=== PATIENT | male | born 1965 | race Caucasian/White ===

== ENCOUNTER 2021-06-08 12:42 | Emergency (ER) | payer MEDICAID ==
--- NOTE | 2021-06-08 18:08 | ER ---
Nurse's Notes [facility] Name: Amador Cosme Age: 55 yrs Sex: Male : 1965 Arrival Date: 06/08/2021 Time: 12:44 Bed 12 Private MD: Diagnosis: Presentation: 06/08 12:48 Chief complaint: Patient states: Was exposed to someone with COVID. No symptoms. kg Coronavirus screen: Client denies travel out of the [place] in the last 14 days. At this time, unable to obtain information related to travel outside the [place] At this time, the client does not indicate any symptoms associated with coronavirus-19. 12:48 Method Of Arrival: Ambulatory kg 12:49 Ebola Screen: Patient negative for fever greater than or equal to 101.5 degrees kg Fahrenheit, and additional compatible Ebola Virus Disease symptoms Patient denies exposure to infectious person. Patient denies travel to an Ebola-affected area in the 21 days before illness onset. Initial Sepsis Screen: Does the patient meet any 2 criteria? No. Patient's initial sepsis screen is negative. Does the patient have a suspected source of infection? No. Patient's initial sepsis screen is negative. Risk Assessment: Do you want to hurt yourself or someone else? Patient reports no desire to harm self or others. 12:49 Acuity: DAO 5 kg Triage Assessment: 12:50 General: Appears in no apparent distress. Behavior is calm, cooperative, appropriate kg for age, quiet. Pain: Denies pain. Historical: - Allergies: 12:50 TETRACYCLINES; kg 12:50 Prednisone; kg - Home Meds: 12:50 lisinopril Oral [Active]; Humalog Sub-Q [Active]; long acting insulin- unsure of type kg [Active]; - PMHx: 12:50 NIDDM; Hypertensive disorder; Dementia; Pancreatitis; Cirrhosis of liver; kg - PSHx: 12:50 eye sx; kg - Immunization history:: Adult Immunizations up to date, Client reports having NOT received the Covid vaccine. - Social history:: Smoking status: Patient reports the use of cigarette tobacco products, smokes one-half pack cigarettes per day, Patient uses alcohol, on a daily basis. Screenin:53 Abuse screen: Denies threats or abuse. Denies injuries from another. Nutritional kg screening: No deficits noted. Tuberculosis screening: No symptoms or risk factors identified. Fall Risk None identified. Assessment: 14:12 Reassessment: Called to exam room. No answer. Unable to locate patient. Attempted to ss call number on file, but was not a working number. 14:12 Reassessment: Pt was seen by registration staff going outside to go smoke and never ss returned. Vital Signs: 12:49 BP 141 / 95; Pulse 114; Resp 20; Temp 98.1(TE); Pulse Ox 99% ; Weight 72.57 kg (R); kg Height 5 ft. 7 in. (170.18 cm); Pain 0/10; 12:49 Body Mass Index 25.06 (72.57 kg, 170.18 cm) kg ED Course: 12:44 Patient arrived in ED. mr 12:50 Triage completed. kg 12:50 Arm band placed on right wrist. kg 12:53 Patient has correct armband on for positive identification. kg 14:09 [facility] wilbert 14:09 Cristian Bateman MD is Attending Physician. wilbert Administered Medications: No medications were administered Outcome: 14:14 Eloped ss 14:14 Condition: unchanged 14:20 Patient left the ED. ss Signatures: Kg Kenney PA PA jmm Rivera, Mary mr Angela Brown, RN RN Marisela Colbert, CLARI RN kg
[2021-06-09 21:45] VITALS: BP 141/95; TEMP 98.1; O2SAT 99
== END 2021-06-08 14:20 | disposition left against medical advice (07) ==
LOC: ER 12:42
DX: Z20.822 Contact with and (suspected) exposure to COVID-19 (principal); E11.9 Type 2 diabetes mellitus without complications; I10 Essential (primary) hypertension; F03.90 Unspecified dementia, unspecified severity, without behavioral disturbance, psychotic disturbance, mood disturbance, and anxiety; K74.60 Unspecified cirrhosis of liver; Z79.4 Long term (current) use of insulin; F17.210 Nicotine dependence, cigarettes, uncomplicated; Z53.29 Procedure and treatment not carried out because of patient's decision for other reasons
CPT/HCPCS: U0003

== ENCOUNTER 2021-09-06 16:49 | Emergency (ER) | payer OTHER ==
--- NOTE | 2021-09-06 17:04 | EDPHYS ---
Physician Documentation [facility] Name: Amador Cosme Age: 55 yrs Sex: Male : 1965 Arrival Date: 09/06/2021 Time: 16:54 Bed 8 Private MD: ED Physician Dorota Juarez HPI: 09/06 16:58 This 55 yrs old Male presents to ER via EMS with complaints of Abscess. sp3 16:58 55-year-old male with a history of diabetes, chronic pancreatitis who presents with a sp3 left posterior forearm abscess that was found today. Patient initially thought that he had a snakebite but later states that he does not believe that was the case. Patient denies fever, headache, chest pain, shortness of breath, abdominal pain, nausea, vomiting, diarrhea, syncope, neuro symptoms, any other symptoms at this time. Remainder of ROS is negative. Patient states that he has mild swelling in his left axilla at his lymph nodes over the last 24 hours.. Historical: - Allergies: 16:56 Prednisone; jl7 16:56 TETRACYCLINES; jl7 - Home Meds: 16:56 Humalog Sub-Q [Active]; lisinopril Oral [Active]; long acting insulin- unsure of type jl7 [Active]; - PMHx: 16:56 cirrhosis of liver; Dementia; Hypertensive disorder; NIDDM; Pancreatitis; jl7 - PSHx: 16:56 eye sx; jl7 - Immunization history:: Adult Immunizations not up to date, Client reports having NOT received the Covid vaccine. Last tetanus immunization: < 5 years ago. - Social history:: Smoking status: Patient reports the use of cigarette tobacco products. ROS: 17:01 Constitutional: Negative for fever, chills, and weight loss, Eyes: Negative for injury, sp3 pain, redness, and discharge, ENT: Negative for injury, pain, and discharge, Neck: Negative for injury, pain, and swelling, Cardiovascular: Negative for chest pain, palpitations, and edema, Respiratory: Negative for shortness of breath, cough, wheezing, and pleuritic chest pain, Abdomen/GI: Negative for abdominal pain, nausea, vomiting, diarrhea, and constipation, Back: Negative for injury and pain, Neuro: Negative for headache, weakness, numbness, tingling, and seizure. 17:01 All other systems are negative. Exam: 17:01 Constitutional: This is a well developed, well nourished patient who is awake, alert, sp3 and in no acute distress. Head/Face: Normocephalic, atraumatic. Eyes: Pupils equal round and reactive to light, extra-ocular motions intact. Lids and lashes normal. Conjunctiva and sclera are non-icteric and not injected. Cornea within normal limits. Periorbital areas with no swelling, redness, or edema. ENT: Nares patent. No nasal discharge, no septal abnormalities noted. External auditory canals are clear. Oropharynx with no redness, swelling, or masses, exudates, or evidence of obstruction, uvula midline. Mucous membranes moist. Neck: Trachea midline, no thyromegaly or masses palpated, and no cervical lymphadenopathy. Supple, full range of motion without nuchal rigidity, or vertebral point tenderness. No Meningismus. Chest/axilla: Normal chest wall appearance and motion. Nontender with no deformity. No lesions are appreciated. Cardiovascular: Regular rate and rhythm with a normal S1 and S2. No gallops, murmurs, or rubs. Normal PMI, no JVD. No pulse deficits. Respiratory: Lungs have equal breath sounds bilaterally, clear to auscultation and percussion. No rales, rhonchi or wheezes noted. No increased work of breathing, no retractions or nasal flaring. Abdomen/GI: Soft, non-tender, with normal bowel sounds. No distension or tympany. No guarding or rebound. No evidence of tenderness throughout. Neuro: Awake and alert, GCS 15, oriented to person, place, time, and situation. Cranial nerves II-XII grossly intact. Motor strength 5/5 in all extremities. Sensory grossly intact. Cerebellar exam normal. Normal gait. Psych: Awake, alert, with orientation to person, place and time. Behavior, mood, and affect are within normal limits. 17:01 Skin: Patient has a 1 cm x 2 cm area of mild erythema and 1 cm x 1 cm area of early abscess without fluctuance. There is no streaking. Very mild lymphadenopathy in the left axilla is noted. No cervical lymphadenopathy. Patient is afebrile and has normal vital signs.. Vital Signs: 16:54 BP 142 / 87; Pulse 95; Resp 17; Temp 98.7; Pulse Ox 100% on R/A; Weight 70.31 kg; jl7 Height 5 ft. 7 in. (170.18 cm); 16:54 Body Mass Index 24.28 (70.31 kg, 170.18 cm) 7 MDM: 16:58 Patient medically screened. sp3 17:02 Data reviewed: vital signs, nurses notes, EMS record. ED course: Patient with likely sp3 cutaneous abscess and early cellulitis. Will discharge patient home on Bactrim DS for 10 days with PCP follow-up. Patient does not have subcutaneous air, necrosis, sepsis, shock, any other critical finding at this time. Given normal vital signs and mild cutaneous findings, p.o. antibiotics with agent of choice. No other work-up indicated at this time.. Administered Medications: No medications were administered Disposition Summary: 09/06/21 17:03 Discharge Ordered Location: Home sp3 Condition: Stable sp3 Diagnosis - Cutaneous abscess of left upper limb sp3 Followup: sp3 - With: Private Physician - When: 2 - 3 days - Reason: Recheck today's complaints Discharge Instructions: - Discharge Summary Sheet sp3 - Skin Abscess, [id number] sp3 Forms: - Medication Reconciliation Form sp3 - Thank You Letter sp3 - Antibiotic Education sp3 - Prescription Opioid Use sp3 Prescriptions: - Ointment Tube - Apply to affected area 1 application by TOPICAL route 2-3 times daily for 7 sp3 days; 1 Each; Refills: 0, Product Selection Permitted - Bactrim DS 800-160 mg Oral Tablet - take 1 tablet by ORAL route every 12 hours for 10 days; 20 tablet; Refills: 0, sp3 Product Selection Permitted Signatures: Stevo Borges RN RN jl7 Dorota Juarez MD MD sp3
--- NOTE | 2021-09-06 17:04 | ER ---
Nurse's Notes [facility] Name: Amador Cosme Age: 55 yrs Sex: Male : 1965 Arrival Date: 09/06/2021 Time: 16:54 Bed 8 Private MD: Diagnosis: Cutaneous abscess of left upper limb Presentation: 09/06 16:54 Chief complaint: EMS states: Toned out for possible snake bite. Abscess to left jl7 forearm, swelling since this morning. Coronavirus screen: At this time, the client does not indicate any symptoms associated with coronavirus-19. Ebola Screen: No symptoms or risks identified at this time. Initial Sepsis Screen: Does the patient meet any 2 criteria? No. Patient's initial sepsis screen is negative. Does the patient have a suspected source of infection? No. Patient's initial sepsis screen is negative. Risk Assessment: Do you want to hurt yourself or someone else? Patient reports no desire to harm self or others. Onset of symptoms was September 06, 2021. Care prior to arrival: None. 16:54 Method Of Arrival: EMS: [facility] 16:54 Acuity: DAO 4 jl7 Triage Assessment: 16:56 General: Appears in no apparent distress. uncomfortable, Behavior is calm, cooperative, jl7 appropriate for age. Pain: Complains of pain in palmar aspect of left forearm. Neuro: Level of Consciousness is awake, alert, obeys commands, Oriented to person, place, time, situation. Cardiovascular: Patient's skin is warm and dry. Respiratory: Airway is patent Respiratory effort is even, unlabored, Respiratory pattern is regular, symmetrical. Derm: Skin is pink, warm \T\ dry. Abscess located on palmar aspect of left forearm is quarter sized, is red, is raised, was lanced by patient prior to arrival. Historical: - Allergies: 16:56 Prednisone; jl7 16:56 TETRACYCLINES; jl7 - Home Meds: 16:56 Humalog Sub-Q [Active]; lisinopril Oral [Active]; long acting insulin- unsure of type jl7 [Active]; - PMHx: 16:56 cirrhosis of liver; Dementia; Hypertensive disorder; NIDDM; Pancreatitis; jl7 - PSHx: 16:56 eye sx; jl7 - Immunization history:: Adult Immunizations not up to date, Client reports having NOT received the Covid vaccine. Last tetanus immunization: < 5 years ago. - Social history:: Smoking status: Patient reports the use of cigarette tobacco products. Screenin:59 Abuse screen: Denies threats or abuse. Denies injuries from another. Nutritional jl7 screening: No deficits noted. Tuberculosis screening: No symptoms or risk factors identified. Fall Risk None identified. Assessment: 16:59 General: see triage. jl7 Vital Signs: 16:54 BP 142 / 87; Pulse 95; Resp 17; Temp 98.7; Pulse Ox 100% on R/A; Weight 70.31 kg; jl7 Height 5 ft. 7 in. (170.18 cm); 16:54 Body Mass Index 24.28 (70.31 kg, 170.18 cm) jl7 ED Course: 16:54 Patient arrived in ED. 7 16:54 Dorota Juarez MD is Attending Physician. sp3 16:56 Triage completed. jl7 16:56 Arm band placed on right wrist. jl7 16:59 Patient has correct armband on for positive identification. Bed in low position. Call jl7 light in reach. Side rails up X 1. Pulse ox on. NIBP on. 17:14 No provider procedures requiring assistance completed. Patient did not have IV access jl7 during this emergency room visit. 17:14 Wound care: to Abscess located on palmar aspect of left forearm was cleaned with 7 Hibiclens, dressed with Neosporin, 4X4s, Patient tolerated well. Administered Medications: No medications were administered Outcome: 17:03 Discharge ordered by . sp3 17:13 Discharged to home ambulatory. jl7 17:13 Condition: stable 17:13 Discharge instructions given to patient, Instructed on discharge instructions, follow up and referral plans. medication usage, Demonstrated understanding of instructions, follow-up care, medications, Prescriptions given X 1. 17:15 Patient left the ED. 7 Signatures: Stevo Borges RN RN jl7 Dorota Juarez MD MD sp3 Corrections: (The following items were deleted from the chart) 16:59 16:54 Chief complaint: EMS states: Abscess to left forearm, swelling since this morning 7 jl7
[2021-09-06 17:23] VITALS: BP 142/87; TEMP 98.7; O2SAT 100
== END 2021-09-06 17:15 | disposition home or self-care (01) ==
LOC: ER 16:49
DX: L02.414 Cutaneous abscess of left upper limb (principal); E11.9 Type 2 diabetes mellitus without complications; K85.90 Acute pancreatitis without necrosis or infection, unspecified; Z88.3 Allergy status to other anti-infective agents; F17.210 Nicotine dependence, cigarettes, uncomplicated
CPT/HCPCS: 99284

== ENCOUNTER 2021-09-06 19:04 | Emergency (ER) | payer OTHER ==
--- NOTE | 2021-09-06 20:11 | ER ---
Nurse's Notes [facility] Name: Amador Cosme Age: 55 yrs Sex: Male : 1965 Arrival Date: 09/06/2021 Time: 19:06 Bed External Waiting Private MD: Diagnosis: Assessment: 09/06 19:32 Reassessment: Called for triage - no answer. aa5 19:52 Reassessment: Called for triage x 2 - no answer. aa5 20:09 Reassessment: Called for triage x 3 - no answer. sj1 ED Course: 19:06 Patient arrived in ED. as 20:10 Patient's name was called from ER lobby. No response. Unable to locate patient. Will bb disposition as left without being seen by a provider. Administered Medications: No medications were administered Outcome: 20:10 Patient left the ED. bb Signatures: Ayde Bundy Brenda, RN RN bb Babs Escalera, RN RN aa5 Kellee Ness RN RN sj1
== END 2021-09-06 20:10 | disposition left against medical advice (07) ==
LOC: ER 19:04
DX: Z53.21 Procedure and treatment not carried out due to patient leaving prior to being seen by health care provider (principal)

== ENCOUNTER 2021-10-30 03:57 | Inpatient (IN) | payer OTHER ==
[2021-10-30] MEDS ORDERED: NA CHLORIDE 0.9% 1,000 ML ONE ×2 (04:18→06:24)
[2021-10-30 04:29] LABS: Urine Blood Trace-intact (Negative); Urine Glucose 3+ (Negative); Urine Protein Negative (Negative); Urine Specific Gravity <=1.005 (1.005-1.030); Urine pH 5.5 (5.0-7.0)
[2021-10-30 04:49] LABS: Barbiturates NEGATIVE (NEGATIVE); Benzodiazepines NEGATIVE (NEGATIVE); Cocaine NEGATIVE (NEGATIVE); METHAMPHETAM NEGATIVE (NEGATIVE); Methadone NEGATIVE (NEGATIVE); Opiates NEGATIVE (NEGATIVE); Phencyclidine NEGATIVE (NEGATIVE); THC Cannibis NEGATIVE (NEGATIVE)
[2021-10-30 05:25] LABS: Protime INR 1.02
[2021-10-30 05:37] LABS: ALT/SGPT 64 U/L (12-78); AST/SGOT 45 U/L (15-37); Albumin 2.4 g/dL (3.4-5.0); Alkaline Phosphatase 161 U/L (45-117); BUN Blood Urea Nitrogen 16 mg/dL (7-18); Bicarbonate 20 mmol/L (21-32); Bilirubin Direct 0.5 mg/dL (0-0.2); Bilirubin Total 1.1 mg/dL (0.2-1.0); Lipase 321 U/L (73-393); Potassium 4.3 mmol/L (3.5-5.1); Protein, Total 6.7 g/dL (6.4-8.2); Sodium Level 135 mmol/L (136-145)
[2021-10-30 05:40] LABS: Glucose Level 521 mg/dL (74-106)
[2021-10-30 05:49] LABS: Absolute Lymphocytes (CBC) 0.8 K/uL (0.7-4.9); Basophils % 0.6 % (0-1.3); Hematocrit 36.8 % (39.6-49.0); MPV 7.5 fL (7.6-11.3); RBC Red Blood Cell Count 3.64 M/uL (4.33-5.43)
[2021-10-30 06:10] LABS: Platelet Estimate DECR; White Blood Cell Scan OK (OK)
[2021-10-30 06:11] LABS: Anisocytosis 1+; Blood Morphology Comment NOTED (NOT SEEN); Hypochromasia 1+; Platelets, Giant OCC
[2021-10-30 06:22] LABS: Arterial Blood Carboxyhemoglob 3.2 % (0-1.5); Blood Gas Oxyhemoglobin 92.3 % (94-97); Blood O2 Saturation 96.6 % (92-98.5)
[2021-10-30] MEDS ORDERED: LACTULOSE 20 GM/30 ML UCUP ONE (06:24)
[2021-10-30] MEDS ORDERED: INSULIN -REGULAR HUMAN 50 UNIT/0.5 ML ML ONE ×2 (06:24→06:46)
--- NOTE | 2021-10-30 06:32 | ER ---
Nurse's Notes [facility] Name: Amador Cosme Age: 55 yrs Sex: Male : 1965 Arrival Date: 10/30/2021 Time: 04:04 Bed 3 Private MD: Diagnosis: Hepatic Encephalopathy;Diabetic Ketoacidosis Presentation: 10/30 04:05 Chief complaint: EMS states: Patient states that he started to " Feel like his ammonia tw5 level was rising." Patient had a couple of beers today when he started feeling weird. His blood sugar was high so we brought him in. He has a history of liver disease. Coronavirus screen: Vaccine status:. 04:05 Method Of Arrival: EMS: [facility] tw5 04:57 Ebola Screen: Patient negative for fever greater than or equal to 101.5 degrees tw5 Fahrenheit, and additional compatible Ebola Virus Disease symptoms Patient denies exposure to infectious person. Patient denies travel to an Ebola-affected area in the 21 days before illness onset. Initial Sepsis Screen: Does the patient meet any 2 criteria? No. Patient's initial sepsis screen is negative. Does the patient have a suspected source of infection? No. Patient's initial sepsis screen is negative. Risk Assessment: Do you want to hurt yourself or someone else? Patient reports no desire to harm self or others. Onset of symptoms is unknown. 04:57 Acuity: DAO 3 tw5 Triage Assessment: 04:50 General: Appears in no apparent distress. Behavior is calm, cooperative, drowsy. Pain: tw5 Complains of pain in back Pain currently is 9 out of 10 on a pain scale. Historical: - Allergies: 04:50 Prednisone; tw5 04:50 TETRACYCLINES; tw5 - Home Meds: 04:50 lisinopril 10 mg oral tab [Active]; Humalog 30 unit Sub-Q [Active]; Lantus U-100 tw5 Insulin 30 unit Sub-Q crtg [Active]; - PMHx: 04:50 cirrhosis of liver; Dementia; Hypertensive disorder; NIDDM; Pancreatitis; tw5 - PSHx: 04:50 eye sx; tw5 - Immunization history:: Client reports having NOT received the Covid vaccine. - Social history:: Smoking status: Patient reports the use of cigarette tobacco products, smokes one-half pack cigarettes per day, Patient uses alcohol, on a daily basis. admits to "couple of beers" a day. Screenin:53 Abuse screen: Denies threats or abuse. Denies injuries from another. Nutritional tw5 screening: No deficits noted. Tuberculosis screening: No symptoms or risk factors identified. Fall Risk Fall in past 12 months (25 points). Secondary diagnosis (15 points) Assessment: 04:53 General: Appears in no apparent distress. Behavior is cooperative, drowsy. General: tw5 Reports " I would really like something for pain medication. I fell down my stairs when the EMS was coming. My tailbone hit every step. Neuro: Level of Consciousness is awake, alert, obeys commands, Oriented to person, place, time, situation. Respiratory: Airway is patent Trachea midline Respiratory effort is even, unlabored. : Urine is clear. 04:53 Derm: Skin with poor turgor tough skin. tw5 06:32 Reassessment: Patient is requesting pain medication, food, and socks at this time. tw5 Nursing staff stated socks can be provided. They would ask about food and pain medication. Pain: Pain currently is 8 out of 10 on a pain scale. Cardiovascular: Heart tones S1 S2 present. GI: Abdomen is round noted to have ascites. 08:15 Reassessment: Dr. Shepherd at bedside. jl7 Psych: 04:56 [place] Suicide Severity Screening: In the past month, have you wished you were tw5 or wished you could go to sleep and not wake up? Patient responds "yes." "In the past month, have you actually had any thoughts of killing yourself?" Patient responds "yes." "In your lifetime, have you ever done anything, started to do anything, or prepared to do anything to end your life?" Patient responds "yes.". Subjective: Having thoughts of suicide. Denies suicidal plan. Objective: Patient is cooperative, restless, Speech is slurred. Interventions: Patient placed in hospital gown. Searched person for dangerous items. Urine collected and sent for urine drug test. Safety Checks: Personal items have been removed. Patient uses 1-5 cans. 09:51 Commitment: pt denies plan. jl7 Vital Signs: 04:04 BP 153 / 98; Pulse 94; Resp 18; Temp 97.7; Pulse Ox 100% on R/A; oe 04:50 BP 147 / 89; Pulse 91; Resp 18; Pulse Ox 99% on R/A; Weight 68.04 kg; Height 5 ft. 7 tw5 in. (170.18 cm); 06:32 BP 152 / 92; Pulse 98; Resp 16; Pulse Ox 99% on R/A; Pain 8/10; tw5 08:15 BP 133 / 80; Pulse 97; Resp 15; Pulse Ox 97% ; jl7 04:50 Body Mass Index 23.49 (68.04 kg, 170.18 cm) tw5 ED Course: 04:04 Patient arrived in ED. oe 04:05 Leticia Little is Primary Nurse. tw5 04:08 Zafar Miles MD is Attending Physician. mh7 04:50 Arm band placed on. EKG completed in triage. Results shown to MD. tw5 04:53 Patient has correct armband on for positive identification. Placed in gown. Bed in low tw5 position. Call light in reach. Side rails up X 1. tutoring manager on. Pulse ox on. NIBP on. Door closed. Noise minimized. Moved to private room. Warm blanket given. Verbal reassurance given. 04:53 Missed attempt(s): 20 gauge x 3. Bleeding controlled, band aid applied, catheter tip tw5 intact. 04:58 Triage completed. tw5 05:05 Inserted saline lock: 22 gauge in left hand, using aseptic technique. Blood collected. oe 05:06 Acetaminophen Sent. tw5 05:06 ETOH Level Sent. tw5 05:06 PT-INR Sent. tw5 05:06 Ptt, Activated Sent. tw5 05:06 Salicylate Sent. tw5 05:06 Lipase Sent. tw5 05:06 Liver (Hepatic) Function Sent. tw5 05:06 Basic Metabolic Panel Sent. tw5 05:06 AMMONIA Sent. tw5 05:06 Basic Metabolic Panel Sent. tw5 05:06 Hepatic Function Sent. tw5 05:06 Lipase Sent. tw5 05:06 CBC with Diff Sent. tw5 05:40 Notified ED physician of a critical lab result(s). Glucose 521. lp1 06:31 Yanna Shepherd MD is Hospitalizing Provider. mh7 06:55 Chest Single View XRAY In Process Unspecified. EDMS 08:00 Inserted saline lock: 22 gauge in right wrist, using aseptic technique. jl7 09:50 No provider procedures requiring assistance completed. Patient admitted, IV remains in jl7 place. intact, No redness/swelling at site. Administered Medications: 05:06 Drug: NS 0.9% 1000 ml Route: IV; Rate: 1000 ml; Site: left hand; tw 06:31 Follow up: Response: No adverse reaction; IV Status: Completed infusion tw5 08:14 Follow up: IV Intake: 1000ml jl7 06:30 Drug: Insulin Regular Human 10 units {Co-Signature: bb (Winifred Benson RN).} Route: tw5 IVP; Site: left hand; 07:45 Follow up: Response: No adverse reaction; Blood sugar is lowered jl7 06:30 Drug: Lactulose 20 grams Volume: 30 ml; Route: PO; tw 08:14 Follow up: Response: No adverse reaction 06:31 Drug: NS 0.9% 1000 ml Route: IV; Rate: 1000 ml; Site: left hand; 08:30 Follow up: IV Status: Completed infusion; Order to discontinue infusion; IV Intake: jl7 500ml 06:44 Drug: Insulin Drip - (Insulin Regular Human 100 units, NS 0.9% 100 ml) {Co-Signature: lp (Raven Orlando RN).} Route: IV; Rate: calculated rate; Site: left hand; 08:15 Follow up: IV Status: Infusion continued upon admission jl7 Intake: 08:14 IV: 1000ml; Total: 1000ml. jl7 08:30 IV: 500ml; Total: 1500ml. 7 Outcome: 06:32 Decision to Hospitalize by Provider. [facility] 09:51 Admitted to ER Hold. Please see [facility] for further documentation. 7 09:51 Condition: stable 09:51 Discharge instructions given to patient, Instructed on the need for admit, Demonstrated understanding of instructions. 10:27 Admitted to ICU accompanied by nurse, via stretcher, room 2, on monitor, with chart, jl Report called to CLARI Dexter 10:59 Patient left the ED. [facility] Signatures: Dispatcher [employer] Raven Sanchez RN RN lp1 Ariel Silverman Jahala, RN RN jl7 Zafar Miles MD MD 7 Leticia Little tw5 Winifred Benson RN bb Raven Orlando RN lp1 Corrections: (The following items were deleted from the chart) 09:53 08:00 Inserted saline lock: 20 gauge in right wrist, using aseptic technique. jl7 jl7
--- NOTE | 2021-10-30 06:32 | EDPHYS ---
Physician Documentation [facility] Name: Amador Cosme Age: 55 yrs Sex: Male : 1965 Arrival Date: 10/30/2021 Time: 04:04 Bed 3 Private MD: ED Physician Zafar Miles HPI: 10/30 04:30 This 55 yrs old Male presents to ER via EMS with complaints of Elevated blood sugar.. mh7 04:30 The patient or guardian reports hyperglycemia. Onset: The symptoms/episode mh7 began/occurred today. Associated signs and symptoms: Pertinent positives: anorexia, nausea, Pertinent negatives: constipation, decreased urine output, diaphoresis, diarrhea, dry skin, hair loss, polydipsia, polyphagia, polyuria, seizure activity, skin flushing, urinary incontinence, vomiting. Current symptoms: In the emergency department the patient's symptoms are unchanged from the initial presentation. 04:32 According to EMS patient called stating that he felt like his ammonia level was mh7 elevated. He admits to drinking alcohol last night. Denies any headache, chest pain, abdominal pain, shortness of breath, vomiting, diarrhea, dysuria, numbness/tingling, dizziness, or weakness. EMS noted that his blood glucose level had a reading of high on glucometer.. Historical: - Allergies: 04:50 Prednisone; tw5 04:50 TETRACYCLINES; tw5 - Home Meds: 04:50 lisinopril 10 mg oral tab [Active]; Humalog 30 unit Sub-Q [Active]; Lantus U-100 tw5 Insulin 30 unit Sub-Q crtg [Active]; - PMHx: 04:50 cirrhosis of liver; Dementia; Hypertensive disorder; NIDDM; Pancreatitis; tw5 - PSHx: 04:50 eye sx; tw5 - Immunization history:: Client reports having NOT received the Covid vaccine. - Social history:: Smoking status: Patient reports the use of cigarette tobacco products, smokes one-half pack cigarettes per day, Patient uses alcohol, on a daily basis. admits to "couple of beers" a day. ROS: 04:32 Constitutional: Negative for fever, chills, and weight loss, Eyes: Negative for injury, mh7 pain, redness, and discharge, ENT: Negative for injury, pain, and discharge, Neck: Negative for injury, pain, and swelling, Cardiovascular: Negative for chest pain, palpitations, and edema, Respiratory: Negative for shortness of breath, cough, wheezing, and pleuritic chest pain, Back: Negative for injury and pain, : Negative for injury, bleeding, discharge, and swelling, MS/Extremity: Negative for injury and deformity, Skin: Negative for injury, rash, and discoloration, Neuro: Negative for headache, weakness, numbness, tingling, and seizure, Psych: Negative for depression, anxiety, suicide ideation, homicidal ideation, and hallucinations, Allergy/Immunology: Negative for hives, rash, and allergies, Hematologic/Lymphatic: Negative for swollen nodes, abnormal bleeding, and unusual bruising. Exam: 04:32 Head/Face: Normocephalic, atraumatic. Neck: Trachea midline, no thyromegaly or masses mh7 palpated, and no cervical lymphadenopathy. Supple, full range of motion without nuchal rigidity, or vertebral point tenderness. No Meningismus. Chest/axilla: Normal chest wall appearance and motion. Nontender with no deformity. No lesions are appreciated. Cardiovascular: Regular rate and rhythm with a normal S1 and S2. No gallops, murmurs, or rubs. Normal PMI, no JVD. No pulse deficits. Respiratory: Lungs have equal breath sounds bilaterally, clear to auscultation and percussion. No rales, rhonchi or wheezes noted. No increased work of breathing, no retractions or nasal flaring. Back: No spinal tenderness. No costovertebral tenderness. Full range of motion. Skin: Warm, dry with normal turgor. Normal color with no rashes, no lesions, and no evidence of cellulitis. MS/ Extremity: Pulses equal, no cyanosis. Neurovascular intact. Full, normal range of motion. Neuro: Awake and alert, GCS 15, oriented to person, place, time, and situation. Cranial nerves II-XII grossly intact. Motor strength 5/5 in all extremities. Sensory grossly intact. Cerebellar exam normal. Normal gait. Psych: Awake, alert, with orientation to person, place and time. Behavior, mood, and affect are within normal limits. 04:32 Constitutional: The patient appears in no acute distress, alert, awake, Appears intoxicated 04:32 Abdomen/GI: Inspection: distension, that is mild, Bowel sounds: normal, in all 7 quadrants, Palpation: nontender, in all quadrants, Rectal exam: the exam is deferred, because of patient request, Indicators: McBurney's point is not tender, Gonzalez's sign is negative, Rovsing's sign is negative, Obturator sign is negative, Psoas sign is negative, Liver: is enlarged, Hernia: noted in the umbilical area, tenderness, is not appreciated. Vital Signs: 04:04 BP 153 / 98; Pulse 94; Resp 18; Temp 97.7; Pulse Ox 100% on R/A; oe 04:50 BP 147 / 89; Pulse 91; Resp 18; Pulse Ox 99% on R/A; Weight 68.04 kg; Height 5 ft. 7 tw5 in. (170.18 cm); 06:32 BP 152 / 92; Pulse 98; Resp 16; Pulse Ox 99% on R/A; Pain 8/10; tw5 08:15 BP 133 / 80; Pulse 97; Resp 15; Pulse Ox 97% ; jl7 04:50 Body Mass Index 23.49 (68.04 kg, 170.18 cm) tw5 MDM: 06:30 Differential diagnosis: DKA, hyperglycemia, Hepatic encephalopathy, alcohol mh7 intoxication, substance abuse. Data reviewed: vital signs, nurses notes, EMS record, old medical records, lab test result(s), CBC, drug level(s), acetaminophen, alcohol, salicylate, electrolytes, urinalysis, urine drug screen, EKG. Data interpreted: Pulse oximetry: on room air is 99 %. Interpretation: normal. Counseling: I had a detailed discussion with the patient and/or guardian regarding: the historical points, exam findings, and any diagnostic results supporting the discharge/admit diagnosis, the presence of at least one elevated blood pressure reading (>120/80) during this emergency department visit, lab results, the need for further work-up and treatment in the hospital. Response to treatment: the patient's symptoms have mildly improved after treatment. 06:32 Patient medically screened. [facility] 10/30 04:08 Order name: Basic Metabolic Panel [facility] 10/30 04:08 Order name: CBC with Diff; Complete Time: 06:28 [facility] 10/30 04:08 Order name: Hepatic Function tw 10/30 04:08 Order name: Lipase tw 10/30 04:08 Order name: AMMONIA; Complete Time: 06:04 [facility] 10/30 04:08 Order name: Basic Metabolic Panel; Complete Time: 06:04 [facility] 10/30 04:09 Order name: Liver (Hepatic) Function; Complete Time: 06:04 [facility] 10/30 04:09 Order name: Lipase; Complete Time: 06:04 [facility] 10/30 04:11 Order name: Acetaminophen; Complete Time: 06:04 [facility] 10/30 04:11 Order name: ETOH Level; Complete Time: 06:04 [facility] 10/30 04:11 Order name: PT-INR; Complete Time: 06:04 [facility] 10/30 04:11 Order name: Ptt, Activated; Complete Time: 06:04 [facility] 10/30 04:11 Order name: Salicylate; Complete Time: 06:04 [facility] 10/30 04:11 Order name: Urine Drug Screen; Complete Time: 05:22 [facility] 10/30 04:15 Order name: Glucose, Ancillary Testing; Complete Time: 05:22 [facility] 10/30 04:28 Order name: Urine Dipstick-Ancillary; Complete Time: 05:22 [facility] 10/30 05:23 Order name: Ketone, Serum; Complete Time: 06:04 [facility] 10/30 05:52 Order name: CBC Smear Scan; Complete Time: 06:28 [facility] 10/30 06:05 Order name: Arterial Blood Gas; Complete Time: 06:28 [facility] 10/30 06:33 Order name: Troponin (emerg Dept Use Only) [facility] 10/30 07:44 Order name: Glucose, Ancillary Testing [facility] 10/30 07:59 Order name: COVID-19 SARS RT PCR (Document "Date of Onset" if Symptomatic) [facility] 10/30 08:39 Order name: Ammonia EDMS 10/30 08:39 Order name: Ammonia EDMS 10/30 08:39 Order name: Ammonia EDMS 10/30 08:39 Order name: CBC with Automated Diff EDMS 10/30 08:39 Order name: CBC with Automated Diff EDMS 10/30 08:39 Order name: Comprehensive Metabolic Panel [facility] 10/30 08:39 Order name: Comprehensive Metabolic Panel [facility] 10/30 09:02 Order name: Glucose, Ancillary Testing [facility] 10/30 04:08 Order name: IV Saline Lock; Complete Time: 05:06 [facility] 10/30 04:08 Order name: Labs collected and sent; Complete Time: 05:06 [facility] 10/30 04:11 Order name: EKG; Complete Time: 04:12 [facility] 10/30 04:11 Order name: EKG - Nurse/Tech; Complete Time: 04:55 [facility] 10/30 04:11 Order name: Suicide Screening ([place]); Complete Time: 04:55 [facility] 10/30 04:11 Order name: Urine Dipstick-Ancillary (obtain specimen); Complete Time: 04:55 [facility] 10/30 06:33 Order name: Chest Single View XRAY [facility] 10/30 08:39 Order name: 60g Consistent Carbohydrate (ADA 1800/1999) EDMS 10/30 10:18 Order name: Glucose, Ancillary Testing EDMS Administered Medications: 05:06 Drug: NS 0.9% 1000 ml Route: IV; Rate: 1000 ml; Site: left hand; 06:31 Follow up: Response: No adverse reaction; IV Status: Completed infusion 08:14 Follow up: IV Intake: 1000ml 06:30 Drug: Insulin Regular Human 10 units {Co-Signature: bb (Winifred Benson RN).} Route: IVP; Site: left hand; 07:45 Follow up: Response: No adverse reaction; Blood sugar is lowered 06:30 Drug: Lactulose 20 grams Volume: 30 ml; Route: PO; 08:14 Follow up: Response: No adverse reaction 06:31 Drug: NS 0.9% 1000 ml Route: IV; Rate: 1000 ml; Site: left hand; 08:30 Follow up: IV Status: Completed infusion; Order to discontinue infusion; IV Intake: jl7 500ml 06:44 Drug: Insulin Drip - (Insulin Regular Human 100 units, NS 0.9% 100 ml) {Co-Signature: lp1 (Raven Orlando RN).} Route: IV; Rate: calculated rate; Site: left hand; 08:15 Follow up: IV Status: Infusion continued upon admission jl7 Disposition Summary: 10/30/21 06:32 Hospitalization Ordered Hospitalization Status: Inpatient Admission [facility] Provider: Yanna Shepherd Kalyan Condition: Stable [facility] Problem: an acute exacerbation [facility] Symptoms: have improved [facility] Bed/Room Type: Standard [facility] Location: Intensive Care Unit(10/30/21 10:31) eb Room Assignment: 2-(10/30/21 10:31) eb Diagnosis - Hepatic Encephalopathy mh7 - Diabetic Ketoacidosis [facility] Forms: - Medication Reconciliation Form 7 - SBAR form 7 Signatures: Dispatcher [employer] EDAngela Dee RN RN Lexis Byrne Maurice, MD MD [facility] Leticia Little [facility] Stevo Borges RN jl7 Winifred Benson RN bb Raven Orlando RN lp1 Corrections: (The following items were deleted from the chart) : 06:32 Telemetry/MedSurg (Inpatient) [facility] 09:43 06:32 [facility] : 09:43 [facility] ER HOLD ss eb : 09:43 ERHOLD- ss eb
[2021-10-30] MEDS ORDERED: NA CHLORIDE 0.9% 100 ML ONE (06:46)
[2021-10-30] MEDS ORDERED: ACETAMINOPHEN 500 MG TAB PO PRN (08:35)
[2021-10-30] MEDS ORDERED: ONDANSETRON 4 MG/2 ML VIAL IV PRN (08:35)
[2021-10-30] MEDS ORDERED: HYDRALAZINE HCL 20 MG/ML VIAL IV PRN (08:36)
[2021-10-30] MEDS ORDERED: LORAZEPAM 0.5 MG TABLET PO PRN (08:36)
[2021-10-30] MEDS: FAMOTIDINE 20 MG TAB PO SCH ×2 (09:00→21:31)
[2021-10-30] MEDS: NICOTINE 21 MG/PAT TD SCH (09:00)
[2021-10-30] MEDS ORDERED: HEPARIN 5000 UNIT/ML 1 ML VIAL SQ SCH (09:00)
[2021-10-30] MEDS ORDERED: Ringers Lactate 1,000 ML IV SCH ×2 (09:00→11:01)
--- NOTE | 2021-10-30 10:54 | RAD REPORT ---
EXAM DESCRIPTION: RAD - Chest Single View - 10/30/2021 6:55 am CLINICAL HISTORY: CONGESTION Chest pain. COMPARISON: No comparisons FINDINGS: Portable technique limits examination quality. The lungs are grossly clear. The heart is normal in size. No displaced fractures. IMPRESSION: No acute intrathoracic process suspected.
[2021-10-30] MEDS ORDERED: LORAZEPAM 1 MG TABLET PO PRN (10:59)
[2021-10-30] MEDS ORDERED: INSULIN GLARGINE 100 UNIT/ML SQ SCH ×3 (11:00→21:00)
--- NOTE | 2021-10-30 11:09 | P.HP ---
Certification for Inpatient Patient admitted to: Observation With expected LOS: >2 Midnights Patient will require the following post-hospital care: None Practitioner: I am a practitioner with admitting privileges, knowledge of patient current condition, hospital course, and medical plan of care. Services: Services provided to patient in accordance with Admission requirements found in Title 42 Section 412.3 of the Code of Federal Regulations Patient History Date of Service: 10/30/21 Reason for admission: Weakness, History of Present Illness: 55-year-old male with history of chronic alcohol abuse, alcoholic liver cirrhosis, insulin-dependent diabetes mellitus, reported dementia admitted after after feeling weak and states he feels his ammonia level is high. Patient admits to alcohol binge yesterday. He states he took a few beers. He states he is aware he has liver disease. He states he has a paracentesis in the past. He is unsure how much insulin he takes but states he take both NovoLog and Lantus. History he was admitted the 2 months ago by review of records show he was evaluated in the emergency room. On presentation today his glucose was noted elevated at 521, pH of 7.42, anion gap was minimal at 14, ammonia level of 88. Patient states he was previously taking lactulose but have stopped taking NSAIDs over the last 6 months as he was not told he needed to continue the medication. He is complaining of umbilical area hernia and would like some intervention done. He denies any alcohol related seizure history. He was started on a insulin drip as well as normal saline bolus in the emergency room. Repeat glucose now down to 306. Allergies prednisone Allergy (Verified 10/30/21 07:35) Rash Tetracyclines Allergy (Verified 10/30/21 07:35) Rash - Past Medical/Surgical History -: Alcoholic liver cirrhosis -: Hypertension -: Diabetes mellitusinsulin-dependent -: Chronic tobacco use history -: Dementia as per records -: Eye surgery -: Previous paracentesis - Social History Smoking Status: Current every day smoker Counseled patient to stop smoking for: more than 10 minutes Smoking therapy provided: Yes Patient receptive to therapy: Yes Alcohol use: Yes CD- Drugs: No Caffeine use: No Place of Residence: Home Review of Systems 10-point ROS is otherwise unremarkable Physical Examination - Physical Exam General: Alert, In no apparent distress, Oriented x3, Cachectic HEENT: Atraumatic, Normocephalic, PERRLA, Sclerae nonicteric Neck: Supple, 2+ carotid pulse no bruit, JVD not distended Respiratory: Clear to auscultation bilaterally, Normal air movement Cardiovascular: No edema, Normal pulses, Regular rate/rhythm, Normal S1 S2 Capillary refill: <2 Seconds Gastrointestinal: Normal bowel sounds, No tenderness, No masses, Other (Small umbilical hernia), Distended, Ascites Musculoskeletal: No clubbing, No swelling Integumentary: No rashes, No breakdown Neurological: Normal speech, Normal strength at 5/5 x4 extr, Normal tone, Sensation intact, Cranial nerves 3-12 intact - Studies Laboratory Data (last 24 hrs) 10/30/21 05:39: WBC 5.40, Hgb 12.3 L, Hct 36.8 L, Plt Count 89 L 10/30/21 05:00: PT 11.7, INR 1.02, APTT 27.2 10/30/21 05:00: Sodium 135 L, Potassium 4.3, BUN 16, Creatinine 0.83, Glucose 521 H*, Total Bilirubin 1.1 H, AST 45 H, ALT 64, Alkaline Phosphatase 161 H, Lipase 321 Assessment and Plan - Problems (Diagnosis) (1) Hyperglycemia due to type 1 diabetes mellitus Current Visit: Yes Status: Acute (2) Alcoholic cirrhosis of liver with ascites Current Visit: Yes Status: Acute (3) Hyperammonemia Current Visit: Yes Status: Acute - Plan Diabetes mellitus with hyperglycemiathe patient not in DKA as evident with pH of greater than 7. 4 and no anion gap We DC insulin drip Start Levemir 35 units twice daily with insulin sliding scale Accu-Cheks every 6 hours The need for medication adherence discussed with patient Given moderate ascites, will DC normal saline use Hypertensioncontrolled Alcoholic liver cirrhosiswith elevated ammonia level, start lactulose 30 g every 6 hours for now Follow repeat in a.m. Might need discharge with lactulose Need for alcohol cessation discussed We will do Ativan as needed Chronic tobacco use cessation advised, nicotine patch DVT prophylaxiswe will do SCDs, patient have low platelets Advanced directivefull code - Advance Directives Does patient have a Living Will: No Does patient have a Durable POA for Healthcare: No Physician Review: Patient Assessed, Agree with Above Assessment and Plan
[2021-10-30] MEDS: INSULIN -REGULAR HUMAN 50 UNIT/0.5 ML ML SQ SCH ×3 (11:30→21:30)
[2021-10-30] MEDS: LACTULOSE 20 GM/30 ML UCUP PO SCH ×3 (11:37→23:08)
[2021-10-30] MEDS: MORPHINE 2 MG/ML SYR IV PRN ×4 (11:38→23:08)
[2021-10-30 11:50] VITALS: BMI 23.5
[2021-10-30] MEDS ORDERED: INFLUENZA VACCINE (for 6+ mo) 0.5 ML DOSE IMVAC ONE (16:00)
[2021-10-30] MEDS ORDERED: PNEUMOCOCCAL VACCINE 0.5 ML IMVAC ONE (16:00)
[2021-10-30] MEDS: ALBUTEROL 2.5 MG/3 ML NEB SOL NEB PRN (19:50)
[2021-10-31] MEDS: ALBUTEROL 2.5 MG/3 ML NEB SOL NEB PRN ×2 (01:30→19:55)
[2021-10-31] MEDS: MORPHINE 2 MG/ML SYR IV PRN ×5 (04:40→21:58)
[2021-10-31] MEDS: LACTULOSE 20 GM/30 ML UCUP PO SCH ×3 (05:08→17:09)
[2021-10-31 05:19] LABS: Absolute Lymphocytes (CBC) 0.8 K/uL (0.7-4.9); Basophils % 0.9 % (0-1.3); Hematocrit 37.8 % (39.6-49.0); Lymphocytes % 19.3 % (15.3-44.8); MPV 7.3 fL (7.6-11.3); RBC Red Blood Cell Count 3.82 M/uL (4.33-5.43)
[2021-10-31 05:48] LABS: ALT/SGPT 62 U/L (12-78); AST/SGOT 55 U/L (15-37); Albumin 2.2 g/dL (3.4-5.0); Alkaline Phosphatase 138 U/L (45-117); BUN Blood Urea Nitrogen 11 mg/dL (7-18); Bicarbonate 24 mmol/L (21-32); Bilirubin Total 1.3 mg/dL (0.2-1.0); Glucose Level 332 mg/dL (74-106); Potassium 3.4 mmol/L (3.5-5.1); Sodium Level 136 mmol/L (136-145)
[2021-10-31] MEDS ORDERED: POTASSIUM 25 MEQ EFFERV TAB PO ONE (06:34)
[2021-10-31] MEDS ORDERED: D50W 25 GM/50 ML SYRINGE IV PRN (07:02)
[2021-10-31] MEDS ORDERED: GLUCAGON 1 MG/VIAL IM PRN (07:02)
[2021-10-31] MEDS ORDERED: INSULIN LISPRO 100 UNIT/1 ML SQ ONE (07:30)
[2021-10-31] MEDS: INSULIN -REGULAR HUMAN 50 UNIT/0.5 ML ML SQ SCH ×4 (07:33→20:33)
[2021-10-31] MEDS: INSULIN GLARGINE 100 UNIT/ML SQ SCH ×2 (07:33→18:00)
[2021-10-31] MEDS: lisinopriL 10 MG TAB PO SCH (07:34)
[2021-10-31] MEDS: NICOTINE 21 MG/PAT TD SCH (07:35)
[2021-10-31] MEDS: FAMOTIDINE 20 MG TAB PO SCH ×2 (07:35→20:32)
--- NOTE | 2021-10-31 08:42 | P.PN ---
Subjective Date of Service: 10/31/21 Chief Complaint: Weakness, Subjective: No new changes Physical Examination - Vital Signs Temperature: 98.5 F Blood Pressure: 135/77 Pulse: 103 Respirations: 18 Pulse Ox (%): 97 Assessment And Plan - Current Problems (Diagnosis) (1) Hyperglycemia due to type 1 diabetes mellitus Current Visit: Yes Status: Acute (2) Alcoholic cirrhosis of liver with ascites Current Visit: Yes Status: Acute (3) Hyperammonemia Current Visit: Yes Status: Acute - Plan - Physical Exam General: Alert, In no apparent distress, Oriented x3, Cachectic HEENT: Atraumatic, Normocephalic, PERRLA, Sclerae nonicteric Neck: Supple, 2+ carotid pulse no bruit, JVD not distended Respiratory: Clear to auscultation bilaterally, Normal air movement Cardiovascular: No edema, Normal pulses, Regular rate/rhythm, Normal S1 S2 Capillary refill: <2 Seconds Gastrointestinal: Normal bowel sounds, No tenderness, No masses, Other (Small umbilical hernia), Distended, Ascites Musculoskeletal: No clubbing, No swelling Integumentary: No rashes, No breakdown Neurological: Normal speech, Normal strength at 5/5 x4 extr, Normal tone, Sensation intact, Cranial nerves 3-12 intact - Plan Diabetes mellitus with hyperglycemiastill elevated glucose level, increase Levemir to 60 units twice daily Continue Accu-Cheks with insulin sliding scale Patient states he does not have a glucometer at home and he does not have home health Will consult case management Hypertensioncontrolled Alcoholic liver cirrhosiswith elevated ammonia level, improving level -asymptomatic clinically -c/w lactulose 30 g every 6 hours for now -Need for alcohol cessation discussed c/w Ativan as needed Chronic tobacco use cessation advised, nicotine patch DVT prophylaxiswe will do SCDs, patient have low platelets Advanced directivefull code Physician Review: Patient Assessed, Agree with Above Assessment and Plan
[2021-10-31] MEDS ORDERED: GLIMEPIRIDE 2 MG TABLET PO SCH (09:00)
[2021-10-31] MEDS: carvediloL 3.125 MG TAB PO SCH ×2 (09:44→20:32)
[2021-10-31] MEDS ORDERED: PNEUMOCOCCAL VACCINE 0.5 ML IMVAC ONE (11:44)
[2021-10-31] MEDS ORDERED: INFLUENZA VACCINE (for 6+ mo) 0.5 ML DOSE IMVAC ONE (11:44)
[2021-10-31] MEDS ORDERED: TETRAHYDROZOLINE HCL 150 DROPS/15 ML BTL OPTH PRN (18:17)
[2021-10-31] MEDS: AMITRIPTYLINE 50 MG TAB PO SCH ×2 (20:32→21:00)
[2021-10-31] MEDS ORDERED: MELATONIN 5 MG TABLET PO PRN (20:46)
[2021-10-31] MEDS: GABAPENTIN 400 MG CAP PO SCH (21:26)
[2021-11-01] MEDS: LACTULOSE 20 GM/30 ML UCUP PO SCH ×2 (00:56→05:16)
[2021-11-01] MEDS: MORPHINE 2 MG/ML SYR IV PRN ×2 (01:35→05:16)
[2021-11-01] MEDS: ALBUTEROL 2.5 MG/3 ML NEB SOL NEB PRN (02:30)
[2021-11-01] MEDS ORDERED: INSULIN GLARGINE 100 UNIT/ML SQ SCH (07:00)
[2021-11-01] MEDS: INSULIN -REGULAR HUMAN 50 UNIT/0.5 ML ML SQ SCH (07:30)
[2021-11-01] MEDS: NICOTINE 21 MG/PAT TD SCH (07:57)
[2021-11-01] MEDS: FAMOTIDINE 20 MG TAB PO SCH (07:57)
[2021-11-01] MEDS: GABAPENTIN 400 MG CAP PO SCH (07:57)
[2021-11-01] MEDS: lisinopriL 10 MG TAB PO SCH (07:58)
[2021-11-01] MEDS: carvediloL 3.125 MG TAB PO SCH (07:58)
--- NOTE | 2021-11-01 08:13 | EKG ---
Test Date: 2021-10-30 Test Time: 04:32:18 Lactation Coordinator: ALOK MEASUREMENT RESULTS: Intervals: Rate: 89 SD: 158 QRSD: 72 QT: 402 QTc: 489 [place]: P: 49 SD: 158 QRS: 38 T: 45 INTERPRETIVE STATEMENTS: Normal sinus rhythm Septal infarct, age undetermined Abnormal ECG No previous ECG available for comparison Electronically Signed On 11-01-21 08:11:32 [employer] by Dixon Guy
[2021-11-01 08:50] VITALS: BP 115/73; TEMP 97.7
--- NOTE | 2021-11-01 09:10 | P.DS ---
Admission Date: 10/30/21 Discharge Date: 11/01/21 Primary Care Provider: [facility]-Dr. Humphries Disposition: ROUTINE DISCHARGE Discharge Condition: GOOD Reason for Admission: Weakness, Consultations: none Procedures: COVID: Negative Medical Problem List: Hyperglycemia with diabetes mellitus type 2 insulin-dependent Alcohol intoxication alcohol intoxication with alcohol abuse Chronic alcoholic liver cirrhosis Elevated ammonia level without hepatic encephalopathy Hypertension Tobacco abuse Chronic thrombocytopenia secondary to liver disease GERD Diabetic neuropathy Brief History of Present Illness: 55-year-old with dementia. Patient was admitted for weakness and elevated ammonia level. Patient admitted to alcohol binges drinking. Blood sugars were elevated. Patient was started on medication for diabetes. Alcohol level was also elevated. Patient was admitted for treatment. Hospital Course: Patient presented with hyperglycemia secondary to diabetes mellitus type 2. Patient with insulin-dependent diabetes and not well controlled. Patient reports taking Lantus at home. Blood sugars were elevated. Patient also found to be intoxicated with alcohol. Elevated ammonia level was noted but no hepatic encephalopathy was identified. Patient with also underlying chronic alcoholic liver cirrhosis. Patient was admitted for treatment. Patient received insulin with improvement. Blood sugars now well improved. At discharge hemoglobin A1c obtained. This is likely elevated. Medications reviewed in detail. Will discontinue glimepiride. At discharge patient will continue with Lantus 30 units subcu twice daily. Recommend to monitor blood sugars at least twice daily. Recommend to maintain blood sugar less than 140 fasting and less than 200 after meals. If blood sugars remain above 200 he may need to increase Lantus by 1 to 2 units for better control. Recommend follow-up with PCP within 1 week. Further adjustment in medication can be done by his PCP. Recommend to recheck hemoglobin A1c in 3 months to monitor his progress. Education on diabetes and hyperglycemia provided. Patient found to have elevated alcohol level. Patient admits to alcohol use. Alcohol cessation was addressed in detail especially in light of his chronic alcoholic liver cirrhosis and chronic thrombocytopenia likely related to his liver disease. Ammonia level was elevated but patient did not show any signs of hepatic encephalopathy. Patient reports taking lactulose but is noncompliant. Lactulose was restarted. At discharge the patient will continue with lactulose 3 times a day to maintain 2-3 bowel movements per day. The importance of taking lactulose was addressed in detail with the patient. The patient understands. Education on cessation of alcohol also addressed in detail. Hopefully patient will quit. At discharge patient will continue with thiamine 100 mg daily and folic acid 1 mg daily. As mentioned above at discharge patient will continue with lactulose as directed. Recommend follow-up with GI as an outpatient to further address and monitor. Recommend no further use of nonsteroidal anti- inflammatories. Patient with hypertension. Blood pressure stable. At discharge patient will continue with carvedilol 3.125 mg 1 pill twice daily and lisinopril 10 mg daily. Recommend to maintain blood pressure less than 130/80. Further adjustment can be done by his PCP. Patient with underlying GERD. At discharge patient will continue with Protonix 40 mg daily. Recommend no further use of nonsteroidal anti-inflammatories. Recommend follow-up with GI as an outpatient to further address. Patient with diabetic neuropathy. At discharge patient will continue with Neurontin 800 mg 1 pill 3 times a day and Elavil 50 mg at bedtime. Patient with tobacco abuse. Tobacco cessation addressed in detail. Patient will be provided nicotine patch to help with cessation. Vital Signs/Physical Exam: Temp Pulse Resp BP Pulse Ox 97.7 F 81 18 115/73 98 11/01/21 08:00 11/01/21 08:00 11/01/21 08:00 11/01/21 08:00 11/01/21 08:00 General: Alert, In no apparent distress, Oriented x3, Cooperative HEENT: Atraumatic Neck: Supple Respiratory: Clear to auscultation bilaterally, Normal air movement Cardiovascular: Normal pulses, Regular rate/rhythm Gastrointestinal: Normal bowel sounds, No ascites, No tenderness, No masses, No rebound, No guarding Musculoskeletal: No erythema, No tenderness, No warmth Integumentary: No tenderness/swelling Neurological: Normal speech, Normal strength at 5/5 x4 extr, Normal tone Laboratory Data at Discharge: WBC 4.40 K/uL (4.3-10.9) D 10/31/21 04:46 Hgb 12.9 g/dL (13.6-17.9) L 10/31/21 04:46 Hct 37.8 % (39.6-49.0) L 10/31/21 04:46 Plt Count 81 K/uL (152-406) L 10/31/21 04:46 PT 11.7 SECONDS (9.5-12.5) 10/30/21 05:00 INR 1.02 10/30/21 05:00 APTT 27.2 SECONDS (24.3-36.9) 10/30/21 05:00 Sodium 136 mmol/L (136-145) 10/31/21 04:46 Potassium 3.4 mmol/L (3.5-5.1) L 10/31/21 04:46 BUN 11 mg/dL (7-18) 10/31/21 04:46 Creatinine 0.77 mg/dL (0.55-1.3) 10/31/21 04:46 Glucose 332 mg/dL (74-106) H 10/31/21 04:46 Total Bilirubin 1.3 mg/dL (0.2-1.0) H 10/31/21 04:46 AST 55 U/L (15-37) H 10/31/21 04:46 ALT 62 U/L (12-78) 10/31/21 04:46 Alkaline Phosphatase 138 U/L (45-117) H 10/31/21 04:46 Lipase 321 U/L (73-393) 10/30/21 05:00 Home Medications: Amitriptyline HCl 50 mg PO BEDTIME 10/30/21 Gabapentin [Neurontin] 800 mg PO TID 10/30/21 Lisinopril [Zestril] 1 tab PO DAILY 10/30/21 carvediloL [Carvedilol] 3.125 mg PO BID 10/30/21 Folic Acid 1 mg PO DAILY #90 tablet 11/01/21 Insulin Glargine,Hum.rec.anlog [Lantus] 30 unit SQ BID #1 vial 11/01/21 Lactulose [Cephulac*] 30 ml PO TID #1 bottle 11/01/21 Nicotine [Nicoderm*] 21 mg TD DAILY #30 patch.td24 11/01/21 Pantoprazole [Protonix Tab] 40 mg PO DAILY #30 tab 11/01/21 Thiamine HCl 100 mg PO DAILY #90 tablet 11/01/21 New Medications: Lactulose [Cephulac*] 30 ml PO TID #1 bottle Folic Acid 1 mg PO DAILY #90 tablet Insulin Glargine,Hum.rec.anlog [Lantus] 30 unit SQ BID #1 vial Nicotine [Nicoderm*] 21 mg TD DAILY #30 patch.td24 Pantoprazole [Protonix Tab] 40 mg PO DAILY #30 tab Thiamine HCl 100 mg PO DAILY #90 tablet Physician Discharge Instructions: Patient presented with hyperglycemia secondary to diabetes mellitus type 2. Patient with insulin-dependent diabetes and not well controlled. Patient reports taking Lantus at home. Blood sugars were elevated. Patient also found to be intoxicated with alcohol. Elevated ammonia level was noted but no hepatic encephalopathy was identified. Patient with also underlying chronic alcoholic liver cirrhosis. Patient was admitted for treatment. Patient received insulin with improvement. Blood sugars now well improved. At discharge hemoglobin A1c obtained. This is likely elevated. Medications reviewed in detail. Will discontinue glimepiride. At discharge patient will continue with Lantus 30 units subcu twice daily. Recommend to monitor blood sugars at least twice daily. Recommend to maintain blood sugar less than 140 fasting and less than 200 after meals. If blood sugars remain above 200 he may need to increase Lantus by 1 to 2 units for better control. Recommend follow-up with PCP within 1 week. Further adjustment in medication can be done by his PCP. Recommend to recheck hemoglobin A1c in 3 months to monitor his progress. Education on diabetes and hyperglycemia provided. Patient found to have elevated alcohol level. Patient admits to alcohol use. Alcohol cessation was addressed in detail especially in light of his chronic alcoholic liver cirrhosis and chronic thrombocytopenia likely related to his liver disease. Ammonia level was elevated but patient did not show any signs of hepatic encephalopathy. Patient reports taking lactulose but is noncompliant. Lactulose was restarted. At discharge the patient will continue with lactulose 3 times a day to maintain 2-3 bowel movements per day. The importance of taking lactulose was addressed in detail with the patient. The patient understands. Education on cessation of alcohol also addressed in detail. Hopefully patient will quit. At discharge patient will continue with thiamine 100 mg daily and folic acid 1 mg daily. As mentioned above at discharge patient will continue with lactulose as directed. Recommend follow-up with GI as an outpatient to further address and monitor. Recommend no further use of nonsteroidal anti- inflammatories. Patient with hypertension. Blood pressure stable. At discharge patient will continue with carvedilol 3.125 mg 1 pill twice daily and lisinopril 10 mg daily. Recommend to maintain blood pressure less than 130/80. Further adjustment can be done by his PCP. Patient with underlying GERD. At discharge patient will continue with Protonix 40 mg daily. Recommend no further use of nonsteroidal anti-inflammatories. Recommend follow-up with GI as an outpatient to further address. Patient with diabetic neuropathy. At discharge patient will continue with Neurontin 800 mg 1 pill 3 times a day and Elavil 50 mg at bedtime. Patient with tobacco abuse. Tobacco cessation addressed in detail. Patient will be provided nicotine patch to help with cessation. Diet: ADA Activity: Fall precautions Followup: NONE,NONE [Primary Care Provider] - Time spent managing pt's care (in minutes): 55
[2021-11-01 09:23] VITALS: O2SAT 98
== END 2021-11-01 10:59 | disposition home or self-care (01) | DRG 638 ==
LOC: ER 03:57 → ERHOLD 10:28 → 3RD-ICU 10:32 → 2ND 10-31 15:00
PROVIDERS: ADMIT Internal Medicine; ATTEND Family Medicine
DX: E11.65 Type 2 diabetes mellitus with hyperglycemia (principal); R64 Cachexia; E72.20 Disorder of urea cycle metabolism, unspecified; K70.31 Alcoholic cirrhosis of liver with ascites; I10 Essential (primary) hypertension; E11.40 Type 2 diabetes mellitus with diabetic neuropathy, unspecified; F03.90 Unspecified dementia, unspecified severity, without behavioral disturbance, psychotic disturbance, mood disturbance, and anxiety; F10.129 Alcohol abuse with intoxication, unspecified; D69.6 Thrombocytopenia, unspecified; K21.9 Gastro-esophageal reflux disease without esophagitis; F17.210 Nicotine dependence, cigarettes, uncomplicated; Z23 Encounter for immunization; Z79.52 Long term (current) use of systemic steroids; Z88.1 Allergy status to other antibiotic agents; Z79.4 Long term (current) use of insulin; Z79.899 Other long term (current) drug therapy; Z88.8 Allergy status to other drugs, medicaments and biological substances; Z68.23 Body mass index [BMI] 23.0-23.9, adult; Z20.822 Contact with and (suspected) exposure to COVID-19
CPT/HCPCS: 36415; 71045; 80048; 80053; 80076; 80307; 80320; 80329; 81003; 82010; 82140; 82805; 82947; 83690; 84484; 85025; 85610; 85730; 90471; 90732; 93005; 94640; 96361; 96365; 96366; 99285; J0360; J1815; J2270; J7030; J7120; Q2035; U0003

== ENCOUNTER 2021-11-23 23:16 | Inpatient (IN) | payer OTHER ==
[2021-11-24] MEDS ORDERED: ONDANSETRON 4 MG/2 ML VIAL ONE (00:56)
[2021-11-24] MEDS ORDERED: MORPHINE 4 MG/ML SYR ONE ×2 (00:56→03:14)
[2021-11-24 01:16] LABS: Protime INR 1.2
[2021-11-24 01:17] LABS: MPV 7.5 fL (7.6-11.3)
[2021-11-24 01:26] LABS: Absolute Lymphocytes (CBC) 0.7 K/uL (0.7-4.9); Hematocrit 35.4 % (39.6-49.0); Lymphocytes % 16.7 % (15.3-44.8); RBC Red Blood Cell Count 3.48 M/uL (4.33-5.43)
[2021-11-24 01:32] LABS: Albumin 2.1 g/dL (3.4-5.0); Bilirubin Direct 0.6 mg/dL (0-0.2); Bilirubin Total 1.4 mg/dL (0.2-1.0); Protein, Total 6.5 g/dL (6.4-8.2)
[2021-11-24 01:33] LABS: Potassium 4.3 mmol/L (3.5-5.1)
[2021-11-24] MEDS ORDERED: FUROSEMIDE 40 MG/4 ML VIAL ONE (03:14)
[2021-11-24] MEDS ORDERED: INSULIN -REGULAR HUMAN 50 UNIT/0.5 ML ML ONE ×2 (03:16→12:31)
--- NOTE | 2021-11-24 03:21 | EDPHYS ---
Physician Documentation [facility] Name: Amador Cosme Age: 56 yrs Sex: Male : 1965 Arrival Date: 11/23/2021 Time: 23:17 Bed 26 Private MD: ED Physician Dorota Juarez HPI: 11/23 23:40 This 56 yrs old Male presents to ER via EMS with complaints of Abdominal Pain. cp 23:40 The patient presents with abdominal pain that is diffuse, abdominal distention that is cp diffuse. Historical: - Allergies: 23:22 Prednisone; bb 23:22 TETRACYCLINES; bb - PMHx: 23:22 cirrhosis of liver; Dementia; Hypertensive disorder; NIDDM; Pancreatitis; bb - PSHx: 23:22 eye sx; bb - Immunization history:: Client reports having NOT received the Covid vaccine. - Social history:: Smoking status: Patient reports the use of cigarette tobacco products, denies chronic smoking, but will smoke occasionally, Patient uses alcohol, occasionally. Patient/guardian denies using street drugs. ROS: 23:45 Constitutional: Negative for body aches, chills, fever, poor PO intake. cp 23:45 Eyes: Negative for injury, pain, redness, and discharge. cp 23:45 ENT: Negative for ear pain, sore throat, difficulty swallowing, difficulty handling secretions. 23:45 Cardiovascular: Positive for edema, Negative for chest pain, palpitations. 23:45 Respiratory: Positive for cough, with no reported sputum, shortness of breath, at rest. Negative for wheezing. 23:45 Abdomen/GI: Positive for abdominal pain, abdominal distension, Negative for vomiting, diarrhea, constipation. 23:45 : Negative for urinary symptoms, difficulty urinating. 23:45 Neuro: Negative for altered mental status, dizziness, headache, syncope, weakness. 23:45 All other systems are negative. Exam: 23:50 Constitutional: The patient appears in no acute distress, alert, awake, cp non-diaphoretic, non-toxic, well developed, well nourished, uncomfortable. 23:50 Head/Face: Normocephalic, atraumatic. cp 23:50 Eyes: Periorbital structures: appear normal, Conjunctiva: normal, no exudate, no injection, Sclera: no appreciated abnormality, Lids and lashes: appear normal, bilaterally. 23:50 ENT: External ear(s): are unremarkable, Nose: is normal, Mouth: Lips: dry, Oral mucosa: dry, Posterior pharynx: Airway: no evidence of obstruction, patent. 23:50 Neck: ROM/movement: is normal, is supple, without pain, no range of motions limitations. 23:50 Chest/axilla: Inspection: normal, Palpation: is normal, no crepitus, no tenderness. 23:50 Cardiovascular: Rate: tachycardic, Rhythm: regular, Edema: ankle edema, that is cp moderate, JVD: is not appreciated. 23:50 Respiratory: the patient does not display signs of respiratory distress, Respirations: labored breathing, is not present, intercostal retractions, are absent, shallow respirations, that is mild, Breath sounds: are clear throughout, no decreased breath sounds, no stridor, no wheezing. 23:50 Abdomen/GI: Inspection: distension, that is severe, in the abdomen diffusely, Bowel sounds: active, all quadrants, Palpation: soft, in all quadrants, moderate abdominal tenderness, in all quadrants, rebound tenderness, is not appreciated, voluntary guarding, is elicited in all quadrants, Hernia: noted in the umbilical area. 23:50 Back: pain, that is moderate, ROM is painful, with all movement, CVA tenderness, is cp absent. 23:50 Skin: cellulitis, is not appreciated, no rash present. 23:50 Neuro: Orientation: to person, place \\T\\ time. Mentation: is normal, Motor: moves all fours, strength is normal, Sensation: is normal. 11/24 00:17 ECG was reviewed by the Attending Physician. cp Vital Signs: 11/23 23:20 BP 183 / 116; Pulse 101; Resp 22 S; Temp 98.5(O); Pulse Ox 98% on R/A; Weight 68.04 kg bb (R); Height 5 ft. 7 in. (170.18 cm) (R); Pain 1010; 11/24 00:54 BP 158 / 99; Pulse 95; Resp 21 S; Pulse Ox 98% on R/A; al4 01:30 BP 133 / 82; Pulse 93; Resp 20 S; Pulse Ox 96% on R/A; al4 02:00 BP 144 / 84; Pulse 98; Resp 23; Pulse Ox 96% ; al4 02:45 BP 139 / 89; Pulse 99; Resp 20; Pulse Ox 96% ; al4 03:26 BP 154 / 97; Pulse 96; Resp 20 S; Pulse Ox 96% on R/A; al4 04:30 BP 124 / 80; Pulse 95; Resp 14 S; Pulse Ox 100% on R/A; al4 06:30 BP 121 / 80; Pulse 90; Resp 22; Pulse Ox 97% on R/A; vc1 11/23 23:20 Body Mass Index 23.49 (68.04 kg, 170.18 cm) bb MDM: 11/23 23:30 Patient medically screened. 11/24 00:00 Differential diagnosis: bowel obstruction, GI Bleed, pancreatitis, Peptic Ulcer cp Disease, Perf. Duodenal Ulcer, Perf. Gastric Ulcer, incarcerated hernia, hepatic failure, ascites. 03:00 Data reviewed: vital signs, nurses notes, lab test result(s), EKG, radiologic studies, cp plain films. 03:00 Response to treatment: the patient's symptoms have mildly improved after treatment. 03:10 Physician consultation: Stanford MAHONEY was contacted at 03:10, regarding admission, to the medical/surgical unit. patient's condition. 11/23 23:50 Order name: Basic Metabolic Panel 11/23 23:50 Order name: CBC with Diff 11/23 23:50 Order name: LFT's 11/23 23:50 Order name: Magnesium; Complete Time: 01:36 11/23 23:50 Order name: NT PRO-BNP; Complete Time: 01:36 11/24 01:36 Interpretation: Abnormal: NT PRO-BNP 159. 11/23 23:50 Order name: PT-INR; Complete Time: 01:36 cp 11/24 01:38 Interpretation: Abnormal: PT 13.8; INR <p>1.20</p>. 11/23 23:50 Order name: Troponin HS; Complete Time: 01:36 11/23 23:51 Order name: Basic Metabolic Panel; Complete Time: 01:36 EDMS 11/24 01:36 Interpretation: Normal except: NA 132; GLUC 488; GFR 71. cp 11/23 23:51 Order name: CBC with Automated Diff; Complete Time: 01:36 EDMS 11/24 01:36 Interpretation: Normal except: RBC 3.48; HGB 11.8; HCT 35.4; MCV 101.6; PLT 111; RDW cp 15.8; MPV 7.5; MN% 16.0. 11/23 23:51 Order name: Liver (Hepatic) Function; Complete Time: 01:36 EDMN 11/24 01:37 Interpretation: Normal except: ALK 173; BILIT 1.4; BILID 0.6; ALB 2.1; GLOB 4.4; A/G cp 0.5. 11/24 01:42 Order name: COVID-19 SARS RT PCR (Document "Date of Onset" if Symptomatic) 11/24 01:43 Order name: SARS-COV-2 RT PCR EDMN 11/24 03:31 Order name: Glucose, Ancillary Testing [facility] 11/24 06:18 Order name: Ammonia [facility] 11/23 23:50 Order name: XRAY Chest (1 view) 11/23 23:50 Order name: EKG; Complete Time: 23:51 11/24 01:37 Order name: CT Abd/Pelvis - IV Contrast Only 11/24 06:22 Order name: Hemoglobin A1c EDMN 11/24 06:27 Order name: Comprehensive Metabolic Panel EDMN 11/24 06:38 Order name: Alcohol Serum/Plasma EDMN 11/24 07:22 Order name: Vitamin B12 Level EDMN 11/24 07:41 Order name: Glucose, Ancillary Testing EDMN 11/24 09:27 Order name: [facility] 11/24 11:05 Order name: Body Fluid Cell Count EDMN 11/24 12:31 Order name: Glucose, Ancillary Testing EDMN 11/23 23:50 Order name: Cardiac monitoring; Complete Time: 00:22 11/23 23:50 Order name: EKG - Nurse/Tech; Complete Time: 00:22 11/23 23:50 Order name: IV Saline Lock; Complete Time: 00:52 11/23 23:50 Order name: Labs collected and sent; Complete Time: 00:52 11/23 23:50 Order name: O2 Per Protocol; Complete Time: 00:22 11/23 23:50 Order name: O2 Sat Monitoring; Complete Time: 00:23 cp EC:17 Rate is 92 beats/min. Rhythm is regular. FL interval is normal. QRS interval is normal. cp QT interval is normal. T waves are Inverted in leads III, aVR. Interpreted by me. Reviewed by me. Administered Medications: 01:01 Drug: morphine 4 mg Route: IVP; Site: right antecubital; al4 01:44 Follow up: Response: No adverse reaction; RASS: Alert and Calm (0) al4 01:01 Drug: Zofran (Ondansetron) 4 mg Route: IVP; Site: right antecubital; al4 01:44 Follow up: Response: No adverse reaction al4 03:30 Drug: Lasix (furosemide) 40 mg Route: IVP; Site: right forearm; al4 06:39 Follow up: Urine output 1700 ml vc1 03:30 Drug: Insulin Regular Human 10 units {Co-Signature: kd3 (Brittany Mckay RN).} Route: al4 IVP; Site: right forearm; 06:39 Follow up: Response: No adverse reaction vc1 03:30 Drug: morphine 4 mg Route: IVP; Site: right forearm; al4 04:15 Follow up: Response: No adverse reaction; RASS: Alert and Calm (0) al4 Disposition: 11/25 08:00 Co-signature as Attending Physician, Dorota Juarez MD I agree with the assessment and sp3 plan of care. Disposition Summary: 11/24/21 03:20 Hospitalization Ordered Hospitalization Status: Observation cp Provider: Jamshid Wagner cp Location: Telemetry/MedSurg (observation) cp Condition: Stable cp Problem: an ongoing problem cp Symptoms: have improved cp Bed/Room Type: Standard Room Assignment: 216(11/24/21 10:37) dw Diagnosis - Alcoholic cirrhosis of liver with ascites cp - Diabetes mellitus due to underlying condition with hyperglycemia cp Forms: - Medication Reconciliation Form cp - SBAR form cp Signatures: Dispatcher [employer] Lorena Menendez RN RN dw Ballard, Brenda, RN RN bb Page, Corey, PA PA cp Patel, Setul, MD MD sp3 Ryan Nelson al4 Felicita Henriquez RN vc1 Brittany Mckay RN kd3 Corrections: (The following items were deleted from the chart) 11/24 10:37 03:20 cp dw
--- NOTE | 2021-11-24 03:21 | ER ---
Nurse's Notes [facility] Name: Amador Cosme Age: 56 yrs Sex: Male : 1965 Arrival Date: 11/23/2021 Time: 23:17 Bed 26 Private MD: Diagnosis: Alcoholic cirrhosis of liver with ascites;Diabetes mellitus due to underlying condition with hyperglycemia Presentation: 11/23 23:20 Chief complaint: EMS states: they were toned out for report of pt with abdominal pain bb and swelling. Coronavirus screen: At this time, the client does not indicate any symptoms associated with coronavirus-19. Ebola Screen: No symptoms or risks identified at this time. Initial Sepsis Screen: Does the patient meet any 2 criteria? No. Patient's initial sepsis screen is negative. Does the patient have a suspected source of infection? No. Patient's initial sepsis screen is negative. Risk Assessment: Do you want to hurt yourself or someone else? Patient reports no desire to harm self or others. Onset of symptoms was November 2020. 23:20 Method Of Arrival: EMS: [facility] bb 23:20 Acuity: DAO 3 bb Triage Assessment: 23:22 General: Appears in no apparent distress. uncomfortable, Behavior is calm, cooperative. bb Pain: Complains of pain in abdomen Pain currently is 10 out of 10 on a pain scale. Neuro: Level of Consciousness is awake, alert, obeys commands, Oriented to person, place, time, situation. Cardiovascular: Capillary refill < 3 seconds Patient's skin is warm and dry. Respiratory: Respiratory effort is unlabored, Respiratory pattern is regular. GI: Abdomen is distended, Reports lower abdominal pain, upper abdominal pain. Musculoskeletal: Circulation, motion, and sensation intact. Historical: - Allergies: 23:22 Prednisone; bb 23:22 TETRACYCLINES; bb - PMHx: 23:22 cirrhosis of liver; Dementia; Hypertensive disorder; NIDDM; Pancreatitis; bb - PSHx: 23:22 eye sx; bb - Immunization history:: Client reports having NOT received the Covid vaccine. - Social history:: Smoking status: Patient reports the use of cigarette tobacco products, denies chronic smoking, but will smoke occasionally, Patient uses alcohol, occasionally. Patient/guardian denies using street drugs. Screenin/12 01:32 Abuse screen: Denies threats or abuse. Nutritional screening: No deficits noted. al4 Tuberculosis screening: No symptoms or risk factors identified. Fall Risk No fall in past 12 months (0 pts). IV access (20 points). Ambulatory Aid- None/Bed Rest/Nurse Assist (0 pts). Gait- Normal/Bed Rest/Wheelchair (0 pts) Mental Status- Oriented to own ability (0 pts). Total Segura Fall Scale indicates No Risk (0-24 pts). Assessment: 11/23 23:50 General: Appears in no apparent distress. uncomfortable, Behavior is calm, cooperative. al4 Pain: Complains of pain in abdomen Pain currently is 10 out of 10 on a pain scale. Neuro: Level of Consciousness is awake, alert, obeys commands, Oriented to person, place, time, situation. Cardiovascular: Capillary refill < 3 seconds Patient's skin is warm and dry. Respiratory: Airway is patent Respiratory effort is even, unlabored, Respiratory pattern is regular, symmetrical. GI: Abdomen is distended, Bowel sounds present X 4 quads. Abd is soft Abdomen is tender to palpation. : No signs and/or symptoms were reported regarding the genitourinary system. EENT: No signs and/or symptoms were reported regarding the EENT system. Derm: No signs and/or symptoms reported regarding the dermatologic system. Musculoskeletal: No signs and/or symptoms reported regarding the musculoskeletal system. 11/24 01:00 Reassessment: Patient is alert, oriented x 3, equal unlabored respirations, skin al4 warm/dry/pink. 02:30 Reassessment: No changes from previously documented assessment. Patient is alert, al4 oriented x 3, equal unlabored respirations, skin warm/dry/pink. 03:30 Reassessment: Patient and/or family updated on plan of care and expected duration. Pain al4 level reassessed. 04:30 Reassessment: Patient and/or family updated on plan of care and expected duration. Pain al4 level reassessed. Patient states feeling better. 06:40 Reassessment: Patient and/or family updated on plan of care and expected duration. Pain vc1 level reassessed. Patient is alert, oriented x 3, equal unlabored respirations, skin warm/dry/pink. emptied 1700 mls out of urinal. 07:00 Reassessment: Pt charting will take place in [facility] as admission. See [facility] for ic1 notes. 07:22 Reassessment: Patient is alert and oriented. Call light and urinal at bedside. Patient al4 is not in distress. Report given to day shift RN. Vital Signs: 11/23 23:20 BP 183 / 116; Pulse 101; Resp 22 S; Temp 98.5(O); Pulse Ox 98% on R/A; Weight 68.04 kg bb (R); Height 5 ft. 7 in. (170.18 cm) (R); Pain 10/10; 11/24 00:54 BP 158 / 99; Pulse 95; Resp 21 S; Pulse Ox 98% on R/A; al4 01:30 BP 133 / 82; Pulse 93; Resp 20 S; Pulse Ox 96% on R/A; al4 02:00 BP 144 / 84; Pulse 98; Resp 23; Pulse Ox 96% ; al4 02:45 BP 139 / 89; Pulse 99; Resp 20; Pulse Ox 96% ; al4 03:26 BP 154 / 97; Pulse 96; Resp 20 S; Pulse Ox 96% on R/A; al4 04:30 BP 124 / 80; Pulse 95; Resp 14 S; Pulse Ox 100% on R/A; al4 06:30 BP 121 / 80; Pulse 90; Resp 22; Pulse Ox 97% on R/A; vc1 11/23 23:20 Body Mass Index 23.49 (68.04 kg, 170.18 cm) bb ED Course: 11/23 23:17 Patient arrived in ED. mw2 23:22 Triage completed. bb 23:22 Arm band placed on Patient placed in an exam room, on a stretcher, on monitoring coordinator, bb on pulse oximetry. 23:29 James Roach PA is PHCP. cp 23:30 Dorota Juarez MD is Attending Physician. cp 11/24 00:14 XRAY Chest (1 view) In Process Unspecified. EDMS 00:22 Ryan Nelson is Primary Nurse. al4 00:49 Inserted saline lock: 20 gauge in right antecubital area, using aseptic technique. al4 ,using aseptic technique. Started by CLARI Galeas Blood collected. 01:32 Patient has correct armband on for positive identification. Bed in low position. Call al4 light in reach. Side rails up X2. patient monitor on. Pulse ox on. NIBP on. 03:00 Inserted saline lock: 22 gauge in right forearm, using aseptic technique. ,using al4 aseptic technique. started by CT staff. 03:05 CT Abd/Pelvis - IV Contrast Only In Process Unspecified. EDMS 03:19 Jamshid Wagner is Hospitalizing Provider. cp Administered Medications: 01:01 Drug: morphine 4 mg Route: IVP; Site: right antecubital; al4 01:44 Follow up: Response: No adverse reaction; RASS: Alert and Calm (0) al4 01:01 Drug: Zofran (Ondansetron) 4 mg Route: IVP; Site: right antecubital; al4 01:44 Follow up: Response: No adverse reaction al4 03:30 Drug: Lasix (furosemide) 40 mg Route: IVP; Site: right forearm; al4 06:39 Follow up: Urine output 1700 ml vc1 03:30 Drug: Insulin Regular Human 10 units {Co-Signature: kd3 (Brittany Mckay RN).} Route: al4 IVP; Site: right forearm; 06:39 Follow up: Response: No adverse reaction vc1 03:30 Drug: morphine 4 mg Route: IVP; Site: right forearm; al4 04:15 Follow up: Response: No adverse reaction; RASS: Alert and Calm (0) al4 Intake: 03:00 IV: 100ml; Total: 100ml. al4 Output: 03:00 Urine: 1000ml (Voided); Total: 1000ml. al4 06:39 Urine: 1700ml; Total: 2700ml. vc1 Outcome: 03:20 Decision to Hospitalize by Provider. cp 13:15 Patient left the ED. ss Signatures: Dispatcher [employer] EDMD Winifred Benson RN Angela Plaza RN RN ss James Roach PA PA cp Urmila Stafford Alexis al4 Creggett, Iesha RN RN ic1 Felicita Henriquez RN RN vc1 Brittany Mckay RN kd3 Corrections: (The following items were deleted from the chart) 04:53 11/23 23:50 GI: Abdomen is distended, al4 al4 11/24 04:53 11/23 23:50 GI: Abdomen is distended, Bowel sounds present X 4 quads. Abd is soft al4 Abdomen is tender to palpation al4
[2021-11-24] MEDS ORDERED: ONDANSETRON 4 MG/2 ML VIAL IV PRN (05:06)
[2021-11-24] MEDS ORDERED: ACETAMINOPHEN 500 MG TAB PO PRN (05:06)
[2021-11-24] MEDS ORDERED: MORPHINE 2 MG/ML SYR IV PRN (05:06)
[2021-11-24 06:27] LABS: Albumin 2.2 g/dL (3.4-5.0); Bilirubin Total 1.3 mg/dL (0.2-1.0); Potassium 3.7 mmol/L (3.5-5.1); Protein, Total 6.5 g/dL (6.4-8.2)
--- NOTE | 2021-11-24 06:59 | P.HP ---
Certification for Inpatient Patient admitted to: Inpatient With expected LOS: <2 Midnights Patient will require the following post-hospital care: None Practitioner: I am a practitioner with admitting privileges, knowledge of patient current condition, hospital course, and medical plan of care. Services: Services provided to patient in accordance with Admission requirements found in Title 42 Section 412.3 of the Code of Federal Regulations Patient History Date of Service: 11/24/21 Reason for admission: ascites History of Present Illness: Mr. Cosme is a 56 yo M with alcoholic livver cirrhosis, HTN, DM who presents with diffuse abdominal pain and swelling. He says he feels like he is going to 'pop'. He also reports edema, neuropathy, and headache.. He had a paracentesis in the past that drained 2.5L. He has not been taking his medications recently, lactulose or xifaxin. H/H 11.8 Plt 111 Glu 488 Tbili 1.4 Dbili 0.6 alk phios 173 Allergies prednisone Allergy (Verified 10/30/21 07:35) Rash Tetracyclines Allergy (Verified 10/30/21 07:35) Rash Home Medications: Amitriptyline HCl 50 mg PO BEDTIME 10/30/21 Gabapentin [Neurontin] 800 mg PO TID 10/30/21 Lisinopril [Zestril] 1 tab PO DAILY 10/30/21 carvediloL [Carvedilol] 3.125 mg PO BID 10/30/21 Folic Acid 1 mg PO DAILY #90 tablet 11/01/21 Insulin Glargine,Hum.rec.anlog [Lantus] 30 unit SQ BID #1 vial 11/01/21 Lactulose [Cephulac*] 30 ml PO TID #1 bottle 11/01/21 Nicotine [Nicoderm*] 21 mg TD DAILY #30 patch.td24 11/01/21 Pantoprazole [Protonix Tab] 40 mg PO DAILY #30 tab 11/01/21 Thiamine HCl 100 mg PO DAILY #90 tablet 11/01/21 - Past Medical/Surgical History Diabetic: Yes -: Alcoholic liver cirrhosis -: Hypertension -: Diabetes mellitusinsulin-dependent -: Chronic tobacco use history -: Dementia as per records -: Eye surgery -: Previous paracentesis - Social History Smoking Status: Current every day smoker Alcohol use: Yes CD- Drugs: No Caffeine use: No Place of Residence: Home Review of Systems 10-point ROS is otherwise unremarkable General: Unremarkable Eyes: Unremarkable ENT: Unremarkable Respiratory: Unremarkable Cardiovascular: Edema Gastrointestinal: Abdominal Pain, Distention Genitourinary: Unremarkable Musculoskeletal: Back Pain Integumentary: Unremarkable Neurological: Unremarkable Lymphatics: Unremarkable Physical Examination - Physical Exam General: Alert, In no apparent distress HEENT: Atraumatic, PERRLA, Mucous membr. moist/pink, EOMI, Sclerae nonicteric Neck: Supple, 2+ carotid pulse no bruit, No LAD, Without JVD or thyroid abnormality Respiratory: Normal air movement Cardiovascular: Regular rate/rhythm, Normal S1 S2, Edema Gastrointestinal: Normal bowel sounds, Ascites Musculoskeletal: No tenderness Integumentary: No rashes Neurological: Normal speech, Normal strength at 5/5 x4 extr, Normal tone, Normal affect Lymphatics: No axilla or inguinal lymphadenopathy - Studies Laboratory Data (last 24 hrs) 11/24/21 00:45: PT 13.8 H, INR 1.20 11/24/21 00:45: WBC 4.40, Hgb 11.8 L, Hct 35.4 L, Plt Count 111 L 11/24/21 00:45: Sodium 132 L, Potassium 4.3, BUN 17, Creatinine 1.07, Glucose 488 H*, Magnesium 2.0, Total Bilirubin 1.4 H, AST 32, ALT 33, Alkaline Phosphatase 173 H Assessment and Plan - Problems (Diagnosis) (1) Hyperglycemia Current Visit: Yes Status: Acute (2) T2DM (type 2 diabetes mellitus) Current Visit: Yes Status: Chronic Qualifiers: Diabetes mellitus terminal make up operator insulin use: unspecified longterm insulin use status Diabetes mellitus complication status: with hyperglycemia Qualified Code(s): E11.65 - Type 2 diabetes mellitus with hyperglycemia (3) Thrombocytopenia Current Visit: Yes Status: Chronic (4) Anemia Current Visit: Yes Status: Chronic Qualifiers: Anemia type: unspecified type Qualified Code(s): D64.9 - Anemia, unspecified (5) Alcoholic cirrhosis of liver with ascites Current Visit: No Status: Acute (6) Hyperammonemia Current Visit: No Status: Acute - Plan IR consulted for paracentesis continue spironolactone, consider lasix, restart xifaxin continue lactulose, trend ammonia levels alcohol withdrawal protocol, alcohol levels pending anemia workup pending pain management as needed aggressive sliding scale insulin, A1c pending DVT ppx social work consulted Discharge Plan: Home Plan to discharge in: 72 Hours - Advance Directives Does patient have a Living Will: No Does patient have a Durable POA for Healthcare: No - Code Status/Comfort Care Code Status Assessed: Yes (full code ) Critical Care: No Time Spent Managing Pts Care (In Minutes): 70
[2021-11-24] MEDS: LACTULOSE 20 GM/30 ML UCUP PO SCH ×4 (07:00→20:18)
[2021-11-24] MEDS: INSULIN -REGULAR HUMAN 50 UNIT/0.5 ML ML SQ SCH ×4 (07:30→20:28)
[2021-11-24] MEDS ORDERED: LACTULOSE 20 GM/30 ML UCUP ONE (07:40)
--- NOTE | 2021-11-24 07:46 | EKG ---
Test Date: 2021-11-24 Test Time: 00:11:07 Pitch Flaker: NAVIN MEASUREMENT RESULTS: Intervals: Rate: 92 WV: 162 QRSD: 70 QT: 380 QTc: 469 [place]: P: 56 WV: 162 QRS: 36 T: 26 INTERPRETIVE STATEMENTS: Normal sinus rhythm Low voltage QRS Cannot rule out Anteroseptal infarct, age undetermined Abnormal ECG Compared to ECG 10/30/2021 04:32:18 Low QRS voltage now present Myocardial infarct finding still present Electronically Signed On 11-24-21 07:45:32 MEASUREMENT SUPERVISOR by Dixon Guy
--- NOTE | 2021-11-24 08:42 | RAD REPORT ---
EXAM DESCRIPTION: RAD - Chest Single View - 11/24/2021 12:06 am CLINICAL HISTORY: SOB COMPARISON: Portable 10/30/2021 TECHNIQUE: AP portable chest image was obtained 11/24/2021 12:06 am . FINDINGS: Lungs are clear. Heart and vasculature are normal. No measurable pleural effusion and no p neumothorax. No acute bony abnormality seen. No acute aortic findings suspected. IMPRESSION: No acute cardiopulmonary process. No significant change from comparison study.
[2021-11-24] MEDS: SPIRONOLACTONE 100 MG TAB PO SCH (09:00)
[2021-11-24] MEDS: Rifaximin 550 MG Tab PO SCH ×2 (09:00→20:17)
--- NOTE | 2021-11-24 09:27 | RAD REPORT ---
EXAM DESCRIPTION: US - Paracentesis Proc Guidance - 11/24/2021 8:06 am CLINICAL HISTORY: Ascites COMPARISON: CT abdomen and pelvis November 24 TECHNIQUE: The patient presents for ultrasound-guided paracentesis. The procedure, risks and altern atives were discussed with the patient in detail. Oral and written consent were obtained. Time out p rocedure was performed. The patient had no contraindicated allergy or medication history. PT, INR va lues within acceptable limits. Preliminary sonographic evaluation identified right lower quadrant access site. The skin and deeper tissues were anesthetized with 1 percent lidocaine. Under direct sonographic visualization, a parace ntesis catheter was advanced into the peritoneal cavity. Approximately 15 mL of ascites removed for p ending laboratory studies. Large volume drainage was initiated. Approximately 8 liters of ascites rem zachary. At the conclusion of the procedure, catheter was withdrawn and a bandage placed at the puncture site. Patient was transferred back to the emergency department for continued care and albumin infusion if warranted by ED personnel. IMPRESSION: Ultrasound-guided paracentesis as detailed.
[2021-11-24] MEDS ORDERED: MORPHINE 2 MG/ML SYR ONE (09:55)
[2021-11-24] MEDS: MORPHINE 2 MG/ML SYR IV PRN ×4 (09:59→21:47)
[2021-11-24 11:04] LABS: Appearance CLEAR (CLEAR); Body Fluid Source PERITONEAL; Body Fluid WBC 215 /mm^3; Color of fluid Yellow (COLORLESS)
--- NOTE | 2021-11-24 12:00 | RAD REPORT ---
EXAM DESCRIPTION: CT - Abdomen Pelvis W Contrast - 11/24/2021 6:04 am CLINICAL HISTORY: The patient is 56 years old and is Male; Abdominal distention;Abd pain TECHNIQUE: Axial computed tomography images of the abdomen and pelvis with intravenous contrast. S agittal and coronal reformatted images were created and reviewed. This CT exam was performed using one or more of the following dose reduction techniques: automated exposure control, adjustment of t he mA and/or kV according to patient size, and/or use of iterative reconstruction technique. COMPARISON: No relevant prior studies available. FINDINGS: LUNG BASES: Unremarkable. No mass. No consolidation. ABDOMEN: LIVER: The liver has a nodular contour and is diffusely heterogeneous. GALLBLADDER AND BILE DUCTS: The gallbladder is contracted. PANCREAS: No ductal dilation. No mass. SPLEEN: The spleen is enlarged. ADRENALS: Unremarkable. No mass. KIDNEYS AND URETERS: Unremarkable. The kidneys enhance symmetrically. No obstructing renal or ur eteral calculus is seen. No hydronephrosis or hydroureter. No perinephric fluid or stranding. STOMACH AND BOWEL: Stomach is distended with food contents. Diffuse mucosal thickening involving several small bowel loops in the left upper quadrant is noted. The remainder the small bowel is deco mpressed. A moderate amount stool is present throughout colon. There is no bowel obstruction. PELVIS: APPENDIX: No findings to suggest acute appendicitis. BLADDER: Unremarkable. No mass. REPRODUCTIVE: Unremarkable as visualized. ABDOMEN and PELVIS: INTRAPERITONEAL SPACE: Extensive ascites is present throughout the abdomen and pelvis. No free air. BONES/JOINTS: No acute fracture. SOFT TISSUES: Mild diffuse body wall edema is noted. A fat-containing umbilical hernia is pres ent. VASCULATURE: Extensive collateral vessels throughout the abdomen and pelvis are noted. Several e sophageal varices are present. No abdominal aortic aneurysm. LYMPH NODES: Unremarkable. No enlarged lymph nodes. IMPRESSION: 1. Cirrhotic liver with splenomegaly and large volume ascites. 2. Fluid-filled prominent small bowel loops with mild mucosal thickening in the upper abdomen sugge sting a mild enteritis. No bowel obstruction. Electronically signed by: Tessy Sousa MD 11/24/2021 3:27 AM COUNTY ATTORNEY Due to temporary technical issues with the PACS/Fluency reporting system, reports are being signed by the in house radiologist without review as a courtesy to ensure prompt reporting. The interpreting r adiologist is fully responsible for the content of the report.
[2021-11-24 14:46] VITALS: BMI 25.0
[2021-11-24] MEDS ORDERED: POTASSIUM 25 MEQ EFFERV TAB PO ONE (15:00)
[2021-11-24] MEDS ORDERED: INFLUENZA VACCINE (for 6+ mo) 0.5 ML DOSE IMVAC ONE (15:00)
--- NOTE | 2021-11-24 15:16 | P.PN ---
Date of Service: 11/24/21 Patient seen and examined. Status post paracentesis today. About 8 L of fluid drained. He states he feels better. Blood pressure stable Blood sugars significantly elevated. Diagnosis Liver cirrhosis Ascites DM type II with hyperglycemia. Thrombocytopenia Hyperammonemia: Plan: Continue Aldactone 100 mg daily Started IV Lasix. Will transition to oral Lasix on discharge. Patient is abdomen still significantly distended. May probably need another paracentesis. Ascitic fluid does not meet criteria for SBP. Continue lactulose for hyperammonemia. Aggressive insulin sliding scale. Lactulose 3 times daily.
[2021-11-24] MEDS: FUROSEMIDE 40 MG/4 ML VIAL IV SCH (16:29)
[2021-11-24] MEDS: INSULIN GLARGINE 100 UNIT/ML SQ SCH (16:30)
[2021-11-24] MEDS: GABAPENTIN 400 MG CAP PO SCH (20:16)
[2021-11-24] MEDS: carvediloL 3.125 MG TAB PO SCH (20:16)
[2021-11-24] MEDS ORDERED: INSULIN GLARGINE 100 UNIT/ML SQ SCH (21:00)
[2021-11-24] MEDS ORDERED: HOME MED 1 EA UNK (Gabapentin [Neurontin] 800 MG Tablet) PO SCH (21:00)
[2021-11-25] MEDS: MORPHINE 2 MG/ML SYR IV PRN ×5 (02:40→22:08)
[2021-11-25 06:41] LABS: Absolute Lymphocytes (CBC) 0.8 K/uL (0.7-4.9); Hematocrit 34.5 % (39.6-49.0); MPV 7.2 fL (7.6-11.3); RBC Red Blood Cell Count 3.41 M/uL (4.33-5.43)
[2021-11-25 06:54] LABS: Protime INR 1.25
[2021-11-25 07:19] LABS: ALT/SGPT 27 U/L (12-78); AST/SGOT 27 U/L (15-37); Albumin 1.6 g/dL (3.4-5.0); Alkaline Phosphatase 128 U/L (45-117); BUN Blood Urea Nitrogen 14 mg/dL (7-18); Bicarbonate 30 mmol/L (21-32); Glucose Level 241 mg/dL (74-106); HDL Cholesterol 25 mg/dL (40-60); LDL Cholesterol, Calculated 80 (<130); Magnesium 1.8 mg/dL (1.8-2.4); Phosphorus 2.6 mg/dL (2.5-4.9); Potassium 3.3 mmol/L (3.5-5.1); Protein, Total 5.2 g/dL (6.4-8.2); Sodium Level 134 mmol/L (136-145)
[2021-11-25] MEDS: TRIAMCINOLONE 0.1% CREAM 15GM TOP SCH (08:07)
[2021-11-25] MEDS: LACTULOSE 20 GM/30 ML UCUP PO SCH ×3 (08:08→20:44)
[2021-11-25] MEDS: GABAPENTIN 400 MG CAP PO SCH ×3 (08:08→20:45)
[2021-11-25] MEDS: FOLIC ACID 1 MG TABLET PO SCH (08:09)
[2021-11-25] MEDS: FUROSEMIDE 40 MG/4 ML VIAL IV SCH ×2 (08:09→17:41)
[2021-11-25] MEDS: SPIRONOLACTONE 100 MG TAB PO SCH (08:09)
[2021-11-25] MEDS: carvediloL 3.125 MG TAB PO SCH ×2 (08:10→20:45)
[2021-11-25] MEDS: Rifaximin 550 MG Tab PO SCH ×2 (08:10→20:44)
[2021-11-25] MEDS: lisinopriL 10 MG TAB PO SCH (08:10)
[2021-11-25] MEDS: INSULIN GLARGINE 100 UNIT/ML SQ SCH ×2 (08:11→20:44)
[2021-11-25] MEDS: INSULIN -REGULAR HUMAN 50 UNIT/0.5 ML ML SQ SCH ×4 (08:11→20:43)
[2021-11-25] MEDS: ZINC SULF OPTH SCH (08:41)
[2021-11-25] MEDS: [UNRECOGNIZED DRUG - OTHER] OPTH SCH (08:41)
[2021-11-25] MEDS: TETRAHYDROZOLINE HCL OPTH SCH (08:41)
[2021-11-25] MEDS ORDERED: MAGNESIUM SULFATE 1 gm IVPB 1 GM/100 ML BAG IV ONE (09:00)
[2021-11-25] MEDS ORDERED: POTASSIUM CL SA 10 MEQ TAB PO ONE (09:00)
--- NOTE | 2021-11-25 13:34 | P.PN ---
Subjective Date of Service: 11/25/21 Chief Complaint: ascites Patient stated his abdomen is distended again and complaining of abdominal pain. Physical Examination - Vital Signs Temperature: 97.2 F Blood Pressure: 99/66 Pulse: 89 Respirations: 18 Pulse Ox (%): 100 - Physical Exam General: Alert, In no apparent distress, Oriented x3 HEENT: Mucous membr. moist/pink Neck: Supple, JVD not distended Respiratory: Clear to auscultation bilaterally, Normal air movement Cardiovascular: Regular rate/rhythm, Normal S1 S2, Edema (Bilateral legs) Gastrointestinal: Normal bowel sounds, Soft and benign, Distended, Ascites Musculoskeletal: No erythema, Swelling (Bilateral legs) Integumentary: No rashes, No erythema, No cyanosis Neurological: Normal speech, Normal strength at 5/5 x4 extr Assessment And Plan - Current Problems (Diagnosis) (1) Ascites Current Visit: Yes Status: Acute (2) T2DM (type 2 diabetes mellitus) Current Visit: Yes Status: Chronic Qualifiers: Diabetes mellitus longterm insulin use: unspecified longterm insulin use status Diabetes mellitus complication status: with hyperglycemia Qualified Code(s): E11.65 - Type 2 diabetes mellitus with hyperglycemia (3) Thrombocytopenia Current Visit: Yes Status: Chronic (4) Alcoholic cirrhosis of liver with ascites Current Visit: No Status: Acute (5) Hyperammonemia Current Visit: No Status: Acute - Plan Ordered another paracentesis today. Patient may need albumin infusion post paracentesis. No SBP by cell count criteria. Continue Aldactone 100 mg daily. Lactulose and rifaximin for hyperammonemia. Patient remain alert and oriented. Continue insulin sliding scale and Lantus insulin for glucose management. SCD for DVT prophylaxis.
[2021-11-26 05:37] LABS: Absolute Lymphocytes (CBC) 0.9 K/uL (0.7-4.9); Hematocrit 32.4 % (39.6-49.0); Lymphocytes % 22.9 % (15.3-44.8); MPV 7.8 fL (7.6-11.3); RBC Red Blood Cell Count 3.21 M/uL (4.33-5.43)
[2021-11-26] MEDS: MORPHINE 2 MG/ML SYR IV PRN (05:48)
[2021-11-26 06:53] LABS: Albumin 1.5 g/dL (3.4-5.0); Bilirubin Total 0.8 mg/dL (0.2-1.0); Potassium 3.4 mmol/L (3.5-5.1); Protein, Total 4.9 g/dL (6.4-8.2)
[2021-11-26] MEDS: INSULIN -REGULAR HUMAN 50 UNIT/0.5 ML ML SQ SCH ×4 (08:35→22:04)
[2021-11-26] MEDS: INSULIN GLARGINE 100 UNIT/ML SQ SCH ×2 (08:36→22:05)
[2021-11-26] MEDS: GABAPENTIN 400 MG CAP PO SCH ×3 (08:37→21:40)
[2021-11-26] MEDS: FUROSEMIDE 40 MG/4 ML VIAL IV SCH ×2 (08:37→16:56)
[2021-11-26] MEDS: SPIRONOLACTONE 100 MG TAB PO SCH (08:37)
[2021-11-26] MEDS: carvediloL 3.125 MG TAB PO SCH ×2 (08:38→21:40)
[2021-11-26] MEDS: FOLIC ACID 1 MG TABLET PO SCH (08:38)
[2021-11-26] MEDS: lisinopriL 10 MG TAB PO SCH (08:39)
[2021-11-26] MEDS: LACTULOSE 20 GM/30 ML UCUP PO SCH ×3 (08:40→21:48)
[2021-11-26] MEDS: Rifaximin 550 MG Tab PO SCH ×2 (08:40→21:40)
[2021-11-26] MEDS: TETRAHYDROZOLINE HCL OPTH SCH (08:51)
[2021-11-26] MEDS: ZINC SULF OPTH SCH (08:51)
[2021-11-26] MEDS: [UNRECOGNIZED DRUG - OTHER] OPTH SCH (08:51)
[2021-11-26] MEDS: TRIAMCINOLONE 0.1% CREAM 15GM TOP SCH (08:52)
[2021-11-26] MEDS ORDERED: POTASSIUM CL SA 10 MEQ TAB PO ONE (09:00)
--- NOTE | 2021-11-26 11:10 | RAD REPORT ---
EXAM DESCRIPTION: US - Abdomen Exam Limited - 11/26/2021 10:54 am CLINICAL HISTORY: Ascites COMPARISON: Abdomen Pelvis W Contrast dated 11/24/2021; Paracentesis Proc Guidance dated 11/24/2021 FINDINGS: Mild to moderate ascites noted. This has decreased since 11/24/2021. IMPRESSION: Mild to moderate ascites noted. The volume of ascites is unlikely to be symptomatic. The rapeutic paracentesis therefore not performed.
--- NOTE | 2021-11-26 14:41 | P.PN ---
Subjective Date of Service: 11/26/21 Chief Complaint: ascites Patient appeared confused and drowsy today. Abdomen is more distended. Physical Examination - Vital Signs Temperature: 97 F Blood Pressure: 100/67 Pulse: 90 Respirations: 17 Pulse Ox (%): 100 - Physical Exam General: In no apparent distress, Confused HEENT: Mucous membr. moist/pink Neck: JVD not distended Respiratory: Clear to auscultation bilaterally, Normal air movement Cardiovascular: Regular rate/rhythm, Normal S1 S2, Edema (Bilateral lower extremities) Gastrointestinal: Soft and benign, No tenderness, Distended Musculoskeletal: No swelling Integumentary: No rashes Neurological: Other (Confused. 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 Repeat US guided paracentesis Patient may need albumin infusion post paracentesis. No SBP by cell count criteria. Continue Aldactone 100 mg daily. Blood sugar readings are better today. Continue insulin sliding scale and Lantus insulin for glucose management. SCD for DVT prophylaxis.
[2021-11-27 07:29] LABS: Absolute Lymphocytes (CBC) 0.9 K/uL (0.7-4.9); Hematocrit 34.9 % (39.6-49.0); Lymphocytes % 18.9 % (15.3-44.8); MPV 7.3 fL (7.6-11.3); RBC Red Blood Cell Count 3.44 M/uL (4.33-5.43)
[2021-11-27 07:39] LABS: BUN Blood Urea Nitrogen 13 mg/dL (7-18); Bicarbonate 29 mmol/L (21-32); Glucose Level 199 mg/dL (74-106); Potassium 3.4 mmol/L (3.5-5.1); Sodium Level 140 mmol/L (136-145)
[2021-11-27] MEDS: [UNRECOGNIZED DRUG - OTHER] OPTH SCH (09:00)
[2021-11-27] MEDS: ZINC SULF OPTH SCH (09:00)
[2021-11-27] MEDS: TETRAHYDROZOLINE HCL OPTH SCH (09:00)
[2021-11-27] MEDS: TRIAMCINOLONE 0.1% CREAM 15GM TOP SCH (09:00)
[2021-11-27] MEDS: LACTULOSE 20 GM/30 ML UCUP PO SCH ×3 (09:01→21:00)
[2021-11-27] MEDS: Rifaximin 550 MG Tab PO SCH ×2 (09:01→22:08)
[2021-11-27] MEDS: carvediloL 3.125 MG TAB PO SCH ×2 (09:02→22:07)
[2021-11-27] MEDS: lisinopriL 10 MG TAB PO SCH (09:02)
[2021-11-27] MEDS: SPIRONOLACTONE 100 MG TAB PO SCH (09:03)
[2021-11-27] MEDS: GABAPENTIN 400 MG CAP PO SCH ×3 (09:03→22:07)
[2021-11-27] MEDS: FOLIC ACID 1 MG TABLET PO SCH (09:04)
[2021-11-27] MEDS: INSULIN -REGULAR HUMAN 50 UNIT/0.5 ML ML SQ SCH ×4 (09:04→22:05)
[2021-11-27] MEDS: INSULIN GLARGINE 100 UNIT/ML SQ SCH ×2 (09:05→22:06)
[2021-11-27] MEDS: FUROSEMIDE 40 MG/4 ML VIAL IV SCH ×2 (09:05→17:28)
[2021-11-27] MEDS: TRAMADOL HCL 50 MG TAB PO PRN (09:28)
[2021-11-27] MEDS: MORPHINE 2 MG/ML SYR IV PRN ×2 (13:19→23:49)
--- NOTE | 2021-11-27 13:54 | P.PN ---
Subjective Date of Service: 11/27/21 Chief Complaint: ascites Patient is more awake today and interacting meaningfully Abdomen looks distended. Nursing staff report patient had a large bowel movement last night. Physical Examination - Vital Signs Temperature: 98.6 F Blood Pressure: 129/85 Pulse: 109 Respirations: 18 Pulse Ox (%): 99 - Physical Exam General: Alert, In no apparent distress, Oriented x3 HEENT: Mucous membr. 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 Abdominal ultrasound suggest mild to moderate ascites. Patient may not benefit from a second paracentesis per radiology. No SBP by cell count criteria. Continue Aldactone 100 mg daily. Continue Lasix. Blood sugar readings are better today. Continue insulin sliding scale and titra te Lantus insulin for glucose management. SCD for DVT prophylaxis. Possible discharge in a.m. if his mental status continues to improve.
[2021-11-28] MEDS: INSULIN -REGULAR HUMAN 50 UNIT/0.5 ML ML SQ SCH ×4 (07:30→21:29)
[2021-11-28] MEDS: TETRAHYDROZOLINE HCL OPTH SCH (09:00)
[2021-11-28] MEDS: ZINC SULF OPTH SCH (09:00)
[2021-11-28] MEDS: [UNRECOGNIZED DRUG - OTHER] OPTH SCH (09:00)
[2021-11-28] MEDS: GABAPENTIN 400 MG CAP PO SCH ×3 (09:39→21:28)
[2021-11-28] MEDS: SPIRONOLACTONE 100 MG TAB PO SCH (09:39)
[2021-11-28] MEDS: FUROSEMIDE 40 MG/4 ML VIAL IV SCH ×2 (09:39→17:00)
[2021-11-28] MEDS: carvediloL 3.125 MG TAB PO SCH ×2 (09:40→21:28)
[2021-11-28] MEDS: MORPHINE 2 MG/ML SYR IV PRN (09:40)
[2021-11-28] MEDS: lisinopriL 10 MG TAB PO SCH (09:40)
[2021-11-28] MEDS: Rifaximin 550 MG Tab PO SCH ×2 (09:40→21:34)
[2021-11-28] MEDS: FOLIC ACID 1 MG TABLET PO SCH (09:40)
[2021-11-28] MEDS: LACTULOSE 20 GM/30 ML UCUP PO SCH ×4 (09:40→21:27)
[2021-11-28] MEDS: INSULIN GLARGINE 100 UNIT/ML SQ SCH (09:43)
[2021-11-28] MEDS: TRIAMCINOLONE 0.1% CREAM 15GM TOP SCH (09:43)
--- NOTE | 2021-11-28 15:18 | P.PN ---
Subjective Date of Service: 11/28/21 Chief Complaint: ascites Patient is more awake tolerating his diet and asking for double portions of meals. Abdomen looks distended. He appears weak and barely able to transfer without assistance. Physical Examination - Vital Signs Temperature: 97.1 F Blood Pressure: 126/80 Pulse: 84 Respirations: 18 Pulse Ox (%): 100 - Physical Exam General: In no apparent distress, Oriented x3, Confused (Mild confusion) HEENT: Mucous membr. moist/pink Neck: JVD not distended Respiratory: Clear to auscultation bilaterally, Normal air movement Cardiovascular: Regular rate/rhythm, Normal S1 S2, Edema (Bilateral legs) Gastrointestinal: Soft and benign, Non-distended Musculoskeletal: No tenderness Integumentary: No erythema, No cyanosis Neurological: Normal strength at 5/5 x4 extr Assessment And Plan - Current Problems (Diagnosis) (1) Ascites Current Visit: Yes Status: Acute (2) T2DM (type 2 diabetes mellitus) Current Visit: Yes Status: Chronic Qualifiers: Diabetes mellitus senior living insulin use: unspecified senior living insulin use status Diabetes mellitus complication status: with hyperglycemia Qualified Code(s): E11.65 - Type 2 diabetes mellitus with hyperglycemia (3) Thrombocytopenia Current Visit: Yes Status: Chronic (4) Alcoholic cirrhosis of liver with ascites Current Visit: No Status: Acute (5) Hyperammonemia Current Visit: No Status: Acute (6) Hepatic encephalopathy Current Visit: Yes Status: Acute - Plan Patient still mildly confused and generally weak. Continue rifaximin. Titrate lactulose dose to length 2-3 loose bowel movements per day Abdominal ultrasound suggest mild to moderate ascites. Patient may not benefit from a second paracentesis per radiology. No SBP by cell count criteria. Continue Aldactone 100 mg daily. Continue Lasix. Continue insulin sliding scale. Reduce Lantus dose to 35 units daily due to episode of hypoglycemia today. SCD for DVT prophylaxis.
[2021-11-29] MEDS: TRAMADOL HCL 50 MG TAB PO PRN (04:11)
[2021-11-29 04:31] LABS: Hematocrit 36.9 % (39.6-49.0); Lymphocytes % 22.9 % (15.3-44.8); MPV 7.9 fL (7.6-11.3); RBC Red Blood Cell Count 3.59 M/uL (4.33-5.43)
[2021-11-29 04:50] LABS: Potassium 4.5 mmol/L (3.5-5.1)
[2021-11-29 04:56] LABS: Blood Morphology Comment NOT SEEN (NOT SEEN); Platelet Estimate ADEQ
[2021-11-29] MEDS: ZINC SULF OPTH SCH (08:00)
[2021-11-29] MEDS: TETRAHYDROZOLINE HCL OPTH SCH (08:00)
[2021-11-29] MEDS: [UNRECOGNIZED DRUG - OTHER] OPTH SCH (08:00)
[2021-11-29] MEDS: INSULIN -REGULAR HUMAN 50 UNIT/0.5 ML ML SQ SCH ×2 (08:47→12:06)
[2021-11-29] MEDS: SPIRONOLACTONE 100 MG TAB PO SCH (08:48)
[2021-11-29] MEDS: LACTULOSE 20 GM/30 ML UCUP PO SCH (08:48)
[2021-11-29] MEDS: GABAPENTIN 400 MG CAP PO SCH (08:49)
[2021-11-29] MEDS: FOLIC ACID 1 MG TABLET PO SCH (08:49)
[2021-11-29] MEDS: carvediloL 3.125 MG TAB PO SCH (08:49)
[2021-11-29] MEDS: lisinopriL 10 MG TAB PO SCH (08:50)
[2021-11-29] MEDS: TRIAMCINOLONE 0.1% CREAM 15GM TOP SCH (09:00)
[2021-11-29] MEDS ORDERED: INSULIN GLARGINE 100 UNIT/ML SQ SCH (09:00)
[2021-11-29] MEDS: Rifaximin 550 MG Tab PO SCH (09:00)
[2021-11-29] MEDS ORDERED: FUROSEMIDE 40 MG TABLET PO SCH (09:00)
--- NOTE | 2021-11-29 09:05 | P.DS ---
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 Cosme is a 56 yo M with alcoholic liver cirrhosis, HTN, DM who presents with diffuse abdominal pain and swelling. He says he feels like he is going to 'pop'. He also reported edema, neuropathy, and headache.. He had a paracentesis in the past that drained 2.5L. He has not been taking his medications recently, lactulose or xifaxin. H/H 11.8 Plt 111 Glu 488 Tbili 1.4 Dbili 0.6 alk phios 173. Patient with distended abdomen. Ammonia level elevated. He was hospitalized for further management. Hospital Course: Patient admitted to the medical floor. He underwent paracentesis and about 8 L of fluid drained. Ascitic fluid was transudate, no SBP. Continued his medications for hepatic encephalopathy but he developed confusion and weakness. Hepatic encephalopathy was treated by increasing his lactulose dose. Patient had multiple bowel movement, acute encephalopathy resolved. An attempt was made to drain his ascites again but ultrasound reported mild to moderate ascitic fluid for which patient would not benefit from paracentesis at this time. He is currently alert and oriented, and ambulatory. Patient is discharged with refill for his medications. Vital Signs/Physical Exam: Temp Pulse Resp BP Pulse Ox 97.0 F 96 H 19 114/80 7 L 11/29/21 04:00 11/29/21 04:00 11/29/21 05:11 11/29/21 04:00 11/29/21 05:11 General: Alert, In no apparent distress, Oriented x3 HEENT: Mucous membr. moist/pink Neck: JVD not distended Respiratory: Clear to auscultation bilaterally, Normal air movement Cardiovascular: No edema, Regular rate/rhythm, Normal S1 S2 Gastrointestinal: Soft and benign, Distended, Ascites Musculoskeletal: No swelling Integumentary: No rashes Neurological: Normal speech, Normal strength at 5/5 x4 extr Laboratory Data at Discharge: WBC 4.50 K/uL (4.3-10.9) 11/29/21 04:19 Hgb 12.0 g/dL (13.6-17.9) L 11/29/21 04:19 Hct 36.9 % (39.6-49.0) L 11/29/21 04:19 Plt Count 118 K/uL (152-406) L 11/29/21 04:19 PT 14.4 SECONDS (9.5-12.5) H 11/25/21 06:03 INR 1.25 11/25/21 06:03 APTT 24.6 SECONDS (24.3-36.9) 11/25/21 06:03 Sodium 135 mmol/L (136-145) L 11/29/21 04:19 Potassium 4.5 mmol/L (3.5-5.1) 11/29/21 04:19 BUN 10 mg/dL (7-18) 11/29/21 04:19 Creatinine 1.02 mg/dL (0.55-1.3) 11/29/21 04:19 Glucose 374 mg/dL (74-106) H 11/29/21 04:19 Phosphorus 2.6 mg/dL (2.5-4.9) 11/25/21 06:03 Magnesium 1.8 mg/dL (1.8-2.4) 11/25/21 06:03 Total Bilirubin 0.8 mg/dL (0.2-1.0) 11/26/21 05:00 AST 38 U/L (15-37) H 11/26/21 05:00 ALT 28 U/L (12-78) 11/26/21 05:00 Alkaline Phosphatase 128 U/L (45-117) H 11/26/21 05:00 Triglycerides 80 mg/dL (<150) 11/25/21 06:03 Cholesterol 121 mg/dL (<200) 11/25/21 06:03 HDL Cholesterol 25 mg/dL (40-60) L 11/25/21 06:03 Cholesterol/HDL Ratio 4.84 11/25/21 06:03 Home Medications: Folic Acid 1 mg PO DAILY #90 tablet 11/01/21 Furosemide [Lasix*] 40 mg PO BIDL #60 tab 11/29/21 Gabapentin [Neurontin] 800 mg PO TID #90 11/29/21 Insulin Glargine,Hum.rec.anlog [Lantus] 30 unit SQ BEDTIME #15 ml 11/29/21 Lactulose [Cephulac*] 30 ml PO TID 90 Days #1 bottle 11/29/21 Lisinopril [Zestril] 1 tab PO DAILY #30 11/29/21 Nicotine [Nicoderm*] 21 mg TD DAILY #30 patch.td24 11/29/21 Rifaximin [Xifaxan] 550 mg PO BID #60 tablet 11/29/21 Spironolactone [Aldactone*] 100 mg PO DAILY #30 tab 11/29/21 Tetrahydrozoline HCl/Zinc Sulf [Eye Drops Irritation Relief] 2 drops EACH EYE DAILY #1 bottle 11/29/21 Trazodone [Desyrel*] 50 mg PO BEDTIME #30 11/29/21 Triamcinolone 0.1% Crm [Kenalog 0.1% Cream*] 1 kinsey TOP DAILY #1 tube 11/29/21 carvediloL [Carvedilol] 3.125 mg PO BID #60 11/29/21 New Medications: Spironolactone [Aldactone*] 100 mg PO DAILY #30 tab carvediloL [Carvedilol] 3.125 mg PO BID #60 Lactulose [Cephulac*] 30 ml PO TID 90 Days #1 bottle Trazodone [Desyrel*] 50 mg PO BEDTIME #30 Tetrahydrozoline HCl/Zinc Sulf [Eye Drops Irritation Relief] 2 drops EACH EYE DAILY #1 bottle Triamcinolone 0.1% Crm [Kenalog 0.1% Cream*] 1 kinsey TOP DAILY #1 tube Insulin Glargine,Hum.rec.anlog [Lantus] 30 unit SQ BEDTIME #15 ml Furosemide [Lasix*] 40 mg PO BIDL #60 tab Gabapentin [Neurontin] 800 mg PO TID #90 Nicotine [Nicoderm*] 21 mg TD DAILY #30 patch.td24 Rifaximin [Xifaxan] 550 mg PO BID #60 tablet Lisinopril [Zestril] 1 tab PO DAILY #30 Diet: ADA Activity: Ad ty Followup: NONE,NONE [Primary Care Provider] - Serge Bruner MD [ACTIVE - CAN ADMIT] - 1-2 Weeks (Liver cirrhosis needing intermittent paracentesis.) Time spent managing pt's care (in minutes): 40
[2021-11-29 09:47] VITALS: O2SAT 99
[2021-11-29 10:38] VITALS: BP 134/73; TEMP 97.4
[2021-11-29 13:10] LABS: GLUCOSE, PERITONEAL FLUID 430 mg/dL; LD, PERITONEAL FLUID 40 U/L (<63); TOTAL PROTEIN,PERITONEAL FLUID <3.0 g/dL
== END 2021-11-29 13:36 | disposition home or self-care (01) | DRG 432 ==
LOC: ER 23:16 → ERHOLD 11-24 04:15 → 2ND 11-24 13:13
PROVIDERS: ADMIT Internal Medicine; ATTEND Internal Medicine
PROC: 0W9G3ZX Drainage of Peritoneal Cavity, Percutaneous Approach, Diagnostic (ICD-10-PCS; principal; 2021-11-24)
DX: K70.31 Alcoholic cirrhosis of liver with ascites (principal); K72.00 Acute and subacute hepatic failure without coma; E72.20 Disorder of urea cycle metabolism, unspecified; I10 Essential (primary) hypertension; E11.65 Type 2 diabetes mellitus with hyperglycemia; Z79.4 Long term (current) use of insulin; D69.6 Thrombocytopenia, unspecified; D64.9 Anemia, unspecified; G62.9 Polyneuropathy, unspecified; F17.210 Nicotine dependence, cigarettes, uncomplicated; Z20.822 Contact with and (suspected) exposure to COVID-19
CPT/HCPCS: 36415; 49083; 71045; 74177; 76705; 80048; 80053; 80061; 80076; 80320; 82042; 82140; 82607; 82747; 82945; 82947; 83036; 83615; 83735; 83880; 84100; 84132; 84157; 84439; 84443; 84484; 85025; 85610; 85730; 87070; 89050; 93005; 94760; 99284; J1940; J2270; J2405; J3475; Q9967; U0003

== ENCOUNTER 2021-12-03 12:30 | Inpatient (IN) | payer OTHER ==
[2021-12-03] MEDS ORDERED: FAMOTIDINE 20 MG/2 ML VIAL IV ONE (13:06)
[2021-12-03] MEDS ORDERED: NA CHLORIDE 0.9% 1,000 ML ONE (13:06)
[2021-12-03 13:34] LABS: Absolute Lymphocytes (CBC) 0.6 K/uL (0.7-4.9); Hematocrit 32.6 % (39.6-49.0); Lymphocytes % 22.6 % (15.3-44.8); MPV 7.2 fL (7.6-11.3); Protime INR 1.3; RBC Red Blood Cell Count 3.31 M/uL (4.33-5.43)
[2021-12-03 13:55] LABS: ALT/SGPT 48 U/L (12-78); AST/SGOT 76 U/L (15-37); Albumin 1.9 g/dL (3.4-5.0); Alkaline Phosphatase 144 U/L (45-117); BUN Blood Urea Nitrogen 17 mg/dL (7-18); Bicarbonate 20 mmol/L (21-32); Bilirubin Direct 0.4 mg/dL (0-0.2); Glucose Level 212 mg/dL (74-106); Lipase 166 U/L (73-393); Magnesium 2.2 mg/dL (1.8-2.4); NT PRO-BNP 270 pg/mL (<125); Potassium 3.9 mmol/L (3.5-5.1); Sodium Level 140 mmol/L (136-145)
--- NOTE | 2021-12-03 14:18 | RAD REPORT ---
EXAM DESCRIPTION: RAD - Chest Single View - 12/03/2021 1:44 pm CLINICAL HISTORY: ABDOMINAL DISTENTION COMPARISON: Chest Single View dated 11/23/2021; Chest Single View dated 10/30/2021 FINDINGS: Lines: None. Lungs: No evidence of edema or pneumonia. Pleural: No significant pleural effusions or pneumothorax. Cardiac: The heart size is within normal limits. Bones: No acute fractures. Other: IMPRESSION: No acute cardiopulmonary disease.
--- NOTE | 2021-12-03 14:18 | ER ---
Nurse's Notes [facility] Name: Amador Cosme Age: 56 yrs Sex: Male : 1965 Arrival Date: 12/03/2021 Time: 12:35 Bed 4 Private MD: Diagnosis: Encephalopathy, unspecified;Unspecified cirrhosis of liver;Type 2 diabetes mellitus with hyperglycemia;Altered mental status, unspecified Presentation: 12/03 12:36 Chief complaint: EMS states: "Neighbor called saying that the patient was walking to his trailer and collapsed. HX of elevated ammonia.". Coronavirus screen: Client denies travel out of the [place] in the last 14 days. Ebola Screen: Patient denies exposure to infectious person. Patient denies travel to an Ebola-affected area in the 21 days before illness onset. Initial Sepsis Screen: Does the patient meet any 2 criteria? No. Patient's initial sepsis screen is negative. Does the patient have a suspected source of infection? No. Patient's initial sepsis screen is negative. Risk Assessment: Do you want to hurt yourself or someone else? Patient reports no desire to harm self or others. Onset of symptoms is unknown. Care prior to arrival: Glucose check: 158. 12:36 Method Of Arrival: EMS: [facility] 12:36 Acuity: DAO 2 ss Historical: - Allergies: 12:39 Prednisone; ss 12:39 TETRACYCLINES; ss - Home Meds: 12/04 02:49 Humalog 30 unit Sub-Q [Active]; Lantus U-100 Insulin 30 unit Sub-Q crtg [Active]; st1 lisinopril 10 mg Oral tab [Active]; - PMHx: 12/03 12:39 cirrhosis of liver; Dementia; Hypertensive disorder; NIDDM; Pancreatitis; ss - PSHx: 12:39 eye sx; ss - Immunization history:: Adult Immunizations unknown. - Social history:: Smoking status: unknown. Screenin:01 Abuse screen: Denies threats or abuse. Tuberculosis screening: No symptoms or risk ap3 factors identified. Fall Risk Fall in past 12 months (25 points). Secondary diagnosis (15 points) impaired mobility, IV access (20 points). Ambulatory Aid- None/Bed Rest/Nurse Assist (0 pts). Gait- Normal/Bed Rest/Wheelchair (0 pts) Total Segura Fall Scale indicates High Risk Score (45 or more points). Fall prevention measures have been instituted. Side Rails Up X 2 Placed Close to Nursing Station Frequent Obs/Assessments Occuring. 12/04 02:48 Nutritional screening: No deficits noted. st1 Assessment: 12/03 12:58 General: Appears slender, unkempt, Behavior is listless. Pain: Unable to use pain ap3 scale. Patient is unresponsive. Neuro: Level of Consciousness is lethargic. Cardiovascular: Capillary refill < 3 seconds Patient's skin is warm and dry. Respiratory: Airway is patent Respiratory effort is even, Respiratory pattern is regular, symmetrical. Derm: black, dry substance on left arm. 16:32 Reassessment: Patient and/or family updated on plan of care and expected duration. Pain ap3 level reassessed. patient resting, respirations even and unlabored. Patient is aroused to verbal stimuli. 20:00 General: Patient awake. Patient has been cleaned up and linens changed. Patient is not al4 in distress, awake, and alert. . 12/04 00:00 General: patient is sleeping. VS are stable. . al4 02:00 General: patient is sleeping. VS are stable. . al4 05:19 Reassessment: No changes from previously documented assessment. al4 06:12 Reassessment: bed bath given, linens changed, patient is resting. al4 Vital Signs: 12/03 12:36 BP 140 / 88; Pulse 88; Resp 12; Temp 98.2; Pulse Ox 98% ; ss 14:02 BP 132 / 86; Pulse 81; Pulse Ox 100% on R/A; ap3 15:30 BP 140 / 98; Pulse 78; Pulse Ox 100% on R/A; ap3 16:34 BP 111 / 79; Pulse 79; Pulse Ox 100% on R/A; ap3 12/04 00:30 BP 115 / 74; Pulse 97; Resp 18 S; Pulse Ox 100% on R/A; al4 01:30 BP 113 / 77; Pulse 90; Resp 18 S; Pulse Ox 100% on R/A; al4 02:00 BP 86 / 54; Pulse 89; Resp 12; Pulse Ox 100% ; al4 03:00 BP 110 / 62; Pulse 85; Resp 12 S; Pulse Ox 100% on R/A; al4 04:00 BP 98 / 70; Pulse 89; Resp 12 S; Pulse Ox 100% on R/A; al4 05:00 BP 109 / 69; Pulse 88; Resp 13 S; Pulse Ox 100% on R/A; al4 ED Course: 12/03 12:35 Patient arrived in ED. ss 12:39 Triage completed. ss 12:39 Arm band placed on left wrist. ss 12:42 James Uriarte MD is Attending Physician. gail 13:02 Patient has correct armband on for positive identification. Bed in low position. Call ap3 light in reach. Side rails up X2. compliance monitor on. Pulse ox on. NIBP on. Warm blanket given. 13:23 Inserted saline lock: 20 gauge in left forearm, using aseptic technique. tp1 13:23 Initial lab(s) drawn, by ut, sent to lab. tp1 13:23 EKG done, by ED staff. tp1 13:44 XRAY Chest (1 view) In Process Unspecified. EDMS 14:17 Skylar Farias, CLARI is Primary Nurse. 6 14:17 Jesus Bateman MD is Hospitalizing Provider. gail 14:32 COVID swab sent to lab. ap3 14:42 CT Head Brain wo Cont In Process Unspecified. EDMS 15:17 Abdomen In Process Unspecified. EDMS 12/04 02:48 No provider procedures requiring assistance completed. st1 07:00 Patient admitted, IV remains in place. intact, No redness/swelling at site. jl7 Administered Medications: 12/03 13:12 Drug: NS 0.9% 1000 ml Route: IV; Rate: 75 ml/hr; Site: right forearm; ap3 13:12 Drug: Pepcid (famotidine) 20 mg Route: IVP; Site: right forearm; ap3 14:24 Follow up: Response: No adverse reaction ap3 14:50 Drug: Lactulose 45 grams Volume: 45 ml; Route: PO; jh6 Outcome: 14:18 Decision to Hospitalize by Provider. [facility] 12/04 07:00 Admitted to ER Hold. Please see [facility] for further documentation. jl7 Condition: stable Discharge instructions given to patient, Instructed on the need for admit, Demonstrated understanding of instructions. 10:02 Patient left the ED. jl7 Signatures: Dispatcher [employer] EDMS James Uriarte, MD MD gail Smirch, Angela, RN RN ss Stevo Borges RN RN jl7 Giuliana Calle RN RN ap3 Skylar Farias RN RN jh6 Leticia Pearce tp1 Ryan Nelson al4 Gudelia Rosa, RN RN st1 Corrections: (The following items were deleted from the chart) 05:20 05:19 Reassessment: No changes from previously documented assessment. Patient is alert, al4 oriented x 3, equal unlabored respirations, skin warm/dry/pink. al4
--- NOTE | 2021-12-03 14:19 | EDPHYS ---
Physician Documentation [facility] Name: Amador Cosme Age: 56 yrs Sex: Male : 1965 Arrival Date: 12/03/2021 Time: 12:35 Bed 4 Private MD: ED Physician James Uriarte HPI: 12/03 14:10 This 56 yrs old Male presents to ER via EMS with complaints of Altered Mental gail Status, Drowsy. 14:10 The patient presents with confusion, decreased mental status. Onset: The gail symptoms/episode began/occurred 2 day(s) ago. Possible causes: CVA or TIA. Associated signs and symptoms: Pertinent positives: confusion. Current symptoms: In the emergency department the patient's symptoms are unchanged from the initial presentation. Patient's baseline: Neuro: alert and fully oriented. The patient has experienced similar episodes in the past, multiple times. Historical: - Allergies: 12:39 Prednisone; ss 12:39 TETRACYCLINES; ss - Home Meds: 12/04 02:49 Humalog 30 unit Sub-Q [Active]; Lantus U-100 Insulin 30 unit Sub-Q crtg [Active]; st1 lisinopril 10 mg Oral tab [Active]; - PMHx: 12/03 12:39 cirrhosis of liver; Dementia; Hypertensive disorder; NIDDM; Pancreatitis; ss - PSHx: 12:39 eye sx; ss - Immunization history:: Adult Immunizations unknown. - Social history:: Smoking status: unknown. ROS: 14:11 Constitutional: Negative for fever, chills, and weight loss, Eyes: Negative for injury, gail pain, redness, and discharge, ENT: Negative for injury, pain, and discharge, Neck: Negative for injury, pain, and swelling, Cardiovascular: Negative for chest pain, palpitations, and edema, Respiratory: Negative for shortness of breath, cough, wheezing, and pleuritic chest pain, Abdomen/GI: Negative for abdominal pain, nausea, vomiting, diarrhea, and constipation, Back: Negative for injury and pain, : Negative for injury, bleeding, discharge, and swelling, MS/Extremity: Negative for injury and deformity, Skin: Negative for injury, rash, and discoloration, Psych: Negative for depression, anxiety, suicide ideation, homicidal ideation, and hallucinations, Allergy/Immunology: Negative for hives, rash, and allergies, Endocrine: Negative for neck swelling, polydipsia, polyuria, polyphagia, and marked weight changes, Hematologic/Lymphatic: Negative for swollen nodes, abnormal bleeding, and unusual bruising. 14:11 Neuro: Positive for altered mental status, weakness. Exam: 14:11 Constitutional: This is a well developed, well nourished patient who is awake, alert, gail and in no acute distress. Head/Face: Normocephalic, atraumatic. Eyes: Pupils equal round and reactive to light, extra-ocular motions intact. Lids and lashes normal. Conjunctiva and sclera are non-icteric and not injected. Cornea within normal limits. Periorbital areas with no swelling, redness, or edema. ENT: Nares patent. No nasal discharge, no septal abnormalities noted. Tympanic membranes are normal and external auditory canals are clear. Oropharynx with no redness, swelling, or masses, exudates, or evidence of obstruction, uvula midline. Mucous membranes moist. Neck: Trachea midline, no thyromegaly or masses palpated, and no cervical lymphadenopathy. Supple, full range of motion without nuchal rigidity, or vertebral point tenderness. No Meningismus. Chest/axilla: Normal chest wall appearance and motion. Nontender with no deformity. No lesions are appreciated. Cardiovascular: Regular rate and rhythm with a normal S1 and S2. No gallops, murmurs, or rubs. Normal PMI, no JVD. No pulse deficits. Respiratory: Lungs have equal breath sounds bilaterally, clear to auscultation and percussion. No rales, rhonchi or wheezes noted. No increased work of breathing, no retractions or nasal flaring. Abdomen/GI: Soft, non-tender, with normal bowel sounds. No distension or tympany. No guarding or rebound. No evidence of tenderness throughout. Back: No spinal tenderness. No costovertebral tenderness. Full range of motion. Male : Normal genitalia with no discharge or lesions. Skin: Warm, dry with normal turgor. Normal color with no rashes, no lesions, and no evidence of cellulitis. MS/ Extremity: Pulses equal, no cyanosis. Neurovascular intact. Full, normal range of motion. Psych: Awake, alert, with orientation to person, place and time. Behavior, mood, and affect are within normal limits. 14:11 Neuro: Orientation: unable to test, Mentation: slow to respond, confused, Memory: unable to test, Cranial nerves: grossly normal, is grossly normal based on the patient's age, no acute changes, Cerebellar function: unable to test, Motor: moves all fours, Sensation: unable to test, Gait: not tested. Deep tendon reflexes are 1 (trace) + in the bilateral brachioradialis, bicep, tricep and patellar and Achilles tendons, Babinski testing is normal, seizure activity, is not displayed by the patient. 14:20 ECG was reviewed by the Attending Physician. gail Vital Signs: 12:36 BP 140 / 88; Pulse 88; Resp 12; Temp 98.2; Pulse Ox 98% ; ss 14:02 BP 132 / 86; Pulse 81; Pulse Ox 100% on R/A; ap3 15:30 BP 140 / 98; Pulse 78; Pulse Ox 100% on R/A; ap3 16:34 BP 111 / 79; Pulse 79; Pulse Ox 100% on R/A; ap3 12/04 00:30 BP 115 / 74; Pulse 97; Resp 18 S; Pulse Ox 100% on R/A; al4 01:30 BP 113 / 77; Pulse 90; Resp 18 S; Pulse Ox 100% on R/A; al4 02:00 BP 86 / 54; Pulse 89; Resp 12; Pulse Ox 100% ; al4 03:00 BP 110 / 62; Pulse 85; Resp 12 S; Pulse Ox 100% on R/A; al4 04:00 BP 98 / 70; Pulse 89; Resp 12 S; Pulse Ox 100% on R/A; al4 05:00 BP 109 / 69; Pulse 88; Resp 13 S; Pulse Ox 100% on R/A; al4 MDM: 12/03 12:44 Patient medically screened. gail 14:13 Differential Diagnosis: CVA, electrolyte abnormality, alcohol intoxication, gail hypoglycemia, intracranial bleed, pneumonia, TIA, UTI, volume depletion. Data reviewed: vital signs, nurses notes, lab test result(s), EKG, radiologic studies, CT scan, plain films. Data interpreted: classroom monitor: rate is 81 beats/min, rhythm is regular, Pulse oximetry: on room air is 10. %. Test interpretation: by ED physician or midlevel provider: ECG, plain radiologic studies. Counseling: I had a detailed discussion with the patient and/or guardian regarding: the historical points, exam findings, and any diagnostic results supporting the discharge/admit diagnosis, lab results, radiology results, the need for further work-up and treatment in the hospital. 12/03 12:41 Order name: Basic Metabolic Panel; Complete Time: 14:07 12/03 12:41 Order name: CBC with Diff 12/03 12:41 Order name: LFT's; Complete Time: 14: 12/03 12:41 Order name: Magnesium; Complete Time: 14: 12/03 12:41 Order name: NT PRO-BNP; Complete Time: 14: 12/03 12:41 Order name: PT-INR; Complete Time: 14: 12/03 12:41 Order name: Troponin HS; Complete Time: 14: 12/03 12:41 Order name: AMMONIA; Complete Time: 14: 12/03 12:43 Order name: Lipase; Complete Time: 14: [facility] 12/03 12:43 Order name: Ptt, Activated; Complete Time: 14: [facility] 12/03 14:03 Order name: Glucose, Ancillary Testing; Complete Time: 14:07 [facility] 12/03 14:14 Order name: SARS-COV-2 RT PCR (Document "Date of Onset" if Symptomatic); Complete Time: eb 17:55 12/03 18:58 Order name: Manual Differential EDN[facility] 12/03 19:10 Order name: Glucose, Ancillary Testing [facility] 12/03 12:41 Order name: XRAY Chest (1 view); Complete Time: 15:23 12/03 12:41 Order name: EKG; Complete Time: 12:43 12/03 12:41 Order name: Cardiac monitoring; Complete Time: 12:41 12/03 12:41 Order name: EKG - Nurse/Tech; Complete Time: 13:05 12/03 14:27 Order name: CT Head Brain wo Cont; Complete Time: 15:23 [facility] 12/03 15:04 Order name: Abdomen ; Complete Time: 17:55 [facility] 12/03 20:37 Order name: Urine Dipstick-Ancillary EDNJ 12/03 21:19 Order name: Magnesium [facility] 12/04 03:26 Order name: Glucose, Ancillary Testing [facility] 12/04 06:07 Order name: Glucose, Ancillary Testing [facility] 12/04 08:12 Order name: CBC with Automated Diff [facility] 12/04 08:26 Order name: Ammonia EDN[facility] 12/04 08:30 Order name: Comprehensive Metabolic Panel [facility] 12/03 12:41 Order name: IV Saline Lock; Complete Time: 13:05 ss 12/03 12:41 Order name: Labs collected and sent; Complete Time: 13:23 ss 12/03 12:41 Order name: O2 Per Protocol; Complete Time: 12:41 12/03 12:41 Order name: O2 Sat Monitoring; Complete Time: 12:41 ss 12/03 12:43 Order name: Urine Dipstick-Ancillary (obtain specimen); Complete Time: 20:37 gail 12/03 12:43 Order name: Blood Glucose Level; Complete Time: 13:53 gail EC:20 Rate is 86 beats/min. Rhythm is regular. QRS Cameron is Normal. OH interval is normal. QRS gail interval is normal. QT interval is prolonged at 528 msec. No Q waves. T waves are Normal. No ST changes noted. Clinical impression: NSR w/ Non-specific ST/T Changes and No evidence of ischemia. Interpreted by me. Reviewed by me. Administered Medications: 13:12 Drug: NS 0.9% 1000 ml Route: IV; Rate: 75 ml/hr; Site: right forearm; ap3 13:12 Drug: Pepcid (famotidine) 20 mg Route: IVP; Site: right forearm; ap3 14:24 Follow up: Response: No adverse reaction ap3 14:50 Drug: Lactulose 45 grams Volume: 45 ml; Route: PO; jh6 Disposition Summary: 12/03/21 14:18 Hospitalization Ordered Hospitalization Status: Inpatient Admission gail Provider: Jesus Bateman cha Condition: Fair gail Problem: new gail Symptoms: have improved gail Bed/Room Type: Standard gail Location: Telemetry/MedSurg (Inpatient)(12/04/21 08:47) eb Room Assignment: 228(12/04/21 09:20) ja1 Diagnosis - Encephalopathy, unspecified gail - Unspecified cirrhosis of liver gail - Type 2 diabetes mellitus with hyperglycemia gail - Altered mental status, unspecified gail Forms: - Medication Reconciliation Form gail - SBAR form gail Signatures: Dispatcher [employer] EDMS James Uriarte MD MD cha Smirch, Shelby, RN RN Amee Welch, RN RN cg Chip Barrera, RN RN ja1 Giuliana Calle RN RN [email or web address] Lexis Byrne Jennifer, RN RN [email or web address] Gudelia Rosa, RN RN st1 Corrections: (The following items were deleted from the chart) 15:35 14:18 Telemetry/MedSurg (Inpatient) gail eb 15:35 14:18 gail eb 15:35 15:35 eb eb 22:59 15:35 [facility] ER HOLD eb cg 22:59 15:35 ERHOLD- eb cg 23:13 22:59 Intensive Care Unit cg cg 23:13 22:59 1- cg cg 23:14 23:13 cg cg 12/04 08:47 12/03 23:13 [facility] ER HOLD cg eb 12/04 08:47 12/03 23:14 ERHOLD- cg eb 12/04 09:20 08:[address] [place], [place] [id number]
[2021-12-03] MEDS ORDERED: LACTULOSE 20 GM/30 ML UCUP ONE ×2 (14:31→19:45)
--- NOTE | 2021-12-03 14:54 | RAD REPORT ---
EXAM DESCRIPTION: CT - Head Brain Wo Cont - 12/03/2021 2:42 pm CLINICAL HISTORY: DIZZINESS COMPARISON: No comparisonsNo comparisons TECHNIQUE: All CT scans are performed using dose optimization technique as appropriate and may inclu de automated exposure control or mA/KV adjustment according to patient size. FINDINGS: No intracranial hemorrhage, hydrocephalus or extra-axial fluid collection.No areas of brai n edema or evidence of midline shift. The paranasal sinuses and mastoids are clear. The calvarium is intact. IMPRESSION: No acute intracranial abnormality.
--- NOTE | 2021-12-03 15:09 | P.HP ---
Certification for Inpatient Patient admitted to: Inpatient With expected LOS: >2 Midnights Practitioner: I am a practitioner with admitting privileges, knowledge of patient current condition, hospital course, and medical plan of care. Services: Services provided to patient in accordance with Admission requirements found in Title 42 Section 412.3 of the Code of Federal Regulations Patient History Date of Service: 12/03/21 Reason for admission: Hepatic encephalopathy History of Present Illness: 56 yo M, PMH: alcoholic cirrhosis, HTN, DM2 presents to ED due to altered mental status. Patient with waxing/waning consciousness. When awake, states he ran out of meds 1-2 days ago. Denies pain, fever, n/v/d. Workup in ED notable for ammonia > 200. Patient unable to provide any further information. ED physician requests admission for further eval/management. Allergies prednisone Allergy (Verified 10/30/21 07:35) Rash Tetracyclines Allergy (Verified 10/30/21 07:35) Rash Home Medications: Folic Acid 1 mg PO DAILY #90 tablet 11/01/21 Furosemide [Lasix*] 40 mg PO BIDL #60 tab 11/29/21 Gabapentin [Neurontin] 800 mg PO TID #90 11/29/21 Insulin Glargine,Hum.rec.anlog [Lantus] 30 unit SQ BEDTIME #15 ml 11/29/21 Lactulose [Cephulac*] 30 ml PO TID 90 Days #1 bottle 11/29/21 Lisinopril [Zestril] 1 tab PO DAILY #30 11/29/21 Nicotine [Nicoderm*] 21 mg TD DAILY #30 patch.td24 11/29/21 Rifaximin [Xifaxan] 550 mg PO BID #60 tablet 11/29/21 Spironolactone [Aldactone*] 100 mg PO DAILY #30 tab 11/29/21 Tetrahydrozoline HCl/Zinc Sulf [Eye Drops Irritation Relief] 2 drops EACH EYE DAILY #1 bottle 11/29/21 Trazodone [Desyrel*] 50 mg PO BEDTIME #30 11/29/21 Triamcinolone 0.1% Crm [Kenalog 0.1% Cream*] 1 kinsey TOP DAILY #1 tube 11/29/21 carvediloL [Carvedilol] 3.125 mg PO BID #60 11/29/21 - Past Medical/Surgical History Diabetic: Yes -: Alcoholic liver cirrhosis -: Hypertension -: Diabetes mellitusinsulin-dependent -: Chronic tobacco use history -: Dementia as per records -: Eye surgery -: Previous paracentesis - Family History Family History: Reviewed- Non-Contributory (unable to be obtained) - Social History Smoking Status: Unknown if ever smoked Alcohol use: Yes CD- Drugs: No Caffeine use: No Review of Systems 10-point ROS is otherwise unremarkable Physical Examination - Physical Exam General: Other (wakes to verbal stimuli. disheveled) HEENT: Sclerae nonicteric Respiratory: Clear to auscultation bilaterally, Normal air movement Cardiovascular: No edema, Regular rate/rhythm Gastrointestinal: Soft and benign, Non-distended, No tenderness Musculoskeletal: No erythema, No tenderness Integumentary: No rashes, No significant lesion Neurological: Other (encephalopathic, moves extremities) - Studies Laboratory Data (last 24 hrs) 12/03/21 13:51: POC Glucose 199 H 12/03/21 13:19: APTT 31.0 12/03/21 13:19: PT 15.0 H, INR 1.30 12/03/21 13:19: WBC 2.50 L D, RBC 3.31 L, Hgb 11.0 L, Hct 32.6 L, MCV 98.4 D, MCH 33.3, MCHC 33.8, RDW 15.4 H, Plt Count 101 L, MPV 7.2 L, Neutrophils % 53.6, Lymphocytes % 22.6, Monocytes % 21.0 H, Eosinophils % 1.5, Basophils % 1.3, Absolute Neutrophils 1.4 L, Absolute Lymphocytes 0.6 L, Absolute Monocytes 0.5, Absolute Eosinophils 0.0, Absolute Basophils 0.0 12/03/21 13:19: Sodium 140, Potassium 3.9, Chloride 113 H, Carbon Dioxide 20 L, BUN 17, Creatinine 0.79, Estimated GFR > 90, Glucose 212 H, Calcium 8.2 L, Magnesium 2.2, Total Bilirubin 1.0, Direct Bilirubin 0.4 H, AST 76 H, ALT 48, Alkaline Phosphatase 144 H, Troponin I High Sens 8.80, NT-Pro-B Natriuret Pep 270 H, Serum Total Protein 6.0 L, Albumin 1.9 L, Globulin 4.1 H, Albumin/Globulin Ratio 0.5 L, Lipase 166 12/03/21 13:19: Ammonia 207 H D Assessment and Plan - Advance Directives Does patient have a Living Will: No Does patient have a Durable POA for Healthcare: No Physician Review Additional Text: Problem List Acute hepatic encephalopathy Hyperammonemia h/o alcoholic cirrhosis of liver with ascites DM2, insulin dependent Anemia of chronic disease lactulose enema monitor in ICU today check CT abd/pelvis, unreliable history/exam recently hospitalized ~1 week ago for similar, s/p paracentesis at that time sliding scale insulin bedside swallow screen, NPO until passes restart lasix/spironolactone once takign PO - likely tomorrow thiamine lovenox Code: full Dispo: anticipate hospitalization >2 days Time Spent Managing Pts Care (In Minutes): 60
--- NOTE | 2021-12-03 15:44 | RAD REPORT ---
EXAM DESCRIPTION: CTAbdomen Pelvis W Contrast - 12/03/2021 3:17 pm CLINICAL HISTORY: cirrhosis, ascites COMPARISON: Abdomen Pelvis W Contrast dated 11/24/2021 TECHNIQUE: CT of the abdomen and pelvis was performed. All CT scans are performed using dose optimization technique as appropriate and may include automated exposure control or mA/KV adjustment according to patient size. FINDINGS: Lower chest: Circumferential thickened distal esophagus. Lower paraesophageal varices Liver: Cirrhotic liver morphology. Biliary: No biliary ductal dilatation. Stomach: No significant focal abnormality. Duodenum: No significant focal abnormality. Pancreas: No significant abnormality. Spleen: Splenomegaly. Adrenal: No suspicious lesions. Kidney/ureter: No hydronephrosis. No renal calculi. Too small to characterize and/or benign appearing renal lesions are noted. Retroperitoneum: No retroperitoneal adenopathy. Vascular: No aneurysm. Large venous collaterals. Bowel: Colonic wall thickening likely related to portal hypertension. Peritoneum: Fluid in the right inguinal canal.Small volume of ascites. Fat containing umbilical herni a. Bladder: Grossly unremarkable. Reproductive: No adnexal masses. Bones: No acute fracture. Other: n/a IMPRESSION: Cirrhosis with evidence of portal hypertension. Small volume of ascites.
[2021-12-03] MEDS ORDERED: INSULIN -REGULAR HUMAN 50 UNIT/0.5 ML ML SQ SCH (16:43)
[2021-12-03] MEDS ORDERED: ONDANSETRON 4 MG/2 ML VIAL IV PRN (16:43)
[2021-12-03 16:57] VITALS: O2SAT 100; BMI 23.6
[2021-12-03] MEDS ORDERED: LACTULOSE 20 GM/30 ML UCUP PR SCH (18:00)
[2021-12-03] MEDS ORDERED: INFLUENZA VACCINE (for 6+ mo) 0.5 ML DOSE IMVAC ONE (18:00)
[2021-12-03] MEDS ORDERED: LORazepam 2 MG/ML VIAL IV PRN (18:13)
[2021-12-03] MEDS: INSULIN -REGULAR HUMAN 50 UNIT/0.5 ML ML SQ SCH (18:15)
[2021-12-03 18:58] LABS: Blood Morphology Comment NOT SEEN (NOT SEEN); Platelet Estimate DECR
[2021-12-03] MEDS: ENOXAPARIN 40 MG/0.4 ML SQ SCH (19:00)
[2021-12-03] MEDS ORDERED: ENOXAPARIN 40 MG/0.4 ML SQ ONE (19:45)
[2021-12-03] MEDS: LACTULOSE 20 GM/30 ML UCUP PO SCH (20:00)
[2021-12-03 20:37] LABS: Urine Blood Negative (Negative); Urine Glucose Trace (Negative); Urine Protein Negative (Negative)
[2021-12-03] MEDS ORDERED: Rifaximin 550 MG Tab PO SCH (21:00)
[2021-12-03] MEDS ORDERED: HOME MED (Rifaximin 550 MG Tab) PO SCH (21:00)
[2021-12-03] MEDS: THIAMINE 200 MG/2 ML INJ IVP SCH (21:00)
[2021-12-04] MEDS: INSULIN -REGULAR HUMAN 50 UNIT/0.5 ML ML SQ SCH ×3 (00:15→12:44)
[2021-12-04] MEDS ORDERED: THIAMINE 200 MG/2 ML INJ ONE ×2 (03:17→09:28)
[2021-12-04] MEDS ORDERED: NA CHLORIDE 0.9% 1,000 ML ONE (03:38)
[2021-12-04] MEDS: LACTULOSE 20 GM/30 ML UCUP PO SCH ×3 (05:57→13:04)
--- NOTE | 2021-12-04 06:33 | P.PN ---
Date of Service: 12/04/21
[2021-12-04] MEDS ORDERED: ACETAMINOPHEN 500 MG TAB PO PRN (07:25)
[2021-12-04 08:11] LABS: Absolute Lymphocytes (CBC) 0.5 K/uL (0.7-4.9); Hematocrit 33.2 % (39.6-49.0); Lymphocytes % 21.9 % (15.3-44.8); MPV 7.2 fL (7.6-11.3); RBC Red Blood Cell Count 3.36 M/uL (4.33-5.43)
[2021-12-04 08:24] LABS: ALT/SGPT 44 U/L (12-78); AST/SGOT 59 U/L (15-37); Albumin 1.8 g/dL (3.4-5.0); Alkaline Phosphatase 126 U/L (45-117); BUN Blood Urea Nitrogen 12 mg/dL (7-18); Bicarbonate 20 mmol/L (21-32); Bilirubin Total 1.2 mg/dL (0.2-1.0); Glucose Level 172 mg/dL (74-106); Potassium 3.5 mmol/L (3.5-5.1); Protein, Total 5.4 g/dL (6.4-8.2); Sodium Level 141 mmol/L (136-145)
[2021-12-04] MEDS ORDERED: SPIRONOLACTONE 100 MG TAB PO SCH (09:00)
[2021-12-04] MEDS: ENOXAPARIN 40 MG/0.4 ML SQ SCH (09:00)
[2021-12-04] MEDS: THIAMINE 200 MG/2 ML INJ IVP SCH (09:00)
[2021-12-04] MEDS ORDERED: ENOXAPARIN 40 MG/0.4 ML SQ ONE (09:28)
[2021-12-04] MEDS ORDERED: INSULIN GLARGINE 100 UNIT/ML SQ ONE (12:54)
[2021-12-04 14:49] VITALS: BP 153/86; TEMP 97.8
--- NOTE | 2021-12-04 15:14 | EKG ---
Test Date: 2021-12-03 Test Time: 12:58:28 Ground Layer: SHAYNA MEASUREMENT RESULTS: Intervals: Rate: 86 IN: 172 QRSD: 66 QT: 442 QTc: 528 Mercer: P: 73 IN: 172 QRS: 73 T: 60 INTERPRETIVE STATEMENTS: Sinus rhythm with occasional premature ventricular complexes Septal infarct, age undetermined Prolonged QT Abnormal ECG Compared to ECG 11/24/2021 00:11:07 Ventricular premature complex(es) now present Prolonged QT interval now present Myocardial infarct finding still present Electronically Signed On 12-04-21 15:13:56 [employer] by Dixon Guy
--- NOTE | 2021-12-04 20:52 | P.DS ---
Admission Date: 12/03/21 Discharge Date: 12/04/21 Disposition: ROUTINE DISCHARGE Discharge Condition: GOOD Reason for Admission: Hepatic encephalopathy Procedures: CT Abd/Pelvis (12/03): IMPRESSION: Cirrhosis with evidence of portal hypertension. Small volume of ascites. Problem List Acute hepatic encephalopathy Hyperammonemia h/o alcoholic cirrhosis of liver with ascites DM2, insulin dependent Anemia of chronic disease Brief History of Present Illness: 56 yo M, PMH: alcoholic cirrhosis, HTN, DM2 presents to ED due to altered mental status. Patient with waxing/waning consciousness. When awake, states he ran out of meds 1-2 days ago. Denies pain, fever, n/v/d. Workup in ED notable for ammonia > 200. Patient unable to provide any further information. ED physician requests admission for further eval/management. Hospital Course: Patient had rapid improvement/resolution of his hepatic encephalopathy with re- initiation of his home regimen. Once more awake/alert, patient stated he missed some doses of his medications. The following day, he was ambulating well, tolerating diet, denied abdominal pain, and was having multiple bowel movements. Patient requested to be discharged so that he wouldn't lose his spot at where he is staying, otherwise he would be homeless. Patient expressed understanding of importance of taking his medications / not missing doses, and ensuring he his having bowel movements. His ammonia level significantly decreased but was still elevated. Patient discharged home per his request. Vital Signs/Physical Exam: Physical Exam General: AAOx3, NAD HEENT: Sclerae nonicteric Respiratory: Clear to auscultation bilaterally, Normal air movement Cardiovascular: No edema, Regular rate/rhythm Gastrointestinal: Soft and benign, Non-distended, No tenderness Musculoskeletal: No erythema, No tenderness Integumentary: No rashes, No significant lesion Neurological: moves all extremities, ambulating well with normal gait, normal speech Temp Pulse Resp BP Pulse Ox 97.8 F 105 H 18 153/86 H 100 12/04/21 12:00 12/04/21 12:00 12/04/21 12:00 12/04/21 12:00 12/04/21 12:00 Laboratory Data at Discharge: WBC 2.40 K/uL (4.3-10.9) L 12/04/21 07:58 Hgb 11.0 g/dL (13.6-17.9) L 12/04/21 07:58 Hct 33.2 % (39.6-49.0) L 12/04/21 07:58 Plt Count 103 K/uL (152-406) L 12/04/21 07:58 PT 15.0 SECONDS (9.5-12.5) H 12/03/21 13:19 INR 1.30 12/03/21 13:19 APTT 31.0 SECONDS (24.3-36.9) 12/03/21 13:19 Sodium 141 mmol/L (136-145) 12/04/21 07:58 Potassium 3.5 mmol/L (3.5-5.1) 12/04/21 07:58 BUN 12 mg/dL (7-18) 12/04/21 07:58 Creatinine 0.78 mg/dL (0.55-1.3) 12/04/21 07:58 Glucose 172 mg/dL (74-106) H 12/04/21 07:58 Magnesium 2.1 mg/dL (1.8-2.4) 12/03/21 20:54 Total Bilirubin 1.2 mg/dL (0.2-1.0) H 12/04/21 07:58 AST 59 U/L (15-37) H 12/04/21 07:58 ALT 44 U/L (12-78) 12/04/21 07:58 Alkaline Phosphatase 126 U/L (45-117) H 12/04/21 07:58 Lipase 166 U/L (73-393) 12/03/21 13:19 Home Medications: Folic Acid 1 mg PO DAILY #90 tablet 11/01/21 Furosemide [Lasix*] 40 mg PO BIDL #60 tab 11/29/21 Gabapentin [Neurontin] 800 mg PO TID #90 11/29/21 Insulin Glargine,Hum.rec.anlog [Lantus] 30 unit SQ BEDTIME #15 ml 11/29/21 Lactulose [Cephulac*] 30 ml PO TID 90 Days #1 bottle 11/29/21 Lisinopril [Zestril] 1 tab PO DAILY #30 11/29/21 Nicotine [Nicoderm*] 21 mg TD DAILY #30 patch.td24 11/29/21 Rifaximin [Xifaxan] 550 mg PO BID #60 tablet 11/29/21 Spironolactone [Aldactone*] 100 mg PO DAILY #30 tab 11/29/21 Tetrahydrozoline HCl/Zinc Sulf [Eye Drops Irritation Relief] 2 drops EACH EYE DAILY #1 bottle 11/29/21 Trazodone [Desyrel*] 50 mg PO BEDTIME #30 11/29/21 Triamcinolone 0.1% Crm [Kenalog 0.1% Cream*] 1 kinsey TOP DAILY #1 tube 11/29/21 carvediloL [Carvedilol] 3.125 mg PO BID #60 11/29/21 Physician Discharge Instructions: no change in medications. Please don't miss any medications, especially your lactulose. Take an extra dose of lactulose if you have not had a bowel movement by the time you are due for your 2nd dose. Diet: ADA Activity: Ad ty Followup: NONE,NONE [Primary Care Provider] - Time spent managing pt's care (in minutes): 45
== END 2021-12-04 13:33 | disposition home or self-care (01) | DRG 442 ==
LOC: ER 12:30 → ERHOLD 14:59 → 2ND 12-04 09:36
PROVIDERS: ADMIT Hospitalist; ATTEND Hospitalist
DX: K72.00 Acute and subacute hepatic failure without coma (principal); E72.20 Disorder of urea cycle metabolism, unspecified; E11.65 Type 2 diabetes mellitus with hyperglycemia; I10 Essential (primary) hypertension; D63.8 Anemia in other chronic diseases classified elsewhere; K74.60 Unspecified cirrhosis of liver; Z88.8 Allergy status to other drugs, medicaments and biological substances; Z79.4 Long term (current) use of insulin; Z91.14 Patient's other noncompliance with medication regimen; Z79.899 Other long term (current) drug therapy; Z88.1 Allergy status to other antibiotic agents; Z20.822 Contact with and (suspected) exposure to COVID-19
CPT/HCPCS: 36415; 70450; 71045; 74177; 80048; 80053; 80076; 81003; 82140; 82947; 83690; 83735; 83880; 84484; 85025; 85610; 85730; 93005; 96374; 99285; J1650; J3411; J7030; Q9967; U0003

== ENCOUNTER 2021-12-22 13:49 | Inpatient (IN) | payer OTHER ==
[2021-12-22] MEDS ORDERED: NA CHLORIDE 0.9% 1,000 ML ONE ×3 (14:44→18:14)
[2021-12-22 15:17] LABS: MPV 7.5 fL (7.6-11.3); RBC Red Blood Cell Count 3.86 M/uL (4.33-5.43)
[2021-12-22 15:30] LABS: Urine Blood Negative (Negative); Urine Glucose 2+ (Negative); Urine Protein Negative (Negative); Urine Specific Gravity <=1.005 (1.005-1.030); Urine pH 5.5 (5.0-7.0)
[2021-12-22] MEDS ORDERED: INSULIN -REGULAR HUMAN 50 UNIT/0.5 ML ML ONE ×2 (15:40→16:31)
[2021-12-22 15:50] LABS: Absolute Lymphocytes (CBC) 0.9 K/uL (0.7-4.9); Lymphocytes % 22.3 % (15.3-44.8)
[2021-12-22 15:52] LABS: Protime INR 1.06
[2021-12-22 15:59] LABS: Albumin 2.4 g/dL (3.4-5.0); Bilirubin Total 1.3 mg/dL (0.2-1.0); Protein, Total 6.8 g/dL (6.4-8.2)
[2021-12-22 16:03] LABS: Potassium 3.9 mmol/L (3.5-5.1)
--- NOTE | 2021-12-22 16:10 | EDPHYS ---
Physician Documentation [facility] Name: Amador Cosme Age: 56 yrs Sex: Male : 1965 Arrival Date: 12/22/2021 Time: 13:55 Bed 7 Private MD: ED Physician James Uriarte HPI: 12/22 16:00 This 56 yrs old Male presents to ER via EMS with complaints of High Blood gail Sugar. 16:00 The patient or guardian reports hyperglycemia, that was potentially precipitated by gail adjusting medication dose. Onset: The symptoms/episode began/occurred 3 day(s) ago. Associated signs and symptoms: Pertinent positives: None. Pertinent negatives: None. Current symptoms: In the emergency department the patient's symptoms are unchanged from the initial presentation. The patient has experienced similar episodes in the past, multiple times. Historical: - Allergies: 14:10 Prednisone; ic1 14:10 TETRACYCLINES; ic1 - Home Meds: 14:10 lisinopril 10 mg Oral tab [Active]; Lantus U-100 Insulin 30 unit Sub-Q crtg [Active]; ic1 Humalog 30 unit Sub-Q [Active]; - PMHx: 14:10 cirrhosis of liver; Dementia; Hypertensive disorder; NIDDM; Pancreatitis; ic1 - PSHx: 14:10 eye sx; ic1 - Immunization history:: Adult Immunizations up to date. - Social history:: Smoking status: Patient reports the use of cigarette tobacco products, smokes one-half pack cigarettes per day. - Family history:: not pertinent. ROS: 16:00 Constitutional: Negative for fever, chills, and weight loss, Eyes: Negative for injury, gail pain, redness, and discharge, ENT: Negative for injury, pain, and discharge, Neck: Negative for injury, pain, and swelling, Cardiovascular: Negative for chest pain, palpitations, and edema, Respiratory: Negative for shortness of breath, cough, wheezing, and pleuritic chest pain, Back: Negative for injury and pain, : Negative for injury, bleeding, discharge, and swelling, MS/Extremity: Negative for injury and deformity, Skin: Negative for injury, rash, and discoloration, Neuro: Negative for headache, weakness, numbness, tingling, and seizure, Psych: Negative for depression, anxiety, suicide ideation, homicidal ideation, and hallucinations, Allergy/Immunology: Negative for hives, rash, and allergies, Endocrine: Negative for neck swelling, polydipsia, polyuria, polyphagia, and marked weight changes, Hematologic/Lymphatic: Negative for swollen nodes, abnormal bleeding, and unusual bruising. 16:00 Abdomen/GI: Positive for abdominal pain, abdominal cramps, of the epigastric area, right upper quadrant and left upper quadrant. Exam: 16:00 Constitutional: This is a well developed, well nourished patient who is awake, alert, gail and in no acute distress. Head/Face: Normocephalic, atraumatic. Eyes: Pupils equal round and reactive to light, extra-ocular motions intact. Lids and lashes normal. Conjunctiva and sclera are non-icteric and not injected. Cornea within normal limits. Periorbital areas with no swelling, redness, or edema. ENT: Nares patent. No nasal discharge, no septal abnormalities noted. Tympanic membranes are normal and external auditory canals are clear. Oropharynx with no redness, swelling, or masses, exudates, or evidence of obstruction, uvula midline. Mucous membranes moist. Neck: Trachea midline, no thyromegaly or masses palpated, and no cervical lymphadenopathy. Supple, full range of motion without nuchal rigidity, or vertebral point tenderness. No Meningismus. Chest/axilla: Normal chest wall appearance and motion. Nontender with no deformity. No lesions are appreciated. Cardiovascular: Regular rate and rhythm with a normal S1 and S2. No gallops, murmurs, or rubs. Normal PMI, no JVD. No pulse deficits. Respiratory: Lungs have equal breath sounds bilaterally, clear to auscultation and percussion. No rales, rhonchi or wheezes noted. No increased work of breathing, no retractions or nasal flaring. Back: No spinal tenderness. No costovertebral tenderness. Full range of motion. Male : Normal genitalia with no discharge or lesions. Skin: Warm, dry with normal turgor. Normal color with no rashes, no lesions, and no evidence of cellulitis. MS/ Extremity: Pulses equal, no cyanosis. Neurovascular intact. Full, normal range of motion. Neuro: Awake and alert, GCS 15, oriented to person, place, time, and situation. Cranial nerves II-XII grossly intact. Motor strength 5/5 in all extremities. Sensory grossly intact. Cerebellar exam normal. Normal gait. Psych: Awake, alert, with orientation to person, place and time. Behavior, mood, and affect are within normal limits. 16:00 ECG was reviewed by the Attending Physician. 16:00 Abdomen/GI: Inspection: abdomen appears normal, Bowel sounds: normal, Palpation: mild abdominal tenderness, in the epigastric area, right upper quadrant and left upper quadrant, Liver: no appreciated palpable abnormalities, Hernia: noted in the umbilical area, incarceration, is not appreciated, tenderness, is not appreciated. Vital Signs: 14:09 BP 146 / 92; Pulse 87; Resp 16; Temp 97.5; Pulse Ox 100% on R/A; ic1 17:05 BP 137 / 98; Pulse 110; Resp 18; Pulse Ox 98% on R/A; ic1 18:06 BP 136 / 92; Pulse 96; Resp 18; Pulse Ox 99% ; ic1 MDM: 14:09 Patient medically screened. gail 16:44 Differential diagnosis: DKA. Data reviewed: vital signs, nurses notes, lab test [facility] result(s), EKG, radiologic studies, plain films. Data interpreted: monitor tech: rate is 87 beats/min, rhythm is normal sinus rhythm, regular, Pulse oximetry: on room air is 87 %. Test interpretation: by ED physician or midlevel provider: ECG, plain radiologic studies. Counseling: I had a detailed discussion with the patient and/or guardian regarding: the historical points, exam findings, and any diagnostic results supporting the discharge/admit diagnosis, lab results, radiology results, the need for further work-up and treatment in the hospital. 12/22 14:19 Order name: Glucose, Ancillary Testing; Complete Time: 15:07 EDNY 12/22 15:02 Order name: CMP; Complete Time: 16:43 ic1 12/22 15:08 Order name: Basic Metabolic Panel [facility] 12/22 15:08 Order name: LFT's [facility] 12/22 15:08 Order name: Magnesium [facility] 12/22 15:08 Order name: NT PRO-BNP [facility] 12/22 15:08 Order name: PT-INR; Complete Time: 15:59 [facility] 12/22 15:08 Order name: Troponin HS [facility] 12/22 15:08 Order name: SARS-COV-2 RT PCR (Document "Date of Onset" if Symptomatic); Complete Time: gail 19:01 12/22 15:09 Order name: AMMONIA; Complete Time: 16:43 gail 12/22 15:29 Order name: Urine Dipstick-Ancillary; Complete Time: 15:32 EDMS 12/22 15:42 Order name: Lipase; Complete Time: 19:01 bd 12/22 15:45 Order name: CBC with Automated Diff; Complete Time: 16:12 EDMS 12/22 15:53 Order name: Glucose, Ancillary Testing; Complete Time: 15:59 EDMS 12/22 16:40 Order name: ABG gail 12/22 16:42 Order name: ABG Arterial Blood Gas; Complete Time: 19:01 EDMS 12/22 16:48 Order name: Ammonia EDMS 12/22 16:48 Order name: Ammonia EDMS 12/22 16:48 Order name: Ammonia EDMS 12/22 16:48 Order name: Ammonia EDMS 12/22 16:48 Order name: Comprehensive Metabolic Panel EDMS 12/22 16:48 Order name: Comprehensive Metabolic Panel EDMS 12/22 16:48 Order name: Comprehensive Metabolic Panel EDMS 12/22 16:48 Order name: Comprehensive Metabolic Panel EDMS 12/22 16:49 Order name: Comprehensive Metabolic Panel EDMS 12/22 16:49 Order name: Magnesium EDMS 12/22 16:49 Order name: Magnesium EDMS 12/22 16:49 Order name: Magnesium EDMS 12/22 15:08 Order name: XRAY Chest (1 view); Complete Time: 16:43 gail 12/22 15:08 Order name: EKG; Complete Time: 15:09 gail 12/22 16:49 Order name: Magnesium EDMS 12/22 16:49 Order name: Magnesium EDMS 12/22 16:49 Order name: Magnesium EDMS 12/22 16:49 Order name: Magnesium EDMS 12/22 16:49 Order name: Osmolality, Serum EDMS 12/22 16:49 Order name: CBC with Automated Diff EDMS 12/22 16:49 Order name: CBC with Automated Diff EDMS 12/22 16:49 Order name: CBC with Automated Diff EDMS 12/22 16:49 Order name: CBC with Automated Diff EDMS 12/22 16:49 Order name: Magnesium EDMS 12/22 17:47 Order name: Glucose, Ancillary Testing; Complete Time: 19:01 [facility] 12/22 20:18 Order name: Glucose, Ancillary Testing EDNY 12/22 22:14 Order name: Glucose, Ancillary Testing EDNY 12/22 23:00 Order name: Glucose, Ancillary Testing EDNY 12/23 00:32 Order name: Glucose, Ancillary Testing EDNY 12/23 00:40 Order name: Glucose, Ancillary Testing EDNY 12/23 01:49 Order name: Glucose, Ancillary Testing [facility] 12/22 15:08 Order name: Cardiac monitoring; Complete Time: 21:10 [facility] 12/22 15:08 Order name: EKG - Nurse/Tech; Complete Time: 15:43 [facility] 12/22 15:08 Order name: IV Saline Lock; Complete Time: 15:43 [facility] 12/22 15:08 Order name: Labs collected and sent; Complete Time: 21:10 [facility] 12/22 15:08 Order name: O2 Per Protocol; Complete Time: 15:43 [facility] 12/22 15:08 Order name: O2 Sat Monitoring; Complete Time: 15:43 [facility] 12/22 15:08 Order name: Urine Dipstick-Ancillary (obtain specimen); Complete Time: 15:27 [facility] 12/22 15:42 Order name: Labs - recollect needed: recollect lavender top and collect green top for bd lipase.; Complete Time: 21:11 12/22 16:49 Order name: Case Management Consult [facility] 12/22 16:49 Order name: CONS Diabetic Education Consul [facility] 12/22 16:49 Order name: Dietitian Consult [facility] 12/22 16:49 Order name: Clear Liquid [facility] EC:00 Rate is 91 beats/min. Rhythm is regular. QRS [place] is Normal. LA interval is normal. QRS gail interval is normal. QT interval is prolonged at 426 msec. No Q waves. T waves are Normal. No ST changes noted. Clinical impression: Normal ECG and No evidence of ischemia. Interpreted by me. Reviewed by me. Administered Medications: 15:02 Drug: NS 0.9% 1000 ml Route: IV; Rate: 1 bolus; Site: right forearm; ic1 15:15 Drug: NS 0.9% 1000 ml {Note: Per the day shift RN this was administered by her. The ll3 charge nurse and I checked in the pyxis to verify it was pulled. .} Route: IV; Rate: 1 bolus; Site: right antecubital; 16:33 Drug: morphine 4 mg Route: IVP; Site: right forearm; ic1 16:33 Drug: Zofran (Ondansetron) 4 mg Route: IVP; Site: right forearm; ic1 16:33 Drug: NS 0.9% 1000 ml Route: IV; Rate: 1 bolus; Site: right forearm; ic1 16:37 Drug: Insulin Regular Human 10 units {Co-Signature: jh5 (Bhavana Nguyen RN).} Route: IVP; ic1 Site: right forearm; 16:40 Not Given (Duplicate Order): LanTUS (insulin glargine) 30 units Sub-Q once gail 16:40 Drug: NS 0.9% 1000 ml {Note: Administer by day shift nurse at 1645 per the day shift ll3 RN. This infusion was already being given to the pt. when I arrived on shift at 1900. It was infusing at 75ml/hr. please see [employer] Order .} Route: IV; Rate: 125 ml/hr; Site: right antecubital; 17:02 Drug: Potassium Effervescent Tablet 50 mEq Route: PO; ic1 17:03 Drug: Pepcid (famotidine) 20 mg Route: IVP; Site: right forearm; ic1 17:03 Drug: Lactulose 30 grams Volume: 45 ml; Route: PO; ic1 17:36 Drug: Insulin Regular Human 10 units {Co-Signature: jg9 (Skylar Bond RN).} Route: ic1 IVP; Site: right forearm; 18:00 Drug: Insulin Drip - (Insulin Regular Human 100 units, NS 0.9% 100 ml) {Co-Signature: st1 ll3 (Trevon Easley RN).} {Note: The insulin drip was infusing upon the change of shift. Administered by day shift RN..} Route: IV; Rate: 4 units/hr; Site: right antecubital; Point of Care Testing: Blood Glucose: 14:10 Blood Glucose: High (>450 mg/dL); ic1 Ranges: Critical Glucose Levels:Adult <50 mg/dl or >400 mg/dl <40 mg/dl or >180 mg/dl Disposition Summary: 12/22/21 16:09 Hospitalization Ordered Provider: [place]day[place], Ebima gail Condition: Stable gail Problem: new gail Symptoms: have improved gail Bed/Room Type: Standard gail Hospitalization Status: Inpatient Admission(12/22/21 16:45) gail Location: Intensive Care Unit(12/22/21 16:45) gail Room Assignment: 7-(12/22/21 23:56) cg Diagnosis - Type 1 diabetes mellitus with hyperglycemia gail - Hyperglycemia, unspecified - poorly compliant gail - Weakness gail - Type 1 diabetes mellitus with ketoacidosis without coma gail - Unspecified cirrhosis of liver gail Forms: - Medication Reconciliation Form gail - SBAR form gail Signatures: Dispatcher [employer] EDMS Senia Helm Corey, MD MD cha Garcia, Cindy, RN RN cg Trevon Easley RN RN ll3 Birgit Roe RN RN ic1 Gudelia Rosa RN RN st1 Bhavana Nguyen RN jh5 Skylar Bond RN jg9 Trevon Easley RN ll3 Corrections: (The following items were deleted from the chart) 15:45 15:02 CBC without Diff+H.LAB.BRZ ordered. EDMS EDMS 15:45 15:08 CBC+H.LAB.BRZ ordered. EDMS EDMS 16:45 16:09 Observation gail gail 16:45 16:09 Telemetry/MedSurg (observation) gail gail 16:45 16:09 gail gail 23:56 16:45 gail cg
--- NOTE | 2021-12-22 16:10 | ER ---
Nurse's Notes [facility] Name: Amador Cosme Age: 56 yrs Sex: Male : 1965 Arrival Date: 12/22/2021 Time: 13:55 Bed 7 Private MD: Diagnosis: Type 1 diabetes mellitus with hyperglycemia;Hyperglycemia, unspecified-poorly compliant;Weakness;Type 1 diabetes mellitus with ketoacidosis without coma;Unspecified cirrhosis of liver Presentation: 12/22 14:09 Chief complaint: EMS states: Pt brought in for high blood sugar. Coronavirus screen: ic1 Vaccine status: Patient reports receiving the 2nd dose of the covid vaccine. Ebola Screen: No symptoms or risks identified at this time. Initial Sepsis Screen: Does the patient meet any 2 criteria? No. Patient's initial sepsis screen is negative. Does the patient have a suspected source of infection? No. Patient's initial sepsis screen is negative. Risk Assessment: Do you want to hurt yourself or someone else? Patient reports no desire to harm self or others. Onset of symptoms is unknown. 14:09 Method Of Arrival: EMS ic1 14:09 Acuity: DAO 3 ic1 Triage Assessment: 14:10 General: Appears in no apparent distress. uncomfortable, Behavior is calm, cooperative. ic1 Pain: Denies pain. 14:10 EENT: No deficits noted. Neuro: No deficits noted. Cardiovascular: No deficits noted. ic1 Respiratory: No deficits noted. GI: No deficits noted. : No deficits noted. Derm: No deficits noted. Musculoskeletal: No deficits noted. Historical: - Allergies: 14:10 Prednisone; ic1 14:10 TETRACYCLINES; ic1 - Home Meds: 14:10 lisinopril 10 mg Oral tab [Active]; Lantus U-100 Insulin 30 unit Sub-Q crtg [Active]; ic1 Humalog 30 unit Sub-Q [Active]; - PMHx: 14:10 cirrhosis of liver; Dementia; Hypertensive disorder; NIDDM; Pancreatitis; ic1 - PSHx: 14:10 eye sx; ic1 - Immunization history:: Adult Immunizations up to date. - Social history:: Smoking status: Patient reports the use of cigarette tobacco products, smokes one-half pack cigarettes per day. - Family history:: not pertinent. Screenin:12 Abuse screen: Denies threats or abuse. Denies injuries from another. Nutritional ic1 screening: No deficits noted. Tuberculosis screening: No symptoms or risk factors identified. Fall Risk None identified. Assessment: 14:38 General: Appears in no apparent distress. comfortable, Behavior is calm, cooperative. ic1 Pain: Denies pain. Neuro: No deficits noted. Cardiovascular: No deficits noted. Respiratory: No deficits noted. GI: No deficits noted. : No deficits noted. EENT: No deficits noted. Derm: No deficits noted. Musculoskeletal: No deficits noted. 18:02 Reassessment: No changes from previously documented assessment. Patient is alert, ic1 oriented x 3, equal unlabored respirations, skin warm/dry/pink. Pharmacy paged and notified to bring pt's insulin drip. Acknowledged understanding. 12/23 02:26 Reassessment: Upon the change of shift, it was discovered the patients MAR in [employer] st1 and [employer] were not complete. The charge nurse was notified and a reconciliation of the medications given on the day shift was conducted using the [employer]. The patient was given food despite being on a insulin drip causing his blood glucose to decrease slowly over the time from 1900 until he was transferred to ICU. The secondary witness to the above occurrence is CLARI Lester ED. . Vital Signs: 02 14:09 BP 146 / 92; Pulse 87; Resp 16; Temp 97.5; Pulse Ox 100% on R/A; ic1 17:05 BP 137 / 98; Pulse 110; Resp 18; Pulse Ox 98% on R/A; ic1 18:06 BP 136 / 92; Pulse 96; Resp 18; Pulse Ox 99% ; ic1 ED Course: 13:55 Patient arrived in ED. em1 14:09 James Uriarte MD is Attending Physician. gail 14:10 Triage completed. ic1 14:10 Arm band placed on left wrist. ic1 14:12 Patient has correct armband on for positive identification. Placed in gown. Bed in low ic1 position. Call light in reach. Side rails up X2. 14:12 No provider procedures requiring assistance completed. Inserted saline lock: 20 gauge ic1 in right forearm, using aseptic technique. Blood collected. 14:36 Birgit Roe RN is Primary Nurse. ic1 15:27 AMMONIA Sent. ic1 15:58 XRAY Chest (1 view) In Process Unspecified. EDMS 16:07 Notified ED physician of a critical lab result(s). Glucose 952. jl7 16:08 Yanna Shepherd MD is Hospitalizing Provider. gail 19:03 Primary Nurse role handed off by Birgit Roe, CLARI mw2 12/23 00:02 Gudelia Rosa, RN is Primary Nurse. st1 02:31 Patient admitted, IV remains in place. st1 Administered Medications: 12/22 15:02 Drug: NS 0.9% 1000 ml Route: IV; Rate: 1 bolus; Site: right forearm; ic1 15:15 Drug: NS 0.9% 1000 ml {Note: Per the day shift RN this was administered by her. The ll3 charge nurse and I checked in the pyxis to verify it was pulled. .} Route: IV; Rate: 1 bolus; Site: right antecubital; 16:33 Drug: morphine 4 mg Route: IVP; Site: right forearm; ic1 16:33 Drug: Zofran (Ondansetron) 4 mg Route: IVP; Site: right forearm; ic1 16:33 Drug: NS 0.9% 1000 ml Route: IV; Rate: 1 bolus; Site: right forearm; ic1 16:37 Drug: Insulin Regular Human 10 units {Co-Signature: jh5 (Bhavana Nguyen RN).} Route: IVP; ic1 Site: right forearm; 16:40 Not Given (Duplicate Order): LanTUS (insulin glargine) 30 units Sub-Q once gail 16:40 Drug: NS 0.9% 1000 ml {Note: Administer by day shift nurse at 1645 per the day shift ll3 RN. This infusion was already being given to the pt. when I arrived on shift at 1900. It was infusing at 75ml/hr. please see [employer] Order .} Route: IV; Rate: 125 ml/hr; Site: right antecubital; 17:02 Drug: Potassium Effervescent Tablet 50 mEq Route: PO; ic1 17:03 Drug: Pepcid (famotidine) 20 mg Route: IVP; Site: right forearm; ic1 17:03 Drug: Lactulose 30 grams Volume: 45 ml; Route: PO; ic1 17:36 Drug: Insulin Regular Human 10 units {Co-Signature: jg9 (Skylar Bond RN).} Route: ic1 IVP; Site: right forearm; 18:00 Drug: Insulin Drip - (Insulin Regular Human 100 units, NS 0.9% 100 ml) {Co-Signature: st1 ll3 (Trevon Easley RN).} {Note: The insulin drip was infusing upon the change of shift. Administered by day shift RN..} Route: IV; Rate: 4 units/hr; Site: right antecubital; Point of Care Testing: Blood Glucose: 14:10 Blood Glucose: High (>450 mg/dL); ic1 Ranges: Outcome: 16:09 Decision to Hospitalize by Provider. gail 12/23 02:31 Admitted to ICU accompanied by nurse, accompanied by tech, via stretcher, room 7, on st1 monitor, with chart. Condition: stable Instructed on the need for admit. 02:32 Patient left the ED. st1 Signatures: Dispatcher [employer] EDJames Bates MD MD cha Martinez, Eric em1 Stevo Borges RN RN jl7 Urmila Stafford 2 Trevon Easley RN RN ll3 Birgit Roe RN RN ic1 Gudelia Rosa RN RN st1 Bhavana Nguyen RN jh5 Skylar Bond RN jg9 Trevon Easley RN ll3
--- NOTE | 2021-12-22 16:29 | RAD REPORT ---
EXAM DESCRIPTION: RAD - Chest Single View - 12/22/2021 3:58 pm CLINICAL HISTORY: COUGH COMPARISON: Chest Single View dated 12/03/2021; Chest Single View dated 11/23/2021; Chest Single View dated 10/30/2021 FINDINGS: Lines: None. Lungs: No evidence of edema or pneumonia. Pleural: No significant pleural effusions or pneumothorax. Cardiac: The heart size is within normal limits. Bones: No acute fractures. Other: IMPRESSION: No acute cardiopulmonary disease.
[2021-12-22] MEDS ORDERED: INSULIN GLARGINE 100 UNIT/ML SQ ONE ×2 (16:30→17:37)
[2021-12-22] MEDS ORDERED: ONDANSETRON 4 MG/2 ML VIAL ONE (16:30)
[2021-12-22] MEDS ORDERED: MORPHINE 4 MG/ML SYR ONE (16:30)
--- NOTE | 2021-12-22 16:42 | P.HP ---
Certification for Inpatient With expected LOS: >2 Midnights Practitioner: I am a practitioner with admitting privileges, knowledge of patient current condition, hospital course, and medical plan of care. Services: Services provided to patient in accordance with Admission requirements found in Title 42 Section 412.3 of the Code of Federal Regulations Patient History Date of Service: 12/22/21 Reason for admission: Weakness History of Present Illness: 56-year-old male with past medical history of alcoholic liver cirrhosis, recurrent hospitalization for hepatic encephalopathy, diabetes mellitus, hypert ension presented now because of complaint of weakness. Patient states he is unable to afford a glucometer has not been checking his glucose at home. He states he is still been getting his insulinboth NovoLog and Lantus although not sure how much dose he is taking. On presentation he was noted with marked elevated glucose of greater than 500. Serum glucose of 952. He also did have associated low sodium as well as low serum bicarb at 15. A serum ammonia was noted elevated at 150. Patient is unable to tell if he is taking his lactulose regularly. Allergies prednisone Allergy (Verified 10/30/21 07:35) Rash Tetracyclines Allergy (Verified 10/30/21 07:35) Rash Home Medications: Folic Acid 1 mg PO DAILY #90 tablet 11/01/21 Furosemide [Lasix*] 40 mg PO BIDL #60 tab 11/29/21 Gabapentin [Neurontin] 800 mg PO TID #90 11/29/21 Insulin Glargine,Hum.rec.anlog [Lantus] 30 unit SQ BEDTIME #15 ml 11/29/21 Lactulose [Cephulac*] 30 ml PO TID 90 Days #1 bottle 11/29/21 Lisinopril [Zestril] 1 tab PO DAILY #30 11/29/21 Nicotine [Nicoderm*] 21 mg TD DAILY #30 patch.td24 11/29/21 Rifaximin [Xifaxan] 550 mg PO BID #60 tablet 11/29/21 Spironolactone [Aldactone*] 100 mg PO DAILY #30 tab 11/29/21 Tetrahydrozoline HCl/Zinc Sulf [Eye Drops Irritation Relief] 2 drops EACH EYE DAILY #1 bottle 11/29/21 Trazodone [Desyrel*] 50 mg PO BEDTIME #30 11/29/21 Triamcinolone 0.1% Crm [Kenalog 0.1% Cream*] 1 kinsey TOP DAILY #1 tube 11/29/21 carvediloL [Carvedilol] 3.125 mg PO BID #60 11/29/21 - Past Medical/Surgical History Diabetic: Yes -: Alcoholic liver cirrhosis -: Hypertension -: Diabetes mellitusinsulin-dependent -: Chronic tobacco use history -: Dementia as per records -: Eye surgery -: Previous paracentesis - Social History Smoking Status: Current every day smoker Counseled patient to stop smoking for: less than 10 minutes Smoking therapy provided: No Patient receptive to therapy: No Alcohol use: Yes CD- Drugs: No Caffeine use: No Place of Residence: Home Review of Systems is unable to be obtained (Drowsy and confused) Physical Examination - Physical Exam General: Oriented x1, Demented, Confused HEENT: Atraumatic, Normocephalic, PERRLA Neck: Supple, 2+ carotid pulse no bruit Respiratory: Clear to auscultation bilaterally, Diminished Capillary refill: <2 Seconds Gastrointestinal: Normal bowel sounds, Soft and benign, Distended, Ascites Musculoskeletal: No clubbing, No swelling Integumentary: No rashes, No breakdown Neurological: Normal speech, Cranial nerves 3-12 intact - Studies Laboratory Data (last 24 hrs) 12/22/21 15:19: PT 12.2, INR 1.06 12/22/21 15:08: WBC Cancelled, Hgb Cancelled, Hct Cancelled, Plt Count Cancelled 12/22/21 15:04: Sodium 126 L, Potassium 3.9, BUN 11, Creatinine 1.10, Glucose 952 H*, Total Bilirubin 1.3 H, AST 68 H, ALT 107 H, Alkaline Phosphatase 241 H 12/22/21 15:04: WBC 3.90 L, Hgb 13.5 L, Hct 39.0 L, Plt Count 92 L Assessment and Plan Discharge Plan: Home - Advance Directives Does patient have a Living Will: No Does patient have a Durable POA for Healthcare: No - Code Status/Comfort Care Code Status: Full Code Physician Review: Patient Assessed, Agree with Above Assessment and Plan Physician Review Additional Text: Hyperglycemia with possible HONKcalculated anion gap of 17 Hepatic encephalopathy Liver cirrhosis History of dementia Hypertension Chronic tobacco use Plan We will admit to the ICU overnight We will start insulin drip since Jareth elevated glucose of 952 Aggressive hydration with normal saline We will start patient on lactulose 30 g every 4 since able to tolerate p.o. now Monitor daily ammonia level Monitor BMP every 4 Accu-Cheks with every hour for now until glucose less than 500 Monitor serum bicarb Subcutaneous heparin for DVT prophylaxis Nicotine patch daily Disposition possible hospital stay for 24 to 48 hours Advance directivefull code Since marked hyperglycemia, suspect medication noncompliance, we discussed with case management to see if they can arrange for home health to help with medication intake Time Spent Managing Pts Care (In Minutes): 70
[2021-12-22] MEDS ORDERED: ONDANSETRON 4 MG/2 ML VIAL IV PRN (16:46)
[2021-12-22] MEDS ORDERED: NA CHLORIDE 0.9% 1,000 ML IV SCH (17:00)
[2021-12-22] MEDS ORDERED: INSULIN -REGULAR HUMAN 100 UNIT in NA CHLORIDE 0.9% 100 ML IV SCH (17:00)
[2021-12-22] MEDS ORDERED: POTASSIUM 25 MEQ EFFERV TAB ONE (17:01)
[2021-12-22] MEDS ORDERED: FAMOTIDINE 20 MG/2 ML VIAL IV ONE (17:01)
[2021-12-22 17:02] LABS: Albumin 2.6 g/dL (3.4-5.0); Bilirubin Direct 0.3 mg/dL (0-0.2); Protein, Total 7.1 g/dL (6.4-8.2); Troponin High Sensitivity 7.9 pg/mL (<58.9)
[2021-12-22 17:03] LABS: Arterial Blood Carboxyhemoglob 3.8 % (0-1.5); Blood Gas Oxyhemoglobin 92.1 % (94-97); Blood O2 Saturation 98.1 % (92-98.5)
[2021-12-22] MEDS: LACTULOSE 20 GM/30 ML UCUP PO SCH (18:00)
[2021-12-22] MEDS ORDERED: NICOTINE 21 MG/PAT TD SCH (18:00)
[2021-12-22] MEDS ORDERED: NICOTINE 21 MG/PAT TD ONE (18:14)
[2021-12-22] MEDS ORDERED: MORPHINE 2 MG/ML SYR IV PRN (20:30)
[2021-12-22] MEDS ORDERED: MORPHINE 2 MG/ML SYR ONE (20:48)
[2021-12-22] MEDS ORDERED: HOME MED 1 EA UNK (Gabapentin [Neurontin] 800 MG Tablet) PO SCH (21:00)
[2021-12-22] MEDS ORDERED: GABAPENTIN 400 MG CAP PO SCH (21:00)
[2021-12-22] MEDS ORDERED: HEPARIN 5000 UNIT/ML 1 ML VIAL SQ SCH (21:00)
[2021-12-22] MEDS ORDERED: HOME MED (Rifaximin 550 MG Tab) PO SCH (21:00)
[2021-12-22] MEDS ORDERED: Rifaximin 550 MG Tab PO SCH (21:00)
[2021-12-22] MEDS ORDERED: HEPARIN 5000 UNIT/ML 1 ML VIAL ONE (23:51)
[2021-12-23] MEDS ORDERED: MORPHINE 2 MG/ML SYR IV PRN (00:09)
[2021-12-23 02:44] VITALS: O2SAT 99
[2021-12-23 03:41] LABS: ALT/SGPT 82 U/L (12-78); Albumin 2.1 g/dL (3.4-5.0); Alkaline Phosphatase 175 U/L (45-117); BUN Blood Urea Nitrogen 8 mg/dL (7-18); Bicarbonate 23 mmol/L (21-32); Bilirubin Total 0.7 mg/dL (0.2-1.0); Glucose Level 256 mg/dL (74-106); Protein, Total 5.8 g/dL (6.4-8.2); Sodium Level 135 mmol/L (136-145)
[2021-12-23 03:53] LABS: AST/SGOT 80 U/L (15-37); Potassium 3.3 mmol/L (3.5-5.1)
[2021-12-23] MEDS: LACTULOSE 20 GM/30 ML UCUP PO SCH (05:31)
[2021-12-23 07:55] LABS: Absolute Lymphocytes (CBC) 0.9 K/uL (0.7-4.9); Hematocrit 34.3 % (39.6-49.0); Lymphocytes % 24.1 % (15.3-44.8); MPV 7.7 fL (7.6-11.3); RBC Red Blood Cell Count 3.63 M/uL (4.33-5.43)
--- NOTE | 2021-12-23 08:54 | P.DS ---
Discharge Date: 12/23/21 Disposition: AMA-LEFT AGAINST MEDICAL ADVIC Discharge Condition: GOOD Reason for Admission: Weakness Brief History of Present Illness: Patient was admitted for diabetic ketoacidosis. Patient was started on insulin drip admitted to the ICU along with aggressive IV hydration. Patient blood sugars and high anion gap corrected quickly. Patient has not had his insulin. He has not been compliant with taking his home medications. Hospital Course: Patient decided to leave AGAINST MEDICAL ADVICE even though we advised him to stay to get his prescriptions. Patient was awake and alert and oriented to person place and time Vital Signs/Physical Exam: Temp Pulse Resp BP Pulse Ox 98.0 F 89 12 116/76 99 12/23/21 00:00 12/23/21 05:00 12/23/21 05:00 12/23/21 05:00 12/23/21 05:00 General: Alert, In no apparent distress, Oriented x3 Laboratory Data at Discharge: WBC 3.80 K/uL (4.3-10.9) L 12/23/21 07:25 Hgb 11.6 g/dL (13.6-17.9) L 12/23/21 07:25 Hct 34.3 % (39.6-49.0) L 12/23/21 07:25 Plt Count 80 K/uL (152-406) L 12/23/21 07:25 PT 12.2 SECONDS (9.5-12.5) 12/22/21 15:19 INR 1.06 12/22/21 15:19 Sodium 135 mmol/L (136-145) L 12/23/21 00:27 Potassium 3.3 mmol/L (3.5-5.1) L 12/23/21 00:27 BUN 8 mg/dL (7-18) 12/23/21 00:27 Creatinine 0.76 mg/dL (0.55-1.3) 12/23/21 00:27 Glucose 256 mg/dL (74-106) H 12/23/21 00:27 Magnesium 2.0 12/22/21 15:19 Total Bilirubin 0.7 mg/dL (0.2-1.0) 12/23/21 00:27 AST 80 U/L (15-37) H 12/23/21 00:27 ALT 82 U/L (12-78) H 12/23/21 00:27 Alkaline Phosphatase 175 U/L (45-117) H 12/23/21 00:27 Lipase 373 U/L (73-393) 12/22/21 16:14 Home Medications: Folic Acid 1 mg PO DAILY #90 tablet 11/01/21 Furosemide [Lasix*] 40 mg PO BIDL #60 tab 11/29/21 Gabapentin [Neurontin] 800 mg PO TID #90 11/29/21 Insulin Glargine,Hum.rec.anlog [Lantus] 30 unit SQ BEDTIME #15 ml 11/29/21 Lactulose [Cephulac*] 30 ml PO TID 90 Days #1 bottle 11/29/21 Lisinopril [Zestril] 1 tab PO DAILY #30 11/29/21 Nicotine [Nicoderm*] 21 mg TD DAILY #30 patch.td24 11/29/21 Rifaximin [Xifaxan] 550 mg PO BID #60 tablet 11/29/21 Spironolactone [Aldactone*] 100 mg PO DAILY #30 tab 11/29/21 Tetrahydrozoline HCl/Zinc Sulf [Eye Drops Irritation Relief] 2 drops EACH EYE DAILY #1 bottle 11/29/21 Trazodone [Desyrel*] 50 mg PO BEDTIME #30 11/29/21 Triamcinolone 0.1% Crm [Kenalog 0.1% Cream*] 1 kinsey TOP DAILY #1 tube 11/29/21 carvediloL [Carvedilol] 3.125 mg PO BID #60 11/29/21 Physician Discharge Instructions: Patient left AGAINST MEDICAL ADVICE even though we advised him to wait to get his insulin prescriptions. Diet: ADA Activity: Fall precautions Followup: NONE,NONE [Primary Care Provider] - Time spent managing pt's care (in minutes): 20
[2021-12-23] MEDS ORDERED: TRIAMCINOLONE 0.1% CREAM 15GM TOP SCH (09:00)
[2021-12-23] MEDS ORDERED: SPIRONOLACTONE 100 MG TAB PO SCH (09:00)
[2021-12-23] MEDS ORDERED: FOLIC ACID 1 MG TABLET PO SCH (09:00)
[2021-12-23 09:01] VITALS: BP 120/82; TEMP 97.7
[2021-12-23 10:40] LABS: Blood Morphology Comment NOT SEEN (NOT SEEN); Platelet Estimate ADEQ; Platelets, Giant FEW
== END 2021-12-23 08:30 | disposition left against medical advice (07) | DRG 639 ==
LOC: ER 13:49 → ERHOLD 16:48 → 3RD-ICU 12-23 04:21
PROVIDERS: ADMIT Internal Medicine; ATTEND Hospitalist
DX: E10.10 Type 1 diabetes mellitus with ketoacidosis without coma (principal); K74.60 Unspecified cirrhosis of liver; F03.90 Unspecified dementia, unspecified severity, without behavioral disturbance, psychotic disturbance, mood disturbance, and anxiety; I10 Essential (primary) hypertension; K72.90 Hepatic failure, unspecified without coma; F17.210 Nicotine dependence, cigarettes, uncomplicated; Z88.1 Allergy status to other antibiotic agents; Z88.8 Allergy status to other drugs, medicaments and biological substances; Z79.4 Long term (current) use of insulin; Z79.899 Other long term (current) drug therapy; Z91.14 Patient's other noncompliance with medication regimen; Z53.29 Procedure and treatment not carried out because of patient's decision for other reasons; Z20.822 Contact with and (suspected) exposure to COVID-19
CPT/HCPCS: 36415; 71045; 80048; 80053; 80076; 81003; 82140; 82805; 82947; 83690; 83735; 83880; 83930; 84484; 85025; 85610; 99285; J1644; J2270; J2405; J7030; U0003

== ENCOUNTER 2021-12-27 13:31 | Inpatient (IN) | payer OTHER ==
[2021-12-27 14:15] LABS: Protime INR 1.08
[2021-12-27 14:17] LABS: Absolute Lymphocytes (CBC) 1.2 K/uL (0.7-4.9); Hematocrit 36.7 % (39.6-49.0); Lymphocytes % 22.4 % (15.3-44.8); MPV 7.9 fL (7.6-11.3); RBC Red Blood Cell Count 3.66 M/uL (4.33-5.43)
--- NOTE | 2021-12-27 14:26 | RAD REPORT ---
EXAM DESCRIPTION: RAD - Chest Single View - 12/27/2021 2:20 pm CLINICAL HISTORY: weakness Chest pain. COMPARISON: Chest Single View dated 12/22/2021; Chest Single View dated 12/03/2021; Chest Single View d ated 11/23/2021; Chest Single View dated 10/30/2021 FINDINGS: Portable technique limits examination quality. The lungs are grossly clear. The heart is normal in size. No displaced fractures. IMPRESSION: No acute intrathoracic process suspected.
[2021-12-27 14:35] LABS: Albumin 2.3 g/dL (3.4-5.0); Bilirubin Direct 0.5 mg/dL (0-0.2); Bilirubin Total 1.3 mg/dL (0.2-1.0); Magnesium 2.4 mg/dL (1.8-2.4); Potassium 5.1 mmol/L (3.5-5.1); Protein, Total 6.2 g/dL (6.4-8.2)
[2021-12-27 14:36] LABS: Troponin High Sensitivity 7.2 pg/mL (<58.9)
--- NOTE | 2021-12-27 15:19 | RAD REPORT ---
EXAM DESCRIPTION: CT - Head Brain Wo Cont - 12/27/2021 2:31 pm CLINICAL HISTORY: ams Headache, drowsiness COMPARISON: Head Brain Wo Cont dated 12/03/2021 TECHNIQUE: All CT scans are performed using dose optimization technique as appropriate and may inclu de automated exposure control or mA/KV adjustment according to patient size. FINDINGS: No intracranial hemorrhage, hydrocephalus or extra-axial fluid collection.There is a moder ate sized area of diminished density seen in the right temporoparietal region. The paranasal sinuses and mastoids are clear. The calvarium is intact. IMPRESSION: Moderate sized area of diminished density seen the right temporoparietal region is suspi cious for right MCA territory CVA. Recommend MRI brain followup for further evaluation.
--- NOTE | 2021-12-27 16:10 | ER ---
Nurse's Notes [facility] Name: Amador Cosme Age: 56 yrs Sex: Male : 1965 Arrival Date: 12/27/2021 Time: 13:36 Bed 5 Private MD: Diagnosis: Altered mental status, unspecified;Unspecified cirrhosis of liver;Hepatic Encephalopathy;Hyperglycemia, unspecified Presentation: 12/27 13:38 Chief complaint: Patient states: pt c/o loss of vision and "can't walk" , pt was able iw to walk to the stretcher, pt c/o generalized weakness , feels like he's sick and dying, VSS, BS high at 471. Coronavirus screen: At this time, the client does not indicate any symptoms associated with coronavirus-19. Ebola Screen: Patient negative for fever greater than or equal to 101.5 degrees Fahrenheit, and additional compatible Ebola Virus Disease symptoms Patient denies exposure to infectious person. Patient denies travel to an Ebola-affected area in the 21 days before illness onset. No symptoms or risks identified at this time. Initial Sepsis Screen: Does the patient meet any 2 criteria? No. Patient's initial sepsis screen is negative. Does the patient have a suspected source of infection? No. Patient's initial sepsis screen is negative. Risk Assessment: Do you want to hurt yourself or someone else? Patient reports no desire to harm self or others. Onset of symptoms was December 27, 2021. 13:38 Method Of Arrival: EMS: [facility] iw 13:38 Acuity: DAO 3 iw Triage Assessment: 13:45 General: Appears in no apparent distress. unkempt, Behavior is anxious, drowsy. Pain: bp Denies pain. EENT: No deficits noted. Neuro: Level of Consciousness is awake, alert, obeys commands, Oriented to Appropriate for age Gait is steady, Reports weakness. Cardiovascular: No deficits noted. Respiratory: No deficits noted. GI: No signs and/or symptoms were reported involving the gastrointestinal system. : No signs and/or symptoms were reported regarding the genitourinary system. Derm: No deficits noted. Musculoskeletal: No deficits noted. Historical: - Allergies: 13:44 Prednisone; iw 13:44 TETRACYCLINES; iw - Home Meds: 13:44 Humalog 30 unit Sub-Q [Active]; Lantus U-100 Insulin 30 unit Sub-Q crtg [Active]; iw lisinopril 10 mg Oral tab [Active]; - PMHx: 13:44 cirrhosis of liver; Dementia; Hypertensive disorder; NIDDM; Pancreatitis; iw - PSHx: 13:44 eye sx; iw - Immunization history:: Adult Immunizations unknown. - Social history:: Smoking status: Patient reports the use of cigarette tobacco products, unknown amount. Screenin:59 Abuse screen: Denies threats or abuse. Denies injuries from another. Nutritional iw screening: No deficits noted. Tuberculosis screening: No symptoms or risk factors identified. Fall Risk IV access (20 points). Assessment: 13:45 General: SEE TRIAGE NOTE. bp 15:00 Reassessment: No changes from previously documented assessment. Patient and/or family bp updated on plan of care and expected duration. Pain level reassessed. 16:11 Reassessment: PT CONSENTED FOR MRI. bp 19:57 Reassessment: Patient appears in no apparent distress at this time. No changes from cb5 previously documented assessment. Patient and/or family updated on plan of care and expected duration. Pain level reassessed. Patient is alert, oriented x 3, equal unlabored respirations, skin warm/dry/pink. Vital Signs: 13:44 BP 125 / 71; Resp 16; Temp 98.0; Pulse Ox 96% on R/A; iw 15:00 BP 158 / 97; Pulse 96; Resp 16; Pulse Ox 98% ; bp 16:00 BP 137 / 78; Pulse 98; Resp 15; Pulse Ox 96% ; bp 19:45 BP 147 / 79; Pulse 100; Pulse Ox 95% on R/A; cb5 20:45 BP 146 / 78; Pulse 101; Pulse Ox 96% on R/A; lg3 ED Course: 13:36 Patient arrived in ED. iw 13:43 Triage completed. iw 13:43 Kg Kenney PA is PHCP. [facility] 13:43 Cristian Bateman MD is Attending Physician. jmm 13:44 Arm band placed on. iw 13:45 Patient has correct armband on for positive identification. Bed in low position. Call bp light in reach. Side rails up X2. 13:59 Initial lab(s) drawn, by me, sent to lab. Inserted saline lock: 20 gauge in right iw forearm, using aseptic technique. Blood collected. 14:20 XRAY Chest (1 view) In Process Unspecified. EDMS 14:30 CT Head Brain wo Cont In Process Unspecified. EDMS 14:30 Cole Esparza, RN is Primary Nurse. bp 14:37 EKG done, by ED staff, reviewed by Kg MAHONEY. em1 16:08 Jesus Bateman MD is Hospitalizing Provider. m 16:51 MRI - Brain Wo Cont In Process Unspecified. EDMS 20:07 PHCP role handed off by Kg Kenney PA bb 20:07 Attending Physician role handed off by Cristian Bateman MD bb 20:07 Primary Nurse role handed off by Cole Esparza RN bb 20:07 James Uriarte MD is Attending Physician. gail 20:10 No provider procedures requiring assistance completed. Patient admitted, IV remains in lg3 place. intact, No redness/swelling at site. 20:11 BMP Sent. lg3 20:21 Anil Teran, CLARI is Primary Nurse. as6 Administered Medications: 17:30 Drug: Aspirin Chewable Tablet 324 mg Route: PO; bp 18:22 Follow up: Response: No adverse reaction bp 17:30 Drug: NS 0.9% 1000 ml Route: IV; Rate: 1 bolus; Site: right forearm; bp 18:22 Follow up: IV Status: Completed infusion; IV Intake: 1000ml bp 17:30 Drug: Insulin Regular Human 10 units {Co-Signature: iw (Rin Christopher RN).} Route: bp IVP; Site: right forearm; 18:22 Follow up: Response: No adverse reaction bp 17:30 Drug: morphine 2 mg Route: IVP; Site: right forearm; bp 19:55 Follow up: Response: No adverse reaction; RASS: Alert and Calm (0) cb5 18:30 Drug: NS 0.9% 1000 ml Route: IV; Rate: 1000 ml; Site: right forearm; bp 19:53 Follow up: IV Status: Completed infusion; IV Intake: 1000ml cb5 18:30 Drug: NS 0.9% 1000 ml Route: IV; Rate: 125 ml/hr; Site: right forearm; bp 21:15 Follow up: Response: No adverse reaction; IV Status: Infusion continued upon admission lg3 18:30 Drug: Lactulose 20 grams Volume: 30 ml; Route: PO; bp 19:58 Follow up: Response: No adverse reaction cb5 21:06 Drug: Insulin Regular Human 10 units {Co-Signature: vc1 (Felicita Henriquez RN).} Route: as6 Sub-Q; Site: left upper arm; 21:15 Follow up: Response: No adverse reaction lg3 21:08 Not Given (Patient Refused): HYDROcodone-acetaminophen 5 mg-325 mg 1 tabs PO once; RASS as6 on ADMIN: Combtv4, Very Agttd3, Agttd2, Rstlss1, AlertClm0, Drwsy-1, Lt Sdtn-2, Mod Sdtn-3, Dp Sdtn-4, UnArsble-5 Intake: 18:22 IV: 1000ml; Total: 1000ml. bp 19:53 IV: 1000ml; Total: 2000ml. cb5 Outcome: 16:09 Decision to Hospitalize by Provider. [facility] 20:06 Patient left the ED. bb 20:10 Admitted to Med/surg accompanied by tech, via stretcher, room 203, Report called to [facility] Tiffany 20:10 Condition: good 20:10 Instructed on the need for admit. 21:16 Patient left the ED. 3 Signatures: Dispatcher [employer] EDMS James Uriarte MD MD cha Mickail, Joel, PA PA Winifred Jessica, RN RN bb Rin Christopher, RN Eren Saba em1 Cole Esparza RN RN Britany Kwon RN RN 3 Anil Teran, CLARI [place] as6 Kalina Yang RN RN cb5 Rin Henriquez RN vc1 Corrections: (The following items were deleted from the chart) 16:11 13:37 General: Appears iw bp 16:21 16:14 General: Appears in no apparent distress. unkempt, Behavior is anxious, drowsy, bpbp 16:21 16:14 Pain: Denies pain. bp bp 16:21 16:14 EENT: No deficits noted. bp bp 16:21 16:14 Neuro: Level of Consciousness is awake, alert, obeys commands, Oriented to bp Appropriate for age Gait is steady, Reports weakness bp 16:21 16:14 Cardiovascular: No deficits noted. bp bp 16:21 16:14 Respiratory: No deficits noted. bp bp 16:21 16:14 GI: No signs and/or symptoms were reported involving the gastrointestinal system. bp bp 16:21 16:14 : No signs and/or symptoms were reported regarding the genitourinary system. bp bp 16:21 16:14 Derm: No deficits noted. bp bp 16:21 16:14 Musculoskeletal: No deficits noted. bp bp
--- NOTE | 2021-12-27 16:11 | EDPHYS ---
Physician Documentation [facility] Name: Amador Cosme Age: 56 yrs Sex: Male : 1965 Arrival Date: 12/27/2021 Time: 13:36 Bed 5 Private MD: ED Physician James Uriarte HPI: 12/27 13:45 This 56 yrs old Male presents to ER via EMS with complaints of General Weakness. jmm 13:45 The patient presents with decreased mental status, trouble concentrating. Onset: The jmm symptoms/episode began/occurred yesterday. Associated signs and symptoms: Pertinent positives: ataxia, blurred vision. Current symptoms: In the emergency department the patient's symptoms are unchanged from the initial presentation. Patient's baseline: Neuro: alert and fully oriented, Motor: no deficits, Speech: normal. The patient has experienced similar episodes in the past, Due to hepatic encephalopathy. Historical: - Allergies: 13:44 Prednisone; iw 13:44 TETRACYCLINES; iw - Home Meds: 13:44 Humalog 30 unit Sub-Q [Active]; Lantus U-100 Insulin 30 unit Sub-Q crtg [Active]; iw lisinopril 10 mg Oral tab [Active]; - PMHx: 13:44 cirrhosis of liver; Dementia; Hypertensive disorder; NIDDM; Pancreatitis; iw - PSHx: 13:44 eye sx; iw - Immunization history:: Adult Immunizations unknown. - Social history:: Smoking status: Patient reports the use of cigarette tobacco products, unknown amount. ROS: 13:45 Constitutional: Negative for fever, chills, and weight loss. jmm 13:45 Eyes: Positive for blurry vision. 13:45 Neuro: Positive for altered mental status, weakness. 13:45 All other systems are negative. Exam: 13:45 Head/Face: atraumatic. Eyes: EOMI, no conjunctival erythema appreciated ENT: Moist jmm Mucus Membranes Neck: Trachea midline, Supple Chest/axilla: Normal chest wall appearance and motion. Cardiovascular: Regular rate and rhythm. No edema appreciated Respiratory: Normal respirations, no respiratory distress appreciated Abdomen/GI: Non distended, soft Back: Normal ROM 13:45 Constitutional: The patient appears alert, awake, anxious, uncomfortable. 13:45 Skin: Appearance: Color: normal in color. 13:45 Neuro: Mentation: able to follow commands, Motor: is normal. 13:45 Psych: Behavior/mood is cooperative, anxious, aggressive. Vital Signs: 13:44 BP 125 / 71; Resp 16; Temp 98.0; Pulse Ox 96% on R/A; iw 15:00 BP 158 / 97; Pulse 96; Resp 16; Pulse Ox 98% ; bp 16:00 BP 137 / 78; Pulse 98; Resp 15; Pulse Ox 96% ; bp 19:45 BP 147 / 79; Pulse 100; Pulse Ox 95% on R/A; cb5 20:45 BP 146 / 78; Pulse 101; Pulse Ox 96% on R/A; lg3 MDM: 13:45 Patient medically screened. [facility] 16:07 Data reviewed: vital signs, nurses notes. Counseling: I had a detailed discussion with wilbert the patient and/or guardian regarding: the historical points, exam findings, and any diagnostic results supporting the discharge/admit diagnosis, lab results, the need for further work-up and treatment in the hospital. 12/27 13:46 Order name: Basic Metabolic Panel; Complete Time: 14:42 [facility] 12/27 13:46 Order name: CBC with Diff; Complete Time: 14:42 [facility] 12/27 13:46 Order name: LFT's; Complete Time: 14:42 [facility] 12/27 13:46 Order name: Magnesium; Complete Time: 14:42 [facility] 12/27 13:46 Order name: NT PRO-BNP; Complete Time: 14:42 [facility] 12/27 13:46 Order name: PT-INR; Complete Time: 14:42 [facility] 12/27 13:46 Order name: Troponin HS; Complete Time: 14:42 [facility] 12/27 13:46 Order name: XRAY Chest (1 view); Complete Time: 14:42 [facility] 12/27 14:19 Order name: AMMONIA; Complete Time: 15:19 [facility] 12/27 14:20 Order name: CT Head Brain wo Cont; Complete Time: 15:22 [facility] 12/27 16:52 Order name: SARS-COV-2 RT PCR (Document "Date of Onset" if Symptomatic); Complete Time: iw 18:40 12/27 19:57 Order name: BMP gail 12/27 20:28 Order name: Basic Metabolic Panel [facility] 12/27 13:46 Order name: EKG; Complete Time: 13:47 12/27 13:46 Order name: Cardiac monitoring; Complete Time: 17:17 12/27 13:46 Order name: EKG - Nurse/Tech; Complete Time: 14:37 12/27 13:46 Order name: IV Saline Lock; Complete Time: 13:59 12/27 13:46 Order name: Labs collected and sent; Complete Time: 13:59 12/27 13:46 Order name: O2 Per Protocol; Complete Time: 13:59 12/27 15:23 Order name: MRI - Brain Wo Cont; Complete Time: 17:07 12/27 13:46 Order name: O2 Sat Monitoring; Complete Time: 13:59 12/27 18:21 Order name: Misc. Order: Repeat BMP after second liter fluids complete; Complete Time: la1 20:13 Administered Medications: 17:30 Drug: Aspirin Chewable Tablet 324 mg Route: PO; bp 18:22 Follow up: Response: No adverse reaction bp 17:30 Drug: NS 0.9% 1000 ml Route: IV; Rate: 1 bolus; Site: right forearm; bp 18:22 Follow up: IV Status: Completed infusion; IV Intake: 1000ml bp 17:30 Drug: Insulin Regular Human 10 units {Co-Signature: iw (Rin Christopher RN).} Route: bp IVP; Site: right forearm; 18:22 Follow up: Response: No adverse reaction bp 17:30 Drug: morphine 2 mg Route: IVP; Site: right forearm; bp 19:55 Follow up: Response: No adverse reaction; RASS: Alert and Calm (0) cb5 18:30 Drug: NS 0.9% 1000 ml Route: IV; Rate: 1000 ml; Site: right forearm; bp 19:53 Follow up: IV Status: Completed infusion; IV Intake: 1000ml cb5 18:30 Drug: NS 0.9% 1000 ml Route: IV; Rate: 125 ml/hr; Site: right forearm; bp 21:15 Follow up: Response: No adverse reaction; IV Status: Infusion continued upon admission lg3 18:30 Drug: Lactulose 20 grams Volume: 30 ml; Route: PO; bp 19:58 Follow up: Response: No adverse reaction cb5 21:06 Drug: Insulin Regular Human 10 units {Co-Signature: vc1 (Felicita Henriquez RN).} Route: as6 Sub-Q; Site: left upper arm; 21:15 Follow up: Response: No adverse reaction lg3 21:08 Not Given (Patient Refused): HYDROcodone-acetaminophen 5 mg-325 mg 1 tabs PO once; RASS as6 on ADMIN: Combtv4, Very Agttd3, Agttd2, Rstlss1, AlertClm0, Drwsy-1, Lt Sdtn-2, Mod Sdtn-3, Dp Sdtn-4, UnArsble-5 Disposition: 12/28 07:29 Co-signature as Attending Physician, Cristian Bateman MD I agree with the assessment and rn plan of care. Attestation: The patient's history, exam findings, diagnostics, and a summary of any interventions or procedures was reviewed in detail with Kg MAHONEY. Disposition Summary: 12/27/21 16:09 Hospitalization Ordered Hospitalization Status: Inpatient Admission jmm Provider: Jesus Bateman Location: Telemetry/MedSurg (Inpatient) jmm Condition: Stable jmm Problem: an acute exacerbation jmm Symptoms: have improved jmm Bed/Room Type: Standard [facility] Room Assignment: 203(12/27/21 20:06) bb Diagnosis - Altered mental status, unspecified jmm - Unspecified cirrhosis of liver jmm - Hepatic Encephalopathy jmm - Hyperglycemia, unspecified jmm Forms: - Medication Reconciliation Form jmm - SBAR form jmm Signatures: Dispatcher [employer] EDKg Archer PA PA jmm Winifred Benson RN RN bb Williams, Irene, RN RN iw Nieto, Roman, MD MD rn Attema, Lee, GRAINER MACHINE-C GRAINER MACHINE-Cla1 Cole Esparza RN RN bp Anil Teran RN RN as6 Britany Marc RN lg3 Kalina Yang RN cb5 Rin Christopher RN iw Felicita Henriquez RN vc1 Corrections: (The following items were deleted from the chart) 12/27 20:06 16:09 jmm bb
--- NOTE | 2021-12-27 17:03 | RAD REPORT ---
EXAM DESCRIPTION: MRI - Brain Wo Cont - 12/27/2021 4:51 pm CLINICAL HISTORY: ams Headache, drowsiness, CVA symptomology COMPARISON: Head Brain Wo Cont dated 12/27/2021 TECHNIQUE: Multi-sequence, multiplanar MR imaging of the brain was performed without contrast. FINDINGS: No intracranial hemorrhage, hydrocephalus or extra-axial fluid collections.Mild generalize d brain atrophy is seen. No edema or shift of midline structures. No findings to suspect brain mass. DWI is negative for acute CVA. Midline structures are normally formed. Partial opacification in both mastoid air cells seen. The paranasal sinuses are clear. IMPRESSION: No acute CVA is evident. Recent CT head findings may be related to old/ remote ischemia. No acute intracranial finding is seen.
[2021-12-27] MEDS ORDERED: ASPIRIN 81 MG CHEWABLE TABLET ONE (17:23)
[2021-12-27] MEDS ORDERED: NA CHLORIDE 0.9% 1,000 ML ONE (17:24)
[2021-12-27] MEDS ORDERED: INSULIN -REGULAR HUMAN 50 UNIT/0.5 ML ML ONE ×2 (17:24→20:54)
[2021-12-27] MEDS ORDERED: MORPHINE 2 MG/ML SYR ONE (17:57)
[2021-12-27] MEDS ORDERED: NA CHLORIDE 0.9% 2,000 ML ONE (18:28)
[2021-12-27] MEDS ORDERED: LACTULOSE 20 GM/30 ML UCUP ONE (18:29)
--- NOTE | 2021-12-27 20:00 | P.HP ---
Certification for Inpatient Patient admitted to: Observation With expected LOS: <2 Midnights Patient will require the following post-hospital care: None Practitioner: I am a practitioner with admitting privileges, knowledge of patient current condition, hospital course, and medical plan of care. Services: Services provided to patient in accordance with Admission requirements found in Title 42 Section 412.3 of the Code of Federal Regulations Patient History Date of Service: 12/27/21 Reason for admission: Hepatic encephalopathy History of Present Illness: 56-year-old male with history of cirrhosis of the liver secondary to alcohol, hypertension, diabetes mellitus type 2insulin-dependent presents the emergency department for weakness, decreased vision, hyperglycemia, confusion. Patient reports that he currently is living in a trailer alone that does not belong to him without running water or electricity, does not have glucometer and has not been able to check his blood sugars at home therefore has not been taking his insulin as prescribed. Patient also reports decrease in vision over time possibly worse in the last day or 2. Patient was evaluated in the emergency department his labs were significant for hemoglobin 12 hematocrit 36.7 MCV 100.3 platelet count 121 sodium 133 carbon oxide 18 GFR 76 glucose 610 T bili 1.3D bili 0.5 alk phos 194 ammonia [address] head brain without contrast showed moderate sized area of diminished density seen within the right temporoparietal region suspicious for right MCA territory CVA recommend MRI. MRI of the brain no acute CVA evident radiology suspects area on CT is from previous CVA. Patient was recently admitted for similar and left AGAINST MEDICAL ADVICE. Patient given 2 L IV fluids as well as IV insulin in the emergency department and lactulose ED provider wishes to admit for further evaluation and management of hepatic encephalopathy, hyperglycemia. Allergies prednisone Allergy (Verified 10/30/21 07:35) Rash Tetracyclines Allergy (Verified 10/30/21 07:35) Rash Home Medications: Folic Acid 1 mg PO DAILY #90 tablet 11/01/21 Furosemide [Lasix*] 40 mg PO BIDL #60 tab 11/29/21 Gabapentin [Neurontin] 800 mg PO TID #90 11/29/21 Insulin Glargine,Hum.rec.anlog [Lantus] 30 unit SQ BEDTIME #15 ml 11/29/21 Lactulose [Cephulac*] 30 ml PO TID 90 Days #1 bottle 11/29/21 Lisinopril [Zestril] 1 tab PO DAILY #30 11/29/21 Nicotine [Nicoderm*] 21 mg TD DAILY #30 patch.td24 11/29/21 Rifaximin [Xifaxan] 550 mg PO BID #60 tablet 11/29/21 Spironolactone [Aldactone*] 100 mg PO DAILY #30 tab 11/29/21 Tetrahydrozoline HCl/Zinc Sulf [Eye Drops Irritation Relief] 2 drops EACH EYE DAILY #1 bottle 11/29/21 Trazodone [Desyrel*] 50 mg PO BEDTIME #30 11/29/21 Triamcinolone 0.1% Crm [Kenalog 0.1% Cream*] 1 kinsey TOP DAILY #1 tube 11/29/21 carvediloL [Carvedilol] 3.125 mg PO BID #60 11/29/21 - Past Medical/Surgical History Diabetic: Yes -: Alcoholic liver cirrhosis/hepatitis C? -: Hypertension -: Diabetes mellitusinsulin-dependent -: Chronic tobacco use history -: Dementia as per records -: Eye surgery -: Previous paracentesis - Family History Family History: Reviewed- Non-Contributory - Social History Smoking Status: Current some day smoker Alcohol use: Yes CD- Drugs: No Caffeine use: No Place of Residence: Home Review of Systems 10-point ROS is otherwise unremarkable General: Weakness Neurological: Confusion, Other (Decreased visual acuity) Physical Examination - Physical Exam General: Alert, In no apparent distress, Oriented x3 HEENT: Atraumatic, PERRLA, Mucous membr. moist/pink, EOMI, Sclerae nonicteric Neck: Supple, 2+ carotid pulse no bruit, No LAD, Without JVD or thyroid abnormality Respiratory: Clear to auscultation bilaterally, Normal air movement Cardiovascular: Regular rate/rhythm, Normal S1 S2 Gastrointestinal: Normal bowel sounds, No tenderness Musculoskeletal: No tenderness Integumentary: No rashes Neurological: Normal speech, Normal strength at 5/5 x4 extr, Normal tone, Normal affect - Studies Laboratory Data (last 24 hrs) 12/27/21 13:57: PT 12.4, INR 1.08 12/27/21 13:57: WBC 5.60 D, Hgb 12.0 L, Hct 36.7 L, Plt Count 121 L D 12/27/21 13:57: Sodium 133 L, Potassium 5.1, BUN 15, Creatinine 1.02, Glucose 610 H*, Magnesium 2.4, Total Bilirubin 1.3 H, AST 34, ALT 60, Alkaline Phosphatase 194 H Assessment and Plan - Plan Assessment: Diabetes mellitus type 2insulin-dependent with hyperglycemia Hepatic encephalopathy with underlying cirrhosis of liver secondary to alcohol abuse Hypertension Plan: Diabetes mellitus type 2insulin-dependent with hyperglycemia: Blood sugar initially 600, anion gap was 13. Patient given 2 L NS bolus as well as IV insulin currently pending repeat BMP. If sugar and anion gap have improved will admit to floor on aggressive sliding scale insulin and IV fluids. Patient reports that he is not compliant with his insulin as he does not have a glucometer at home and cannot check his sugars so he does not feel comfortable giving himself his normal 30 units of Lantus nightly and 30 units of Humalog 3 times daily. Patient also reports that he is living in a trailer but does not belong to him without any power or running water, is requesting possible assistance with discharge planning with child protective services social worker who have been consulted. Also reports difficulty walking, PT consulted. Hepatic encephalopathy with underlying cirrhosis of liver secondary to alcohol abuse: Daily ammonia level, scheduled lactulose. Patient reports he is no longer drinking. Will also continue patient's home medication Xifaxan and spironolactone, not sure if he has been compliant with this at home. Hypertension: Obtain and continue medication. DVT PPX: Lovenox Code status: Full Discharge Plan: Home Plan to discharge in: 24 Hours - Advance Directives Does patient have a Living Will: No Does patient have a Durable POA for Healthcare: No - Code Status/Comfort Care Code Status Assessed: Yes (Full code) Critical Care: No Time Spent Managing Pts Care (In Minutes): 55
[2021-12-27 20:27] LABS: BUN Blood Urea Nitrogen 15 mg/dL (7-18); Bicarbonate 19 mmol/L (21-32); Glucose Level 339 mg/dL (74-106); Sodium Level 137 mmol/L (136-145)
[2021-12-27] MEDS ORDERED: HYDROCODONE/APAP 5/325 MG TAB ONE (20:53)
[2021-12-27] MEDS ORDERED: Rifaximin 550 MG Tab PO SCH (21:00)
[2021-12-27] MEDS ORDERED: ONDANSETRON 4 MG/2 ML VIAL IV PRN (21:45)
[2021-12-27] MEDS: NA CHLORIDE 0.9% 1,000 ML IV SCH (21:45)
[2021-12-27] MEDS: LACTULOSE 20 GM/30 ML UCUP PO SCH (21:52)
[2021-12-27] MEDS: INSULIN -REGULAR HUMAN 50 UNIT/0.5 ML ML SQ SCH (21:52)
[2021-12-28] MEDS: MORPHINE 2 MG/ML SYR IV PRN ×4 (00:15→18:30)
[2021-12-28] MEDS ORDERED: INSULIN -REGULAR HUMAN 50 UNIT/0.5 ML ML IV ONE ×2 (00:41→23:20)
[2021-12-28] MEDS ORDERED: D50W 25 GM/50 ML SYRINGE IV PRN (00:41)
[2021-12-28] MEDS ORDERED: GLUCAGON 1 MG/VIAL IM PRN (00:41)
[2021-12-28 00:51] LABS: Urine Appearance CLEAR (Clear); Urine Bilirubin NEGATIVE (Negative); Urine Blood NEGATIVE (Negative); Urine Color YELLOW (Yellow); Urine Glucose 3+ (Negative); Urine Protein NEGATIVE (Negative); Urine Specific Gravity >=1.030 (1.005-1.030)
[2021-12-28 00:52] LABS: Urine Microscopic Reflex NO UMIC
[2021-12-28] MEDS: INSULIN -REGULAR HUMAN 50 UNIT/0.5 ML ML SQ SCH ×5 (00:54→21:15)
[2021-12-28 02:55] VITALS: BMI 24.0
[2021-12-28] MEDS: NA CHLORIDE 0.9% 1,000 ML IV SCH ×2 (05:43→13:53)
--- NOTE | 2021-12-28 06:08 | P.PN ---
Date of Service: 12/28/21 Subjective: Feeling better, continues with discomfort all over, reports some chronic pain Feels that abdomen is swelling, but little bit more Denies shortness of breath, vision improved ROS: 10 point ROS as noted above, otherwise negative Physical exam GEN: Alert, oriented, NAD HEENT: Normal conjunctiva, sclera anicteric CV: Regular rate and rhythm, no edema Pulm: Nonlabored respirations on room air ABD: Soft, +ascites Integumentary: No rashes Neuro: Normal speech, normal affect Problem List Diabetes mellitus type 2insulin-dependent with hyperglycemia Hepatic encephalopathy with underlying cirrhosis of liver secondary to alcohol abuse Hypertension titrate insulin patient improving ammonia higher, titrate lactulose mentation improving, still with some encephalopathy Restart spironolactone, Lasix. DC IV fluids Patient states he feels like he is dying at home, without electricity, no running water Open to the idea of [facility] morphine for pain, wean Code: Full Dispo: Possible placement Time Spent Managing Pts Care (In Minutes): 35
[2021-12-28 06:30] LABS: Absolute Lymphocytes (CBC) 0.9 K/uL (0.7-4.9); Hematocrit 33.3 % (39.6-49.0); Lymphocytes % 21.1 % (15.3-44.8); MPV 7.2 fL (7.6-11.3); RBC Red Blood Cell Count 3.46 M/uL (4.33-5.43)
[2021-12-28 06:48] LABS: ALT/SGPT 54 U/L (12-78); AST/SGOT 38 U/L (15-37); Alkaline Phosphatase 157 U/L (45-117); BUN Blood Urea Nitrogen 15 mg/dL (7-18); Bicarbonate 24 mmol/L (21-32); Bilirubin Total 1.5 mg/dL (0.2-1.0); Glucose Level 225 mg/dL (74-106); HDL Cholesterol 20 mg/dL (40-60); LDL Cholesterol, Calculated 94 (<130); Potassium 3.6 mmol/L (3.5-5.1); Protein, Total 5.7 g/dL (6.4-8.2); Sodium Level 138 mmol/L (136-145)
[2021-12-28] MEDS ORDERED: POTASSIUM CL SA 10 MEQ TAB PO ONE (09:00)
[2021-12-28] MEDS ORDERED: SPIRONOLACTONE 100 MG TAB PO SCH (09:00)
[2021-12-28] MEDS ORDERED: INSULIN GLARGINE 100 UNIT/ML SQ SCH ×2 (09:00→21:00)
[2021-12-28] MEDS: LACTULOSE 20 GM/30 ML UCUP PO SCH ×3 (09:20→20:39)
[2021-12-28] MEDS: ENOXAPARIN 40 MG/0.4 ML SQ SCH (09:20)
--- NOTE | 2021-12-28 10:17 | EKG ---
Test Date: 2021-12-27 Test Time: 14:15:17 Contractor Buyer: LV MEASUREMENT RESULTS: Intervals: Rate: 99 SD: 160 QRSD: 74 QT: 374 QTc: 479 [place]: P: 65 SD: 160 QRS: 70 T: 47 INTERPRETIVE STATEMENTS: Normal sinus rhythm Septal infarct, age undetermined Abnormal ECG Compared to ECG 12/22/2021 15:36:15 Myocardial infarct finding now present Prolonged QT interval no longer present Electronically Signed On 12-28-21 10:14:40 STORE RECEIVING CLERK by Dixon Guy
[2021-12-28] MEDS: NICOTINE 21 MG/PAT TD SCH (15:51)
[2021-12-28] MEDS: FUROSEMIDE 40 MG TABLET PO SCH (17:05)
[2021-12-28] MEDS: GABAPENTIN 300 MG CAP PO SCH (20:39)
[2021-12-28] MEDS: MELATONIN 5 MG TABLET PO PRN (22:14)
[2021-12-28] MEDS ORDERED: DIPHENHYDRAMINE 25 MG TAB/CAP PO PRN (22:20)
[2021-12-29] MEDS: MORPHINE 2 MG/ML SYR IV PRN ×2 (00:33→06:35)
[2021-12-29] MEDS: INSULIN -REGULAR HUMAN 50 UNIT/0.5 ML ML SQ SCH ×5 (01:57→20:23)
--- NOTE | 2021-12-29 06:13 | P.PN ---
Date of Service: 12/29/21 Subjective: Improved Continues with some pain/aches throughout the body, sciatica pain, neuropathy Remains afebrile, ambulating around nursing station Remains hyperglycemic Reports feeling depressed ROS: 10 point ROS as noted above, otherwise negative Physical exam GEN: Alert, oriented, NAD HEENT: Normal conjunctiva, sclera anicteric CV: Regular rate and rhythm, trace BLE edema Pulm: Nonlabored respirations on room air ABD: Soft, +ascites, nontender Integumentary: No rashes Neuro: Normal speech, depressed Problem List Diabetes mellitus type 2insulin-dependent with hyperglycemia Hepatic encephalopathy with underlying cirrhosis of liver secondary to alcohol abuse Hypertension Depression Mentation improved Continue lactulose Continues with hyperglycemia, on diabetic diet, continue to titrate Lantus. Added mealtime insulin, continue sliding scale Continue spironolactone, Lasix agreeable to placement wean morphine, continue tramadol Code: Full Dispo: Possible placement, director social welfare consult Time Spent Managing Pts Care (In Minutes): 35
[2021-12-29 06:25] LABS: Absolute Lymphocytes (CBC) 0.8 K/uL (0.7-4.9); Hematocrit 32.7 % (39.6-49.0); Lymphocytes % 19.5 % (15.3-44.8); MPV 7.5 fL (7.6-11.3); RBC Red Blood Cell Count 3.36 M/uL (4.33-5.43)
[2021-12-29 06:43] LABS: ALT/SGPT 60 U/L (12-78); AST/SGOT 66 U/L (15-37); Albumin 2.1 g/dL (3.4-5.0); Alkaline Phosphatase 163 U/L (45-117); BUN Blood Urea Nitrogen 10 mg/dL (7-18); Bicarbonate 25 mmol/L (21-32); Bilirubin Total 1.2 mg/dL (0.2-1.0); Glucose Level 316 mg/dL (74-106); Magnesium 1.9 mg/dL (1.8-2.4); Potassium 3.2 mmol/L (3.5-5.1); Protein, Total 5.6 g/dL (6.4-8.2); Sodium Level 134 mmol/L (136-145)
[2021-12-29] MEDS: LACTULOSE 20 GM/30 ML UCUP PO SCH ×3 (08:49→21:45)
[2021-12-29] MEDS: GABAPENTIN 300 MG CAP PO SCH ×3 (08:49→21:48)
[2021-12-29] MEDS: TRAMADOL HCL 50 MG TAB PO PRN ×2 (08:49→17:01)
[2021-12-29] MEDS: FOLIC ACID 1 MG TABLET PO SCH (08:49)
[2021-12-29] MEDS: SPIRONOLACTONE 100 MG TAB PO SCH (08:49)
[2021-12-29] MEDS: INSULIN GLARGINE 100 UNIT/ML SQ SCH ×2 (08:50→20:24)
[2021-12-29] MEDS: FUROSEMIDE 40 MG TABLET PO SCH ×2 (08:50→17:01)
[2021-12-29] MEDS: NICOTINE 21 MG/PAT TD SCH (08:50)
[2021-12-29] MEDS: INSULIN LISPRO 100 UNIT/1 ML SQ SCH ×3 (08:52→17:02)
[2021-12-29] MEDS: ENOXAPARIN 40 MG/0.4 ML SQ SCH (09:01)
[2021-12-29] MEDS ORDERED: MORPHINE 2 MG/ML SYR IV ONE (10:40)
[2021-12-29] MEDS ORDERED: INSULIN -REGULAR HUMAN 50 UNIT/0.5 ML ML IV ONE (12:07)
[2021-12-30] MEDS: TRAMADOL HCL 50 MG TAB PO PRN ×3 (02:05→20:23)
[2021-12-30 05:49] LABS: Absolute Lymphocytes (CBC) 0.8 K/uL (0.7-4.9); Hematocrit 31.4 % (39.6-49.0); Lymphocytes % 21.1 % (15.3-44.8); MPV 7.6 fL (7.6-11.3); RBC Red Blood Cell Count 3.22 M/uL (4.33-5.43)
[2021-12-30 06:00] LABS: Albumin 2.2 g/dL (3.4-5.0); Bilirubin Total 1.2 mg/dL (0.2-1.0); Magnesium 1.9 mg/dL (1.8-2.4); Potassium 3.2 mmol/L (3.5-5.1); Protein, Total 5.7 g/dL (6.4-8.2)
--- NOTE | 2021-12-30 06:13 | P.PN ---
Date of Service: 12/30/21 Subjective: no acute events patient upset, states he is being starved, the portions are not enough for him asking for more pain medication for - "pain all over" gabapentin helping with neuropathy refuses lactulose, blames it for high glucose ROS: 10 point ROS as noted above, otherwise negative Physical exam GEN: Alert, oriented, NAD HEENT: Normal conjunctiva, sclera anicteric CV: Regular rate and rhythm, trace BLE edema Pulm: Nonlabored respirations on room air ABD: Soft, ascites, nontender Integumentary: No rashes Neuro: Normal speech, depressed Problem List Diabetes mellitus type 2insulin-dependent with hyperglycemia Hepatic encephalopathy with underlying cirrhosis of liver secondary to alcohol abuse Hypertension Depression Mentation improved discussed lactulose is minimally absorbed and should raise glucose / impact as much as he believes will add miralax and stool softener Continues with hyperglycemia, on diabetic diet, continue to titrate Lantus. mealtime insulin, continue sliding scale Continue spironolactone, Lasix agreeable to placement off morphine, continue tramadol Code: Full Dispo: Possible placement, social work manager consult Time Spent Managing Pts Care (In Minutes): 35
[2021-12-30 08:20] LABS: Blood Morphology Comment NOT SEEN (NOT SEEN); Platelet Estimate DECR
[2021-12-30] MEDS: LACTULOSE 20 GM/30 ML UCUP PO SCH ×4 (09:00→21:32)
[2021-12-30] MEDS: FOLIC ACID 1 MG TABLET PO SCH (09:24)
[2021-12-30] MEDS: SPIRONOLACTONE 100 MG TAB PO SCH (09:24)
[2021-12-30] MEDS: FUROSEMIDE 40 MG TABLET PO SCH ×2 (09:24→17:01)
[2021-12-30] MEDS: GABAPENTIN 300 MG CAP PO SCH ×3 (09:25→20:22)
[2021-12-30] MEDS: ENOXAPARIN 40 MG/0.4 ML SQ SCH (09:25)
[2021-12-30] MEDS: NICOTINE 21 MG/PAT TD SCH (09:25)
[2021-12-30] MEDS: INSULIN -REGULAR HUMAN 50 UNIT/0.5 ML ML SQ SCH ×4 (09:26→20:20)
[2021-12-30] MEDS: INSULIN LISPRO 100 UNIT/1 ML SQ SCH ×3 (09:27→17:01)
[2021-12-30] MEDS: INSULIN GLARGINE 100 UNIT/ML SQ SCH ×2 (09:28→20:21)
[2021-12-30] MEDS: POLYETHYL GLY 3350 17 GM/DOSE PO SCH (12:25)
[2021-12-30] MEDS: MELATONIN 5 MG TABLET PO PRN (20:22)
[2021-12-31 02:37] VITALS: O2SAT 98
[2021-12-31 06:06] LABS: MPV 7.6 fL (7.6-11.3); RBC Red Blood Cell Count 3.39 M/uL (4.33-5.43)
--- NOTE | 2021-12-31 06:07 | P.PN ---
Date of Service: 12/31/21 Subjective: ROS: 10 point ROS as noted above, otherwise negative Physical exam GEN: Alert, oriented, NAD HEENT: Normal conjunctiva, sclera anicteric CV: Regular rate and rhythm, trace BLE edema Pulm: Nonlabored respirations on room air ABD: Soft, ascites, nontender Integumentary: No rashes Neuro: Normal speech, depressed Problem List Diabetes mellitus type 2insulin-dependent with hyperglycemia Hepatic encephalopathy with underlying cirrhosis of liver secondary to alcohol abuse Hypertension Depression Mentation improved discussed lactulose is minimally absorbed and should raise glucose / impact as much as he believes will add miralax and stool softener Continues with hyperglycemia, on diabetic diet, continue to titrate Lantus. mealtime insulin, continue sliding scale Continue spironolactone, Lasix agreeable to placement off morphine, continue tramadol Code: Full Dispo: Possible placement, medical social worker consult Time Spent Managing Pts Care (In Minutes): 35
[2021-12-31 06:21] LABS: Potassium 3.5 mmol/L (3.5-5.1)
[2021-12-31] MEDS: INSULIN -REGULAR HUMAN 50 UNIT/0.5 ML ML SQ SCH ×2 (08:20→12:14)
[2021-12-31] MEDS: INSULIN LISPRO 100 UNIT/1 ML SQ SCH ×2 (08:21→12:13)
[2021-12-31] MEDS: FOLIC ACID 1 MG TABLET PO SCH (08:22)
[2021-12-31] MEDS: GABAPENTIN 300 MG CAP PO SCH ×2 (08:22→14:05)
[2021-12-31] MEDS: FUROSEMIDE 40 MG TABLET PO SCH (08:23)
[2021-12-31] MEDS: NICOTINE 21 MG/PAT TD SCH (08:23)
[2021-12-31] MEDS: POLYETHYL GLY 3350 17 GM/DOSE PO SCH (08:23)
[2021-12-31] MEDS: SPIRONOLACTONE 100 MG TAB PO SCH (08:23)
[2021-12-31] MEDS: LACTULOSE 20 GM/30 ML UCUP PO SCH ×2 (08:24→14:05)
[2021-12-31] MEDS: ENOXAPARIN 40 MG/0.4 ML SQ SCH (08:24)
[2021-12-31] MEDS: INSULIN GLARGINE 100 UNIT/ML SQ SCH (08:24)
[2021-12-31] MEDS ORDERED: POTASSIUM CL SA 10 MEQ TAB PO ONE (09:00)
[2021-12-31] MEDS ORDERED: FLEET ENEMA ADULT PR ONE (09:00)
[2021-12-31] MEDS: TRAMADOL HCL 50 MG TAB PO PRN (12:25)
[2021-12-31] MEDS ORDERED: INSULIN -REGULAR HUMAN 50 UNIT/0.5 ML ML IV ONE (16:00)
--- NOTE | 2021-12-31 17:29 | P.DS ---
Admission Date: 12/28/21 Discharge Date: 12/31/21 Disposition: TRANSFER TO [facility] Discharge Condition: GOOD Reason for Admission: Hepatic encephalopathy Procedures: Problem List Diabetes mellitus type 2insulin-dependent with hyperglycemia Hepatic encephalopathy with underlying cirrhosis of liver secondary to alcohol abuse Hypertension Depression Brief History of Present Illness: 56-year-old male with history of cirrhosis of the liver secondary to alcohol, hypertension, diabetes mellitus type 2insulin-dependent presents the emergency department for weakness, decreased vision, hyperglycemia, confusion. Patient reports that he currently is living in a trailer alone that does not belong to him without running water or electricity, does not have glucometer and has not been able to check his blood sugars at home therefore has not been taking his insulin as prescribed. Patient also reports decrease in vision over time possibly worse in the last day or 2. Patient was evaluated in the emergency department his labs were significant for hemoglobin 12 hematocrit 36.7 MCV 100.3 platelet count 121 sodium 133 carbon oxide 18 GFR 76 glucose 610 T bili 1.3D bili 0.5 alk phos 194 [address] head brain without contrast showed moderate sized area of diminished density seen within the right temporoparietal region suspicious for right MCA territory CVA recommend MRI. MRI of the brain no acute CVA evident radiology suspects area on CT is from previous CVA. Patient was recently admitted for similar and left AGAINST MEDICAL ADVICE. Patient given 2 L IV fluids as well as IV insulin in the emergency department and lactulose ED provider wishes to admit for further evaluation and management of hepatic encephalopathy, hyperglycemia. Hospital Course: Patient had rather quick improvement of his symptoms and hyperglycemia with reinitiation of lactulose and insulin. Patient continued with hyperglycemia, and insulin was continued to be titrated for better control. Patient initially refused lactulose thinking that this was contributing to his hyperglycemia. Discussed that this is low risk. MiraLAX was added Patient remained afebrile, without leukocytosis, without significant pain of his abdomen. He did not receive empiric antibiotics, there is no concern for SBP. Patient did well, was ambulating around the nursing station, tolerating diet. Patient has been off his medications for quite some time, did not recall what all medications he was supposed to be taking. litigation services manager consulted, patient was discharged to a [facility] Below was prior list of home medications, unclear when patient last took them. Can likely work towards restarting what is appropriate. Folic Acid 1 mg PO DAILY #90 tablet 11/01/21 Furosemide [Lasix*] 40 mg PO BIDL #60 tab 11/29/21 Gabapentin [Neurontin] 800 mg PO TID #90 11/29/21 Insulin Glargine,Hum.rec.anlog [Lantus] 30 unit SQ BEDTIME #15 ml 11/29/21 Lactulose [Cephulac*] 30 ml PO TID 90 Days #1 bottle 11/29/21 Lisinopril [Zestril] 1 tab PO DAILY #30 11/29/21 Nicotine [Nicoderm*] 21 mg TD DAILY #30 patch.td24 11/29/21 Rifaximin [Xifaxan] 550 mg PO BID #60 tablet 11/29/21 Spironolactone [Aldactone*] 100 mg PO DAILY #30 tab 11/29/21 Tetrahydrozoline HCl/Zinc Sulf [Eye Drops Irritation Relief] 2 drops EACH EYE DAILY #1 bottle 11/29/21 Trazodone [Desyrel*] 50 mg PO BEDTIME #30 11/29/21 Triamcinolone 0.1% Crm [Kenalog 0.1% Cream*] 1 kinsey TOP DAILY #1 tube 11/29/21 carvediloL [Carvedilol] 3.125 mg PO BID #60 11/29/21 Vital Signs/Physical Exam: Temp Pulse Resp BP Pulse Ox 97.5 F 99 H 18 130/86 100 12/31/21 12:00 12/31/21 12:00 12/31/21 12:00 12/31/21 12:00 12/31/21 12:00 Physical exam GEN: Alert, oriented, NAD HEENT: Normal conjunctiva, sclera anicteric CV: Regular rate and rhythm, trace BLE edema Pulm: Nonlabored respirations on room air ABD: Soft, +ascites, nontender Integumentary: No rashes, multiple tattoos Neuro: Normal speech, depressed Laboratory Data at Discharge: WBC 3.60 K/uL (4.3-10.9) L 12/31/21 05:58 Hgb 11.0 g/dL (13.6-17.9) L 12/31/21 05:58 Hct 33.0 % (39.6-49.0) L 12/31/21 05:58 Plt Count 105 K/uL (152-406) L 12/31/21 05:58 PT 12.4 SECONDS (9.5-12.5) 12/27/21 13:57 INR 1.08 12/27/21 13:57 Sodium 133 mmol/L (136-145) L 12/31/21 05:58 Potassium 3.5 mmol/L (3.5-5.1) 12/31/21 05:58 BUN 10 mg/dL (7-18) 12/31/21 05:58 Creatinine 1.12 mg/dL (0.55-1.3) 12/31/21 05:58 Glucose 300 mg/dL (74-106) H 12/31/21 05:58 Magnesium 1.9 mg/dL (1.8-2.4) 12/30/21 05:30 Total Bilirubin 1.2 mg/dL (0.2-1.0) H 12/30/21 05:30 AST 113 U/L (15-37) H 12/30/21 05:30 ALT 77 U/L (12-78) 12/30/21 05:30 Alkaline Phosphatase 159 U/L (45-117) H 12/30/21 05:30 Triglycerides 254 mg/dL (<150) H 12/28/21 06:11 Cholesterol 165 mg/dL (<200) 12/28/21 06:11 HDL Cholesterol 20 mg/dL (40-60) L 12/28/21 06:11 Cholesterol/HDL Ratio 8.25 12/28/21 06:11 Home Medications: Furosemide [Lasix*] 40 mg PO BIDL tab 12/31/21 Insulin Glargine,Hum.rec.anlog [Semglee] 30 unit SQ BID ml 12/31/21 Insulin Lispro [Humalog*] 20 unit SQ TIDWM ml 12/31/21 Lactulose [Cephulac*] 30 ml PO TID ucup 12/31/21 Polyethyl Gly 3350 [Glycolax*] 17 gm PO DAILY udbot 12/31/21 Spironolactone [Aldactone*] 100 mg PO DAILY tab 12/31/21 traMADol HCL [Ultram*] 50 mg PO TID PRN #0 tab 12/31/21 Followup: NONE,NONE [Primary Care Provider] - Time spent managing pt's care (in minutes): 45
[2021-12-31 18:06] VITALS: BP 143/78; TEMP 97
== END 2021-12-31 16:16 | DRG 639 ==
LOC: ER 13:31 → ERHOLD 19:16 → 2ND 20:07 → OBSVTOIN 12-28 14:22
PROVIDERS: ADMIT Hospitalist; ATTEND Hospitalist
DX: E11.65 Type 2 diabetes mellitus with hyperglycemia (principal); K74.60 Unspecified cirrhosis of liver; K72.90 Hepatic failure, unspecified without coma; F10.10 Alcohol abuse, uncomplicated; E11.40 Type 2 diabetes mellitus with diabetic neuropathy, unspecified; F32.A Depression, unspecified; I10 Essential (primary) hypertension; M54.30 Sciatica, unspecified side; F17.200 Nicotine dependence, unspecified, uncomplicated; Z88.1 Allergy status to other antibiotic agents; Z79.4 Long term (current) use of insulin; Z88.8 Allergy status to other drugs, medicaments and biological substances; Z59.00 Homelessness unspecified; Z79.899 Other long term (current) drug therapy; Z20.822 Contact with and (suspected) exposure to COVID-19
CPT/HCPCS: 36415; 70450; 70551; 71045; 80048; 80053; 80061; 80076; 81003; 82140; 82947; 83036; 83735; 83880; 84439; 84443; 84484; 85025; 85027; 85610; 93005; 96361; 96372; 96374; 96375; 97116; 97161; 99285; G0378; J1650; J1815; J2270; J7030; U0003

== ENCOUNTER 2022-01-06 10:58 | Emergency (ER) | payer OTHER ==
--- NOTE | 2022-01-06 12:03 | RAD REPORT ---
EXAM DESCRIPTION: CT - Head Brain Wo Cont - 01/06/2022 11:46 am CLINICAL HISTORY: HEADACHE COMPARISON: Head Brain Wo Cont dated 12/27/2021; Brain Wo Cont dated 12/27/2021 TECHNIQUE: Axial 5 mm thick images of the head were obtained without IV contrast. All CT scans are performed using dose optimization technique as appropriate and may include automated exposure control or mA/KV adjustment according to patient size. FINDINGS: No intracranial hemorrhage, mass, edema or shift of mid-line structures. No acute infarcti on changes seen. Minimal volume loss is evident. No extra-axial fluid collections. Ventricles are nor mal. No significant change from December 27 imaging. Mastoid air cells and visualized portions of the paranasal sinuses are clear. No acute bony findings. IMPRESSION: Negative non-contrast CT head examination for acute finding or significant change from .
--- NOTE | 2022-01-06 14:57 | ER ---
Nurse's Notes [facility] Name: Amador Cosme Age: 56 yrs Sex: Male : 1965 Arrival Date: 01/06/2022 Time: 11:00 Bed 17 Private MD: Diagnosis: Unspecified injury of head, initial encounter Presentation: 01/06 11:08 Chief complaint: Patient states: fell while walking to get ice. States that he didn't [facility] have non skid socks on and slipped, -loc, c/o pain to rt temporal head. small minimal swelling. 11:10 Coronavirus screen: Vaccine status: Patient reports receiving the 2nd dose of the covid [facility] vaccine. Ebola Screen: Patient denies exposure to infectious person. Patient denies travel to an Ebola-affected area in the 21 days before illness onset. 11:10 Method Of Arrival: EMS: [facility] 11:14 Initial Sepsis Screen: Does the patient meet any 2 criteria? No. Patient's initial [facility] sepsis screen is negative. Does the patient have a suspected source of infection? No. Patient's initial sepsis screen is negative. Risk Assessment: Do you want to hurt yourself or someone else? Patient reports no desire to harm self or others. Onset of symptoms was January 06, 2022. 11:14 Acuity: DAO 3 [facility] Triage Assessment: 11:15 General: Appears in no apparent distress. Pain: Complains of pain in right side of [facility] forehead Pain currently is 2 out of 10 on a pain scale. 11:15 General: Behavior is calm, cooperative, appropriate for age. [facility] Historical: - Allergies: 11:11 Prednisone; [facility] 11:11 TETRACYCLINES; [facility] - Home Meds: 11:11 Humalog 30 unit Sub-Q [Active]; Lantus U-100 Insulin 30 unit Sub-Q crtg [Active]; [facility] lisinopril 10 mg Oral tab [Active]; - PMHx: 11:11 cirrhosis of liver; Dementia; Hypertensive disorder; NIDDM; Pancreatitis; [facility] - PSHx: 11:11 eye sx; [facility] - Immunization history:: Adult Immunizations up to date, Client reports receiving the 2nd dose of the Covid vaccine, Last tetanus immunization: up to date. - Social history:: Smoking status: Patient/guardian denies using tobacco, but has a distant history of tobacco abuse. Screenin:13 Abuse screen: Denies threats or abuse. Nutritional screening: No deficits noted. [facility] Tuberculosis screening: No symptoms or risk factors identified. Fall Risk Fall in past 12 months (25 points). Secondary diagnosis (15 points) dementia, impaired mobility, Gait- Weak (10 pts.). Assessment: 11:10 General: Appears in no apparent distress. uncomfortable, obese, well groomed, Behavior [facility] is calm, cooperative. 12:00 Reassessment: Patient and/or family updated on plan of care and expected duration. Pain 6 level reassessed. 13:45 Reassessment: Patient and/or family updated on plan of care and expected duration. Pain 6 level reassessed. pt requesting multiple sandwiches and states that he is feeling ok, Patient denies pain at this time. 15:11 Reassessment: No changes from previously documented assessment. pt sleeping, nad. spoke [facility] with cuco at [facility] and advised she is going to contact transportation. Patient states feeling better. 16:00 Reassessment: No changes from previously documented assessment. waiting for [place] to send [facility] van for transportation. 17:20 Reassessment: No changes from previously documented assessment. called [place] again after [facility] faxed CT results. [place] wanting Drs noted and orders to be faxed as well. informed staff that pt has been D/C'd an that he was seen by . 17:56 Reassessment: pt given multiple sugar free jello and diet [place]. waiting for [facility] transportation to or. 20:11 Reassessment: Patient appears in no apparent distress at this time. Pt given sandwiches ab2 and drink. I called and spoke with the Nurse at [facility] and she states [facility] when they get time. I told her patient is requesting to go back by a taxi service, as he has been discharged for over 5 hours. Taxi was called and will be here in 30-40 minutes to transport patient back to [facility]. 21:00 Reassessment: Patient is alert, oriented x 3, equal unlabored respirations, skin bb warm/dry/pink. pt assisted to taxi by this RN via wheelchair. Vital Signs: 11:10 BP 136 / 82; Pulse 79; Resp 20; Temp 97.5; Pulse Ox 100% on R/A; Weight 92.99 kg; [facility] Height 6 ft. 0 in. (182.88 cm); Pain 2/10; 11:53 BP 160 / 74; Pulse 76; Resp 18; Pulse Ox 98% ; Pain 3/10; 6 15:17 BP 153 / 86; Pulse 74; Resp 18; Temp 97.8; Pulse Ox 100% ; 6 17:46 BP 135 / 82; Pulse 72; Resp 18; Temp 97.6; Pulse Ox 99% ; jh6 11:10 Body Mass Index 27.80 (92.99 kg, 182.88 cm) [facility] [place] Coma Score: 18:53 Eye Response: spontaneous(4). Verbal Response: oriented(5). Motor Response: obeys kdr commands(6). Total: 15. ED Course: 11:00 Patient arrived in ED. em1 11:07 Skylar Farias, RN is Primary Nurse. [facility] 11:09 Esteban Arauz MD is Attending Physician. kdr 11:12 Arm band placed on right wrist. [facility] 11:14 Triage completed. [facility] 11:14 Bed in low position. Call light in reach. Side rails up X2. [facility] 11:44 CT Head Brain wo Cont In Process Unspecified. EDMS 11:49 Patient moved back from CT. [facility] Administered Medications: No medications were administered Outcome: 14:56 Discharge ordered by . kdr 21:26 Patient left the ED. bb Signatures: Dispatcher [employer] EDHI Esteban Arauz MD MD kdr Ballard, Brenda RN Eren Cole em1 Skylar Farias, CLARI RN [facility] Ryan Donovan Corrections: (The following items were deleted from the chart) 11:54 11:54 Inserted saline lock: [place] [id number]
--- NOTE | 2022-01-06 14:57 | EDPHYS ---
Physician Documentation [facility] Name: Amador Cosme Age: 56 yrs Sex: Male : 1965 Arrival Date: 01/06/2022 Time: 11:00 Bed 17 Private MD: ED Physician Esteban Arauz HPI: 01/06 18:53 This 56 yrs old Male presents to ER via EMS with complaints of head injury. kdr 18:53 The patient or guardian reports injury, pain, swelling, tenderness. The complaints kdr affect the right amish, right frontal area and right side of forehead. Context of injury: The problem was sustained at a jail or assisted living facility, resulted from standing up. Onset: The symptoms/episode began/occurred suddenly, just prior to arrival. Associated signs and symptoms: The patient has no apparent associated signs or symptoms, Loss of consciousness: This patient did not experience any loss of consciousness. Severity of symptoms: At their worst the symptoms were mild, in the emergency department the symptoms are unchanged. The patient has not experienced similar symptoms in the past. The patient has not recently seen a physician. Patient fell at the jail when he was walking to get ice. He states he did not have socks over [place] on at the time. He complains of pain to the right temporal aspect of his head with very minimal contusions and swelling. Historical: - Allergies: 11:11 Prednisone; [facility] 11:11 TETRACYCLINES; [facility] - Home Meds: 11:11 Humalog 30 unit Sub-Q [Active]; Lantus U-100 Insulin 30 unit Sub-Q crtg [Active]; 6 lisinopril 10 mg Oral tab [Active]; - PMHx: 11:11 cirrhosis of liver; Dementia; Hypertensive disorder; NIDDM; Pancreatitis; [facility] - PSHx: 11:11 eye sx; [facility] - Immunization history:: Adult Immunizations up to date, Client reports receiving the 2nd dose of the Covid vaccine, Last tetanus immunization: up to date. - Social history:: Smoking status: Patient/guardian denies using tobacco, but has a distant history of tobacco abuse. ROS: 18:53 Constitutional: Negative for fever, chills, and weight loss, Eyes: Negative for injury, kdr pain, redness, and discharge, Neck: Negative for injury, pain, and swelling, Cardiovascular: Negative for chest pain, palpitations, and edema, Respiratory: Negative for shortness of breath, cough, wheezing, and pleuritic chest pain, Abdomen/GI: Negative for abdominal pain, nausea, vomiting, diarrhea, and constipation, Back: Negative for injury and pain, : Negative for injury, bleeding, discharge, and swelling, MS/Extremity: Negative for injury and deformity, Skin: Negative for injury, rash, and discoloration, Neuro: Negative for headache, weakness, numbness, tingling, and seizure activity. Psych: Negative for depression, anxiety, suicide ideation, homicidal ideation, and hallucinations, Allergy/Immunology: Negative for hives, rash, and allergies, Endocrine: Negative for neck swelling, polydipsia, polyuria, polyphagia, and marked weight changes, Hematologic/Lymphatic: Negative for swollen nodes, abnormal bleeding, and unusual bruising. 18:53 Skin: Positive for hematoma, Minor contusion to right forehead, Negative for pallor, puncture. Exam: 18:53 Constitutional: This is a well developed, well nourished patient who is awake, alert, kdr and in no acute distress. Eyes: Pupils equal round and reactive to light, extra-ocular motions intact. Lids and lashes normal. Conjunctiva and sclera are non-icteric and not injected. Cornea within normal limits. Periorbital areas with no swelling, redness, or edema. 18:53 Chest/axilla: Normal chest wall appearance and motion. Nontender with no deformity. No lesions are appreciated. Cardiovascular: Regular rate and rhythm with a normal S1 and S2. No gallops, murmurs, or rubs. Normal PMI, no JVD. No pulse deficits. Respiratory: Lungs have equal breath sounds bilaterally, clear to auscultation and percussion. No rales, rhonchi or wheezes noted. No increased work of breathing, no retractions or nasal flaring. Abdomen/GI: Soft, non-tender, with normal bowel sounds. No distension or tympany. No guarding or rebound. No evidence of tenderness throughout. Back: No spinal tenderness. No costovertebral tenderness. Full range of motion. Skin: Warm, dry with normal turgor. Normal color with no rashes, no lesions, and no evidence of cellulitis. MS/ Extremity: Pulses equal, no cyanosis. Neurovascular intact. Full, normal range of motion. Neuro: Awake and alert, GCS 15, oriented to person, place, time, and situation. Cranial nerves II-XII grossly intact. Motor strength 5/5 in all extremities. Sensory grossly intact. Cerebellar exam normal. Normal gait. Psych: Awake, alert, with orientation to person, place and time. Behavior, mood, and affect are within normal limits. 18:53 Head/face: Noted is contusion, that is superficial, of the right amish, right frontal area and right side of forehead. Vital Signs: 11:10 BP 136 / 82; Pulse 79; Resp 20; Temp 97.5; Pulse Ox 100% on R/A; Weight 92.99 kg; jh6 Height 6 ft. 0 in. (182.88 cm); Pain 2/10; 11:53 BP 160 / 74; Pulse 76; Resp 18; Pulse Ox 98% ; Pain 3/10; jh6 15:17 BP 153 / 86; Pulse 74; Resp 18; Temp 97.8; Pulse Ox 100% ; jh6 17:46 BP 135 / 82; Pulse 72; Resp 18; Temp 97.6; Pulse Ox 99% ; jh6 11:10 Body Mass Index 27.80 (92.99 kg, 182.88 cm) jh6 [place] Coma Score: 18:53 Eye Response: spontaneous(4). Verbal Response: oriented(5). Motor Response: obeys kdr commands(6). Total: 15. MDM: 14:56 Patient medically screened. kdr 18:55 Data reviewed: vital signs, nurses notes, lab test result(s), radiologic studies. kdr Counseling: I had a detailed discussion with the patient and/or guardian regarding: the historical points, exam findings, and any diagnostic results supporting the discharge/admit diagnosis, lab results, radiology results, the need for outpatient follow up. 01/06 11:32 Order name: CT Head Brain wo Cont; Complete Time: 14:55 kdr Administered Medications: No medications were administered Disposition Summary: 01/06/22 14:56 Discharge Ordered Location: Home kdr Problem: new kdr Symptoms: have improved kdr Condition: Stable kdr Diagnosis - Unspecified injury of head, initial encounter kdr Followup: kdr - With: Private Physician - When: 2 - 3 days - Reason: If symptoms return, Further diagnostic work-up, Recheck today's complaints, Continuance of care, Re-evaluation by your physician Discharge Instructions: - Discharge Summary Sheet kdr - Head Injury, Adult, [id number] kdr Forms: - Medication Reconciliation Form kdr - Thank You Letter kdr Signatures: Dispatcher [employer] Esteban Spencer MD MD kdr Skylar Farias RN RN jh6
[2022-01-06 21:46] VITALS: BP 135/82; TEMP 97.6; O2SAT 99
== END 2022-01-06 21:26 | disposition home or self-care (01) ==
LOC: ER 10:58
DX: S00.83XA Contusion of other part of head, initial encounter (principal); W18.30XA Fall on same level, unspecified, initial encounter; I10 Essential (primary) hypertension; E11.9 Type 2 diabetes mellitus without complications; F03.90 Unspecified dementia, unspecified severity, without behavioral disturbance, psychotic disturbance, mood disturbance, and anxiety; Z79.4 Long term (current) use of insulin; Z88.1 Allergy status to other antibiotic agents; Z88.8 Allergy status to other drugs, medicaments and biological substances
CPT/HCPCS: 70450; 99284

== ENCOUNTER 2022-03-12 21:08 | Inpatient (IN) | payer OTHER ==
[2022-03-12] MEDS ORDERED: NA CHLORIDE 0.9% 1,000 ML ONE (22:01)
[2022-03-12 22:04] LABS: Absolute Lymphocytes (CBC) 1.3 K/uL (0.7-4.9); Hematocrit 43.1 % (39.6-49.0); Lymphocytes % 27.9 % (15.3-44.8); MPV 7.8 fL (7.6-11.3); RBC Red Blood Cell Count 4.62 M/uL (4.33-5.43)
--- NOTE | 2022-03-12 22:04 | RAD REPORT ---
EXAM DESCRIPTION: CT - Head Brain Wo Cont - 03/12/2022 9:54 pm CLINICAL HISTORY: Altered mental status, nontraumatic COMPARISON: CT 01/06/2022 TECHNIQUE: Axial 5 mm thick images of the head were obtained without IV contrast. All CT scans are performed using dose optimization technique as appropriate and may include automated exposure control or mA/KV adjustment according to patient size. FINDINGS: No intracranial hemorrhage, mass, edema or shift of mid-line structures. No acute infarcti on changes seen. No abnormal extra-axial fluid collections. Ventricles are normal. No significant atr ophy or chronic ischemic change. Mastoid air cells and visualized portions of the paranasal sinuses are clear. No acute bony findings. No significant changes from the prior study. IMPRESSION: Negative non-contrast CT head examination for acute or significant finding.
[2022-03-12 22:06] LABS: Protime INR 1.39
[2022-03-12 22:29] LABS: ALT/SGPT 122 U/L (12-78); AST/SGOT 128 U/L (15-37); Albumin 2.9 g/dL (3.4-5.0); Alkaline Phosphatase 138 U/L (45-117); BUN Blood Urea Nitrogen 20 mg/dL (7-18); Bicarbonate 20 mmol/L (21-32); Bilirubin Direct 0.8 mg/dL (0-0.2); Glucose Level 211 mg/dL (74-106); Magnesium 1.9 mg/dL (1.8-2.4); NT PRO-BNP 1190 pg/mL (<125); Potassium 3.7 mmol/L (3.5-5.1); Protein, Total 6.4 g/dL (6.4-8.2); Sodium Level 141 mmol/L (136-145); Troponin High Sensitivity 19.3 pg/mL (<58.9)
--- NOTE | 2022-03-12 22:38 | ER ---
Nurse's Notes [facility] Name: Amador Cosme Age: 56 yrs Sex: Male : 1965 Arrival Date: 03/12/2022 Time: 21:18 Bed 7 Private MD: Diagnosis: Hepatic Encephalopathy Presentation: 03/12 21:00 Chief complaint: EMS states: Called for patient by landlord, patient had not been seen lp1 for a few days, Per EMS, patient was lying on couch in feces, feces noted around in rooms in trailer, appeared altered, A/O x2; reported hx of cirrhosis; Patient reports he has not eaten in days. 21:49 Coronavirus screen: At this time, the client does not indicate any symptoms associated lp1 with coronavirus-19. Ebola Screen: No symptoms or risks identified at this time. Initial Sepsis Screen: Does the patient meet any 2 criteria? No. Patient's initial sepsis screen is negative. Does the patient have a suspected source of infection? No. Patient's initial sepsis screen is negative. Risk Assessment: Do you want to hurt yourself or someone else? Patient reports no desire to harm self or others. Onset of symptoms was March 12, 2022. 21:49 Method Of Arrival: EMS: [facility] lp1 21:49 Acuity: DAO 2 lp1 Historical: - Allergies: 21:51 Prednisone; lp1 21:51 TETRACYCLINES; lp1 - Home Meds: 21:51 Humalog 30 unit Sub-Q [Active]; Lantus U-100 Insulin 30 unit Sub-Q crtg [Active]; lp1 lisinopril 10 mg Oral tab [Active]; - PMHx: 21:51 cirrhosis of liver; Dementia; Hypertensive disorder; NIDDM; Pancreatitis; lp1 - PSHx: 21:51 eye sx; lp1 - Immunization history:: Adult Immunizations unknown. - Social history:: Smoking status: Patient reports the use of cigarette tobacco products, Patient uses alcohol, on a daily basis. Screenin:52 Abuse screen: Denies threats or abuse. Denies injuries from another. Nutritional lp1 screening: No deficits noted. Tuberculosis screening: No symptoms or risk factors identified. Fall Risk Total [place] Fall Scale indicates High Risk Score (45 or more points). Fall prevention measures have been instituted. Side Rails Up X 2 Placed Close to Nursing Station Frequent Obs/Assessments Occuring As available patient and family educated on Fall Prevention Program and Strategies. Assessment: 21:30 General: Appears in no apparent distress. unkempt, Behavior is cooperative, Patient lp1 covered in dry stool. Pain: Denies pain. Neuro: Level of Consciousness is awake, obeys commands, Oriented to person, place. Cardiovascular: Patient's skin is warm and dry. Rhythm is regular. Respiratory: Airway is patent Respiratory effort is even, Respiratory pattern is regular, symmetrical. GI: Abdomen is non-distended. : No signs and/or symptoms were reported regarding the genitourinary system. EENT: No signs and/or symptoms were reported regarding the EENT system. Derm: Skin is intact, Skin is dry, Skin is normal, dried stool noted to bilateral lower legs, buttocks. Musculoskeletal: Range of motion: intact in all extremities. 22:45 Reassessment: Hospitalist at bedside to discuss plan of care with patient. lp1 23:15 Reassessment: Patient tolerating drinking water and eating sandwich at this time. lp1 Vital Signs: 21:49 BP 153 / 93; Pulse 77; Resp 15; Temp 97.8(O); Pulse Ox 100% on R/A; Weight 61.23 kg; lp1 Height 5 ft. 7 in. (170.18 cm); Pain 0/10; 22:00 BP 165 / 84; Pulse 78; Resp 15; Pulse Ox 100% on R/A; lp1 22:30 BP 164 / 83; Pulse 84; Resp 20; Pulse Ox 100% on R/A; Pain 0/10; lp1 0501 00:30 BP 114 / 72; Pulse 73; Resp 14; Pulse Ox 100% on R/A; lp1 00:50 BP 148 / 86; Pulse 76; Resp 14; Pulse Ox 100% on R/A; lp1 03/12 21:49 Body Mass Index 21.14 (61.23 kg, 170.18 cm) lp1 ED Course: 03/12 21:18 Patient arrived in ED. cs9 21:18 Zafar Miles MD is Attending Physician. mh7 21:20 Patient has correct armband on for positive identification. Placed in gown. Bed in low lp1 position. Call light in reach. Side rails up X2. cardiac monitor on. Pulse ox on. NIBP on. 21:30 Missed attempt(s): 20 gauge in right forearm. Missed attempt(s): 22 gauge in right lp1 forearm. Missed attempt(s): 22 gauge in left forearm. 21:35 Inserted saline lock: 22 gauge in left antecubital area, using aseptic technique. Blood lp1 collected. 21:47 Raven Orlando RN is Primary Nurse. lp1 21:47 Arm band placed on right wrist. lp1 21:51 Triage completed. lp1 21:54 Skylar Best FNP [facility]. jh7 21:55 CT Head Brain wo Cont In Process Unspecified. EDMS 22:29 XRAY Chest (1 view) In Process Unspecified. EDMS 22:37 Yanna Shepherd MD is Hospitalizing Provider. [facility] 22:49 22g to L AC DC'd due to infiltration. lp1 22:49 Inserted saline lock: 20 gauge in right wrist, using aseptic technique. jb4 22:57 COVID swab sent to lab. 1 03/13 00:42 No provider procedures requiring assistance completed. Patient admitted, IV remains in lp1 place. Administered Medications: 03/12 22:03 Drug: NS 0.9% 1000 ml Route: IV; Rate: 1000 ml; Site: left antecubital; lp1 23:30 Follow up: IV Status: Completed infusion; IV Intake: 1000ml 1 03/13 00:28 Drug: Lactulose 20 grams Volume: 30 ml; Route: PO; lp1 01:00 Follow up: Response: No adverse reaction lp1 Intake: 03/12 23:30 IV: 1000ml; Total: 1000ml. 1 Outcome: 22:38 Decision to Hospitalize by Provider. [facility] 03/13 00:42 Condition: stable lp1 Instructed on the need for admit. 00:52 Admitted to Med/surg via stretcher, room 229, with chart, Report called to CLARI Garcia lp1 01:00 [facility] Signatures: Dispatcher [employer] EDMS Raven Orlando RN RN 1 Juliocesar Earl RN RN jb4 Zafar Miles MD MD [facility] Alana Krishnan [facility] Skylar Best FNP [facility] Corrections: (The following items were deleted from the chart) 03/12 21:51 21:00 Chief complaint: EMS states: Called for patient by landlord, patient had not been lp1 seen for a few days, Per EMS, patient was lying on cough in feces, feces noted around in rooms in trailer, appeared altered lp1 23:24 21:00 Chief complaint: EMS states: Called for patient by landlord, patient had not been lp1 seen for a few days, Per EMS, patient was lying on couch in feces, feces noted around in rooms in trailer, appeared altered, A/O x2; reported hx of cirrhosis lp1
--- NOTE | 2022-03-12 22:38 | EDPHYS ---
Physician Documentation [facility] Name: Amador Cosme Age: 56 yrs Sex: Male : 1965 Arrival Date: 03/12/2022 Time: 21:18 Bed 7 Private MD: ED Physician Zafar Miles HPI: 03/12 21:35 This 56 yrs old Male presents to ER via EMS with complaints of Altered Mental Status. mh7 21:35 The patient presents with confusion. Onset: The symptoms/episode began/occurred at an [facility] unknown time. Possible causes: unknown. Associated signs and symptoms: Pertinent positives: confusion. Current symptoms: In the emergency department the patient's symptoms are unchanged from the initial presentation. Unable to obtain HPI due to altered mental status. Patient found on his sofa by landlord covered in feces and confused according to EMS.. Historical: - Allergies: 21:51 Prednisone; lp1 21:51 TETRACYCLINES; lp1 - Home Meds: 21:51 Humalog 30 unit Sub-Q [Active]; Lantus U-100 Insulin 30 unit Sub-Q crtg [Active]; lp1 lisinopril 10 mg Oral tab [Active]; - PMHx: 21:51 cirrhosis of liver; Dementia; Hypertensive disorder; NIDDM; Pancreatitis; lp1 - PSHx: 21:51 eye sx; lp1 - Immunization history:: Adult Immunizations unknown. - Social history:: Smoking status: Patient reports the use of cigarette tobacco products, Patient uses alcohol, on a daily basis. ROS: 21:35 Unable to obtain ROS due to altered mental status. 7 Exam: 21:35 Head/Face: Normocephalic, atraumatic. Eyes: Pupils equal round and reactive to light, mh7 extra-ocular motions intact. Lids and lashes normal. Conjunctiva and sclera are non-icteric and not injected. Cornea within normal limits. Periorbital areas with no swelling, redness, or edema. Neck: Trachea midline, no thyromegaly or masses palpated, and no cervical lymphadenopathy. Supple, full range of motion without nuchal rigidity, or vertebral point tenderness. No Meningismus. Chest/axilla: Normal chest wall appearance and motion. Nontender with no deformity. No lesions are appreciated. Cardiovascular: Regular rate and rhythm with a normal S1 and S2. No gallops, murmurs, or rubs. Normal PMI, no JVD. No pulse deficits. Respiratory: Lungs have equal breath sounds bilaterally, clear to auscultation and percussion. No rales, rhonchi or wheezes noted. No increased work of breathing, no retractions or nasal flaring. Abdomen/GI: Soft, non-tender, with normal bowel sounds. No distension or tympany. No guarding or rebound. No evidence of tenderness throughout. Back: No spinal tenderness. No costovertebral tenderness. Full range of motion. Skin: Warm, dry with normal turgor. Normal color with no rashes, no lesions, and no evidence of cellulitis. MS/ Extremity: Pulses equal, no cyanosis. Neurovascular intact. Full, normal range of motion. 21:35 Constitutional: The patient appears in no acute distress, alert, awake, unkempt, confused 21:35 Neuro: Orientation: to person, place, Mentation: confused, Memory: unable to test, AMS, Cranial nerves: is grossly normal based on the patient's age, Cerebellar function: is grossly normal based on the patient's age, Motor: is normal, Sensation: no obvious gross deficits, Gait: not tested. seizure activity, is not displayed by the patient, Abnormal movements: there are no abnormal movements. Vital Signs: 21:49 BP 153 / 93; Pulse 77; Resp 15; Temp 97.8(O); Pulse Ox 100% on R/A; Weight 61.23 kg; lp1 Height 5 ft. 7 in. (170.18 cm); Pain 0/10; 22:00 BP 165 / 84; Pulse 78; Resp 15; Pulse Ox 100% on R/A; lp1 22:30 BP 164 / 83; Pulse 84; Resp 20; Pulse Ox 100% on R/A; Pain 0/10; lp1 05/01 00:30 BP 114 / 72; Pulse 73; Resp 14; Pulse Ox 100% on R/A; lp1 00:50 BP 148 / 86; Pulse 76; Resp 14; Pulse Ox 100% on R/A; lp1 03/12 21:49 Body Mass Index 21.14 (61.23 kg, 170.18 cm) lp1 MDM: 03/12 22:35 Differential Diagnosis: CVA, electrolyte abnormality, alcohol intoxication, mh7 hypoglycemia, intracranial bleed, overdose, pneumonia, seizure, sepsis, UTI, volume depletion, encephalopathy. Data reviewed: vital signs, nurses notes, old medical records, lab test result(s), cardiac enzymes, CBC, drug level(s), acetaminophen, alcohol, salicylate, EKG, radiologic studies, CT scan, plain films. Data interpreted: Pulse oximetry: on room air is 100 %. Interpretation: normal. Counseling: I had a detailed discussion with the patient and/or guardian regarding: the historical points, exam findings, and any diagnostic results supporting the discharge/admit diagnosis, the presence of at least one elevated blood pressure reading (>120/80) during this emergency department visit, lab results, radiology results, the need for further work-up and treatment in the hospital. Response to treatment: the patient's symptoms have mildly improved after treatment. 22:38 Patient medically screened. 03/12 21:31 Order name: Basic Metabolic Panel; Complete Time: 22:31 03/12 21:31 Order name: CBC with Diff; Complete Time: 22:06 03/12 21:31 Order name: LFT's; Complete Time: 22:31 03/12 21:31 Order name: Magnesium; Complete Time: 22:31 03/12 21:31 Order name: NT PRO-BNP; Complete Time: 22:31 03/12 21:31 Order name: PT-INR; Complete Time: 22:14 03/12 21:31 Order name: Troponin HS; Complete Time: 22:31 03/12 21:31 Order name: ETOH Level; Complete Time: 22:31 03/12 21:31 Order name: Acetaminophen; Complete Time: 22:31 03/12 21:31 Order name: Salicylate; Complete Time: 22:31 03/12 21:31 Order name: UDS; Complete Time: 23:37 03/12 21:32 Order name: TSH; Complete Time: 22:31 03/12 21:34 Order name: AMMONIA; Complete Time: 22:27 la1 03/12 21:31 Order name: XRAY Chest (1 view) [facility] 03/12 21:31 Order name: EKG; Complete Time: 21:32 03/12 21:31 Order name: Cardiac monitoring; Complete Time: 21:55 [facility] 03/12 21:31 Order name: EKG - Nurse/Tech; Complete Time: 21:55 [facility] 03/12 21:31 Order name: IV Saline Lock; Complete Time: 21:55 [facility] 03/12 21:31 Order name: Labs collected and sent; Complete Time: 21:55 [facility] 03/12 21:31 Order name: O2 Per Protocol; Complete Time: 21:55 [facility] 03/12 21:31 Order name: O2 Sat Monitoring; Complete Time: 21:55 [facility] 03/12 21:31 Order name: Urine Dipstick-Ancillary (obtain specimen); Complete Time: 22:52 [facility] 03/12 21:31 Order name: CT Head Brain wo Cont; Complete Time: 22:06 [facility] 03/12 22:32 Order name: COVID-19/FLU A+B (Document "Date of Onset" if Symptomatic) [facility] 03/12 22:49 Order name: Urine Dipstick-Ancillary; Complete Time: 23:37 EDMS Administered Medications: 22:03 Drug: NS 0.9% 1000 ml Route: IV; Rate: 1000 ml; Site: left antecubital; lp1 23:30 Follow up: IV Status: Completed infusion; IV Intake: 1000ml 1 03/13 00:28 Drug: Lactulose 20 grams Volume: 30 ml; Route: PO; lp1 01:00 Follow up: Response: No adverse reaction lp1 Disposition Summary: 03/12/22 22:38 Hospitalization Ordered Hospitalization Status: Inpatient Admission [facility] Provider: Yanna Shepherd Kalyan Location: Telemetry/MedSurg (Inpatient) [facility] Condition: Stable [facility] Problem: an acute exacerbation [facility] Symptoms: have improved [facility] Bed/Room Type: Standard [facility] Room Assignment: 229(03/13/22 00:14) Diagnosis - Hepatic Encephalopathy [facility] Forms: - Medication Reconciliation Form [facility] - SBAR form [facility] Signatures: Dispatcher [employer] EDMS Raven Orlando RN RN lp1 Héctor uDong FNP-C CLIN TECH-Cla1 Amee Alamo RN RN cg Zafar Miles MD MD [facility] Corrections: (The following items were deleted from the chart) 03/12 22:19 21:35 AMMONIA+C.LAB.BRZ ordered. EDMS EDMS 03/13 00:14 03/12 22:38 mh7
[2022-03-12 22:49] LABS: Urine Blood Negative (Negative); Urine Glucose 3+ (Negative); Urine Protein Negative (Negative)
[2022-03-12 23:06] LABS: Barbiturates NEGATIVE (NEGATIVE); Benzodiazepines NEGATIVE (NEGATIVE); Cocaine NEGATIVE (NEGATIVE); METHAMPHETAM POSITIVE (NEGATIVE); Methadone NEGATIVE (NEGATIVE); Opiates NEGATIVE (NEGATIVE); Phencyclidine NEGATIVE (NEGATIVE); THC Cannibis NEGATIVE (NEGATIVE)
--- NOTE | 2022-03-12 23:18 | P.HP ---
Certification for Inpatient Patient admitted to: Inpatient With expected LOS: >2 Midnights Patient will require the following post-hospital care: None Practitioner: I am a practitioner with admitting privileges, knowledge of patient current condition, hospital course, and medical plan of care. Services: Services provided to patient in accordance with Admission requirements found in Title 42 Section 412.3 of the Code of Federal Regulations Patient History Date of Service: 03/12/22 Reason for admission: Hepatic encephalopathy History of Present Illness: 56-year-old male with history of alcoholic cirrhosis of the liver, diabetes type 2insulin-dependent, hypertension and depression presents emergency department for altered mental status, it was reported that his landlord went to check on him as he had not seen him in a while found him on the couch altered covered in dried stool. Patient was brought to the emergency department for evaluation he is noted to be oriented x2 at this time found to have elevated ammonia [address] head/chest x-ray unremarkable ED prior wishes to admit for hepatic encephalopathy at this time. Patient does admit to drinking alcohol recently states he is trying to quit, he reports he has been taking his medications but this is doubtful. Will admit for further evaluation and management Allergies prednisone Allergy (Verified 10/30/21 07:35) Rash Tetracyclines Allergy (Verified 10/30/21 07:35) Rash Home Medications: Furosemide [Lasix*] 40 mg PO BIDL tab 12/31/21 Insulin Glargine,Hum.rec.anlog [Semglee] 30 unit SQ BID ml 12/31/21 Insulin Lispro [Humalog*] 20 unit SQ TIDWM ml 12/31/21 Lactulose [Cephulac*] 30 ml PO TID ucup 12/31/21 Polyethyl Gly 3350 [Glycolax*] 17 gm PO DAILY udbot 12/31/21 Spironolactone [Aldactone*] 100 mg PO DAILY tab 12/31/21 traMADol HCL [Ultram*] 50 mg PO TID PRN #0 tab 12/31/21 - Past Medical/Surgical History Diabetic: Yes -: Alcoholic liver cirrhosis/hepatitis C? -: Hypertension -: Diabetes mellitusinsulin-dependent -: Chronic tobacco use history -: Dementia as per records -: chronic pancreatitis -: sciatica -: bilateral rotator cuff tear (untreated) -: Eye surgery (lasix right eye) -: Previous paracentesis Psychosocial/ Personal History: Patient currently lives at home alone in a trailer, was previously discharged to residential facility but left - Family History Father History Unknown: Yes - Social History Smoking Status: Never smoker Alcohol use: Yes CD- Drugs: No Caffeine use: No Place of Residence: Home Review of Systems is unable to be obtained Physical Examination - Physical Exam General: Alert, In no apparent distress, Oriented x2 HEENT: Atraumatic, PERRLA, Mucous membr. moist/pink, EOMI, Sclerae nonicteric Neck: Supple, 2+ carotid pulse no bruit, No LAD, Without JVD or thyroid abnormality Respiratory: Clear to auscultation bilaterally, Normal air movement Cardiovascular: Regular rate/rhythm, Normal S1 S2 Capillary refill: <2 Seconds Gastrointestinal: Normal bowel sounds, No tenderness Musculoskeletal: No tenderness Integumentary: No rashes Neurological: Normal speech, Normal strength at 5/5 x4 extr, Normal tone, Normal affect, Other (Confused, encephalopathic) Lymphatics: No axilla or inguinal lymphadenopathy - Studies Laboratory Data (last 24 hrs) 03/12/22 21:35: PT 15.4 H, INR 1.39 03/12/22 21:35: WBC 4.6, Hgb 14.8, Hct 43.1, Plt Count 102 L 03/12/22 21:35: Sodium 141, Potassium 3.7, BUN 20 H, Creatinine 0.89, Glucose 211 H, Magnesium 1.9, Total Bilirubin 3.0 H, AST 128 H, ALT 122 H, Alkaline Elena sphatase 138 H Assessment and Plan - Plan Assessment: Hepatic encephalopathyalcoholic cirrhosis of liver with thrombocytopenia Diabetes mellitus type 2insulin-dependent Hypertension Depression Plan: Hepatic encephalopathyalcoholic cirrhosis of liver with thrombocytopenia: Patient awake, oriented x2 but confused. Continue with scheduled lactulose, Xifaxan, spironolactone. Continue other home medications. Daily ammonia level. Patient reports he has been drinking counseled on need for cessation. At discharge patient plans to return back to his trailer likely in the next day or 2. Diabetes mellitus type 2insulin-dependent: ACH S Accu-Chek, sliding scale insulin, record review shows patient was previously on 30 units of long-acting insulin twice daily will reduce to 15 for the time being adjust as necessary. Hypertension: Obtain and continue home medication Depression: Obtain and continue home medication DVT PPX: Lovenox Code status: Full Discharge Plan: Home Plan to discharge in: 48 Hours - Advance Directives Does patient have a Living Will: No Does patient have a Durable POA for Healthcare: No - Code Status/Comfort Care Code Status Assessed: Yes (Full code) Critical Care: No Time Spent Managing Pts Care (In Minutes): 55
[2022-03-12 23:38] LABS: SARS-COV-2 RT PCR NEGATIVE (NEGATIVE)
[2022-03-13] MEDS ORDERED: LACTULOSE 20 GM/30 ML UCUP ONE (00:27)
[2022-03-13 01:13] VITALS: O2SAT 100
[2022-03-13] MEDS ORDERED: ONDANSETRON 4 MG/2 ML VIAL IV PRN (01:16)
[2022-03-13 01:25] VITALS: BMI 22.3
[2022-03-13 02:13] LABS: Urine Appearance Clear (Clear); Urine Bilirubin Negative (Negative); Urine Blood Negative (Negative); Urine Color Yellow (Yellow); Urine Glucose 2+ (Negative); Urine Protein Negative (Negative)
[2022-03-13 02:20] LABS: Urine Microscopic Reflex NO UMIC
[2022-03-13 05:49] LABS: Albumin 2.5 g/dL (3.4-5.0); Bilirubin Total 2.5 mg/dL (0.2-1.0); Potassium 4.1 mmol/L (3.5-5.1); Protein, Total 5.6 g/dL (6.4-8.2)
--- NOTE | 2022-03-13 06:34 | P.PN ---
Date of Service: 03/13/22 Subjective: alert/oriented, feels better, hungry; slight confusion states may have missed some medication at home ROS: 10 point ROS as noted above, otherwise negative Physical exam GEN: Alert, orientedx3, NAD, slight confusion HEENT: Normal conjunctiva, sclera anicteric CV: Regular rate and rhythm, no edema Pulm: Non-labored respirations on room air ABD: Soft, nontender, nondistended Neuro: Normal speech, normal affect Problem List Hepatic encephalopathyalcoholic cirrhosis of liver with thrombocytopenia Diabetes mellitus type 2insulin-dependent Hypertension Depression continue lactulose, xifaxan, spironolactone mentation seems improved, but still with slighth confusion / impaired judgement ammonia elevated this morning, but patient's mentation improved states he wants to go back to his trailer on discharge unclear what lead to this, but seems he is inconsistent with his medication, not having regular BMs asking for double portions increase lantus, continue insulin sliding scale Code: full Dispo: home, ~24hrs Time Spent Managing Pts Care (In Minutes): 35
[2022-03-13 07:07] LABS: Absolute Lymphocytes (CBC) 1.3 K/uL (0.7-4.9); Hematocrit 41.7 % (39.6-49.0); Lymphocytes % 27.6 % (15.3-44.8); MPV 7.9 fL (7.6-11.3); RBC Red Blood Cell Count 4.41 M/uL (4.33-5.43)
[2022-03-13] MEDS: LACTULOSE 20 GM/30 ML UCUP PO SCH ×2 (08:45→14:06)
[2022-03-13] MEDS: INSULIN -REGULAR HUMAN 50 UNIT/0.5 ML ML SQ SCH ×3 (08:45→16:36)
[2022-03-13] MEDS ORDERED: Rifaximin 550 MG Tab PO SCH (09:00)
[2022-03-13] MEDS ORDERED: INSULIN GLARGINE 100 UNIT/ML SQ SCH ×2 (09:00→17:00)
[2022-03-13] MEDS ORDERED: ENOXAPARIN 40 MG/0.4 ML SQ SCH (09:00)
[2022-03-13] MEDS ORDERED: SPIRONOLACTONE 25 MG TABLET PO SCH (09:00)
[2022-03-13 09:33] LABS: Blood Morphology Comment NOT SEEN (NOT SEEN); Platelet Estimate DECR
[2022-03-13 17:42] VITALS: BP 145/89; TEMP 97
--- NOTE | 2022-03-14 13:39 | RAD REPORT ---
EXAM DESCRIPTION: Chest Single View CLINICAL HISTORY: 6 years Male, AMS COMPARISON: Chest radiograph dated 12/27/2021 FINDINGS: No focal lung consolidation. No pleural effusion. No pneumothorax. Cardiomediastinal silhouette is within normal limits. No acute osseous abnormality. IMPRESSION: No acute cardiopulmonary disease. Electronically signed by: Michele Portillo DO 03/12/2022 11:27 PM CDT Due to temporary technical issues with the PACS/Fluency reporting system, reports are being signed by the in house radiologist without review as a courtesy to ensure prompt reporting. The interpreting r adiologist is fully responsible for the content of the report.
== END 2022-03-13 17:48 | disposition left against medical advice (07) | DRG 434 ==
LOC: ER 21:08 → ERHOLD 23:07 → 2ND 03-13 00:53
PROVIDERS: ADMIT Hospitalist; ATTEND Internal Medicine
DX: K70.40 Alcoholic hepatic failure without coma (principal); E11.9 Type 2 diabetes mellitus without complications; I10 Essential (primary) hypertension; F32.A Depression, unspecified; D69.6 Thrombocytopenia, unspecified; K70.30 Alcoholic cirrhosis of liver without ascites; Z79.4 Long term (current) use of insulin; Z53.29 Procedure and treatment not carried out because of patient's decision for other reasons; Z20.822 Contact with and (suspected) exposure to COVID-19
CPT/HCPCS: 0240U; 36415; 70450; 71045; 80048; 80053; 80076; 80307; 80320; 80329; 81003; 82140; 82947; 83735; 83880; 84443; 84484; 85025; 85610; 93005; 96360; 99285; J1650; J1815; J7030

== ENCOUNTER 2022-03-23 13:56 | Observation (INO) | payer OTHER ==
[2022-03-23] MEDS ORDERED: NA CHLORIDE 0.9% 1,000 ML ONE (14:28)
[2022-03-23] MEDS ORDERED: ONDANSETRON 4 MG/2 ML VIAL ONE (14:28)
[2022-03-23 14:33] LABS: Urine Blood Negative (Negative); Urine Glucose 2+ (Negative); Urine Protein Negative (Negative); Urine Specific Gravity <=1.005 (1.005-1.030); Urine pH 5.5 (5.0-7.0)
[2022-03-23 14:50] LABS: Absolute Lymphocytes (CBC) 0.9 K/uL (0.7-4.9); Hematocrit 35.7 % (39.6-49.0); Lymphocytes % 17.3 % (15.3-44.8); MPV 8.9 fL (7.6-11.3); RBC Red Blood Cell Count 3.82 M/uL (4.33-5.43)
[2022-03-23 14:58] LABS: ALT/SGPT 71 U/L (12-78); Albumin 2.5 g/dL (3.4-5.0); Alkaline Phosphatase 161 U/L (45-117); BUN Blood Urea Nitrogen 18 mg/dL (7-18); Bicarbonate 18 mmol/L (21-32); Glomerular Filtration Rate 70 ml/min (=/>90); Lipase 360 U/L (73-393); Potassium 4.9 mmol/L (3.5-5.1); Sodium Level 128 mmol/L (136-145)
[2022-03-23 14:59] LABS: AST/SGOT 82 U/L (15-37); Glucose Level 637 mg/dL (74-106)
--- NOTE | 2022-03-23 15:27 | ER ---
Nurse's Notes [facility] Name: Amador Cosme Age: 56 yrs Sex: Male : 1965 Arrival Date: 03/23/2022 Time: 14:03 Bed 15 Private MD: Diagnosis: Hyperglycemia, unspecified;Dehydration;Hepatic Encephalopathy Presentation: 03/23 14:03 Chief complaint: Patient states: Increase thrist, weakness, nausea, feels like ammonia ww levels are elevated and some confusion. EMS states that he was at a gas station and called. Blood sugar 534. Coronavirus screen: Client denies travel out of the [place] in the last 14 days. Ebola Screen: Patient denies travel to an Ebola-affected area in the 21 days before illness onset. Initial Sepsis Screen: Does the patient meet any 2 criteria? No. Patient's initial sepsis screen is negative. Does the patient have a suspected source of infection? No. Patient's initial sepsis screen is negative. Risk Assessment: Do you want to hurt yourself or someone else? Patient reports no desire to harm self or others. Onset of symptoms is unknown. 14:03 Method Of Arrival: EMS: [facility] 14:03 Acuity: DAO 3 ww Triage Assessment: 14:07 General: Appears in no apparent distress. Behavior is cooperative. Pain: Complains of ww pain in generalized. Neuro: Level of Consciousness is awake, alert, obeys commands, confused, Oriented to person, place, situation. Cardiovascular: Capillary refill < 3 seconds Patient's skin is warm and dry. Rhythm is regular. Respiratory: Airway is patent Respiratory effort is even, unlabored, Respiratory pattern is regular, symmetrical. GI: Abdomen is non-distended, Patient currently denies nausea. Derm: Skin is healthy with good turgor, Skin is pink, warm \T\ dry. Historical: - Allergies: 14:06 Prednisone; ww 14:06 TETRACYCLINES; ww - Home Meds: 14:06 Humalog 30 unit Sub-Q [Active]; Lantus U-100 Insulin 30 unit Sub-Q crtg [Active]; ww lisinopril 10 mg Oral tab [Active]; - PMHx: 14:06 cirrhosis of liver; Dementia; Hypertensive disorder; NIDDM; Pancreatitis; HepB; ww - PSHx: 14:06 eye sx; ww - Immunization history:: Adult Immunizations unknown. - Social history:: Smoking status: Patient reports the use of cigarette tobacco products. Screenin:09 Abuse screen: Denies threats or abuse. Denies injuries from another. Nutritional ww screening: Has had N/V for 3 or more days. Tuberculosis screening: No symptoms or risk factors identified. Fall Risk None identified. Assessment: 14:09 Reassessment: Patient appears in no apparent distress at this time. No changes from ww previously documented assessment. Patient and/or family updated on plan of care and expected duration. Pain level reassessed. Patient is alert, oriented x 3, equal unlabored respirations, skin warm/dry/pink. see triage assessment. 15:27 Reassessment: Patient appears in no apparent distress at this time. No changes from ww previously documented assessment. Patient and/or family updated on plan of care and expected duration. Pain level reassessed. 16:39 Reassessment: Patient appears in no apparent distress at this time. No changes from ww previously documented assessment. Patient and/or family updated on plan of care and expected duration. Pain level reassessed. blood glucose 461. 17:39 Reassessment: Patient appears in no apparent distress at this time. No changes from ww previously documented assessment. Patient and/or family updated on plan of care and expected duration. Pain level reassessed. Patient is alert, oriented x 3, equal unlabored respirations, skin warm/dry/pink. requesting food and ice chips, informed patient of time food is usually develiverd and awaiting on the nurse upstairs to call for reports. Attempted report at 1650, 1706, 1723. Charge nurse notified. Vital Signs: 14:03 BP 125 / 76; Pulse 88; Resp 12; Temp 98.8; Pulse Ox 99% on R/A; Weight 79.38 kg; Height ww 5 ft. 7 in. (170.18 cm); Pain 0/10; 14:15 BP 123 / 78; Pulse 87; Resp 21; Pulse Ox 98% ; ww 16:40 BP 143 / 82; Pulse 89; Resp 22; Pulse Ox 97% ; ww 17:40 BP 133 / 79; Pulse 84; Resp 20; Pulse Ox 98% ; ww 14:03 Body Mass Index 27.41 (79.38 kg, 170.18 cm) ww ED Course: 14:03 Patient arrived in ED. ww 14:03 Tien Day PA is PHCP. jr8 14:03 Jovanny Prather DO is Attending Physician. jr8 14:06 Triage completed. ww 14:07 Arm band placed on. ww 14:09 Patient has correct armband on for positive identification. Bed in low position. Call ww light in reach. Side rails up X2. Client placed on continuous cardiac and pulse oximetry monitoring. NIBP monitoring applied. Warm blanket given. 14:10 Flavia Little, CLARI is Primary Nurse. ww 14:25 Inserted saline lock: 20 gauge in right forearm, using aseptic technique. Blood ww collected. 15:23 Luis E Bingham MD is Hospitalizing Provider. jr8 17:53 No provider procedures requiring assistance completed. Patient admitted, IV remains in ww place. Administered Medications: 14:30 Drug: NS 0.9% 1000 ml Route: IV; Rate: 1 bolus; Site: right forearm; ww 14:34 Drug: Zofran (Ondansetron) 4 mg Route: IVP; Site: right forearm; ww 16:00 Drug: Insulin Regular Human 10 units {Co-Signature: ss (Angela Brown RN).} Route: ld1 Sub-Q; Site: abdomen; 16:00 Drug: Lactulose 30 grams Volume: 45 ml; Route: PO; ld1 16:00 Drug: morphine 4 mg Route: IVP; Site: right forearm; ld1 16:01 Drug: Ringers - Lactated Ringers Solution 1000 ml Route: IV; Rate: bolus; Site: right ld1 forearm; 16:01 Drug: Insulin Regular Human 10 units {Co-Signature: ss (Angela Brown RN).} Route: IVP; ld1 Site: right forearm; Output: 17:58 Urine: 1800ml (Voided); Total: 1800ml. ww Outcome: 15:27 Decision to Hospitalize by Provider. jr8 17:53 Admitted to Med/surg room 214, Report called to Vianey cheatham 17:53 Condition: stable 17:53 Instructed on the need for admit. 18:28 Patient left the ED. ww Signatures: Tien Day PA PA jr8 Allyn Hazel RN RN ld1 Flavia Little RN RN Angela Smirch RN ss
--- NOTE | 2022-03-23 15:28 | EDPHYS ---
Physician Documentation [facility] Name: Amador Cosme Age: 56 yrs Sex: Male : 1965 Arrival Date: 03/23/2022 Time: 14:03 Bed 15 Private MD: ED Physician Jovanny Prather HPI: 03/23 14:21 This 56 yrs old Male presents to ER via EMS with complaints of Weakness. jr8 14:21 Patient stated that he has had increased weakness, fatigue, and thirst. History of jr8 diabetes. EMS called out today and found to be hyperglycemic in the 500s. Has not been taking his meds as diligently as prescribed . Severity of symptoms: At their worst the symptoms were moderate in the emergency department the symptoms are unchanged. The patient has not experienced similar symptoms in the past. The patient has not recently seen a physician. Historical: - Allergies: 14:06 Prednisone; ww 14:06 TETRACYCLINES; ww - Home Meds: 14:06 Humalog 30 unit Sub-Q [Active]; Lantus U-100 Insulin 30 unit Sub-Q crtg [Active]; ww lisinopril 10 mg Oral tab [Active]; - PMHx: 14:06 cirrhosis of liver; Dementia; Hypertensive disorder; NIDDM; Pancreatitis; HepB; ww - PSHx: 14:06 eye sx; ww - Immunization history:: Adult Immunizations unknown. - Social history:: Smoking status: Patient reports the use of cigarette tobacco products. ROS: 14:21 Eyes: Negative for injury, pain, redness, and discharge, ENT: Negative for injury, jr8 pain, and discharge, Neck: Negative for injury, pain, and swelling, Cardiovascular: Negative for chest pain, palpitations, and edema, Respiratory: Negative for shortness of breath, cough, wheezing, and pleuritic chest pain, Abdomen/GI: Negative for abdominal pain, nausea, vomiting, diarrhea, and constipation, Back: Negative for injury and pain, MS/Extremity: Negative for injury and deformity, Skin: Negative for injury, rash, and discoloration, Neuro: Negative for headache, weakness, numbness, tingling, and seizure. 14:21 Constitutional: Positive for fatigue, malaise. 14:21 Endocrine: Positive for polydipsia. Exam: 14:21 Constitutional: This is a well developed, well nourished patient who is awake, alert, jr8 and in no acute distress. Cardiovascular: Regular rate and rhythm with a normal S1 and S2. No gallops, murmurs, or rubs. Normal PMI, no JVD. No pulse deficits. Respiratory: Lungs have equal breath sounds bilaterally, clear to auscultation and percussion. No rales, rhonchi or wheezes noted. No increased work of breathing, no retractions or nasal flaring. Abdomen/GI: Soft, non-tender, with normal bowel sounds. No distension or tympany. No guarding or rebound. No evidence of tenderness throughout. Skin: Warm, dry with normal turgor. Normal color with no rashes, no lesions, and no evidence of cellulitis. MS/ Extremity: Pulses equal, no cyanosis. Neurovascular intact. Full, normal range of motion. Neuro: Awake and alert, GCS 15, oriented to person, place, time, and situation. Cranial nerves II-XII grossly intact. Motor strength 5/5 in all extremities. Sensory grossly intact. 14:21 ENT: Exam is negative for earache, ear discharge, nasal discharge, pharyngitis, exudate, mucous membranes dry. Vital Signs: 14:03 BP 125 / 76; Pulse 88; Resp 12; Temp 98.8; Pulse Ox 99% on R/A; Weight 79.38 kg; Height ww 5 ft. 7 in. (170.18 cm); Pain 0/10; 14:15 BP 123 / 78; Pulse 87; Resp 21; Pulse Ox 98% ; ww 16:40 BP 143 / 82; Pulse 89; Resp 22; Pulse Ox 97% ; ww 17:40 BP 133 / 79; Pulse 84; Resp 20; Pulse Ox 98% ; ww 14:03 Body Mass Index 27.41 (79.38 kg, 170.18 cm) MDM: 14:03 Patient medically screened. [facility] 15:22 Data reviewed: vital signs, nurses notes, lab test result(s). Data interpreted: Pulse jr8 oximetry: on room air is 99 %. Interpretation: normal. Counseling: I had a detailed discussion with the patient and/or guardian regarding: the historical points, exam findings, and any diagnostic results supporting the discharge/admit diagnosis, lab results, the need for further work-up and treatment in the hospital. Physician consultation: Luis E Bingham MD was called at 15:10, was contacted at 15:10, regarding admission, to the telemetry unit. and will see patient. 03/23 14:03 Order name: CBC with Diff; Complete Time: 15:01 [facility] 03/23 14:03 Order name: CMP; Complete Time: 15:01 [facility] 03/23 14:03 Order name: Lipase; Complete Time: 15: [facility] 03/23 14:03 Order name: Acetone, Serum; Complete Time: 15: [facility] 03/23 14:03 Order name: AMMONIA; Complete Time: 15: [facility] 03/23 14:34 Order name: Urine Dipstick-Ancillary; Complete Time: 14:51 [facility] [place] 03/23 15:57 Order name: Basic Metabolic Panel [facility] 03/23 15:57 Order name: Basic Metabolic Panel [facility] 03/23 15:57 Order name: CBC with Automated Diff [facility] 03/23 15:57 Order name: CBC with Automated Diff [facility] [place] 03/23 16:02 Order name: SARS-COV-2 RT PCR (Document "Date of Onset" if Symptomatic); Complete Time: [facility] 17:19 03/23 16:49 Order name: Glucose, Ancillary Testing; Complete Time: 16:52 [facility] [place] 03/23 14:03 Order name: IV Saline Lock; Complete Time: 14:34 [facility] 03/23 14:03 Order name: Labs collected and sent; Complete Time: 14:34 [facility] 03/23 14:03 Order name: Urine Dipstick-Ancillary (obtain specimen); Complete Time: 14:34 [facility] 03/23 15:57 Order name: 60g Consistent Carbohydrate (ADA 1800/2000) [facility] [place] 03/23 16:08 Order name: Social Service Consult EDKS Administered Medications: 14:30 Drug: NS 0.9% 1000 ml Route: IV; Rate: 1 bolus; Site: right forearm; ww 14:34 Drug: Zofran (Ondansetron) 4 mg Route: IVP; Site: right forearm; ww 16:00 Drug: Insulin Regular Human 10 units {Co-Signature: ss (Angela Brown RN).} Route: ld1 Sub-Q; Site: abdomen; 16:00 Drug: Lactulose 30 grams Volume: 45 ml; Route: PO; ld1 16:00 Drug: morphine 4 mg Route: IVP; Site: right forearm; ld1 16:01 Drug: Ringers - Lactated Ringers Solution 1000 ml Route: IV; Rate: bolus; Site: right ld1 forearm; 16:01 Drug: Insulin Regular Human 10 units {Co-Signature: ss (Angela Brown RN).} Route: IVP; ld1 Site: right forearm; Disposition: 21:25 Co-signature as Attending Physician, Jovanny BILLS was immediately available on-site ms3 in the Emergency Department for consultation in the care of the patient.. Disposition Summary: 03/23/22 15:27 Hospitalization Ordered Hospitalization Status: Observation jr8 Provider: Luis E Bingham jr8 Location: Telemetry/MedSurg (observation) jr8 Condition: Stable jr8 Problem: new jr8 Symptoms: have improved jr8 Bed/Room Type: Standard 8 Room Assignment: 214(03/23/22 16:46) bd Diagnosis - Hyperglycemia, unspecified jr8 - Dehydration jr8 - Hepatic Encephalopathy jr8 Forms: - Medication Reconciliation Form jr8 - SBAR form jr8 Signatures: Dispatcher [employer] EDMS Senia Helm bd Tien Day PA PA jr8 Jovanny Prather DO DO ms3 Allyn Hazel RN RN ld1 Flavia Little RN RN ww Angela Brown RN ss Corrections: (The following items were deleted from the chart) 16:46 15:27 jr8 bd
[2022-03-23] MEDS ORDERED: MORPHINE 4 MG/ML SYR ONE (15:37)
[2022-03-23] MEDS ORDERED: INSULIN -REGULAR HUMAN 50 UNIT/0.5 ML ML ONE (15:38)
[2022-03-23] MEDS ORDERED: Ringers Lactate 1,000 ML IV ONE (15:38)
[2022-03-23] MEDS ORDERED: LACTULOSE 20 GM/30 ML UCUP ONE (15:38)
[2022-03-23] MEDS ORDERED: ONDANSETRON 4 MG/2 ML VIAL IV PRN (15:52)
--- NOTE | 2022-03-23 16:06 | P.HP ---
Certification for Inpatient Patient admitted to: Observation With expected LOS: <2 Midnights Patient will require the following post-hospital care: Home Health Services Practitioner: I am a practitioner with admitting privileges, knowledge of patient current condition, hospital course, and medical plan of care. Services: Services provided to patient in accordance with Admission requirements found in Title 42 Section 412.3 of the Code of Federal Regulations Patient History Date of Service: 03/23/22 Reason for admission: HONK, poorly controlled diabetes, volume depletion. History of Present Illness: 56-year-old male patient with a medical history significant for type 2 diabetes, liver cirrhosis who presented to the emergency with complaint of lethargy increased thirst and increased urination. He also had significant weakness. He was worked up in the field and found to have blood sugar greater than 500 and he was brought to the emergency room. In the ED lab revealed elevated blood glucose of 637 with hypoglycemia and metabolic acidemia and a bicarb of 18. He had mild anion gap elevation. He was deemed to be in the nonketotic hyperosmola r state as his urine culture was negative. He was asked to be admitted on observation for management of poorly controlled diabetes due to medication noncompliance. At this time he denied any episode of fever, chills, rigor, nausea, vomiting. Allergies prednisone Allergy (Verified 03/13/22 01:33) Rash Tetracyclines Allergy (Verified 03/13/22 01:33) Rash Home medications list reviewed: Yes Home Medications: Furosemide [Lasix*] 40 mg PO BIDL tab 12/31/21 Insulin Glargine,Hum.rec.anlog [Semglee] 30 unit SQ BID ml 12/31/21 Insulin Lispro [Humalog*] 20 unit SQ TIDWM ml 12/31/21 Lactulose [Cephulac*] 30 ml PO TID ucup 12/31/21 Polyethyl Gly 3350 [Glycolax*] 17 gm PO DAILY udbot 12/31/21 Spironolactone [Aldactone*] 100 mg PO DAILY tab 12/31/21 traMADol HCL [Ultram*] 50 mg PO TID PRN #0 tab 12/31/21 - Past Medical/Surgical History Diabetic: Yes -: Alcoholic liver cirrhosis/hepatitis C? -: Hypertension -: Diabetes mellitusinsulin-dependent -: Chronic tobacco use history -: Dementia as per records -: chronic pancreatitis -: sciatica -: bilateral rotator cuff tear (untreated) -: Eye surgery (lasix right eye) -: Previous paracentesis Psychosocial/ Personal History: Patient currently lives at home alone in a trailer, was previously discharged to custodial facility but left - Social History Alcohol use: Yes CD- Drugs: No Caffeine use: No Review of Systems General: Weakness, Malaise Eyes: Unremarkable ENT: Unremarkable Respiratory: Unremarkable Cardiovascular: Unremarkable Gastrointestinal: Unremarkable Genitourinary: Frequency Musculoskeletal: Unremarkable Neurological: Unremarkable Physical Examination - Physical Exam General: Alert, Oriented x3 HEENT: Atraumatic, Normocephalic Neck: Supple Respiratory: Normal air movement Cardiovascular: Regular rate/rhythm, Normal S1 S2 Gastrointestinal: Soft and benign Musculoskeletal: No swelling Neurological: Normal speech - Studies Laboratory Data (last 24 hrs) 03/23/22 14:19: Sodium 128 L, Potassium 4.9, BUN 18, Creatinine 1.21, Glucose 637 H*, Total Bilirubin 1.0, AST 82 H, ALT 71, Alkaline Phosphatase 161 H, Lipase 360 03/23/22 14:19: WBC 5.2, Hgb 12.7 L, Hct 35.7 L, Plt Count 118 L D Assessment and Plan - Plan 1. Nonketotic hyperosmolar state: Patient does have Poorly controlled diabetes deemed secondary to poor medication compliance and dietary compliance. Blood sugars greater than 600. Will continue sliding scale insulin and Lantus insulin for glucose control. We will monitor blood sugar ACHS. Continue aggressive volume repletion volume depletion history secondary to hyperosmolar state. 2. Type 2 diabetes: Poorly controlled with blood sugar greater than 600. Will obtain A1c. Will continue sliding scale insulin and Lantus insulin. Will have on carb restricted diet. 3. Volume depletion: Secondary to hyperosmolar state. Will continue aggressive volume repletion with isotonic lactated ringer. Monitor volume status closely. Prophylaxis: Lovenox for DVT prophylaxis CODE STATUS: Full code Disposition: Discharge home with home health services in the next 24 to 48 hours. - Advance Directives Does patient have a Living Will: No Does patient have a Durable POA for Healthcare: No
[2022-03-23] MEDS: INSULIN GLARGINE 100 UNIT/ML SQ SCH (16:15)
[2022-03-23] MEDS: INSULIN -REGULAR HUMAN 50 UNIT/0.5 ML ML SQ SCH ×2 (16:30→21:00)
[2022-03-23] MEDS: ENOXAPARIN 40 MG/0.4 ML SQ SCH (17:00)
[2022-03-23 19:25] VITALS: O2SAT 98
[2022-03-23] MEDS: MORPHINE 2 MG/ML SYR IV PRN (21:02)
[2022-03-24 06:48] LABS: Potassium 3.5 mmol/L (3.5-5.1)
[2022-03-24 07:31] LABS: Absolute Lymphocytes (CBC) 0.7 K/uL (0.7-4.9); Hematocrit 33.7 % (39.6-49.0); Lymphocytes % 17.1 % (15.3-44.8); MPV 7.5 fL (7.6-11.3); RBC Red Blood Cell Count 3.67 M/uL (4.33-5.43)
[2022-03-24] MEDS: INSULIN -REGULAR HUMAN 50 UNIT/0.5 ML ML SQ SCH ×2 (07:57→11:30)
[2022-03-24] MEDS: ENOXAPARIN 40 MG/0.4 ML SQ SCH ×2 (07:57→08:01)
[2022-03-24] MEDS: INSULIN GLARGINE 100 UNIT/ML SQ SCH (07:58)
[2022-03-24] MEDS: MORPHINE 2 MG/ML SYR IV PRN (07:59)
[2022-03-24 08:23] LABS: Blood Morphology Comment NOT SEEN (NOT SEEN); Platelet Estimate DECR; White Blood Cell Scan OK (OK)
[2022-03-24] MEDS ORDERED: TRAMADOL HCL 50 MG TAB PO PRN (10:57)
[2022-03-24] MEDS ORDERED: INSULIN -REGULAR HUMAN 50 UNIT/0.5 ML ML SQ SCH (12:16)
[2022-03-24 13:50] VITALS: BP 120/67; TEMP 97.5
--- NOTE | 2022-03-24 17:28 | P.DS ---
Admission Date: 03/23/22 Discharge Date: 03/24/22 Disposition: AMA-LEFT AGAINST MEDICAL ADVIC Discharge Condition: FAIR Reason for Admission: HONK, poorly controlled diabetes, volume depletion. Brief History of Present Illness: 56-year-old male patient with a medical history significant for type 2 diabetes, liver cirrhosis who presented to the emergency with complaint of lethargy increased thirst and increased urination. He also had significant weakness. He was worked up in the field and found to have blood sugar greater than 500 and he was brought to the emergency room. In the ED lab revealed elevated blood glucose of 637 with hypoglycemia and metabolic acidemia and a bicarb of 18. He had mild anion gap elevation. He was deemed to be in the nonketotic hyperosmolar state as his urine culture was negative. He was asked to be admitted on observation for management of poorly controlled diabetes due to medication noncompliance. At this time he denied any episode of fever, chills, rigor, nausea, vomiting. Hospital Course: he was noted to be having significantly elevated blood glucose and was noted to be non compliant with diet. he decided to leave AMA. Vital Signs/Physical Exam: Temp Pulse Resp BP Pulse Ox 97.5 F 86 18 120/67 100 03/24/22 12:00 03/24/22 12:00 03/24/22 12:00 03/24/22 12:00 03/24/22 12:00 Laboratory Data at Discharge: WBC 4.2 K/uL (4.3-10.9) L D 03/24/22 05:20 Hgb 12.2 g/dL (13.6-17.9) L 03/24/22 05:20 Hct 33.7 % (39.6-49.0) L 03/24/22 05:20 Plt Count 81 K/uL (152-406) L D 03/24/22 05:20 Sodium 132 mmol/L (136-145) L 03/24/22 06:03 Potassium 3.5 mmol/L (3.5-5.1) 03/24/22 06:03 BUN 11 mg/dL (7-18) 03/24/22 06:03 Creatinine 0.80 mg/dL (0.55-1.3) 03/24/22 06:03 Glucose 528 mg/dL (74-106) H* 03/24/22 14:39 Total Bilirubin 1.0 mg/dL (0.2-1.0) 03/23/22 14:19 AST 82 U/L (15-37) H 03/23/22 14:19 ALT 71 U/L (12-78) 03/23/22 14:19 Alkaline Phosphatase 161 U/L (45-117) H 03/23/22 14:19 Lipase 360 U/L (73-393) 03/23/22 14:19 Home Medications: Furosemide [Lasix*] 40 mg PO BIDL tab 12/31/21 Insulin Glargine,Hum.rec.anlog [Semglee] 30 unit SQ BID ml 12/31/21 Insulin Lispro [Humalog*] 20 unit SQ TIDWM ml 12/31/21 Lactulose [Cephulac*] 30 ml PO TID ucup 12/31/21 Polyethyl Gly 3350 [Glycolax*] 17 gm PO DAILY udbot 12/31/21 Spironolactone [Aldactone*] 100 mg PO DAILY tab 12/31/21 traMADol HCL [Ultram*] 50 mg PO TID PRN #0 tab 12/31/21 Diet: ADA Followup: NONE,NONE [Primary Care Provider] -
== END 2022-03-24 14:42 | disposition left against medical advice (07) ==
LOC: ER 13:56 → ERHOLD 15:54 → 2ND 17:54
PROVIDERS: ADMIT Internal Medicine Nephrology; ATTEND Internal Medicine Nephrology
DX: E11.00 Type 2 diabetes mellitus with hyperosmolarity without nonketotic hyperglycemic-hyperosmolar coma (NKHHC) (principal); Z91.14 Patient's other noncompliance with medication regimen; Z91.11 Patient's noncompliance with dietary regimen; Z53.29 Procedure and treatment not carried out because of patient's decision for other reasons; E86.9 Volume depletion, unspecified; K70.30 Alcoholic cirrhosis of liver without ascites; I10 Essential (primary) hypertension; F03.90 Unspecified dementia, unspecified severity, without behavioral disturbance, psychotic disturbance, mood disturbance, and anxiety; K86.1 Other chronic pancreatitis; M54.30 Sciatica, unspecified side; Z20.822 Contact with and (suspected) exposure to COVID-19; Z79.4 Long term (current) use of insulin; Z79.899 Other long term (current) drug therapy; Z88.1 Allergy status to other antibiotic agents; Z88.8 Allergy status to other drugs, medicaments and biological substances
CPT/HCPCS: 85025 ×2; 80048; 36415; 82140; 82010; 82947 ×7; 81003; 83690; 80053; 96375; 96372; 96374; 99285; U0003; J1815 ×4; J1650; J2270 ×2; J7120; J7030; J2405; G0378 ×3

== ENCOUNTER 2022-04-22 11:18 | Emergency (ER) | payer OTHER ==
[2022-04-22] MEDS ORDERED: NA CHLORIDE 0.9% 500 ML ONE (11:51)
[2022-04-22] MEDS ORDERED: NA CHLORIDE 0.9% 1,000 ML ONE ×2 (11:51→12:59)
[2022-04-22 11:52] LABS: Absolute Lymphocytes (CBC) 0.8 K/uL (0.7-4.9); Hematocrit 36.2 % (39.6-49.0); MPV 7.3 fL (7.6-11.3)
--- NOTE | 2022-04-22 12:10 | RAD REPORT ---
EXAM DESCRIPTION: Akiko Single View04/22/2022 12:02 pm CLINICAL HISTORY: Cough COMPARISON: February 2022 FINDINGS: The lungs appear clear of acute infiltrate. The heart is normal size IMPRESSION: No acute abnormalities displayed
[2022-04-22 12:16] LABS: Protime INR 1.22
[2022-04-22 12:32] LABS: Albumin 2.5 g/dL (3.4-5.0); Bilirubin Direct 0.5 mg/dL (0-0.2); Bilirubin Total 1.1 mg/dL (0.2-1.0); Magnesium 2.1 mg/dL (1.8-2.4); Potassium 4.4 mmol/L (3.5-5.1); Troponin High Sensitivity 8.8 pg/mL (<58.9)
[2022-04-22] MEDS ORDERED: INSULIN -REGULAR HUMAN 50 UNIT/0.5 ML ML ONE (12:59)
[2022-04-22 13:01] LABS: Anisocytosis 1+; Blood Morphology Comment NOTED (NOT SEEN); Platelet Estimate DECR; White Blood Cell Scan OK (OK)
[2022-04-22 13:02] LABS: Urine Blood Negative (Negative); Urine Glucose 2+ (Negative); Urine Protein Negative (Negative); Urine pH 5.5 (5.0-7.0)
--- NOTE | 2022-04-22 13:17 | RAD REPORT ---
EXAM DESCRIPTION: CT - Abdomen Pelvis W Contrast - 04/22/2022 12:54 pm CLINICAL HISTORY: Abdominal pain, acute, nonlocalized COMPARISON: Abdomen Pelvis W Contrast dated 12/03/2021; Abdomen Pelvis W Contrast dated 11/24/2021 CT abdomen pelvis 12/03/2021 and 11/24/2021 TECHNIQUE: Biphasic, helical CT imaging of the abdomen and pelvis was performed following 100 ml non -ionic IV contrast. No oral contrast administered. All CT scans are performed using dose optimization technique as appropriate and may include automated exposure control or mA/KV adjustment according to patient size. FINDINGS: No suspicious findings in the lung bases. No cardiomegaly or pericardial effusion. Liver is grossly abnormal as previously detailed. Patient has advanced cirrhotic liver disease with p rominent capsule nodularity. In the lateral sub capsule margin of the right lobe segment VIII there i s a 2.1 centimeter low-density mass that has developed. No other focal lesion of the liver parenchyma seen. 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 Thrombus extends into the central most portion of the right lobe portal vein. Left lobe portal vein is patent . The splenic vein and superior mesenteric vein are patent. Patient has innumerable upper abdominal d ilated varices that are patent. Gallbladder and biliary tree are also without suspicious finding. No acute pancreatic finding. Splee n is prominent in size. No focal splenic lesion. Symmetric renal function is seen with no hydronephrosis or suspicious renal mass. No pyelonephritis o r acute parenchymal process. No adrenal abnormalities. Ralph of the urinary bladder are mildly thicke jonh. No asymmetric thickening or wall mass. No stone or other intraluminal abnormality. Mild gastric wall thickening and edema are present. There is wall thickening involving the duodenum a nd jejunum. Most of the ileum shows normal size ralph. There is some mild wall thickening at the term inal ileum. The appendix is not well defined. Acute appendicitis is not suspected. Moderate stool vol ume seen throughout the colon. No colon wall thickening or edema seen. No free air or pneumatosis. Hyper dense material in the colon is from a prior diagnostic study or pos sibly an ingested medication containing bismuth. Small amount of ascites is present. No bulky lympha denopathy. No central mesenteric mass. There is a small fat only umbilical hernia. An acute component of the hernia is not suspected. No acute bone finding. No acute vascular finding identified. IMPRESSION: Advanced cirrhotic liver changes now with a 2.1 centimeter subcapsular mass lateral righ t lobe. Developing malignancy cannot be excluded and patient needs ongoing surveillance and may even tually need tissue sampling. 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 This extends into the central right lobe portal vein b ut does not involve superior mesenteric or splenic veins. Wall thickening and edema of the stomach, duodenum, jejunum and terminal ileum. Gastroenteritis is ce rtainly possible. Wall edema related to metabolic or electrolyte imbalance can create this wall thick ening pattern.
[2022-04-22 13:20] LABS: Barbiturates NEGATIVE (NEGATIVE); Benzodiazepines NEGATIVE (NEGATIVE); Cocaine NEGATIVE (NEGATIVE); METHAMPHETAM NEGATIVE (NEGATIVE); Methadone NEGATIVE (NEGATIVE); Opiates NEGATIVE (NEGATIVE); Phencyclidine NEGATIVE (NEGATIVE); THC Cannibis NEGATIVE (NEGATIVE)
[2022-04-22] MEDS ORDERED: PANTOPRAZOLE 40 MG INJ ONE (13:44)
--- NOTE | 2022-04-22 13:50 | ER ---
Nurse's Notes [facility] Name: Amador Cosme Age: 56 yrs Sex: Male : 1965 Arrival Date: 04/22/2022 Time: 11:19 Bed 4 Private MD: Diagnosis: Portal vein thrombosis;Unspecified cirrhosis of liver;Vomiting;Abdominal pain, Generalized;Abnormal findings on diagnostic imaging of liver and biliary tract-2.1 cm subcapsular humberto, lateral right lobe;Type 2 diabetes mellitus with hyperglycemia Presentation: 04/22 11:19 Chief complaint: Patient states: he is having upper abdominal pain, and reports nausea ap3 but denies vomiting. patient states he is unsure if he took his insulin today or not. Coronavirus screen: At this time, the client does not indicate any symptoms associated with coronavirus-19. Ebola Screen: No symptoms or risks identified at this time. Initial Sepsis Screen: Does the patient meet any 2 criteria? No. Patient's initial sepsis screen is negative. Does the patient have a suspected source of infection? No. Patient's initial sepsis screen is negative. Risk Assessment: Do you want to hurt yourself or someone else? Patient reports no desire to harm self or others. Onset of symptoms was April 22, 2022. 11:19 Method Of Arrival: EMS: [facility] ap3 11:19 Acuity: DAO 3 ap3 Triage Assessment: 11:22 General: Appears in no apparent distress. Behavior is calm, cooperative. Pain: ap3 Complains of pain in epigastric area, right upper quadrant and left upper quadrant Also complains of nausea. Neuro: Level of Consciousness is awake, alert, obeys commands, Oriented to person, place, time, situation, Appropriate for age. Cardiovascular: Patient's skin is warm and dry. Respiratory: Airway is patent Respiratory effort is even, unlabored, Respiratory pattern is regular, symmetrical. GI: Reports upper abdominal pain, nausea. Historical: - Allergies: 11:22 Prednisone; ap3 11:22 TETRACYCLINES; ap3 - PMHx: 11:22 cirrhosis of liver; Dementia; HepB; Hypertensive disorder; NIDDM; Pancreatitis; ap3 - Immunization history:: Client reports having NOT received the Covid vaccine. - Social history:: Smoking status: Patient reports the use of cigarette tobacco products, denies chronic smoking, but will smoke occasionally. - Family history:: not pertinent. Screenin:23 Abuse screen: Denies threats or abuse. Nutritional screening: No deficits noted. ap3 Tuberculosis screening: No symptoms or risk factors identified. Fall Risk None identified. Assessment: 11:23 GI: Bowel sounds present X 4 quads. Abd is soft Abdomen is tender to palpation in right ap3 upper quadrant and left upper quadrant. 15:40 Reassessment: No changes from previously documented assessment. Patient and/or family ap3 updated on plan of care and expected duration. Pain level reassessed. Patient is alert, oriented x 3, equal unlabored respirations, skin warm/dry/pink. 16:12 Reassessment: attempted report to receiving facility, was asked to return the phone ap3 call at 1630. Vital Signs: 11:19 BP 129 / 76; Pulse 88; Temp 98.9(O); Pulse Ox 100% on R/A; Weight 65.32 kg; Height 5 ap3 ft. 6 in. (167.64 cm); 12:25 BP 139 / 80; Pulse 91; Pulse Ox 100% on R/A; ap3 13:34 BP 137 / 87; Pulse 84; Pulse Ox 100% on R/A; ap3 14:25 BP 118 / 93; Pulse 83; Pulse Ox 99% on R/A; ap3 15:39 BP 137 / 82; Pulse 88; Pulse Ox 100% on R/A; ap3 11:19 Body Mass Index 23.24 (65.32 kg, 167.64 cm) ap3 ED Course: 11:19 Patient arrived in ED. ap3 11:22 Triage completed. ap3 11:23 Arm band placed on right wrist. ap3 11:23 Patient has correct armband on for positive identification. Call light in reach. Side ap3 rails up X2. Pulse ox on. NIBP on. Door closed. Noise minimized. 11:29 James Uriarte MD is Attending Physician. gail 11:40 Ree Zhu, CLARI is Primary Nurse. ji 11:51 Inserted saline lock: 20 gauge in right forearm, using aseptic technique. ji 11:58 EKG done, by ED staff, reviewed by James Uriarte MD. ap3 12:02 XRAY Chest (1 view) In Process Unspecified. EDMS 12:56 CT Abd/Pelvis - IV Contrast Only In Process Unspecified. EDMS 13:55 initiated a transfer with Naz Leonard from the [facility]. eb 14:[address] Hyman the hospitalist monument letterer for [facility] with Dr. Uriarte for eb patient transfer consultation. 15:29 administrative approval given by Lexis Kennedy / patient has been accepted to [facility] bed 1254/ Dr. Hyman has accepted the patient in transfer/ report to be called to [phone]. 17:12 No provider procedures requiring assistance completed. ji 17:13 Patient transferred, IV remains in place. ji Administered Medications: 11:50 Drug: NS 0.9% 1000 ml Route: IV; Rate: 125 ml/hr; Site: right forearm; ji 11:50 Not Given (not available per pharmacy ): Pepcid (famotidine) 20 mg IVP once; dilute ji with 10 mL 0.9% NaCl; give over 2 minutes 11:51 Drug: NS 0.9% 500 ml Route: IV; Rate: bolus; Site: right forearm; ji 14:06 Follow up: IV Status: Completed infusion ap3 13:02 Drug: NS 0.9% 1000 ml Route: IV; Rate: 1 bolus; Site: right forearm; ji 14:06 Follow up: IV Status: Completed infusion ap3 13:02 Drug: Insulin Regular Human 8 units {Co-Signature: ap3 (Giuliana Calle RN).} Route: ji IVP; Site: right forearm; 13:07 Follow up: Response: No adverse reaction ji 14:07 Follow up: Response: No adverse reaction ap3 13:39 Drug: ProTONIX (pantoprazole) 40 mg Route: IVP; Site: right antecubital; ap3 13:59 Follow up: Response: No adverse reaction ji 14:07 Follow up: Response: No adverse reaction ap3 14:02 Drug: fentaNYL (PF) 50 mcg Route: IVP; Site: right antecubital; ap3 14:22 Follow up: Response: No adverse reaction ap3 14:02 Not Given (EKG abnormalitiess): Zofran (Ondansetron) 4 mg IVP once; over 2 minutes ap3 14:03 Drug: Rocephin (cefTRIAXone) 1 grams Route: IV; Rate: per protocol; Site: right ap3 antecubital; 14:22 Follow up: IV Status: Completed infusion ap3 14:22 Drug: Phenergan (promethazine) 25 mg Route: IVP; Site: right antecubital; ap3 15:19 Follow up: Response: No adverse reaction ap3 15:40 Follow up: Response: No adverse reaction ap3 Medication: 11:24 VIS not applicable for this client. ap3 Outcome: 13:50 ER care complete, transfer ordered by MD. reynolds 17:12 Transferred by private ambulance 17:12 Condition: good 17:12 Instructed on the need for transfer. 17:13 Patient left the ED. ji Signatures: Dispatcher [employer] EDMS James Uriarte MD MD cha Prokisch, Amanda, RN RN ap3 Lexis Byrne Heather, RN RN Giuliana Calle RN ap3
--- NOTE | 2022-04-22 13:50 | EDPHYS ---
Physician Documentation [facility] Name: Amador Cosme Age: 56 yrs Sex: Male : 1965 Arrival Date: 04/22/2022 Time: 11:19 Bed 4 Private MD: ED Physician James Uriarte HPI: 04/22 12:36 This 56 yrs old Male presents to ER via EMS with complaints of Abdominal Pain.gail 12:36 The patient presents with abdominal pain in the upper abdomen. Onset: The gail symptoms/episode began/occurred 3 day(s) ago. The symptoms do not radiate. Associated signs and symptoms: Pertinent positives: nausea and vomiting. The symptoms are described as constant, crampy. Severity of pain: At its worst the pain was moderate in the emergency department the pain is unchanged. The patient has experienced similar episodes in the past, multiple times. Historical: - Allergies: 11:22 Prednisone; ap3 11:22 TETRACYCLINES; ap3 - PMHx: 11:22 cirrhosis of liver; Dementia; HepB; Hypertensive disorder; NIDDM; Pancreatitis; ap3 - Immunization history:: Client reports having NOT received the Covid vaccine. - Social history:: Smoking status: Patient reports the use of cigarette tobacco products, denies chronic smoking, but will smoke occasionally. - Family history:: not pertinent. ROS: 12:36 Constitutional: Negative for fever, chills, and weight loss, Eyes: Negative for injury, gail pain, redness, and discharge, ENT: Negative for injury, pain, and discharge, Neck: Negative for injury, pain, and swelling, Cardiovascular: Negative for chest pain, palpitations, and edema, Respiratory: Negative for shortness of breath, cough, wheezing, and pleuritic chest pain, Back: Negative for injury and pain, : Negative for injury, bleeding, discharge, and swelling, MS/Extremity: Negative for injury and deformity, Skin: Negative for injury, rash, and discoloration, Neuro: Negative for headache, weakness, numbness, tingling, and seizure, Psych: Negative for depression, anxiety, suicide ideation, homicidal ideation, and hallucinations, Allergy/Immunology: Negative for hives, rash, and allergies, Endocrine: Negative for neck swelling, polydipsia, polyuria, polyphagia, and marked weight changes, Hematologic/Lymphatic: Negative for swollen nodes, abnormal bleeding, and unusual bruising. 12:36 Abdomen/GI: Positive for abdominal pain, nausea and vomiting, of the epigastric area, right upper quadrant and left upper quadrant. Exam: 12:36 Constitutional: This is a well developed, well nourished patient who is awake, alert, gail and in no acute distress. Head/Face: Normocephalic, atraumatic. Eyes: Pupils equal round and reactive to light, extra-ocular motions intact. Lids and lashes normal. Conjunctiva and sclera are non-icteric and not injected. Cornea within normal limits. Periorbital areas with no swelling, redness, or edema. ENT: Nares patent. No nasal discharge, no septal abnormalities noted. Tympanic membranes are normal and external auditory canals are clear. Oropharynx with no redness, swelling, or masses, exudates, or evidence of obstruction, uvula midline. Mucous membranes moist. Neck: Trachea midline, no thyromegaly or masses palpated, and no cervical lymphadenopathy. Supple, full range of motion without nuchal rigidity, or vertebral point tenderness. No Meningismus. Chest/axilla: Normal chest wall appearance and motion. Nontender with no deformity. No lesions are appreciated. Cardiovascular: Regular rate and rhythm with a normal S1 and S2. No gallops, murmurs, or rubs. Normal PMI, no JVD. No pulse deficits. Respiratory: Lungs have equal breath sounds bilaterally, clear to auscultation and percussion. No rales, rhonchi or wheezes noted. No increased work of breathing, no retractions or nasal flaring. Back: No spinal tenderness. No costovertebral tenderness. Full range of motion. Male : Normal genitalia with no discharge or lesions. Skin: Warm, dry with normal turgor. Normal color with no rashes, no lesions, and no evidence of cellulitis. MS/ Extremity: Pulses equal, no cyanosis. Neurovascular intact. Full, normal range of motion. Neuro: Awake and alert, GCS 15, oriented to person, place, time, and situation. Cranial nerves II-XII grossly intact. Motor strength 5/5 in all extremities. Sensory grossly intact. Cerebellar exam normal. Normal gait. Psych: Awake, alert, with orientation to person, place and time. Behavior, mood, and affect are within normal limits. 12:36 ECG was reviewed by the Attending Physician. 12:36 Abdomen/GI: Inspection: abdomen appears normal, Bowel sounds: hyperactive, in all quadrants, Palpation: moderate abdominal tenderness, in the right upper quadrant and left upper quadrant, Liver: no appreciated palpable abnormalities, Hernia: not appreciated. Vital Signs: 11:19 BP 129 / 76; Pulse 88; Temp 98.9(O); Pulse Ox 100% on R/A; Weight 65.32 kg; Height 5 ap3 ft. 6 in. (167.64 cm); 12:25 BP 139 / 80; Pulse 91; Pulse Ox 100% on R/A; ap3 13:34 BP 137 / 87; Pulse 84; Pulse Ox 100% on R/A; ap3 14:25 BP 118 / 93; Pulse 83; Pulse Ox 99% on R/A; ap3 15:39 BP 137 / 82; Pulse 88; Pulse Ox 100% on R/A; ap3 11:19 Body Mass Index 23.24 (65.32 kg, 167.64 cm) ap3 MDM: 11:29 Patient medically screened. [facility] 12:39 Differential diagnosis: bowel obstruction, Cholelithiasis, diverticulitis, gastritis, gail gastroesophageal reflux disease, non-specific abd pain, pancreatitis, Peptic Ulcer Disease, Ureterolithiasis, urinary tract infection. Data reviewed: vital signs, nurses notes, EMS record, lab test result(s), EKG, radiologic studies, CT scan, plain films. Data interpreted: Pulse oximetry: is not applicable for this patient encounter. on room air is 100 %. Test interpretation: by ED physician or midlevel provider: ECG, plain radiologic studies. Counseling: I had a detailed discussion with the patient and/or guardian regarding: the historical points, exam findings, and any diagnostic results supporting the discharge/admit diagnosis, lab results, radiology results, the need for further work-up and treatment in the hospital. 04/22 11:36 Order name: Basic Metabolic Panel; Complete Time: 12:35 [facility] 04/22 11:36 Order name: CBC with Diff; Complete Time: 13:02 [facility] 04/22 11:36 Order name: LFT's; Complete Time: 12:35 [facility] 04/22 11:36 Order name: Magnesium; Complete Time: 12:35 [facility] 04/22 11:36 Order name: NT PRO-BNP; Complete Time: 12:35 [facility] 04/22 11:36 Order name: PT-INR; Complete Time: 12:21 [facility] 04/22 11:36 Order name: Troponin HS; Complete Time: 12:35 [facility] 04/22 11:36 Order name: Lipase; Complete Time: 12:35 [facility] 04/22 11:36 Order name: AMMONIA; Complete Time: 12:21 [facility] 04/22 12:54 Order name: UDS; Complete Time: 13:23 ap3 04/22 13:02 Order name: CBC Smear Scan; Complete Time: 13:02 EDMS 04/22 13:02 Order name: Urine Dipstick-Ancillary; Complete Time: 13:23 [facility] 04/22 13:57 Order name: SARS-COV-2 RT PCR (Document "Date of Onset" if Symptomatic) 04/22 14:43 Order name: Chem 7; Complete Time: 15:23 [facility] 04/22 11:36 Order name: XRAY Chest (1 view); Complete Time: 12:21 [facility] 04/22 11:36 Order name: EKG; Complete Time: 11:37 [facility] 04/22 11:36 Order name: Cardiac monitoring; Complete Time: 11:38 [facility] 04/22 11:36 Order name: CT Abd/Pelvis - IV Contrast Only; Complete Time: 13:23 [facility] 04/22 11:36 Order name: EKG - Nurse/Tech; Complete Time: 11:51 [facility] 04/22 11:36 Order name: IV Saline Lock; Complete Time: 11:38 [facility] 04/22 11:36 Order name: Labs collected and sent; Complete Time: 11:38 [facility] 04/22 11:36 Order name: O2 Per Protocol; Complete Time: 11:38 [facility] 04/22 11:36 Order name: O2 Sat Monitoring; Complete Time: 11:38 [facility] 04/22 11:36 Order name: Urine Dipstick-Ancillary (obtain specimen); Complete Time: 14:06 [facility] EC:36 Rate is 83 beats/min. Rhythm is regular. QRS [place] is Normal. [place] interval is normal. QRS gail interval is normal. QT interval is prolonged at 83 msec. No Q waves. T waves are Normal. No ST changes noted. Clinical impression: NSR w/ Non-specific ST/T Changes and No evidence of ischemia. Interpreted by me. Reviewed by me. Administered Medications: 11:50 Drug: NS 0.9% 1000 ml Route: IV; Rate: 125 ml/hr; Site: right forearm; ji 11:50 Not Given (not available per pharmacy ): Pepcid (famotidine) 20 mg IVP once; dilute ji with 10 mL 0.9% NaCl; give over 2 minutes 11:51 Drug: NS 0.9% 500 ml Route: IV; Rate: bolus; Site: right forearm; ji 14:06 Follow up: IV Status: Completed infusion ap3 13:02 Drug: NS 0.9% 1000 ml Route: IV; Rate: 1 bolus; Site: right forearm; ji 14:06 Follow up: IV Status: Completed infusion ap3 13:02 Drug: Insulin Regular Human 8 units {Co-Signature: ap3 (Giuliana Calle RN).} Route: ji IVP; Site: right forearm; 13:07 Follow up: Response: No adverse reaction ji 14:07 Follow up: Response: No adverse reaction ap3 13:39 Drug: ProTONIX (pantoprazole) 40 mg Route: IVP; Site: right antecubital; ap3 13:59 Follow up: Response: No adverse reaction ji 14:07 Follow up: Response: No adverse reaction ap3 14:02 Drug: fentaNYL (PF) 50 mcg Route: IVP; Site: right antecubital; ap3 14:22 Follow up: Response: No adverse reaction ap3 14:02 Not Given (EKG abnormalitiess): Zofran (Ondansetron) 4 mg IVP once; over 2 minutes ap3 14:03 Drug: Rocephin (cefTRIAXone) 1 grams Route: IV; Rate: per protocol; Site: right ap3 antecubital; 14:22 Follow up: IV Status: Completed infusion ap3 14:22 Drug: Phenergan (promethazine) 25 mg Route: IVP; Site: right antecubital; ap3 15:19 Follow up: Response: No adverse reaction ap3 15:40 Follow up: Response: No adverse reaction ap3 Disposition Summary: 04/22/22 13:50 Transfer Ordered Transfer Location: [facility] gail Reason: Higher level of care gail Condition: Fair gail Problem: new gail Symptoms: have improved gail Accepting Physician: to gi/ liver center(04/22/22 17:13) ji Diagnosis - Portal vein thrombosis gail - Unspecified cirrhosis of liver gail - Vomiting gail - Abdominal pain, Generalized gail - Abnormal findings on diagnostic imaging of liver and biliary tract - 2.1 cm gail subcapsular humberto, lateral right lobe - Type 2 diabetes mellitus with hyperglycemia gail Forms: - Medication Reconciliation Form gail - SBAR form gail Signatures: Dispatcher [employer] EDJames Bates MD MD cha Prokisch, Amanda, RN RN ap3 Samantha-Ree Lagos RN RN ha Amanda Prokisch RN ap3 Corrections: (The following items were deleted from the chart) 13:50 13:50 to gi/ liver center gail gail 17:13 13:50 to gi/ liver center gail ji
[2022-04-22] MEDS ORDERED: FENTANYL CITR 100 MCG/2 ML ONE (14:01)
[2022-04-22] MEDS ORDERED: CEFTRIAXONE 1000 MG/VIAL ONE (14:01)
[2022-04-22] MEDS ORDERED: NA CHLORIDE 0.9% 100 ML ONE ×2 (14:02→14:21)
[2022-04-22] MEDS ORDERED: PROMETHAZINE INJ 25 MG/ML AMP ONE (14:21)
[2022-04-22 15:18] LABS: Potassium 3.8 mmol/L (3.5-5.1)
[2022-04-22 17:47] VITALS: TEMP 98.9
[2022-04-22 17:54] VITALS: BP 137/82; O2SAT 100
--- NOTE | 2022-04-25 13:40 | EKG ---
Test Date: 2022-04-22 Test Time: 11:49:17 Research Agricultural Engineer: ALP MEASUREMENT RESULTS: Intervals: Rate: 83 IA: 144 QRSD: 76 QT: 430 QTc: 505 [place]: P: 44 IA: 144 QRS: 63 T: 45 INTERPRETIVE STATEMENTS: Normal sinus rhythm Septal infarct, age undetermined Prolonged QT Abnormal ECG Compared to ECG 03/12/2022 21:02:13 No significant changes Electronically Signed On 04-25-22 13:37:17 CDT by Stanislaw Patricio
== END 2022-04-22 17:13 | disposition short-term general hospital (02) ==
LOC: ER 11:18
DX: I81 Portal vein thrombosis (principal); K74.60 Unspecified cirrhosis of liver; R11.2 Nausea with vomiting, unspecified; R10.10 Upper abdominal pain, unspecified; E13.65 Other specified diabetes mellitus with hyperglycemia; Z88.1 Allergy status to other antibiotic agents; Z88.8 Allergy status to other drugs, medicaments and biological substances; Z20.822 Contact with and (suspected) exposure to COVID-19; F17.210 Nicotine dependence, cigarettes, uncomplicated
CPT/HCPCS: 93005; 85025; 80048 ×2; 36415; 82140; 83735; 85610; 80076; 81003; 84484; 83690; 83880; 80307; 74177; 71045; 99285; U0003; Q9967; J2550; J1815; C9113; J3010; J7040; J7030 ×2

== ENCOUNTER 2022-06-20 15:59 | Inpatient (IN) | payer OTHER ==
--- OUTSIDE RECORDS SUMMARY | 2022-06-20 16:02 | XMS REPORT | Continuity of Care Document ---
:1965 Author Organization [facility] t Address [address] [place] [address] Care Team Providers Name Role Phone MARICRUZ YUSUF Attending Clinician Unavailable CARLOS DONOVAN Attending Clinician Unavailable MARICRUZ YUSUF Admitting Clinician Unavailable Payers Payer Name Policy Type Policy Number Effective Date Expiration Date [facility] [id number] 2021 00:00:00 PLAN Problems This patient has no known problems. Allergies, Adverse Reactions, Alerts Allergy Allergy Status Severity Reaction(s) Onset Inactive Treating Comm ents Source Name Type Date Date Clinician PREDNISO Allergy Active Low Nausea 2021-[address] [facility] TETRACYC Allergy Active High Swelling 2021[facility]0 [facility] HYDROCOR Allergy Active High Swelling 2021-0 [facility] TISONE 6-10 00:00: 00 Medications This patient has no known medications. Vital Signs Vital Name Observation Time Observation Value Comments Source HEIGHT 2022-04-24 05:08:00 167.6 cm WEIGHT 2022-04-24 05:08:00 65.318 kg WEIGHT 2022-04-23 11:21:00 68.4 kg HEIGHT 2022-04-22 18:52:00 162.6 cm WEIGHT 2022-04-23 11:21:00 68.4 kg HEIGHT 2022-04-22 18:52:00 162.6 cm Procedures This patient has no known procedures. Encounters Start End Encounter Admission Attending Care Care Encounter Source Date/Time Date/Time Type Type Clinicians Facility Department ID 2022-04-24 2022-04-24 Emergency ER [facility] Emergency [id number] [facility] 05:12:00 05:35:00 2022-04-22 2022-04-23 Inpatient ER PARAMJIT, [facility] Gastro [id number] [facility] 17:55:00 22:00:00 [place]A Results Test Description Test Time Test Comments Results Result Comments Source ANTI-MITOCHONDRIAL AB, REFLEX TO TITER 2022-05-04 12:12:43 Test Item Value Reference Range Interpretation Comme nts SCAN RESULT (test code = 4078186) HEPATITIS C PCR, [id number] 15:18:06 Test Item Value Reference Range Interpretation Comments HCV RESULT COMPONENT HCV RNA not detected HCV RNA not detected ([facility]) (test code = 2699) This test uses a Real-Time Polymerase Chain Reaction (RT-PCR) methodology and was performed using EMILY Ampliprep/EMILY TaqMan HCV test kit version 2.0 ([employer]).Reportable range for this assay is 15 - 100,000,000 IU per mL (1.18 - 8.00 Log IU/mL).ANTI-NUCLEAR ANTIBODY (TRANG)2022-04-25 11:24:48 Test Item Value Reference Range Interpretation Comments ANTI-NUCLEAR ANTIBODY (TRANG) ([employer]) Negative Negative (test code = 418) Test performed by IFA method.Test performed by IFA method.HEMOGLOBIN A1C 2022-04-24 09:24:13 Test Item Value Reference Range Interpretation Comments HEMOGLOBIN A1C 12.2 % See_Comment H [Automated m essage] ELECTROPHORESIS ([facility]) The system which (test code = 3811) generated this result transmitted ref erence range: <=5.6%. The reference range was not used to int erpret this result as normal/abnormal . "The A1c is measured using a NGSP-certified method. HbA1c value equal to or greater than 6.5% as thediagnosis cutoff for diabetes. An HbA1c value of 5.7- 6.4% indicates increased risk for diabetes (prediabetes)."Sequins Spooler ID - ADMOperator ID - ADMPOCT-GLUCOSE [id number] 19:03:02 Test Item Value Reference Range Interpretation Comments POC-GLUCOSE METER 205 mg/dL 70-110 H : TESTED A T [facility] 6720 ([facility] (test code [facility], = 1538) 25291: Sequins Spooler/Techni rene ID = [id number] for Lisa maxwell (contract), Silverioe ka POCT-GLUCOSE [id number] 19:02:00 Test Item Value Reference Range Interpretation Comments POC-GLUCOSE METER 239 mg/dL 70-110 H : TESTED A T [facility] 6720 (BEAKER) (test code [facility], = 1538) [address]9075: Sequins Spooler/Techni rene ID = [id number] for Lisa maxwell (contract), Audrey smith BASIC METABOLIC [id number] 17:14:44 Test Item Value Reference Range Interpretation Comments SODIUM (BEAKER) 133 meq/L 136-145 L (test code = 381) POTASSIUM (BEAKER) 4.1 meq/L 3.5-5.1 Specimen slightly (test code = 379) hemolyzed CHLORIDE (BEAKER) 101 meq/L 98-107 (test code = 382) CO2 (BEAKER) (test 22 meq/L 22-29 code = 355) BLOOD UREA NITROGEN 11 mg/dL 7-21 (BEAKER) (test code = 354) CREATININE (BEAKER) 0.79 mg/dL 0.57-1.25 Specimen slightly (test code = 358) hemolyzed GLUCOSE RANDOM 226 mg/dL 70-105 H (BEAKER) (test code = 652) CALCIUM (BEAKER) 8.6 mg/dL 8.4-10.2 (test code = 697) EGFR (BEAKER) (test 101 mL/min/1.73 ESTIM ATED GFR IS code = 1092) sq m NOT ACCURATE CREATININE CLEARANCE IN PREDICTING GLOMERULAR FILTRATION RATE . ESTIMATED GFR I S NOT APPLICABLE FOR DIALYSIS PATIEN TS. Sequins Spooler ID - KIMMIE JIMENEZD, CHEST, 1 VIEW, NON [id number] 16:46:00Reason for exam:->currentShould this be performed at the bedside?->Yes [facility] : 1965 Sex: MFINAL REPORT EXAMINATION: RAD, CHEST, 1 VIEW, NON DEPT. INDICATION: 56-year-old male, noclinical history provided. COMPARISON: None. FINDINGS:The cardiac silhouette is normal in size. The thoracic vasculature is within normal limits. Mild bronchial wall thickening. No evidence of consolidation. A 1.5 cm nodular density overlies the left lower lung zone. No pleural effusion. No pneumothorax. No acute osseous abnormality. Visualized soft tissues are unremarkable. IMPRESSION:1.Mild bronchial wall thickening without evidence of consolidation.2.A 1.5 cm nodular density overlies the left lower lung zone. Consider nonemergent CT chest to exclude a pulmonary nodule. Signed: Mayela Nogueraepcox monett Verified Date/Time: 04/23/2022 16:46:33 Reading Location: [address] Consult Reading Room POCT-GLUCOSE [id number] 16:17:08 Test Item Value Reference Range Interpretation Comments POC-GLUCOSE METER 229 mg/dL 70-110 H : TESTED A T [facility] 6720 (BEAKER) (test code [facility], = 1538) 53711: Sequins Spooler/Techni rene ID = [id number] for Lisa maxwell (contract)Audrey SARS-COV2/RT-PCR ([facility])2022-04-23 16:03:49 Test Item Value Reference Range Interpretation Comments SARS-COV2/RT-PCR (test Negative Not Detected, Negative, code = 1529847) See external report for linked test SARS-COV-[address] [facility] LUANA (test code = 6580509) Negative result for this test determines that SARS-CoV-2 RNA was not present in the specimen above the Limit of Detection (LOD). However, Negative results do not preclude SARS-CoV-2 infection and should not be used as the sole basis for treatment or patient management decisions. Negative results must be combined with clinical observations, patient history, and epidemiological information. A false negative result may occur if a specimen is improperly collected, transported or handled. A false negative result should be considered if patient's recent exposures or clinical presentation indicate that COVID-19 (SARS-CoV-2) is likely and diagnostic tests for other causes of illness are negative. Re-testing should be considered in cases of suspected false negatives.The limit of detection for this assay is 800 copies/mL.This SARS CoV-2 test is a real-time RT-PCR test intended for the qualitative detection of nucleic acid from SARS-CoV-2 in a nasopharyngeal swab specimen collected from individuals suspected of COVID-19 by their healthcare provider.This test has not been Food and Drug Administration (FDA) cleared or approved. This is a modified version of an approved Emergency Use Authorization (EUA) and is in the process of review by the FDA. Once authorized by the FDA, the issued EUA will be effective until the declaration that circumstances exist justifying the authorization of the emergency use ofin vitro diagnostic tests for detection and/or diagnosis of COVID-19 is terminated under Section 564(b)(2) of the Act or the EUA is revoked under Section 564(g) of the Act.Fact Sheet for Healthcare Prov iders:https://www.shipbeat/sites/default/files/product/documents/Fact_Sheet_HC _Xathfzbfy_Jiwn_SWWC-FlN-4.pdfFact Sheet for Healthcare Patients:https://www.shipbeat/sites/default/files/product/docume nts/Gdmr_Ggxdh_Rndfhwou_Cyrn_ZVOW-OuL-5.pdfPerforming Laboratory:[facility], [place] [address]PBRF-UXWDGFL METER 2022-04-23 15:21:20 Test Item Value Reference Range Interpretation Comments POC-GLUCOSE METER 238 mg/dL 70-110 H : TESTED A T [facility] 6720 ([employer]) (test code = [facility], 1538) 28578: Sequins Spooler/Techni rene ID = [id number] for Charly debbieRoma POCT-GLUCOSE [id number] 14:14:42 Test Item Value Reference Range Interpretation Comments POC-GLUCOSE METER 276 mg/dL 70-110 H : TESTED A T [facility] 6720 ([employer]) (test code [facility], = 1538) 25450: Sequins Spooler/Techni rene ID = [id number] for Lisa maxwell (contract), Audrey smith POCT-GLUCOSE [id number] 14:13:31 Test Item Value Reference Range Interpretation Comments POC-GLUCOSE METER 319 mg/dL 70-110 H : [facility] (BEAKER) (test code [facility], = 1538) 34549: Sequins Spooler/Techni rene ID = [id number] for Lisa maxwell (contract), Nne ka KETONE, [id number] 14:05:33 Test Item Value Reference Range Interpretation Comments KETONES, BLOOD (BEAKER) (test code 0.1 mmol/L <0.4 = 1103) BASIC METABOLIC [id number] 13:08:55 Test Item Value Reference Range Interpretation Comments SODIUM (BEAKER) 136 meq/L 136-145 (test code = 381) POTASSIUM (BEAKER) 3.1 meq/L 3.5-5.1 L Specimen slightly (test code = 379) hemolyzed CHLORIDE (BEAKER) 103 meq/L 98-107 (test code = 382) CO2 (BEAKER) (test 21 meq/L 22-29 L code = 355) BLOOD UREA NITROGEN 12 mg/dL 7-21 (BEAKER) (test code = 354) CREATININE (BEAKER) 0.98 mg/dL 0.57-1.25 Specimen slightly (test code = 358) hemolyzed GLUCOSE RANDOM 335 mg/dL 70-105 H (BEAKER) (test code = 652) CALCIUM (BEAKER) 8.7 mg/dL 8.4-10.2 (test code = 697) EGFR (BEAKER) (test 79 mL/min/1.73 ESTIMA SOLIS GFR IS code = 1092) sq m NOT ACCURATE CREATININE CLEARANCE IN PREDICTING GLOMERULAR FILTRATION RATE . ESTIMATED GFR I S NOT APPLICABLE FOR DIALYSIS PATIEN TS. Sequins Spooler ID - KIMMIE MBLOOD GAS, [id number] 12:52:05 Test Item Value Reference Range Interpretation Comments PH VENOUS (BEAKER) (test code = 7.47 7.32-7.42 H 701) PCO2 VENOUS (BEAKER) (test code = 35 mm Hg 41-51 L 755) PO2 VENOUS (BEAKER) (test code = 93 mm Hg 25-40 H 702) O2 SATURATION VENOUS (BEAKER) 97.6 % 40.0-70.0 H (test code = 703) HCO3 VENOUS (BEAKER) (test code = 25 mmol/L 21-29 705) BASE EXCESS VENOUS (BEAKER) (test 1.2 mmol/L -2.0-3.0 code = 704) PATIENT TEMPERATURE (BEAKER) (test 37.0 code = 1818) FIO2 (BEAKER) (test code = 1819) 21.0 POCT-GLUCOSE [id number] 11:48:15 Test Item Value Reference Range Interpretation Comments POC-GLUCOSE METER 453 mg/dL 70-110 HH : TESTED A T [facility] 6720 (BEAKER) (test code [facility], = 1538) 22508: Sequins Spooler/Techni rene ID = [id number] for Lisa maxwell (contract)Audrey [id number] 11:45:13 Test Item Value Reference Range Interpretation Comments LIPASE (BEAKER) (test code = 749) 90 U/L 8-78 H Sequins Spooler ID - KIMMIE MSpecimen slightly ictericPOCT-GLUCOSE [id number] 11:24:33 Test Item Value Reference Range Interpretation Comments POC-GLUCOSE METER > mg/dL 70-110 HH : TESTED A T [facility] 6720 (BEAKER) (test code = [facility], 1538) 61393: Sequins Spooler/Techni rene ID = [id number] for SUGEY HAMILTON [id number] 10:10:35 Test Item Value Reference Range Interpretation Comments FERRITIN (BEAKER) (test code = 221.72 ng/mL 5.00-275.00 361) Sequins Spooler ID - KIMMIE MHEPATITIS PANEL, [id number] 09:38:02 Test Item Value Reference Range Interpretation Comments HEPATITIS A IGM ANTIBODY (BEAKER) Nonreactive Nonreactive (test code = 498) HEPATITIS B CORE IGM ANTIBODY Nonreactive Nonreactive (BEAKER) (test code = 645) HEPATITIS C ANTIBODY (BEAKER) Reactive Nonreactive A (test code = 367) HEPATITIS B SURFACE ANTIGEN (2) Nonreactive Nonreactive (BEAKER) (test code = 2585) Sequins Spooler ID - KIMMIE MCOMPREHENSIVE METABOLIC [id number] 09:30:16 Test Item Value Reference Range Interpretation Comments TOTAL PROTEIN 6.9 gm/dL 6.0-8.3 Specimen moder ately (BEAKER) (test code = hemoly zed 770) ALBUMIN (BEAKER) 3.0 g/dL 3.5-5.0 L Specimen mo derately (test code = 1145) hemolyzed ALKALINE PHOSPHATASE 180 U/L 40-150 H (BEAKER) (test code = 346) BILIRUBIN TOTAL 1.2 mg/dL 0.2-1.2 Specimen mod erately (BEAKER) (test code = hemoly zed 377) SODIUM (BEAKER) (test 128 meq/L 136-145 L code = 381) POTASSIUM (BEAKER) 3.9 meq/L 3.5-5.1 Specimen moderately (test code = 379) hemolyzed CHLORIDE (BEAKER) 94 meq/L 98-107 L (test code = 382) CO2 (BEAKER) (test 17 meq/L 22-29 L code = 355) BLOOD UREA NITROGEN 15 mg/dL 7-21 (BEAKER) (test code = 354) CREATININE (BEAKER) 1.48 mg/dL 0.57-1.25 H Specimen moderately (test code = 358) hemolyzed GLUCOSE RANDOM 743 mg/dL 70-105 HH (BEAKER) (test code = 652) CALCIUM (BEAKER) 9.0 mg/dL 8.4-10.2 (test code = 697) AST (SGOT) (BEAKER) 54 U/L 5-34 H Specimen moderately (test code = 353) hemolyzed ALT (SGPT) (BEAKER) 63 U/L 6-55 H Specimen moderately (test code = 347) hemolyzed EGFR (BEAKER) (test 49 mL/min/1.73 ESTIMA SOLIS GFR IS code = 1092) sq m NOT ACCURATE CREATININE CLEARANCE IN PREDICTING GLOMERULAR FILTRATION RATE . ESTIMATED GFR I S NOT APPLICABLE FOR DIALYSIS PATIEN TS. Sequins Spooler ID - KIMMIE MSpecimen slightly ictericSpecimen markedly lipemicALPHA FETOPROTEIN (AFP), TUMOR [id number] 09:24:32 Test Item Value Reference Range Interpretation Comments ALPHA-FETOPROTEIN (BEAKER) (test code < ng/mL <10.0 = 1094) Sequins Spooler ID - KIMMIE MIMMUNOGLOBULIN G (IGG)2022-04-23 08:27:58 Test Item Value Reference Range Interpretation Comments IMMUNOGLOBULIN G (IGG) 1108 mg/dL See_Comment [Aut omated message] (BEAKER) (test code = The sy stem which 427) generated this result transmit solis reference range : 540-1,822. The reference range was not used to interpret this result as normal/abnormal . Sequins Spooler ID - KIMMIE MCGEE, TIBC, % SAT. (WITHOUT FERRITIN)2022-04-23 08:27:58 Test Item Value Reference Range Interpretation Comments IRON (BEAKER) (test code = 547) 91.0 ug/dL 40.0-160.0 TOTAL IRON BINDING CAPACITY 199 ug/dL 250-450 L (BEAKER) (test code = 769) IRON % SATURATION (2) (BEAKER) 46 % 20-55 (test code = 2590) Sequins Spooler ID - KIMMIE [id number] 08:17:19 Test Item Value Reference Range Interpretation Comments PHOSPHORUS (BEAKER) 2.3 mg/dL 2.3-4.7 Specimen moderately (test code = 604) hemolyzed Sequins Spooler ID - KIMMIE [id number] 08:17:18 Test Item Value Reference Range Interpretation Comments MAGNESIUM (BEAKER) 1.9 mg/dL 1.6-2.6 Specimen moderately (test code = 627) hemolyzed Sequins Spooler ID - KIMMIE MPOCT-GLUCOSE [id number] 07:56:59 Test Item Value Reference Range Interpretation Comments POC-GLUCOSE METER > mg/dL 70-110 HH : Notified RN/MD: TESTED (BEAKER) (test code = AT [facility] [address] [place] [id number]) [place] [address] 30: Sequins Spooler/Techni rene ID = [id number] for Guanaco Ingram [id number] 06:48:40 Test Item Value Reference Range Interpretation Comments PROTIME (BEAKER) (test 16.1 seconds 11.9-14.2 H code = 759) INR (BEAKER) (test 1.31 See_Comment [Automat ed code = 370) message] The sy stem which generated this result transmitted reference range : <=5.90. The reference range was not used to interpret this result as normal/abnormal . PARTIAL THROMBOPLASTIN 26.8 seconds 22.5-36.0 TIME (BEAKER) (test code = 760) RECOMMENDED COUMADIN/WARFARIN INR THERAPY RANGESSTANDARD DOSE: 2.0 - 3.0 Includes: PROPHYLAXIS for venous thrombosis, systemic embolization; TREATMENT for venous thrombosis and/or pulmonary embolus.HIGH RISK: Target INR is 2.5-3.5 for patients with mechanical heart valves.CBC W/PLT COUNT & AUTO [id number] 06:38:31 Test Item Value Reference Range Interpretation Comments WHITE BLOOD CELL COUNT (BEAKER) 3.9 K/ L 3.5-10.5 (test code = 775) RED BLOOD CELL COUNT (BEAKER) 3.53 M/ L 4.63-6.08 L (test code = 761) HEMOGLOBIN (BEAKER) (test code = 12.0 GM/DL 13.7-17.5 L 410) HEMATOCRIT (BEAKER) (test code = 34.0 % 40.1-51.0 L 411) MEAN CORPUSCULAR VOLUME (BEAKER) 96.3 fL 79.0-92.2 H (test code = 753) MEAN CORPUSCULAR HEMOGLOBIN 34.0 pg 25.7-32.2 H (BEAKER) (test code = 751) MEAN CORPUSCULAR HEMOGLOBIN CONC 35.3 GM/DL 32.3-36.5 (BEAKER) (test code = 752) RED CELL DISTRIBUTION WIDTH 15.0 % 11.6-14.4 H (BEAKER) (test code = 412) PLATELET COUNT (BEAKER) (test code 81 K/CU MM 150-450 L = 756) MEAN PLATELET VOLUME (BEAKER) 10.3 fL 9.4-12.4 (test code = 754) NUCLEATED RED BLOOD CELLS (BEAKER) 0 /100 WBC 0-0 (test code = 413) NEUTROPHILS RELATIVE PERCENT 60 % (BEAKER) (test code = 429) LYMPHOCYTES RELATIVE PERCENT 22 % (BEAKER) (test code = 430) MONOCYTES RELATIVE PERCENT 14 % (BEAKER) (test code = 431) EOSINOPHILS RELATIVE PERCENT 2 % (BEAKER) (test code = 432) BASOPHILS RELATIVE PERCENT 1 % (BEAKER) (test code = 437) NEUTROPHILS ABSOLUTE COUNT 2.33 K/ L 1.78-5.38 (BEAKER) (test code = 670) LYMPHOCYTES ABSOLUTE COUNT 0.85 K/ L 1.32-3.57 L (BEAKER) (test code = 414) MONOCYTES ABSOLUTE COUNT (BEAKER) 0.55 K/ L 0.30-0.82 (test code = 415) EOSINOPHILS ABSOLUTE COUNT 0.09 K/ L 0.04-0.54 (BEAKER) (test code = 416) BASOPHILS ABSOLUTE COUNT (BEAKER) 0.03 K/ L 0.01-0.08 (test code = 417) IMMATURE GRANULOCYTES-RELATIVE 0 % 0-1 PERCENT (BEAKER) (test code = 2801) POCT-GLUCOSE [id number] 02:35:08 Test Item Value Reference Range Interpretation Comments POC-GLUCOSE METER > mg/dL 70-110 HH : Notified RN/MD: TESTED (BEAKER) (test code = AT [facility] [address] [facility] 30: Sequins Spooler/Techni rene ID = [id number] for Gisell Botello
[2022-06-20 17:07] LABS: Absolute Lymphocytes (CBC) 1.1 K/uL (0.7-4.9); Hematocrit 38.3 % (39.6-49.0); Lymphocytes % 28.2 % (15.3-44.8); MCV 102.3 fL (80-100); MPV 6.3 fL (7.6-11.3); RBC Red Blood Cell Count 3.75 M/uL (4.33-5.43)
[2022-06-20] MEDS ORDERED: NA CHLORIDE 0.9% 1,000 ML ONE (17:14)
[2022-06-20] MEDS ORDERED: ONDANSETRON 4 MG/2 ML VIAL ONE (17:14)
[2022-06-20] MEDS ORDERED: FAMOTIDINE 20 MG/2 ML VIAL IV ONE (17:14)
[2022-06-20 17:19] LABS: SARS-CoV-2 Antigen Rapid Res Negative (Negative)
[2022-06-20 17:21] LABS: Albumin 2.3 g/dL (3.4-5.0); Bilirubin Total 1.5 mg/dL (0.2-1.0); Potassium 3.7 mmol/L (3.5-5.1); Protein, Total 5.9 g/dL (6.4-8.2)
--- NOTE | 2022-06-20 17:56 | RAD REPORT ---
EXAM DESCRIPTION: CTAbdomen Pelvis W Contrast - 06/20/2022 5:43 pm CLINICAL HISTORY: Abdominal pain, acute, nonlocalized COMPARISON: Abdomen Pelvis W Contrast dated 04/22/2022; Abdomen Pelvis W Contrast dated 12/03/2021 ; Abdomen Pelvis W Contrast dated 11/24/2021 TECHNIQUE: CT of the abdomen and pelvis was performed. All CT scans are performed using dose optimization technique as appropriate and may include automated exposure control or mA/KV adjustment according to patient size. FINDINGS: Lower chest: Mild thickened distal esophagus with lower paraesophageal varices. Liver: Cirrhosis with enlarging subcapsular lesion along the right hepatic lobe measuring 2.5 cm, pre viously 2.1 cm. Biliary: No biliary ductal dilatation. Stomach: No significant focal abnormality. Duodenum: No significant focal abnormality. Pancreas: No significant abnormality. Spleen: Splenomegaly. Adrenal: No suspicious lesions. Kidney/ureter: No hydronephrosis. No renal calculi. Retroperitoneum: No retroperitoneal adenopathy. Vascular: Portal vein thrombus again noted. Enlarged collateral vessels in the retroperitoneum and me senteric. Bowel: Moderate colonic stool. Small bowel wall thickening which is diffuse.. Wall thickening at the ascending and transverse colon. . Peritoneum: Ascites which is mild. Small fat containing umbilical hernia. Bladder: Grossly unremarkable. Reproductive: No adnexal masses. Bones: No acute fracture. Other: n/a IMPRESSION: 1. Cirrhosis with evidence of portal hypertension including ascites, nonocclusive portal vein thrombus, large abdominal venous collaterals, and splenomegaly 2. Enlarging subcapsular arterially enhancing lesion in the right hepatic lobe remains highly concern ing for hepatocellular carcinoma. Referral to medical or surgical oncology is recommended. 3. Diffuse small bowel and proximal colonic wall thickening is probably related to portal hypertensio n.
--- NOTE | 2022-06-20 18:04 | EDPHYS ---
Physician Documentation [facility] Name: Amador Cosme Age: 56 yrs Sex: Male : 1965 Arrival Date: 06/20/2022 Time: 16:07 Bed 18 Private MD: ED Physician Cristian Bateman HPI: 06/20 16:12 This 56 yrs old Male presents to ER via Unassigned with complaints of abd pain, nausea, rn diarrhea. 16:12 The patient presents with abdominal pain that is diffuse. Onset: The symptoms/episode rn began/occurred 2 day(s) ago. The symptoms do not radiate. Associated signs and symptoms: Pertinent positives: nausea, Pertinent negatives: fever. The symptoms are described as achy, crampy. Modifying factors: The symptoms are alleviated by nothing, the symptoms are aggravated by touching the area. Severity of pain: At its worst the pain was moderate in the emergency department the pain is unchanged. The patient has experienced similar episodes in the past. The patient has not recently seen a physician. Pt reports not feeling well for a couple of days, no fever, + diarrhea, + generalized weakness and feels confused. Has hx of cirrhosis. Not sure if compliant with lactulose. . Historical: - Allergies: 16:28 TETRACYCLINES; [facility] 16:28 Prednisone; [facility] - Home Meds: 16:28 lisinopril 10 mg Oral tab [Active]; Lantus U-100 Insulin 30 unit Sub-Q crtg [Active]; 5 Humalog 30 unit Sub-Q [Active]; - PMHx: 16:28 cirrhosis of liver; Dementia; HepB; NIDDM; Hypertensive disorder; Pancreatitis; [facility] - PSHx: 16:28 eye sx; [facility] - Immunization history:: Adult Immunizations up to date. - Social history:: Smoking status: Patient reports the use of cigarette tobacco products, smokes one-half pack cigarettes per day. - Family history:: not pertinent. - Hospitalizations: : No recent hospitalization is reported. ROS: 16:12 Constitutional: Negative for fever, chills, and weight loss, Eyes: Negative for injury, rn pain, redness, and discharge, Neck: Negative for injury, pain, and swelling, Cardiovascular: Negative for chest pain, palpitations, and edema, Respiratory: Negative for shortness of breath, cough, wheezing, and pleuritic chest pain, Abdomen/GI: Negative for constipation Back: Negative for injury and pain, : Negative for injury, bleeding, discharge, and swelling, MS/Extremity: Negative for injury and deformity, Skin: Negative for injury, rash, and discoloration, Neuro: Negative for headache, numbness, tingling, and seizure. Exam: 16:12 Constitutional: Thin male, awake, no acute distress, asking for food and ice chips. rn Head/Face: Normocephalic, atraumatic. Eyes: Periorbital areas with no swelling, redness, or edema. ENT: dry MM Cardiovascular: Tachycardic, regular. No pulse deficits. Respiratory: No increased work of breathing, no retractions or nasal flaring. Abdomen/GI: Soft, + mild tenderness diffuse abdomen Skin: Warm, dry MS/ Extremity: Pulses equal, no cyanosis. Neuro: Awake and alert, GCS 15 Vital Signs: 16:25 BP 110 / 78; Pulse 97; Resp 18; Temp 98.1; Pulse Ox 100% ; Weight 63.5 kg; Height 5 ft. zm 6 in. (167.64 cm); Pain 9/10; 16:25 BP 90 / 70; Pulse 115; Resp 18; Temp 100.8; Pulse Ox 98% on R/A; Weight 63.5 kg; Height jh5 5 ft. 6 in. (167.64 cm); Pain 10/10; 19:16 BP 127 / 71; Pulse 79; Resp 10; Pulse Ox 100% ; ll3 20:19 BP 140 / 73; Pulse 82; Resp 14; Pulse Ox 99% ; ll3 16:25 Body Mass Index 22.60 (63.50 kg, 167.64 cm) zm MDM: 16:09 Patient medically screened. rn 18:01 Differential diagnosis: bowel obstruction, diverticulitis, gastritis, gastroesophageal rn reflux disease, non-specific abd pain, pancreatitis, Peptic Ulcer Disease, Perf. Duodenal Ulcer, DKA, hepatic encephalopathy. Data reviewed: vital signs, nurses notes, lab test result(s), EKG, radiologic studies, CT scan, and as a result, I will admit patient. Counseling: I had a detailed discussion with the patient and/or guardian regarding: the historical points, exam findings, and any diagnostic results supporting the discharge/admit diagnosis, lab results, radiology results, the need for further work-up and treatment in the hospital. Response to treatment: the patient's symptoms have mildly improved after treatment, and as a result, I will admit patient. Admission orders: after a detailed discussion of the patient's condition and case, the admit orders are written by me. 06/20 16:10 Order name: CBC with Diff; Complete Time: 17:19 rn 06/20 16:10 Order name: CMP; Complete Time: 17:30 rn 06/20 16:10 Order name: Lipase; Complete Time: 17:30 rn 06/20 16:10 Order name: SARS-COV-2 Antigen Rapid; Complete Time: 17:30 rn 06/20 16:11 Order name: AMMONIA; Complete Time: 17:30 rn 06/20 18:01 Order name: ABG; Complete Time: 18:53 rn 06/20 16:10 Order name: CT Abd/Pelvis - IV Contrast Only; Complete Time: 18:01 rn 06/20 19:02 Order name: Glucose, Ancillary Testing; Complete Time: 19:06 EDMS 06/20 20:09 Order name: Glucose, Ancillary Testing; Complete Time: 20:37 EDMS 06/20 21:12 Order name: Glucose, Ancillary Testing; Complete Time: 21:27 EDMS 06/20 21:21 Order name: Acetone Level; Complete Time: 21:27 EDMS 06/20 21:23 Order name: Basic Metabolic Panel; Complete Time: 21:27 EDMS 06/20 16:10 Order name: IV Saline Lock; Complete Time: 16:52 rn 06/20 16:10 Order name: Labs collected and sent; Complete Time: 16:58 rn 06/20 16:10 Order name: Glucose Level; Complete Time: 18:14 rn Administered Medications: 17:09 Drug: Pepcid (famotidine) 20 mg Route: IVP; Site: right wrist; ji 17:10 Follow up: Response: No adverse reaction ji 17:10 Drug: NS 0.9% 1000 ml Route: IV; Rate: 1 bolus; Site: right wrist; ji 17:10 Drug: Zofran (Ondansetron) 4 mg Route: IVP; Site: right wrist; ji 17:10 Follow up: Response: No adverse reaction ji 18:13 Drug: NS 0.9% 1000 ml Route: IV; Rate: 1000 ml; Site: right wrist; ji 18:13 Drug: Lactulose 20 grams Volume: 30 ml; Route: PO; ji 18:20 Follow up: Response: No adverse reaction ji 18:14 Drug: NS 0.9% 1000 ml Route: IV; Rate: 1000 ml; Site: right antecubital; ji 18:50 Drug: Insulin Drip - (Insulin Regular Human 100 units, NS 0.9% 100 ml) {Co-Signature: margy [email or web address] (Skylar Farias RN).} Route: IV; Rate: calculated rate; Site: right wrist; Disposition Summary: 06/20/22 18:03 Hospitalization Ordered Hospitalization Status: Inpatient Admission rn Provider: Jesus Becerra rn Location: Intensive Care Unit rn Condition: Stable rn Problem: new rn Symptoms: have improved rn Bed/Room Type: Standard rn Room Assignment: 1-(06/20/22 20:03) cg Diagnosis - Diabetes mellitus due to underlying condition with ketoacidosis without coma rn - Hepatic encephalopathy rn Forms: - Medication Reconciliation Form rn - 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 Total time: 40 rn minutes Signatures: Dispatcher [employer] Cristian Sparks MD MD rn Garcia, Cindy RN RN Bhavana Blackburn RN RN jh5 Ree Zhu RN RN Rosa Hallman PA PA sb3 Skylar Farias RN jh6 Corrections: (The following items were deleted from the chart) 20:03 18:03 rn yrn
--- NOTE | 2022-06-20 18:04 | ER ---
Nurse's Notes [facility] Name: Amador Cosme Age: 56 yrs Sex: Male : 1965 Arrival Date: 06/20/2022 Time: 16:07 Bed 18 Private MD: Diagnosis: Diabetes mellitus due to underlying condition with ketoacidosis without coma;Hepatic encephalopathy Presentation: 06/20 16:25 Chief complaint: Patient states: pt presents from home; [facility] [facility]. [place] [id number] [facility] states pt is [id number], complaints of abdominal pain 08/22. Coronavirus screen: Vaccine status: Patient reports being unvaccinated. Client denies travel out of the [place] in the last 14 days. Ebola Screen: Patient negative for fever greater than or equal to 101.5 degrees Fahrenheit, and additional compatible Ebola Virus Disease symptoms Patient denies exposure to infectious person. Patient denies travel to an Ebola-affected area in the 21 days before illness onset. Initial Sepsis Screen: Does the patient meet any 2 criteria? Temp <36.0*C (96.8*F)) or > 38.3*C (100.9*F). Yes Does the patient have a suspected source of infection? Yes: Acute abdominal pain. Risk Assessment: Do you want to hurt yourself or someone else? Patient reports no desire to harm self or others. Onset of symptoms was June 19, 2022. 16:25 Method Of Arrival: EMS: [place] [id number] 16:25 Acuity: DAO 2 [facility] Triage Assessment: 16:28 General: Appears uncomfortable, slender, unkempt, emaciated, Behavior is calm, [facility] cooperative, appropriate for age. Pain: Complains of pain in abdomen. Historical: - Allergies: 16:28 TETRACYCLINES; [facility] 16:28 Prednisone; [facility] - Home Meds: 16:28 lisinopril 10 mg Oral tab [Active]; Lantus U-100 Insulin 30 unit Sub-Q crtg [Active]; [facility] Humalog 30 unit Sub-Q [Active]; - PMHx: 16:28 cirrhosis of liver; Dementia; HepB; NIDDM; Hypertensive disorder; Pancreatitis; [facility] - PSHx: 16:28 eye sx; [facility] - Immunization history:: Adult Immunizations up to date. - Social history:: Smoking status: Patient reports the use of cigarette tobacco products, smokes one-half pack cigarettes per day. - Family history:: not pertinent. - Hospitalizations: : No recent hospitalization is reported. Screenin:53 Abuse screen: Denies threats or abuse. Denies injuries from another. Nutritional ji screening: No deficits noted. Tuberculosis screening: No symptoms or risk factors identified. Fall Risk None identified. Assessment: 16:53 General: Appears unkempt, Behavior is calm, cooperative. Pain: Complains of pain in ji abdomen. GI: Abdomen is distended, Bowel sounds present X 4 quads. Reports Pain is 10 out of 10 on a pain scale. 19:16 Reassessment: No changes from previously documented assessment. ll3 20:19 Reassessment: No changes from previously documented assessment. ll3 Vital Signs: 16:25 BP 110 / 78; Pulse 97; Resp 18; Temp 98.1; Pulse Ox 100% ; Weight 63.5 kg; Height 5 ft. zm 6 in. (167.64 cm); Pain 9/10; 16:25 BP 90 / 70; Pulse 115; Resp 18; Temp 100.8; Pulse Ox 98% on R/A; Weight 63.5 kg; Height jh5 5 ft. 6 in. (167.64 cm); Pain 10/10; 19:16 BP 127 / 71; Pulse 79; Resp 10; Pulse Ox 100% ; ll3 20:19 BP 140 / 73; Pulse 82; Resp 14; Pulse Ox 99% ; ll3 16:25 Body Mass Index 22.60 (63.50 kg, 167.64 cm) ED Course: 16:07 Patient arrived in ED. bd 16:09 Cristian Bateman MD is Attending Physician. rn 16:28 Triage completed. [facility] 16:28 Arm band placed on right wrist. [facility] 16:40 Ree Zhu, RN is Primary Nurse. 16:41 Inserted saline lock: 22 gauge in left forearm, using aseptic technique. Blood zm collected. 16:53 Patient has correct armband on for positive identification. Bed in low position. ji 16:53 No provider procedures requiring assistance completed. ji 16:53 Inserted saline lock:. ji 16:58 SARS-COV-2 Antigen Rapid Sent. 16:58 CBC with Diff Sent. zm 16:59 CMP Sent. zm 16:59 Lipase Sent. zm 17:45 CT Abd/Pelvis - IV Contrast Only In Process Unspecified. EDMS 18:02 Jesus Becerra MD is Hospitalizing Provider. rn 18:53 Inserted saline lock: 20 gauge in right wrist, using aseptic technique. ji 18:54 Inserted saline lock:. ji Administered Medications: 17:09 Drug: Pepcid (famotidine) 20 mg Route: IVP; Site: right wrist; ji 17:10 Follow up: Response: No adverse reaction ji 17:10 Drug: NS 0.9% 1000 ml Route: IV; Rate: 1 bolus; Site: right wrist; ji 17:10 Drug: Zofran (Ondansetron) 4 mg Route: IVP; Site: right wrist; ji 17:10 Follow up: Response: No adverse reaction ji 18:13 Drug: NS 0.9% 1000 ml Route: IV; Rate: 1000 ml; Site: right wrist; ji 18:13 Drug: Lactulose 20 grams Volume: 30 ml; Route: PO; ji 18:20 Follow up: Response: No adverse reaction ji 18:14 Drug: NS 0.9% 1000 ml Route: IV; Rate: 1000 ml; Site: right antecubital; ji 18:50 Drug: Insulin Drip - (Insulin Regular Human 100 units, NS 0.9% 100 ml) {Co-Signature: margy beckett (Skylar Farias RN).} Route: IV; Rate: calculated rate; Site: right wrist; Medication: 16:53 VIS not applicable for this client. ji Outcome: 18:03 Decision to Hospitalize by Provider. rn 21:30 Patient left the ED. bb Signatures: Dispatcher [employer] EDNV Senia Helm Brenda RN RN bb Cristian Bateman MD MD rn Rees, Jessica RN RN jh5 Trevon Easley RN RN ll3 Ree Zhu RN RN ha Martinez, Zaina zm Jennifer Hastedt RN jh6
[2022-06-20] MEDS ORDERED: INSULIN -REGULAR HUMAN 100 UNIT in NA CHLORIDE 0.9% 100 ML IV SCH (18:15)
[2022-06-20] MEDS ORDERED: NA CHLORIDE 0.9% 2,000 ML ONE (18:15)
[2022-06-20] MEDS ORDERED: LACTULOSE 20 GM/30 ML UCUP ONE (18:15)
[2022-06-20 18:39] LABS: Arterial Blood Carboxyhemoglob 1.4 % (0-1.5); Blood O2 Saturation 94.7 % (92-98.5)
--- NOTE | 2022-06-20 19:50 | P.HP ---
Certification for Inpatient Patient admitted to: Inpatient With expected LOS: >2 Midnights Patient will require the following post-hospital care: None Practitioner: I am a practitioner with admitting privileges, knowledge of patient current condition, hospital course, and medical plan of care. Services: Services provided to patient in accordance with Admission requirements found in Title 42 Section 412.3 of the Code of Federal Regulations Patient History Date of Service: 06/20/22 Reason for admission: Hepatic Encephalopathy, DKA History of Present Illness: Patient is a 56 y/o M with cirrhosis of liver, hepatitis B, insulin-dependent type 2 diabetes mellitus, hypertension, and history of noncompliance who presented to the ED via EMS with complaints of confusion, abdominal pain, nausea, vomiting, diarrhea, and weakness. His labs were significant for glucose 341, anion gap 20, ammonia 137. ABG with pH of 7.4. CT abd/pelv showed "cirrhosis with evidence of portal hypertension including ascites, nonocclusive portal vein thrombus, large abdominal venous collaterals, and splenomegaly. Additionally, enlarging subcapsular arterially enhancing lesion in the right hepatic lobe remains highly concerning for hepatocellular carcinoma. Also, diffuse small bowel and proximal colonic wall thickening is probably related to portal hypertension." He was given 3L fluid, lactulose, and started on insulin drip. Patient is answering questions during my exam but appears confused and is slurring his words. He started to cry stating that he cannot take care of himself. Patient has had several stays in this facility for hepatic encephalopathy and DKA- episodes related to medical noncompliance. Patient is admitted for further evaluation and treatment. Allergies prednisone Allergy (Verified 06/20/22 20:37) Rash Tetracyclines Allergy (Verified 06/20/22 20:37) Rash Home medications list reviewed: Yes Home Medications: Furosemide [Lasix*] 40 mg PO BIDL tab 12/31/21 Insulin Glargine,Hum.rec.anlog [Semglee] 30 unit SQ BID ml 12/31/21 Insulin Lispro [Humalog*] 20 unit SQ TIDWM ml 12/31/21 Lactulose [Cephulac*] 30 ml PO TID ucup 12/31/21 Polyethyl Gly 3350 [Glycolax*] 17 gm PO DAILY udbot 12/31/21 Spironolactone [Aldactone*] 100 mg PO DAILY tab 12/31/21 traMADol HCL [Ultram*] 50 mg PO TID PRN #0 tab 12/31/21 - Past Medical/Surgical History Diabetic: Yes -: Alcoholic liver cirrhosis -: Hypertension -: Diabetes mellitusinsulin-dependent -: Chronic tobacco use history -: Dementia as per records -: chronic pancreatitis -: sciatica -: bilateral rotator cuff tear (untreated) -: Eye surgery (lasix right eye) -: Previous paracentesis Psychosocial/ Personal History: Patient currently lives at home alone. - Family History Mother -: Heart disease, Hypertension - Social History Smoking Status: Current every day smoker Alcohol use: Yes CD- Drugs: No Caffeine use: No Place of Residence: Home Review of Systems General: Weakness Gastrointestinal: Nausea, Vomiting, Abdominal Pain, Diarrhea Physical Examination - Physical Exam General: Alert, In no apparent distress HEENT: Atraumatic, PERRLA, EOMI, Sclerae nonicteric Neck: Supple, 2+ carotid pulse no bruit, No LAD, Without JVD or thyroid abnormality Respiratory: Clear to auscultation bilaterally, Normal air movement Cardiovascular: Regular rate/rhythm, Normal S1 S2 Gastrointestinal: Normal bowel sounds, No tenderness Musculoskeletal: No tenderness Integumentary: No rashes Neurological: Normal speech, Normal strength at 5/5 x4 extr, Normal tone, Normal affect - Studies Laboratory Data (last 24 hrs) 06/20/22 16:44: Sodium 138, Potassium 3.7, BUN 11, Creatinine 0.97, Glucose 341 H, Total Bilirubin 1.5 H, AST 20, ALT 34, Alkaline Phosphatase 104, Lipase 91 06/20/22 16:44: WBC 4.0 L, Hgb 12.8 L, Hct 38.3 L, Plt Count 123 L Assessment and Plan - Problems (Diagnosis) (1) Alcoholic cirrhosis of liver with ascites Current Visit: Yes Status: Acute (2) Hepatic encephalopathy Current Visit: Yes Status: Acute (3) Hyperammonemia Current Visit: Yes Status: Acute (4) T2DM (type 2 diabetes mellitus) Current Visit: Yes Status: Chronic Qualifiers: Diabetes mellitus detention insulin use: with detention use Diabetes mellitus complication status: with ketoacidosis Diabetes mellitus complication detail: without coma Qualified Code(s): E11.10 - Type 2 diabetes mellitus wi th ketoacidosis without coma; Z79.4 - intermediate (current) use of insulin - Plan -Admit to ICU -Continue insulin drip and IVF per DKA protocol. Transition to phase 2 once gap closes -Ammonia checks and lactulose daily. Patient states he has not been taking his home dose. -A1c and lipid panel in morning -BMP and acetone [id number]. ABG pH WNL. -convention services director consult in place. Patient has been to SNF in past but left. -Monitor and replete electrolytes per protocol -Reconcile and continue home medications per protocol -Lovenox for VTE ppx -Full code Discharge Plan: Home Plan to discharge in: Greater than 2 days - Advance Directives Does patient have a Living Will: No Does patient have a Durable POA for Healthcare: No - Code Status/Comfort Care Code Status Assessed: Yes (Full) Critical Care: No Time Spent Managing Pts Care (In Minutes): 50
[2022-06-20] MEDS: NACHLORIDE 0.45% 1,000 ML with POTASSIUM CL 20 MEQ IV SCH ×2 (20:37)
[2022-06-20] MEDS ORDERED: ONDANSETRON 4 MG/2 ML VIAL IV PRN (20:37)
[2022-06-20] MEDS ORDERED: LACTULOSE 20 GM/30 ML UCUP PO PRN (20:37)
[2022-06-20] MEDS ORDERED: D5.45NS W/KCL 20MEQ 1,000 ML IV ONE (20:55)
[2022-06-20 21:23] LABS: BUN Blood Urea Nitrogen 9 mg/dL (7-18); Bicarbonate 19 mmol/L (21-32); Glomerular Filtration Rate 102 ml/min (=/>90); Glucose Level 219 mg/dL (74-106); Potassium 3.3 mmol/L (3.5-5.1); Sodium Level 143 mmol/L (136-145)
[2022-06-20] MEDS: D5.45NS W/KCL 20MEQ 1,000 ML IV SCH (21:43)
[2022-06-20] MEDS: HEPARIN 5000 UNIT/ML 1 ML VIAL SQ SCH (22:21)
[2022-06-20] MEDS: FENTANYL CITR 100 MCG/2 ML IV PRN (22:35)
[2022-06-21] MEDS: NACHLORIDE 0.45% 1,000 ML with POTASSIUM CL 20 MEQ IV SCH ×6 (00:40→04:34)
[2022-06-21 01:05] LABS: BUN Blood Urea Nitrogen 9 mg/dL (7-18); Bicarbonate 24 mmol/L (21-32); Glomerular Filtration Rate 101 ml/min (=/>90); Glucose Level 155 mg/dL (74-106); Potassium 3.8 mmol/L (3.5-5.1); Sodium Level 143 mmol/L (136-145)
[2022-06-21] MEDS: FENTANYL CITR 100 MCG/2 ML IV PRN (02:42)
[2022-06-21] MEDS: D5.45NS W/KCL 20MEQ 1,000 ML IV SCH ×2 (04:09→09:57)
[2022-06-21 04:41] VITALS: BMI 22.6
[2022-06-21 05:06] LABS: Absolute Lymphocytes (CBC) 1.3 K/uL (0.7-4.9); Hematocrit 33.1 % (39.6-49.0); Lymphocytes % 35.2 % (15.3-44.8); MCV 99.9 fL (80-100); MPV 6.3 fL (7.6-11.3); RBC Red Blood Cell Count 3.32 M/uL (4.33-5.43)
[2022-06-21 05:25] LABS: BUN Blood Urea Nitrogen 8 mg/dL (7-18); Bicarbonate 24 mmol/L (21-32); Glomerular Filtration Rate 104 ml/min (=/>90); Glucose Level 155 mg/dL (74-106); HDL Cholesterol 23 mg/dL (40-60); LDL Cholesterol, Calculated 141 mg/dL (<130); Magnesium 1.6 mg/dL (1.8-2.4); Phosphorus 1.8 mg/dL (2.5-4.9); Potassium 3.3 mmol/L (3.5-5.1); Sodium Level 140 mmol/L (136-145)
[2022-06-21] MEDS ORDERED: GLUCAGON 1 MG/VIAL IM PRN (05:46)
[2022-06-21] MEDS ORDERED: D50W 25 GM/50 ML SYRINGE IV PRN (05:46)
[2022-06-21] MEDS ORDERED: INSULIN GLARGINE 100 UNIT/ML SQ ONE (05:50)
[2022-06-21] MEDS ORDERED: D10W 125 ML IV PRN (05:53)
[2022-06-21] MEDS: MORPHINE 4 MG/ML SYR IV PRN ×2 (06:26→10:34)
[2022-06-21] MEDS ORDERED: MAGNESIUM SULFATE 1 gm IVPB 1 GM/100 ML BAG IV ONE (06:38)
[2022-06-21] MEDS ORDERED: POTASSIUM 25 MEQ EFFERV TAB PO ONE (06:39)
[2022-06-21] MEDS: LACTULOSE 20 GM/30 ML UCUP PO SCH ×2 (08:28→20:51)
[2022-06-21] MEDS: INSULIN -REGULAR HUMAN 50 UNIT/0.5 ML ML SQ SCH ×5 (08:29→20:52)
[2022-06-21] MEDS: HEPARIN 5000 UNIT/ML 1 ML VIAL SQ SCH ×2 (08:29→20:49)
--- NOTE | 2022-06-21 10:31 | P.PN ---
Subjective Date of Service: 06/21/22 Chief Complaint: Hepatic Encephalopathy, DKA Patient hospitalized for DKA. He is currently awake and alert. Insulin drip discontinued. Patient started on a diet. Speech a bit slurred. No fever. Physical Examination - Vital Signs Temperature: 97.2 F Blood Pressure: 149/94 Pulse: 84 Respirations: 18 Pulse Ox (%): 98 - Studies Laboratory Data (last 24 hrs) 06/20/22 16:44: Sodium 138, Potassium 3.7, BUN 11, Creatinine 0.97, Glucose 341 H, Total Bilirubin 1.5 H, AST 20, ALT 34, Alkaline Phosphatase 104, Lipase 91 06/20/22 16:44: WBC 4.0 L, Hgb 12.8 L, Hct 38.3 L, Plt Count 123 L Assessment And Plan - Current Problems (Diagnosis) (1) DKA, type 2 Current Visit: Yes Status: Acute (2) Liver mass Current Visit: Yes Status: Acute (3) Alcoholic cirrhosis of liver with ascites Current Visit: Yes Status: Acute (4) Portal vein thrombosis Current Visit: Yes Status: Acute (5) Hepatic encephalopathy Current Visit: Yes Status: Acute - Plan Physical Exam General: Alert, In no apparent distress HEENT: Atraumatic, PERRLA, EOMI, Sclerae nonicteric Neck: Supple, Without JVD or thyroid abnormality Respiratory: Clear to auscultation bilaterally, Normal air movement Cardiovascular: Regular rate/rhythm, Normal S1 S2. 1+ bilateral lower extremity edema. Gastrointestinal: Normal bowel sounds, No tenderness, nondistended Musculoskeletal: No tenderness Integumentary: No rashes Neurological: Psychomotor retardation, normal strength at 5/5 x4 extr, Normal tone. Plan: DKA resolved. Patient started on a diet. Insulin sliding scale and Lantus insulin for glucose management Lactulose for hepatic encephalopathy. Check PT/INR. Low thrombocyte count but may be able to anticoagulate if PT/INR within normal limits. Patient with liver mass which will need liver biopsy. Will consult IR to evaluate. He is homeless and may not be able to handle his multiple medical issues. He will need a supervised environment and recommen.ding SNF and transition to long- term care.
[2022-06-21 11:14] LABS: Protime INR 1.37
[2022-06-21] MEDS: HYDROCODONE/APAP 5/325 MG TAB PO PRN (20:53)
[2022-06-22] MEDS: HYDROCODONE/APAP 5/325 MG TAB PO PRN (01:52)
[2022-06-22] MEDS ORDERED: ALPRAZOLAM 0.5 MG TABLET PO ONE (02:18)
[2022-06-22 05:51] LABS: Magnesium 1.8 mg/dL (1.8-2.4); Phosphorus 2.6 mg/dL (2.5-4.9)
[2022-06-22 05:51] LABS: Absolute Lymphocytes (CBC) 0.8 K/uL (0.7-4.9); Hematocrit 31.1 % (39.6-49.0); MCV 101.5 fL (80-100); MPV 6.4 fL (7.6-11.3); RBC Red Blood Cell Count 3.06 M/uL (4.33-5.43)
[2022-06-22] MEDS ORDERED: MAGNESIUM SULFATE 1 gm IVPB 1 GM/100 ML BAG IV ONE (06:53)
[2022-06-22] MEDS: INSULIN -REGULAR HUMAN 50 UNIT/0.5 ML ML SQ SCH ×4 (07:30→20:20)
[2022-06-22 07:50] LABS: Potassium 3.8 mmol/L (3.5-5.1)
[2022-06-22] MEDS: LACTULOSE 20 GM/30 ML UCUP PO SCH ×2 (09:54→20:12)
[2022-06-22] MEDS: HEPARIN 5000 UNIT/ML 1 ML VIAL SQ SCH ×2 (09:54→21:00)
--- NOTE | 2022-06-22 17:23 | P.PN ---
Subjective Date of Service: 06/22/22 Chief Complaint: Hepatic Encephalopathy, DKA Patient is somnolent today Serum ammonia level trended up. Patient started on a diet. No fever. Physical Examination - Vital Signs Temperature: 97.9 F Blood Pressure: 115/76 Pulse: 84 Respirations: 16 Pulse Ox (%): 99 Assessment And Plan - Current Problems (Diagnosis) (1) DKA, type 2 Current Visit: Yes Status: Acute (2) Liver mass Current Visit: Yes Status: Acute (3) Alcoholic cirrhosis of liver with ascites Current Visit: Yes Status: Acute (4) Portal vein thrombosis Current Visit: Yes Status: Acute (5) Hepatic encephalopathy Current Visit: Yes Status: Acute - Plan Physical Exam General: Somnolent, NAD. HEENT: Atraumatic, PERRLA, EOMI, Sclerae nonicteric Neck: Supple, Without JVD. Respiratory: Clear to auscultation bilaterally, Normal air movement Cardiovascular: Regular rate/rhythm, Normal S1 S2. 1+ bilateral lower extremity edema. Gastrointestinal: Normal bowel sounds, No tenderness, nondistended Musculoskeletal: No tenderness Integumentary: No rashes Neurological: Somnolent, normal strength at 5/5 x4 extr, Normal tone. Plan: DKA resolved. Patient started on a diet. Insulin sliding scale and Lantus insulin for glucose management Increase lactulose lactulose for hepatic encephalopathy. Continue to monitor ammonia level. Start Coumadin and Lovenox for portal vein thrombosis. Monitor PT/INR and CBC. Patient with liver mass which will need liver biopsy. IR consulted for evaluation for possible biopsy. He is homeless and may not be able to handle his multiple medical issues. He will need a supervised environment and recommending SNF and transition to long- term care.
[2022-06-22 23:19] VITALS: O2SAT 100
[2022-06-23 06:49] LABS: Absolute Lymphocytes (CBC) 0.6 K/uL (0.7-4.9); Albumin 2.1 g/dL (3.4-5.0); Bilirubin Total 1.2 mg/dL (0.2-1.0); Hematocrit 44.9 % (39.6-49.0); Lymphocytes % 28.3 % (15.3-44.8); MCV 100.7 fL (80-100); MPV 6.8 fL (7.6-11.3); Phosphorus 2.9 mg/dL (2.5-4.9); Potassium 3.7 mmol/L (3.5-5.1); Protein, Total 5.3 g/dL (6.4-8.2); RBC Red Blood Cell Count 4.46 M/uL (4.33-5.43)
[2022-06-23] MEDS: INSULIN -REGULAR HUMAN 50 UNIT/0.5 ML ML SQ SCH ×4 (08:33→20:08)
[2022-06-23] MEDS: LACTULOSE 20 GM/30 ML UCUP PO SCH ×3 (08:33→20:08)
[2022-06-23] MEDS: HEPARIN 5000 UNIT/ML 1 ML VIAL SQ SCH ×2 (08:34→18:50)
[2022-06-23 08:55] LABS: Blood Morphology Comment NOTED (NOT SEEN); Platelet Estimate DECR; White Blood Cell Scan OK (OK)
[2022-06-23 08:56] LABS: Anisocytosis SLIGHT; Hypochromasia 1+; Macrocytosis SLIGHT; Polychromasia SLIGHT
[2022-06-23] MEDS ORDERED: POTASSIUM CL SA 10 MEQ TAB PO ONE (09:00)
--- NOTE | 2022-06-23 14:43 | P.PN ---
Subjective Date of Service: 06/23/22 Chief Complaint: Hepatic Encephalopathy, DKA Patient's mental status is better today Serum ammonia level has trended down. No fever. Physical Examination - Vital Signs Temperature: 98.0 F Blood Pressure: 126/87 Pulse: 80 Respirations: 16 Pulse Ox (%): 100 Assessment And Plan - Current Problems (Diagnosis) (1) DKA, type 2 Current Visit: Yes Status: Acute (2) Liver mass Current Visit: Yes Status: Acute (3) Alcoholic cirrhosis of liver with ascites Current Visit: Yes Status: Acute (4) Portal vein thrombosis Current Visit: Yes Status: Acute (5) Hepatic encephalopathy Current Visit: Yes Status: Acute (6) Pancytopenia Current Visit: Yes Status: Acute - Plan Physical Exam General: Somnolent, NAD. HEENT: Atraumatic, PERRLA, EOMI, Sclerae nonicteric Neck: Supple, Without JVD. Respiratory: Clear to auscultation bilaterally, Normal air movement Cardiovascular: Regular rate/rhythm, Normal S1 S2. 1+ bilateral lower extremity edema. Gastrointestinal: Normal bowel sounds, No tenderness, nondistended Musculoskeletal: No tenderness Integumentary: No rashes Neurological: Somnolent, normal strength at 5/5 x4 extr, Normal tone. Plan: DKA resolved. Patient started on a diet. Insulin sliding scale and Lantus insulin for glucose management Titrate lactulose lactulose for hepatic encephalopathy. Monitor ammonia level. Start Coumadin and Lovenox for portal vein thrombosis. Thrombocytopenia is worse today Cannot anticoagulate due to thrombocytopenia. Start Aldactone. Patient with liver mass highly suggestive of malignancy Poor prognosis. Recommending hospice evaluation
[2022-06-23] MEDS: HYDROCODONE/APAP 5/325 MG TAB PO PRN (20:08)
[2022-06-24 03:59] LABS: Absolute Lymphocytes (CBC) 0.7 K/uL (0.7-4.9); Lymphocytes % 21.9 % (15.3-44.8); MCV 100.4 fL (80-100); MPV 6.7 fL (7.6-11.3); RBC Red Blood Cell Count 3.28 M/uL (4.33-5.43)
[2022-06-24 04:20] LABS: Albumin 2.2 g/dL (3.4-5.0); Bilirubin Total 1.3 mg/dL (0.2-1.0); Potassium 3.8 mmol/L (3.5-5.1); Protein, Total 5.5 g/dL (6.4-8.2)
[2022-06-24] MEDS: INSULIN -REGULAR HUMAN 50 UNIT/0.5 ML ML SQ SCH ×2 (07:44→11:38)
[2022-06-24] MEDS: LACTULOSE 20 GM/30 ML UCUP PO SCH (07:44)
[2022-06-24] MEDS: HYDROCODONE/APAP 5/325 MG TAB PO PRN (07:45)
[2022-06-24] MEDS: HEPARIN 5000 UNIT/ML 1 ML VIAL SQ SCH (07:47)
[2022-06-24] MEDS ORDERED: POTASSIUM CL SA 10 MEQ TAB PO ONE (09:00)
[2022-06-24] MEDS ORDERED: D50W 25 GM/50 ML SYRINGE IV PRN (11:48)
[2022-06-24] MEDS ORDERED: GLUCAGON 1 MG/VIAL IM PRN (11:48)
[2022-06-24 11:55] VITALS: BP 111/76; TEMP 98
[2022-06-24] MEDS ORDERED: INSULIN GLARGINE 100 UNIT/ML SQ SCH ×2 (11:55→21:00)
[2022-06-24] MEDS ORDERED: INSULIN LISPRO 100 UNIT/1 ML SQ SCH ×2 (12:00→18:00)
--- NOTE | 2022-06-24 14:43 | P.DS ---
Admission Date: 06/20/22 Discharge Date: 06/24/22 Reason for Admission: Hepatic Encephalopathy, DKA - Problems (1) DKA, type 2 Current Visit: Yes Status: Acute (2) Liver mass Current Visit: Yes Status: Acute (3) Alcoholic cirrhosis of liver with ascites Current Visit: Yes Status: Acute (4) Portal vein thrombosis Current Visit: Yes Status: Acute (5) Hepatic encephalopathy Current Visit: Yes Status: Acute (6) Pancytopenia Current Visit: Yes Status: Acute Brief History of Present Illness: Patient is a 56 y/o M with cirrhosis of liver, hepatitis B, insulin-dependent type 2 diabetes mellitus, hypertension, and history of noncompliance who presented to the ED via EMS with complaints of confusion, abdominal pain, nausea, vomiting, diarrhea, and weakness. His labs were significant for glucose 341, anion gap 20, ammonia 137. ABG with pH of 7.4. CT abd/pelv showed "cirrhosis with evidence of portal hypertension including ascites, nonocclusive portal vein thrombus, large abdominal venous collaterals, and splenomegaly. Additionally, enlarging subcapsular arterially enhancing lesion in the right hepatic lobe remains highly concerning for hepatocellular carcinoma. Also, diffuse small bowel and proximal colonic wall thickening is probably related to portal hypertension." He was given 3L fluid, lactulose, and started on insulin drip. Patient has had several stays in this facility for hepatic encephalopathy and DKA- episodes related to medical noncompliance. Patient was admitted for further management. Hospital Course: Patient admitted to the intensive care unit on DKA protocol. DKA resolved within 24 hours and patient transitioned to subcutaneous insulin. Blood sugar was subsequently managed with insulin sliding scale and Lantus insulin. He was also started on a diet but later developed hepatic encephalopathy which was treated with oral lactulose. Ammonia level was up to 145. This improved to 88 along with improvement in patient's mental status. Plans were to start Coumadin and Lovenox for portal vein thrombosis but his thrombocytopenia became worse increasing his risk for bleeding. Could not anticoagulate due to thrombocytopenia. Resumed Aldactone. Patient with liver mass highly suggestive of malignancy. High risk for bleeding with liver biopsy due to thrombocytopenia. Patient with poor prognosis given liver cirrhosis, liver mass highly suggestive of malignancy and portal vein thrombosis Recommended hospice evaluation. Patient will not stay in the hospital any further. He signed out AGAINST MEDICAL ADVICE. He was given refills for his home medications. No new medications added. Vital Signs/Physical Exam: Temp Pulse Resp BP Pulse Ox 98.0 F 89 16 111/76 100 06/24/22 11:54 06/24/22 11:54 06/24/22 11:54 06/24/22 11:54 06/24/22 11:54 Laboratory Data at Discharge: WBC 3.3 K/uL (4.3-10.9) L D 06/24/22 03:17 Hgb 11.9 g/dL (13.6-17.9) L D 06/24/22 03:17 Hct 33.0 % (39.6-49.0) L D 06/24/22 03:17 Plt Count 63 K/uL (152-406) L D 06/24/22 03:17 PT 15.2 SECONDS (9.5-12.5) H 06/21/22 10:51 INR 1.37 06/21/22 10:51 Sodium 139 mmol/L (136-145) 06/24/22 03:17 Potassium 3.8 mmol/L (3.5-5.1) 06/24/22 03:17 BUN 8 mg/dL (7-18) 06/24/22 03:17 Creatinine 0.83 mg/dL (0.55-1.3) 06/24/22 03:17 Glucose 341 mg/dL (74-106) H 06/24/22 03:17 Phosphorus 2.9 mg/dL (2.5-4.9) 06/23/22 06:20 Magnesium 2.0 mg/dL (1.8-2.4) 06/23/22 06:20 Total Bilirubin 1.3 mg/dL (0.2-1.0) H 06/24/22 03:17 AST 124 U/L (15-37) H 06/24/22 03:17 ALT 83 U/L (12-78) H 06/24/22 03:17 Alkaline Phosphatase 115 U/L (45-117) 06/24/22 03:17 Triglycerides 151 mg/dL (<150) H 06/21/22 04:46 Cholesterol 194 mg/dL (<200) 06/21/22 04:46 HDL Cholesterol 23 mg/dL (40-60) L 06/21/22 04:46 Cholesterol/HDL Ratio 8.43 06/21/22 04:46 Lipase 91 U/L (73393) 06/20/22 16:44 Home Medications: Furosemide [Lasix*] 40 mg PO BIDL #60 tab 06/24/22 Insulin Glargine,Hum.rec.anlog [Semglee] 30 unit SQ BID #15 ml 06/24/22 Insulin Lispro [Humalog*] 20 unit SQ TIDWM #3 ml 06/24/22 Lactulose [Cephulac*] 30 ml PO TID #90 ucup 06/24/22 Polyethyl Gly 3350 [Glycolax*] 17 gm PO DAILY #30 udbot 06/24/22 Spironolactone [Aldactone*] 100 mg PO DAILY #30 tab 06/24/22 New Medications: Spironolactone [Aldactone*] 100 mg PO DAILY #30 tab Lactulose [Cephulac*] 30 ml PO TID #90 ucup Polyethyl Gly 3350 [Glycolax*] 17 gm PO DAILY #30 udbot Insulin Lispro [Humalog*] 20 unit SQ TIDWM #3 ml Furosemide [Lasix*] 40 mg PO BIDL #60 tab Insulin Glargine,Hum.rec.anlog [Semglee] 30 unit SQ BID #15 ml Followup: NONE,NONE [Primary Care Provider] -
[2022-07-01] MEDS ORDERED: INSULIN GLARGINE 100 UNIT/ML SQ SCH (09:30)
== END 2022-06-24 14:20 | disposition left against medical advice (07) | DRG 637 ==
LOC: ER 15:59 → ERHOLD 19:43 → 3RD-ICU 21:11 → 4TH 06-21 18:00
PROVIDERS: ADMIT Internal Medicine; ATTEND Internal Medicine
DX: E11.10 Type 2 diabetes mellitus with ketoacidosis without coma (principal); K72.00 Acute and subacute hepatic failure without coma; I81 Portal vein thrombosis; B16.9 Acute hepatitis B without delta-agent and without hepatic coma; C22.0 Liver cell carcinoma; E72.20 Disorder of urea cycle metabolism, unspecified; D61.818 Other pancytopenia; K70.31 Alcoholic cirrhosis of liver with ascites; D69.6 Thrombocytopenia, unspecified; I10 Essential (primary) hypertension; Z59.00 Homelessness unspecified; Z79.4 Long term (current) use of insulin; Z53.29 Procedure and treatment not carried out because of patient's decision for other reasons; Z20.822 Contact with and (suspected) exposure to COVID-19
CPT/HCPCS: 36415; 74177; 80048; 80053; 80061; 82010; 82140; 82805; 82947; 83036; 83690; 83735; 84100; 85025; 85610; 87811; 96374; 96375; 99285; J1644; J1815; J2405; J3010; J3475; J3480; J7030

== ENCOUNTER 2022-06-26 11:52 | Emergency (ER) | payer OTHER ==
--- NOTE | 2022-06-26 13:06 | RAD REPORT ---
EXAM DESCRIPTION: CT - Head Brain Wo Cont - 06/26/2022 12:54 pm CLINICAL HISTORY: Mental status change, persistent or worsening Headache, drowsiness COMPARISON: Head Brain Wo Cont dated 03/12/2022; Head Brain Wo Cont dated 01/06/2022; Chest Single Vie w dated 03/12/2022 TECHNIQUE: All CT scans are performed using dose optimization technique as appropriate and may inclu de automated exposure control or mA/KV adjustment according to patient size. FINDINGS: No intracranial hemorrhage, hydrocephalus or extra-axial fluid collection.Mild generalized brain atrophy is present with mild periventricular and deep white matter chronic microvascular ische jeni changes.No areas of brain edema or evidence of midline shift. The paranasal sinuses and mastoids are clear. The calvarium is intact. IMPRESSION: No acute intracranial abnormality.
--- NOTE | 2022-06-26 13:17 | RAD REPORT ---
EXAM DESCRIPTION: RAD - Chest Single View - 06/26/2022 1:09 pm CLINICAL HISTORY: COUGH Chest pain. COMPARISON: Chest Single View dated 04/22/2022; Chest Single View dated 03/12/2022; Chest Single View dated 12/27/2021; Chest Single View dated 12/22/2021; Head Brain Wo Cont dated 03/12/2022 FINDINGS: Portable technique limits examination quality. The lungs are grossly clear. The heart is normal in size. No displaced fractures. IMPRESSION: No acute intrathoracic process suspected.
[2022-06-26] MEDS ORDERED: THIAMINE 200 MG/2 ML INJ ONE (13:19)
[2022-06-26] MEDS ORDERED: NA CHLORIDE 0.9% 1,000 ML ONE ×2 (13:19→15:36)
[2022-06-26 13:21] LABS: Urine Blood Negative (Negative); Urine Glucose 2+ (Negative); Urine Protein Negative (Negative); Urine pH 6.5 (5.0-7.0)
[2022-06-26 13:48] LABS: Absolute Lymphocytes (CBC) 0.5 K/uL (0.7-4.9); Hematocrit 31.9 % (39.6-49.0); Lymphocytes % 21.2 % (15.3-44.8); MCV 103.8 fL (80-100); MPV 7.7 fL (7.6-11.3); RBC Red Blood Cell Count 3.07 M/uL (4.33-5.43)
[2022-06-26 13:49] LABS: Barbiturates NEGATIVE (NEGATIVE); Benzodiazepines NEGATIVE (NEGATIVE); Cocaine NEGATIVE (NEGATIVE); METHAMPHETAM NEGATIVE (NEGATIVE); Methadone NEGATIVE (NEGATIVE); Opiates NEGATIVE (NEGATIVE); Phencyclidine NEGATIVE (NEGATIVE); THC Cannibis NEGATIVE (NEGATIVE)
[2022-06-26 13:52] LABS: Protime INR 1.25
[2022-06-26 14:14] LABS: SARS-CoV-2 Antigen Rapid Res Negative (Negative)
[2022-06-26 14:43] LABS: ALT/SGPT 95 U/L (12-78); AST/SGOT 64 U/L (15-37); Albumin 2.4 g/dL (3.4-5.0); Alkaline Phosphatase 130 U/L (45-117); BUN Blood Urea Nitrogen 12 mg/dL (7-18); Bicarbonate 24 mmol/L (21-32); Bilirubin Direct 0.5 mg/dL (0-0.2); Bilirubin Total 1.2 mg/dL (0.2-1.0); Glomerular Filtration Rate 96 ml/min (=/>90); Magnesium 2.2 mg/dL (1.8-2.4); NT PRO-BNP 227 pg/mL (<125); Potassium 3.6 mmol/L (3.5-5.1); Protein, Total 5.8 g/dL (6.4-8.2); Sodium Level 133 mmol/L (136-145); Troponin High Sensitivity 7.3 pg/mL (<58.9)
[2022-06-26 15:02] LABS: Glucose Level 661 mg/dL (74-106)
--- NOTE | 2022-06-26 15:14 | ER ---
Nurse's Notes [facility] Name: Amador Cosme Age: 56 yrs Sex: Male : 1965 Arrival Date: 06/26/2022 Time: 11:55 Bed 2 Private MD: Diagnosis: Alcoholic cirrhosis of liver-Hepatitis B;Liver cell carcinoma-LIVER MASS;Encephalopathy, unspecified-HEPATIC;Neutropenia, unspecified;Anemia, unspecified;Thrombocytopenia, unspecified;Type 2 diabetes mellitus with hyperglycemia-UNCONTROLLED;Altered mental status, unspecified Presentation: 06/26 11:55 Chief complaint: EMS states: HE WAS HERE YESTERDAY AND SELF-DISCHARGED, HE'S HOMELESS bp AND CALLED US FOR GENERAL PAIN AND WEAKNESS. Coronavirus screen: At this time, the client does not indicate any symptoms associated with coronavirus-19. Ebola Screen: No symptoms or risks identified at this time. Initial Sepsis Screen: Does the patient meet any 2 criteria? HR > 90 bpm. Does the patient have a suspected source of infection? No. Patient's initial sepsis screen is negative. Risk Assessment: Do you want to hurt yourself or someone else? Patient reports no desire to harm self or others. Onset of symptoms is unknown. Care prior to arrival: Glucose check: 586. 11:55 Method Of Arrival: EMS: [facility] bp 11:55 Acuity: DAO 2 bp Triage Assessment: 11:57 General: Appears distressed, uncomfortable, unkempt, Behavior is cooperative, bp appropriate for age, anxious. Pain: Complains of pain in GENERALIZED. EENT: No deficits noted. Neuro: No deficits noted. Cardiovascular: No deficits noted. Respiratory: No deficits noted. GI: No signs and/or symptoms were reported involving the gastrointestinal system. : No signs and/or symptoms were reported regarding the genitourinary system. Derm: No deficits noted. Musculoskeletal: No deficits noted. Historical: - Allergies: 11:57 Prednisone; bp 11:57 TETRACYCLINES; bp - PMHx: 11:57 cirrhosis of liver; Dementia; HepB; Hypertensive disorder; NIDDM; Pancreatitis; Bipolar bp disorder; - PSHx: 11:57 eye sx; bp - Immunization history:: Adult Immunizations unknown. - Social history:: Smoking status: Patient reports the use of cigarette tobacco products, unknown amount. - Family history:: not pertinent. Screenin:00 Abuse screen: Denies threats or abuse. Denies injuries from another. Nutritional bp screening: No deficits noted. Tuberculosis screening: No symptoms or risk factors identified. Fall Risk None identified. Assessment: 12:00 General: SEE TRIAGE NOTE. bp 12:38 Reassessment: PT STATES HE DOES NOT WANT TO SPEAK TO DOCTOR, BUT DOES WANT THE RAG GRADER bp AND TO BE MOVED TO A ROOM WITH A TV. 13:34 Reassessment: No changes from previously documented assessment. Patient and/or family bp updated on plan of care and expected duration. Pain level reassessed. 14:34 Reassessment: No changes from previously documented assessment. Patient and/or family bp updated on plan of care and expected duration. Pain level reassessed. 16:56 Reassessment: REPORT TO JENNIFER MONTAGUE FOR [facility] RM 902. bp 18:46 Reassessment: PT LEFT AMA. BECAME AGITATED WITH STAFF AND EMS WHEN INFORMED HE WAS NPO bp 2/2 HYPERGLYCEMIA. PT REORIENTED TO HEALTH CARE BY MD AND STAFF BUT REMAINED AGITATED, INSISTING ON SANDWICHES (MULTIPLE) TO COOPERATE WITH TRANSFER AND FURTHER TREATMENT. PT LEFT AMA, REFUSING TO SIGN FORM. Vital Signs: 11:55 BP 112 / 76; Pulse 98; Resp 16; Temp 97; Pulse Ox 98% ; bp 13:34 BP 124 / 81; Pulse 82; Resp 16; Pulse Ox 99% ; bp 14:34 BP 141 / 97; Pulse 82; Resp 16; Pulse Ox 100% ; bp NIH Stroke Scale Scores: 18:26 NIHSS Score: 0 gail ED Course: 11:55 Patient arrived in ED. bp 11:57 Triage completed. bp 12:00 Arm band placed on. bp 12:00 Patient has correct armband on for positive identification. Bed in low position. Call bp light in reach. Side rails up X2. 12:04 Cole Esparza, RN is Primary Nurse. bp 12:10 James Uriarte MD is Attending Physician. gail 12:56 CT Head Brain wo Cont In Process Unspecified. EDMS 13:11 XRAY Chest (1 view) In Process Unspecified. EDMS 13:30 Inserted saline lock: 20 gauge in left forearm, using aseptic technique. Blood bp collected. 14:41 EKG done, by ED staff, reviewed by James Uirarte MD. 3 15:10 Jesus Becerra MD is Hospitalizing Provider. gail 18:48 No provider procedures requiring assistance completed. IV discontinued, intact, bp bleeding controlled, No redness/swelling at site. Pressure dressing applied. Administered Medications: 13:30 Drug: NS 0.9% 1000 ml Route: IV; Rate: 1 bolus; Site: left forearm; bp 15:50 Follow up: IV Status: Completed infusion; IV Intake: 1000ml bp 13:30 Drug: Thiamine 100 mg Route: IV; Rate: bolus; Site: left forearm; bp 15:50 Follow up: IV Status: Completed infusion bp 15:30 Drug: NS 0.9% 1000 ml Route: IV; Rate: 1 bolus; Site: left forearm; bp 18:49 Follow up: IV Status: Completed infusion; IV Intake: 1000ml bp 15:30 Drug: Insulin Regular Human 10 units {Co-Signature: ph (Amy Villareal RN).} Route: IVP; bp Site: left forearm; 18:51 Follow up: Response: No adverse reaction bp 15:30 Drug: Pepcid (famotidine) 20 mg Route: IVP; Site: left forearm; bp 18:51 Follow up: Response: No adverse reaction bp 15:30 Drug: Lactulose 60 grams Volume: 45 ml; Route: PO; bp 18:49 Follow up: Response: No adverse reaction bp Medication: 12:00 VIS not applicable for this client. bp Intake: 15:50 IV: 1000ml; Total: 1000ml. bp 18:49 IV: 1000ml; Total: 2000ml. bp Outcome: 15:14 Decision to Hospitalize by Provider. gail 15:54 ER care complete, transfer ordered by . gail 18:48 AMA Left before signing form. bp 18:48 Condition: stable 18:48 Instructed on the need for transfer. 18:52 Patient left the ED. bp NIH Stroke Scale - NIH Stroke Score Date: 06/26/2022 Time: 18:26 Total Score = 0 1a. Level of Consciousness (LOC) - 0(Alert) 1b. Level of Consciousness (LOC) (Month \T\ Age) - 0(Both) 1c. LOC Commands (Open \T\ Closes Eyes/Balloon Tester) - 0(Both) 2. Best Gaze (Lateral Gaze Paresis) - 0(Normal) 3. Visual Field Loss - 0(No visual loss) 4. Facial Palsy - 0(Normal) 5a. Left Arm: Motor (10-second hold) - 0(No drift) 5b. Right Arm: Motor (10-second hold) - 0(No drift) 6a. Left Leg: Motor (5-second hold - always test supine) - 0(No drift) 6b. Right Leg: Motor (5-second hold - always test supine) - 0(No drift) 7. Limb Ataxia (finger/nose \T\ heel/peters - test with eyes open) - 0(Absent) 8. Sensory Loss (pinprick arms/legs/face) - 0(Normal) 9. Best Language: Aphasia (description/naming/reading) - 0(No aphasia) 10. Dysarthria (speech clarity - read or repeat words) - 0(Normal) 11. Extinction and Inattention (visual/tactile/auditory/spatial/personal) - 0(No abnormality) Initials: gail Signatures: Dispatcher [employer] James Santacruz MD MD cha Herrera, [facility] Cole Esparza, RN RN bp Amy Villareal RN ph
--- NOTE | 2022-06-26 15:14 | EDPHYS ---
Physician Documentation [facility] Name: Amador Cosme Age: 56 yrs Sex: Male : 1965 Arrival Date: 06/26/2022 Time: 11:55 Bed 2 Private MD: ED Physician James Uriarte HPI: 06/26 13:54 This 56 yrs old Male presents to ER via EMS with complaints of General gail Weakness. 13:54 weak, and confused. The patient presents with confusion, trouble concentrating. Onset: gail The symptoms/episode began/occurred 2 day(s) ago. Possible causes: CVA or TIA, drug use, alcohol, head injury, low blood sugar, seizure, sepsis. Associated signs and symptoms: Pertinent positives: confusion, headache, lightheadedness. Patient's baseline: Neuro: alert and fully oriented. Severity of symptoms: At their worst the symptoms were mild yesterday, in the emergency department the symptoms are unchanged. The patient has experienced similar episodes in the past, several times. Historical: - Allergies: 11:57 Prednisone; bp 11:57 TETRACYCLINES; bp - PMHx: 11:57 cirrhosis of liver; Dementia; HepB; Hypertensive disorder; NIDDM; Pancreatitis; Bipolar bp disorder; - PSHx: 11:57 eye sx; bp - Immunization history:: Adult Immunizations unknown. - Social history:: Smoking status: Patient reports the use of cigarette tobacco products, unknown amount. - Family history:: not pertinent. ROS: 13:54 Constitutional: Negative for fever, chills, and weight loss, Eyes: Negative for injury, gail pain, redness, and discharge, ENT: Negative for injury, pain, and discharge, Neck: Negative for injury, pain, and swelling, Cardiovascular: Negative for chest pain, palpitations, and edema, Respiratory: Negative for shortness of breath, cough, wheezing, and pleuritic chest pain, Abdomen/GI: Negative for abdominal pain, nausea, vomiting, diarrhea, and constipation, Back: Negative for injury and pain, : Negative for injury, bleeding, discharge, and swelling, MS/Extremity: Negative for injury and deformity, Skin: Negative for injury, rash, and discoloration, Psych: Negative for depression, anxiety, suicide ideation, homicidal ideation, and hallucinations, Allergy/Immunology: Negative for hives, rash, and allergies, Endocrine: Negative for neck swelling, polydipsia, polyuria, polyphagia, and marked weight changes, Hematologic/Lymphatic: Negative for swollen nodes, abnormal bleeding, and unusual bruising. 13:54 Neuro: Positive for altered mental status, dizziness, weakness. Exam: 13:54 Constitutional: This is a well developed, well nourished patient who is awake, alert, gail and in no acute distress. Head/Face: Normocephalic, atraumatic. Eyes: Pupils equal round and reactive to light, extra-ocular motions intact. Lids and lashes normal. Conjunctiva and sclera are non-icteric and not injected. Cornea within normal limits. Periorbital areas with no swelling, redness, or edema. ENT: Nares patent. No nasal discharge, no septal abnormalities noted. Tympanic membranes are normal and external auditory canals are clear. Oropharynx with no redness, swelling, or masses, exudates, or evidence of obstruction, uvula midline. Mucous membranes moist. Neck: Trachea midline, no thyromegaly or masses palpated, and no cervical lymphadenopathy. Supple, full range of motion without nuchal rigidity, or vertebral point tenderness. No Meningismus. Chest/axilla: Normal chest wall appearance and motion. Nontender with no deformity. No lesions are appreciated. Cardiovascular: Regular rate and rhythm with a normal S1 and S2. No gallops, murmurs, or rubs. Normal PMI, no JVD. No pulse deficits. Respiratory: Lungs have equal breath sounds bilaterally, clear to auscultation and percussion. No rales, rhonchi or wheezes noted. No increased work of breathing, no retractions or nasal flaring. Abdomen/GI: Soft, non-tender, with normal bowel sounds. No distension or tympany. No guarding or rebound. No evidence of tenderness throughout. Back: No spinal tenderness. No costovertebral tenderness. Full range of motion. Male : Normal genitalia with no discharge or lesions. Skin: Warm, dry with normal turgor. Normal color with no rashes, no lesions, and no evidence of cellulitis. MS/ Extremity: Pulses equal, no cyanosis. Neurovascular intact. Full, normal range of motion. Psych: Awake, alert, with orientation to person, place and time. Behavior, mood, and affect are within normal limits. 13:54 Neuro: Orientation: to person, place, Not oriented to time, situation, Mentation: slow to respond, Memory: Gait: not tested. 15:15 ECG was reviewed by the Attending Physician. gail Vital Signs: 11:55 BP 112 / 76; Pulse 98; Resp 16; Temp 97; Pulse Ox 98% ; bp 13:34 BP 124 / 81; Pulse 82; Resp 16; Pulse Ox 99% ; bp 14:34 BP 141 / 97; Pulse 82; Resp 16; Pulse Ox 100% ; bp NIH Stroke Scale Scores: 18:26 NIHSS Score: 0 gail MDM: 12:12 Patient medically screened. gail 13:58 Differential Diagnosis altered mental status. Differential Diagnosis: CVA, electrolyte gail abnormality, alcohol intoxication, hypoglycemia, intracranial bleed, meningitis, overdose, seizure, sepsis, TIA, UTI, volume depletion. Data reviewed: vital signs, nurses notes, lab test result(s), EKG, radiologic studies, CT scan. Data interpreted: playground monitor: rate is 82 beats/min, rhythm is regular, Pulse oximetry: on room air is 82 %. Test interpretation: by ED physician or midlevel provider: ECG. Counseling: I had a detailed discussion with the patient and/or guardian regarding: the historical points, exam findings, and any diagnostic results supporting the discharge/admit diagnosis, lab results, radiology results. 18:27 ED course: pt refuses transfer , admission, want to go home and follow up, even if it gail results in his . 06/26 12:41 Order name: Basic Metabolic Panel; Complete Time: 15:08 [facility] 06/26 12:41 Order name: CBC with Diff [facility] 06/26 12:41 Order name: LFT's; Complete Time: 15:08 [facility] 06/26 12:41 Order name: Magnesium; Complete Time: 15:08 [facility] 06/26 12:41 Order name: NT PRO-BNP; Complete Time: 15:08 [facility] 06/26 12:41 Order name: PT-INR; Complete Time: 13:53 gail 06/26 12:41 Order name: Troponin HS; Complete Time: 15:08 gail 06/26 12:41 Order name: AMMONIA; Complete Time: 14:26 [facility] 06/26 12:41 Order name: Acetaminophen; Complete Time: 15:08 [facility] 06/26 12:41 Order name: ETOH Level; Complete Time: 14:26 [facility] 06/26 12:41 Order name: Ptt, Activated; Complete Time: 13:53 [facility] 06/26 12:41 Order name: Salicylate; Complete Time: 15:08 [facility] 06/26 12:41 Order name: Urine Drug Screen; Complete Time: 13:53 [facility] 06/26 12:43 Order name: SARS RAPID; Complete Time: 14:26 [facility] 06/26 12:41 Order name: XRAY Chest (1 view); Complete Time: 13:53 [facility] 06/26 12:41 Order name: EKG; Complete Time: 12:43 [facility] 06/26 12:41 Order name: Cardiac monitoring; Complete Time: 13:30 [facility] 06/26 12:41 Order name: EKG - Nurse/Tech; Complete Time: 14:34 [facility] 06/26 12:41 Order name: IV Saline Lock; Complete Time: 13:30 [facility] 06/26 12:41 Order name: Labs collected and sent; Complete Time: 13:30 [facility] 06/26 12:41 Order name: O2 Per Protocol; Complete Time: 12:50 [facility] 06/26 12:41 Order name: CT Head Brain wo Cont; Complete Time: 13:15 [facility] 06/26 13:21 Order name: Urine Dipstick-Ancillary; Complete Time: 13:53 [facility] 06/26 12:41 Order name: O2 Sat Monitoring; Complete Time: 12:50 [facility] 06/26 12:41 Order name: Suicide Screening ([place]); Complete Time: 12:49 [facility] 06/26 12:41 Order name: Urine Dipstick-Ancillary (obtain specimen); Complete Time: 13:30 [facility] EC:15 Rate is 82 beats/min. Rhythm is regular. QRS [place] is Normal. ME interval is normal. QRS gail interval is normal. QT interval is normal. No Q waves. T waves are Normal. No ST changes noted. Clinical impression: NSR w/ Non-specific ST/T Changes and No evidence of ischemia. Interpreted by me. Reviewed by me. Administered Medications: 13:30 Drug: NS 0.9% 1000 ml Route: IV; Rate: 1 bolus; Site: left forearm; bp 15:50 Follow up: IV Status: Completed infusion; IV Intake: 1000ml bp 13:30 Drug: Thiamine 100 mg Route: IV; Rate: bolus; Site: left forearm; bp 15:50 Follow up: IV Status: Completed infusion bp 15:30 Drug: NS 0.9% 1000 ml Route: IV; Rate: 1 bolus; Site: left forearm; bp 18:49 Follow up: IV Status: Completed infusion; IV Intake: 1000ml bp 15:30 Drug: Insulin Regular Human 10 units {Co-Signature: ph (Amy Villareal RN).} Route: IVP; bp Site: left forearm; 18:51 Follow up: Response: No adverse reaction bp 15:30 Drug: Pepcid (famotidine) 20 mg Route: IVP; Site: left forearm; bp 18:51 Follow up: Response: No adverse reaction bp 15:30 Drug: Lactulose 60 grams Volume: 45 ml; Route: PO; bp 18:49 Follow up: Response: No adverse reaction bp Disposition Summary: 06/26/22 15:54 Transfer Ordered Transfer Location: [facility] gail Reason: Higher level of care gail Condition: Fair(06/26/22 15:54) gail Problem: new(06/26/22 15:54) gail Symptoms: have improved(06/26/22 15:54) gail Accepting Physician: to [facility] hepatology(06/26/22 18:52) bp Diagnosis - Alcoholic cirrhosis of liver - Hepatitis B gail - Liver cell carcinoma - LIVER MASS gail - Encephalopathy, unspecified - HEPATIC(06/26/22 15:54) gail - Neutropenia, unspecified gail - Anemia, unspecified gail - Thrombocytopenia, unspecified gail - Type 2 diabetes mellitus with hyperglycemia - UNCONTROLLED(06/26/22 15:54) gail - Altered mental status, unspecified(06/26/22 15:54) gail Forms: - Medication Reconciliation Form gail - SBAR form gail NIH Stroke Scale - NIH Stroke Score Date: 06/26/2022 Time: 18:26 Total Score = 0 1a. Level of Consciousness (LOC) - 0(Alert) 1b. Level of Consciousness (LOC) (Month \T\ Age) - 0(Both) 1c. LOC Commands (Open \T\ Closes Eyes/Janitorial Cleaner) - 0(Both) 2. Best Gaze (Lateral Gaze Paresis) - 0(Normal) 3. Visual Field Loss - 0(No visual loss) 4. Facial Palsy - 0(Normal) 5a. Left Arm: Motor (10-second hold) - 0(No drift) 5b. Right Arm: Motor (10-second hold) - 0(No drift) 6a. Left Leg: Motor (5-second hold - always test supine) - 0(No drift) 6b. Right Leg: Motor (5-second hold - always test supine) - 0(No drift) 7. Limb Ataxia (finger/nose \T\ heel/peters - test with eyes open) - 0(Absent) 8. Sensory Loss (pinprick arms/legs/face) - 0(Normal) 9. Best Language: Aphasia (description/naming/reading) - 0(No aphasia) 10. Dysarthria (speech clarity - read or repeat words) - 0(Normal) 11. Extinction and Inattention (visual/tactile/auditory/spatial/personal) - 0(No abnormality) Initials: gail Signatures: Dispatcher [employer] EDJames Bates MD MD cha Peltier, Brian RN RN bp Amy Villareal RN ph Corrections: (The following items were deleted from the chart) 15:50 15:14 Inpatient Admission gail gail 15:50 15:14 Damian Becerraammad gail gail 15:50 15:14 Telemetry/MedSurg (Inpatient) gail gail 15:50 15:14 Fair gail gail 15:50 15:14 new gail gail 15:50 15:14 have improved gail gail 15:50 15:14 Standard gail gail 15:50 15:14 gail gail 15:50 15:14 Encephalopathy, unspecified - hepatic/ alcohol / hepatitis b gail gail 15:50 15:14 Unspecified cirrhosis of liver gail gail 15:50 15:14 Type 2 diabetes mellitus with hyperglycemia gail gail 15:50 15:14 Altered mental status, unspecified gail gail 18:52 15:54 to [facility] hepatology [facility]
[2022-06-26] MEDS ORDERED: INSULIN -REGULAR HUMAN 50 UNIT/0.5 ML ML ONE (15:36)
[2022-06-26] MEDS ORDERED: FAMOTIDINE 20 MG/2 ML VIAL IV ONE (15:36)
[2022-06-26] MEDS ORDERED: LACTULOSE 20 GM/30 ML UCUP ONE (15:37)
[2022-06-26 18:53] LABS: Blood Morphology Comment NOT SEEN (NOT SEEN); Platelet Estimate DECR
[2022-06-26 21:15] VITALS: TEMP 97
[2022-06-26 21:19] VITALS: BP 141/97; O2SAT 100
--- NOTE | 2022-06-28 08:19 | EKG ---
Test Date: 2022-06-26 Test Time: 14:30:57 Instructional Systems Designer: MAYITO MEASUREMENT RESULTS: Intervals: Rate: 82 MS: 172 QRSD: 76 QT: 402 QTc: 469 [place]: P: 78 MS: 172 QRS: 71 T: 64 INTERPRETIVE STATEMENTS: Normal sinus rhythm Septal infarct, age undetermined Abnormal ECG Compared to ECG 04/22/2022 11:49:17 Prolonged QT interval no longer present Myocardial infarct finding still present Electronically Signed On 06-28-22 08:11:51 CDT by Dixon Guy
== END 2022-06-26 18:52 | disposition short-term general hospital (02) ==
LOC: ER 11:52
DX: K70.40 Alcoholic hepatic failure without coma (principal); E11.65 Type 2 diabetes mellitus with hyperglycemia; C22.0 Liver cell carcinoma; D70.9 Neutropenia, unspecified; D69.6 Thrombocytopenia, unspecified; D64.9 Anemia, unspecified; F17.210 Nicotine dependence, cigarettes, uncomplicated; I10 Essential (primary) hypertension; F03.90 Unspecified dementia, unspecified severity, without behavioral disturbance, psychotic disturbance, mood disturbance, and anxiety; Z20.822 Contact with and (suspected) exposure to COVID-19; Z88.3 Allergy status to other anti-infective agents; Z88.8 Allergy status to other drugs, medicaments and biological substances
CPT/HCPCS: 96365; 96361; 93005; 85025; 80048; 36415; 80320; 82140; 83735; 80329 ×2; 85610; 80076; 85730; 81003; 84484; 83880; 80307; 70450; 71045; 96375; 99284; 96366; 87811; J3411; J1815; J7030 ×2

== ENCOUNTER 2022-06-30 22:27 | Inpatient (IN) | payer OTHER ==
--- OUTSIDE RECORDS SUMMARY | 2022-06-30 22:29 | XMS REPORT | Continuity of Care Document ---
:1965 Author Organization [facility] t Address [address] [place] [address] Care Team Providers Name Role Phone MARICRUZ YUSUF Attending Clinician Unavailable CARLOS DONOVAN Attending Clinician Unavailable MARICRUZ YUSUF Admitting Clinician Unavailable Payers Payer Name Policy Type Policy Number Effective Date Expiration Date [facility] [id number] 2021 00:00:00 PLAN Problems This patient has no known problems. Allergies, Adverse Reactions, Alerts Allergy Allergy Status Severity Reaction(s) Onset Inactive Treating Comm ents Source Name Type Date Date Clinician PREDNISO Allergy Active Low [facility] TETRACYC Allergy Active High Swelling [facility] HYDROCOR Allergy Active High Swelling 0 [facility]ONE 6-10 00:00: 00 Medications This [...] Date/Time Type Type Clinicians Facility Department ID 2022-06-27 Inpatient ER [facility] Oncology [id number] [facility]58 [facility] 2022-04-24 2022-04-24 Emergency ER [facility] Emergency [id number] [facility] 05:12:00 05:35:00 2022-04-22 2022-04-23 Inpatient ER PARAMJIT, [facility] Gastro [id number] [facility] 17:55:00 22:00:00 [place] Results Test Description Test Time Test Comments Results Result Comments Source ANTI-MITOCHONDRIAL AB, REFLEX TO TITER 2022-05-04 12:12:43 Test Item Value Reference Range Interpretation Comme nts SCAN RESULT (test code = 2893887) HEPATITIS C PCR, [id number] 15:18:06 Test Item Value Reference Range Interpretation Comments HCV RESULT COMPONENT HCV RNA not detected HCV RNA not detected (femeninas) (test code = 2699) This test uses a Real-Time Polymerase Chain Reaction (RT-PCR) methodology and was performed using EMILY Ampliprep/EMILY TaqMan HCV test kit version 2.0 ([employer]).Reportable range for this assay is 15 - 100,000,000 IU per mL (1.18 - 8.00 Log IU/mL).ANTI-NUCLEAR ANTIBODY (TRANG)2022-04-25 11:24:48 Test Item Value Reference Range Interpretation Comments ANTI-NUCLEAR ANTIBODY (TRANG) (femeninas) Negative Negative (test code = 418) Test performed by IFA method.Test performed by IFA method.HEMOGLOBIN A1C 2022-04-24 09:24:13 Test Item Value Reference Range Interpretation Comments HEMOGLOBIN A1C 12.2 % See_Comment H [Automated m essage] ELECTROPHORESIS (femeninas) The system which (test code = 3811) generated this result transmitted ref erence range: <=5.6%. The reference range was not used to int erpret this result as normal/abnormal . "The A1c is measured using a NGSP-certified method. HbA1c value equal to or greater than 6.5% as thediagnosis cutoff for diabetes. An HbA1c value of 5.7- 6.4% indicates increased risk for diabetes (prediabetes)."Barrel Drainer ID - ADMOperator ID - ADMPOCT-GLUCOSE [id number] 19:03:02 Test Item Value Reference Range Interpretation Comments POC-GLUCOSE METER 205 mg/dL 70-110 H : TESTED A T [facility] 6720 (BEAKER) (test code [facility], = 1538) 59797: Barrel Drainer/Techni rene ID = [id number] for Lisa maxwell (contract), Audrey smith POCT-GLUCOSE [id number] 19:02:00 Test Item Value Reference Range Interpretation Comments POC-GLUCOSE METER 239 mg/dL 70-110 H : TESTED A T [facility] 6720 (BEAKER) (test code [facility], = 1538) 49714: Barrel Drainer/Techni rene ID = [id number] for Lisa maxwell (contract), Audrey smith BASIC METABOLIC [id number] 17:14:44 Test Item Value Reference Range Interpretation [...] S NOT APPLICABLE FOR DIALYSIS PATIEN TS. Barrel Drainer ID - KIMMIE AUDREY, CHEST, 1 VIEW, NON [id number] 16:46:00Reason for exam:->currentShould this be performed at the bedside?->Yes [facility] : 1965 Sex: MFINAL REPORT [...] to exclude a pulmonary nodule. Signed: Mayela Noguera MDRort Verified Date/Time: 04/23/2022 16:46:33 Reading Location: [facility] C013X Ortho Consult Reading Room POCT-GLUCOSE [id number] 16:17:08 Test Item Value Reference Range Interpretation Comments POC-GLUCOSE METER 229 mg/dL 70-110 H : TESTED A T [facility] 6720 (BEAKER) (test code [facility], = 1538) 29050: Barrel Drainer/Techni rene ID = [id number] for Lisa maxwell (contract)Audrey SARS-COV2/RT-PCR ([facility])2022-04-23 16:03:49 Test Item Value Reference Range Interpretation Comments SARS-COV2/RT-PCR (test Negative Not Detected, Negative, code = 8350541) See external report for linked test SARS-COV-2 PERFORMING LAB [facility] LUANA (test code = 6660684) Negative result for this test determines that [...] of the Act.Fact Sheet for Healthcare Prov iders:https://www.[employer]/sites/default/files/product/documents/Fact_Sheet_HC _Bzprcuamx_Zcoz_FWMY-HpI-8.pdfFact Sheet for Healthcare Patients:https://www.StarGen.[employer]ment[employer]/sites/default/files/product/docume nts/Jlvv_Mqvgj_Sfjytnde_Thvb_ADYM-CuN-2.pdfPerforming Laboratory:[facility], [place] [address]ARGM-CFWZAEH METER 2022-04-23 15:21:20 Test Item Value Reference Range Interpretation Comments POC-GLUCOSE METER 238 mg/dL 70-110 H : TESTED Rodríguez Licea [facility] 6720 (SHANTEL) (test code = VICTORINO Salas [facility], 1538) 75319: Barrel Drainer/Techni rene ID = [id number] for Charly debbieRoma POCT-GLUCOSE [id number] 14:14:42 Test Item Value Reference Range Interpretation Comments POC-GLUCOSE METER 276 mg/dL 70-110 H : TESTED A T [facility] 6720 (BEAKER) (test code [facility], = 1538) 63510: Barrel Drainer/Techni rene ID = [id number] for Lisa maxwell (contract), Audrey ka POCT-GLUCOSE [id number] 14:13:31 Test Item Value Reference Range Interpretation Comments POC-GLUCOSE METER 319 mg/dL 70-110 H : TESTED A T [facility] 6720 (BEAKER) (test code [facility], = 1538) 42231: Barrel Drainer/Techni rene ID = [id number] for Lisa maxwell (contract), Nne ka KETONE, [id number] 14:05:33 Test Item Value Reference Range Interpretation Comments KETONES, BLOOD (BEAKER) (test code 0.1 mmol/L <0.4 = 1103) BASIC METABOLIC [id number] 13:08:55 Test Item Value Reference Range Interpretation [...] S NOT APPLICABLE FOR DIALYSIS PATIEN TS. Barrel Drainer ID - KIMMIE MBLOOD GAS, [id number] 12:52:05 Test Item Value Reference Range Interpretation [...] (BEAKER) (test code = 1819) 21.0 POCT-GLUCOSE [id number] 11:48:15 Test Item Value Reference Range Interpretation Comments POC-GLUCOSE METER 453 mg/dL 70-110 HH : TESTED A T [facility] 6720 (BEAKER) (test code [facility], = 1538) 53391: Barrel Drainer/Techni rene ID = [id number] for Lisa maxwell (contract) Silveriodominik smith [id number] 11:45:13 Test Item Value Reference Range Interpretation Comments LIPASE (BEAKER) (test code = 749) 90 U/L 8-78 H Barrel Drainer ID - KIMMIE MSpecimen slightly ictericPOCT-GLUCOSE [id number] 11:24:33 Test Item Value Reference Range Interpretation Comments POC-GLUCOSE METER > mg/dL 70-110 HH : TESTED A T [facility] 6720 (BEAKER) (test code = [facility], 1538) 04615: Barrel Drainer/Techni rene ID = [id number] for SUGEY HAMILTON [id number] 10:10:35 Test Item Value Reference Range Interpretation Comments FERRITIN (BEAKER) (test code = 221.72 ng/mL 5.00-275.00 361) Barrel Drainer ID - KIMMIE MHEPATITIS PANEL, [id number] 09:38:02 Test Item Value Reference Range Interpretation Comments HEPATITIS A IGM ANTIBODY (BEAKER) Nonreactive Nonreactive (test code = 498) HEPATITIS B CORE IGM ANTIBODY Nonreactive Nonreactive (BEAKER) (test code = 645) HEPATITIS C ANTIBODY (BEAKER) Reactive Nonreactive A (test code = 367) HEPATITIS B SURFACE ANTIGEN (2) Nonreactive Nonreactive (BEAKER) (test code = 2585) Barrel Drainer ID - KIMMIE MCOMPREHENSIVE METABOLIC [id number] 09:30:16 Test Item Value Reference Range Interpretation [...] S NOT APPLICABLE FOR DIALYSIS PATIEN TS. Barrel Drainer ID - KIMMIE MSpecimen slightly ictericSpecimen markedly lipemicALPHA FETOPROTEIN (AFP), TUMOR [id number] 09:24:32 Test Item Value Reference Range Interpretation Comments ALPHA-FETOPROTEIN (BEAKER) (test code < ng/mL <10.0 = 1094) Barrel Drainer ID - KIMMIE MIMMUNOGLOBULIN G (IGG)2022-04-23 08:27:58 Test Item Value Reference Range Interpretation Comments IMMUNOGLOBULIN G (IGG) 1108 mg/dL See_Comment [Aut omated message] (BEAKER) (test code = The sy stem which 427) generated this result transmit solis reference range : 540-1,822. The reference range was not used to interpret this result as normal/abnormal . Barrel Drainer ID - KIMMIE ARELY, TIBC, % SAT. (WITHOUT FERRITIN)2022-04-23 08:27:58 Test Item Value Reference Range Interpretation Comments IRON (BEAKER) (test code = 547) 91.0 ug/dL 40.0-160.0 TOTAL IRON BINDING CAPACITY 199 ug/dL 250-450 L (BEAKER) (test code = 769) IRON % SATURATION (2) (BEAKER) 46 % 20-55 (test code = 2590) Barrel Drainer ID - KIMMIE [id number] 08:17:19 Test Item Value Reference Range Interpretation Comments PHOSPHORUS (BEAKER) 2.3 mg/dL 2.3-4.7 Specimen moderately (test code = 604) hemolyzed Barrel Drainer ID - KIMMIE [id number] 08:17:18 Test Item Value Reference Range Interpretation Comments MAGNESIUM (BEAKER) 1.9 mg/dL 1.6-2.6 Specimen moderately (test code = 627) hemolyzed Barrel Drainer ID - KIMMIE MPOCT-GLUCOSE [id number] 07:56:59 Test Item Value Reference Range Interpretation Comments POC-GLUCOSE METER > mg/dL 70-110 HH : Notified RN/MD: TESTED (BEAKER) (test code = AT [facility] [address] [facility] 6938) [facility], 770 30: Barrel Drainer/Techni rene ID = [id number] for Guanaco Ingram PT/[id number] 06:48:40 Test Item Value Reference Range Interpretation [...] mechanical heart valves.CBC W/PLT COUNT & AUTO [id number] 06:38:31 Test Item Value Reference Range Interpretation [...] PERCENT (BEAKER) (test code = 2801) POCT-GLUCOSE [id number] 02:35:08 Test Item Value Reference Range Interpretation Comments POC-GLUCOSE METER > mg/dL 70-110 HH : Notified RN/MD: TESTED (BEAKER) (test code = AT [facility] [address] 1538) [facility], [facility] 30: Barrel Drainer/Techni rene ID = [id number] for Gisell Botello
[2022-06-30] MEDS ORDERED: ONDANSETRON 4 MG/2 ML VIAL ONE (22:49)
[2022-06-30] MEDS ORDERED: NA CHLORIDE 0.9% 1,000 ML ONE (22:49)
[2022-06-30] MEDS ORDERED: MORPHINE 4 MG/ML SYR ONE (23:28)
[2022-06-30 23:34] LABS: Absolute Lymphocytes (CBC) 0.9 K/uL (0.7-4.9); Hematocrit 35.1 % (39.6-49.0)
[2022-06-30 23:35] LABS: Protime INR 1.22
[2022-06-30 23:37] LABS: Lymphocytes % 24.1 % (15.3-44.8); MCV 101.4 fL (80-100); MPV 7.3 fL (7.6-11.3); RBC Red Blood Cell Count 3.46 M/uL (4.33-5.43)
[2022-06-30 23:44] LABS: Albumin 2.3 g/dL (3.4-5.0)
[2022-07-01] MEDS ORDERED: NA CHLORIDE 0.9% 1,000 ML ONE ×2 (00:10→03:00)
[2022-07-01 00:17] LABS: Arterial Blood Carboxyhemoglob 4.3 % (0-1.5); Blood Gas Oxyhemoglobin 90.3 % (94-97); Blood O2 Saturation 96.1 % (92-98.5)
[2022-07-01 00:18] LABS: Potassium 4.6 mmol/L (3.5-5.1); Protein, Total 6.1 g/dL (6.4-8.2)
--- NOTE | 2022-07-01 00:43 | ER ---
Nurse's Notes [facility] Name: Amador Cosme Age: 56 yrs Sex: Male : 1965 Arrival Date: 06/30/2022 Time: 22:29 Bed 5 Private MD: Diagnosis: Diabetes mellitus due to underlying condition with ketoacidosis without coma;Abdominal pain, Generalized Presentation: 06/30 22:20 Chief complaint: EMS states: called out for abdominal pain. pt has history of as6 pancreatic cancer. Coronavirus screen: At this time, the client does not indicate any symptoms associated with coronavirus-19. Ebola Screen: No symptoms or risks identified at this time. Initial Sepsis Screen: Does the patient meet any 2 criteria? No. Patient's initial sepsis screen is negative. Does the patient have a suspected source of infection? No. Patient's initial sepsis screen is negative. Risk Assessment: Do you want to hurt yourself or someone else? Patient reports no desire to harm self or others. Onset of symptoms was June 29, 2022. 22:20 Method Of Arrival: EMS: [facility] as6 22:20 Acuity: DAO 3 as6 Historical: - Allergies: 22:39 Prednisone; as6 22:39 TETRACYCLINES; as6 - PMHx: 22:39 Bipolar disorder; cirrhosis of liver; Dementia; HepB; Hypertensive disorder; NIDDM; as6 Pancreatitis; - PSHx: 22:39 eye sx; back; as6 - Immunization history:: Client reports having NOT received the Covid vaccine. - Social history:: Smoking status: Patient reports the use of cigarette tobacco products, smokes one-half pack cigarettes per day. Screenin:40 Abuse screen: Denies threats or abuse. Denies injuries from another. Nutritional as6 screening: No deficits noted. Tuberculosis screening: No symptoms or risk factors identified. Fall Risk None identified. Assessment: 22:30 General: Appears uncomfortable, ill, slender, Behavior is cooperative, restless. Pain: as6 Complains of pain in abdomen Pain currently is 10 out of 10 on a pain scale. Neuro: Level of Consciousness is awake, alert. Respiratory: Respiratory effort is even, unlabored. GI: Reports lower abdominal pain, upper abdominal pain, nausea. 23:20 General: Appears uncomfortable, Behavior is calm, cooperative. Neuro: Level of as6 Consciousness is awake, alert, obeys commands, Oriented to person, place, time, situation. Respiratory: Airway is patent Trachea midline Respiratory effort is even, unlabored. : Urine is clear. 07/01 00:23 Reassessment: Patient appears in no apparent distress at this time. No changes from as6 previously documented assessment. Patient and/or family updated on plan of care and expected duration. Pain level reassessed. Patient is alert, oriented x 3, equal unlabored respirations, skin warm/dry/pink. 01:30 Cardiovascular: Patient's skin is warm and dry. as6 01:30 Reassessment: Patient appears in no apparent distress at this time. No changes from as6 previously documented assessment. Patient and/or family updated on plan of care and expected duration. Pain level reassessed. Patient is alert, oriented x 3, equal unlabored respirations, skin warm/dry/pink. 02:45 Reassessment: No changes from previously documented assessment. Patient and/or family as6 updated on plan of care and expected duration. Pain level reassessed. Patient is alert, oriented x 3, equal unlabored respirations, skin warm/dry/pink. 03:27 Reassessment: Patient appears in no apparent distress at this time. No changes from as6 previously documented assessment. Patient and/or family updated on plan of care and expected duration. Pain level reassessed. Patient is alert, oriented x 3, equal unlabored respirations, skin warm/dry/pink. Reassessment: Pt started on insulin drip. Pt updated on NPO status and hourly finger sticks Patient denies pain at this time. Vital Signs: 06/30 22:20 BP 133 / 82; Pulse 85; Resp 18 S; Temp 98.1(O); Pulse Ox 100% on R/A; Weight 63.5 kg as6 (R); Height 5 ft. 6 in. (167.64 cm) (R); Pain 10/10; 22:33 BP 133 / 83; Pulse 81; as6 23:26 BP 123 / 78; Pulse 79; Resp 16 S; Pulse Ox 100% on R/A; aa9 07/01 03:32 BP 133 / 83; Pulse 74; Resp 19; Pulse Ox 100% on R/A; as6 06/30 22:20 Body Mass Index 22.60 (63.50 kg, 167.64 cm) as6 ED Course: 06/30 22:29 Patient arrived in ED. aa9 22:36 [facility] kb 22:36 Cristian Bateman MD is Attending Physician. kb 22:36 Anil Teran, CLARI is Primary Nurse. as6 22:39 Triage completed. as6 22:40 Arm band placed on. as6 22:47 Bed in low position. Call light in reach. Side rails up X2. as6 23:06 Missed attempt(s): 20 gauge in left forearm. aa9 23:06 Missed attempt(s): 20 gauge in right wrist. aa9 23:10 Inserted saline lock: 20 gauge in left antecubital area, using aseptic technique. Blood as6 collected. 23:17 Acetone, Serum Sent. as6 23:17 AMMONIA Sent. as6 23:17 Ptt, Activated Sent. as6 23:17 PT-INR Sent. as6 23:17 CBC with Diff Sent. as6 23:17 CMP Sent. as6 23:17 Lipase Sent. as6 07/01 00:42 Jesus Bateman MD is Hospitalizing Provider. kb 01:39 Abdomen In Process Unspecified. EDMS 03:28 No provider procedures requiring assistance completed. Inserted saline lock: 22 gauge as6 in left upper arm, using aseptic technique. Blood collected. Patient maintains SpO2 saturation greater than 95% on room air. Recheck. 03:31 Patient admitted, IV remains in place. as6 Administered Medications: 06/30 23:23 Drug: NS 0.9% 1000 ml Route: IV; Rate: 1 bolus; Site: left antecubital; as07/01 03:35 Follow up: Response: No adverse reaction; IV Status: Infusion continued as6 06/30 23:23 Drug: Zofran (Ondansetron) 4 mg Route: IVP; Site: left antecubital; 07/01 03:35 Follow up: Response: No adverse reaction as6 06/30 23:23 Drug: morphine 4 mg Route: IVP; Infused Over: 4 mins; Site: left antecubital; 07/01 03:35 Follow up: Response: No adverse reaction; Pain is decreased as6 00:04 Drug: NS 0.9% 1000 ml Route: IV; Rate: 1000 ml; Site: left antecubital; aa9 03:34 Follow up: Response: No adverse reaction; IV Status: Completed infusion as6 00:46 Drug: Insulin Regular Human 10 units {Co-Signature: as6 (Anil Teran RN).} Route: aa9 IVP; Site: left antecubital; 03:34 Follow up: Response: No adverse reaction as6 00:47 Drug: Lactulose 10 grams Volume: 15 ml; Route: PO; aa9 03:34 Follow up: Response: No adverse reaction as6 03:19 Drug: Insulin Drip - (Insulin Regular Human 100 units, NS 0.9% 100 ml) {Co-Signature: ha1 as6 (Anil Teran RN).} Route: IV; Rate: calculated rate; Site: left upper arm; 03:34 Follow up: IV Status: Infusion continued as6 03:21 Drug: NS 0.9% 1000 ml Route: IV; Rate: 125 ml/hr; Site: left upper arm; ha1 03:33 Follow up: IV Status: Infusion continued as6 Medication: 03:27 VIS not applicable for this client. as6 Outcome: 00:42 Decision to Hospitalize by Provider. kb 03:29 Condition: stable as6 03:31 Admitted to ER Hold. Please see [facility] for further documentation. as6 03:31 Condition: stable 03:31 Discharge instructions given to patient, Instructed on the need for admit, Demonstrated understanding of instructions. 18:09 Patient left the ED. ld1 Signatures: Dispatcher [employer] EDAdriana Shepard, JESSICA-C JESSICA-Allyn Sauceda RN RN ld1 Anil Teran RN RN as6 Iram Mitchell, RN RN aa9 Pamela Mackey RN RN ha1 Anil Teran RN as6
--- NOTE | 2022-07-01 00:43 | EDPHYS ---
Physician Documentation [facility] Name: Amador Cosme Age: 56 yrs Sex: Male : 1965 Arrival Date: 06/30/2022 Time: :29 Bed 5 Private MD: ED Physician Cristian Bateamn HPI: 06/30 23:16 This 56 yrs old Male presents to ER via EMS with complaints of abd pain. kb 23:16 The patient presents with abdominal pain that is diffuse. Onset: The symptoms/episode kb began/occurred 4 day(s) ago. The symptoms do not radiate. Associated signs and symptoms: Pertinent positives: decreased appetite. The symptoms are described as constant. Modifying factors: The symptoms are alleviated by nothing, the symptoms are aggravated by nothing. Severity of pain: At its worst the pain was moderate in the emergency department the pain is unchanged. The patient has not experienced similar symptoms in the past. The patient has been recently seen by a physician:. Historical: - Allergies: 22:39 Prednisone; as6 22:39 TETRACYCLINES; as6 - PMHx: 22:39 Bipolar disorder; cirrhosis of liver; Dementia; HepB; Hypertensive disorder; NIDDM; as6 Pancreatitis; - PSHx: 22:39 eye sx; back; as6 - Immunization history:: Client reports having NOT received the Covid vaccine. - Social history:: Smoking status: Patient reports the use of cigarette tobacco products, smokes one-half pack cigarettes per day. ROS: 23:15 Respiratory: Negative for shortness of breath, cough, wheezing, and pleuritic chest kb pain. 23:15 Constitutional: Positive for poor PO intake, Negative for body aches, chills, fatigue, fever, malaise. 23:15 Abdomen/GI: Positive for abdominal pain, Negative for nausea, vomiting, and diarrhea. 23:15 All other systems are negative. Exam: 23:16 Constitutional: This is a well developed, well nourished patient who is awake, alert, kb and in no acute distress. Head/Face: Normocephalic, atraumatic. ENT: Moist Mucous membranes Cardiovascular: Regular rate and rhythm with a normal S1 and S2. No gallops, murmurs, or rubs. No pulse deficits. Respiratory: Respirations even and unlabored. No increased work of breathing. Talking in full sentences Skin: Warm, dry with normal turgor. Normal color. MS/ Extremity: Pulses equal, no cyanosis. Neurovascular intact. Full, normal range of motion. Neuro: Awake and alert, GCS 15, oriented to person, place, time, and situation. Moves all extremities. Normal gait. Psych: Awake, alert, with orientation to person, place and time. Behavior, mood, and affect are within normal limits. 23:16 Abdomen/GI: Inspection: abdomen appears normal, Bowel sounds: normal, Palpation: soft, in all quadrants, moderate abdominal tenderness, in all quadrants. Vital Signs: 22:20 BP 133 / 82; Pulse 85; Resp 18 S; Temp 98.1(O); Pulse Ox 100% on R/A; Weight 63.5 kg as6 (R); Height 5 ft. 6 in. (167.64 cm) (R); Pain 10/10; 22:33 BP 133 / 83; Pulse 81; as6 23:26 BP 123 / 78; Pulse 79; Resp 16 S; Pulse Ox 100% on R/A; aa9 07/01 03:32 BP 133 / 83; Pulse 74; Resp 19; Pulse Ox 100% on R/A; as6 06/30 22:20 Body Mass Index 22.60 (63.50 kg, 167.64 cm) as6 MDM: 06/30 22:36 Patient medically screened. kb 23:16 Data reviewed: vital signs, nurses notes. Data interpreted: Pulse oximetry: on room air kb is 100 %. Interpretation: normal. 07/01 00:41 Counseling: I had a detailed discussion with the patient and/or guardian regarding: the kb historical points, exam findings, and any diagnostic results supporting the discharge/admit diagnosis, lab results, radiology results, the need for further work-up and treatment in the hospital. Physician consultation: Héctor PENA was contacted at 00:41, regarding admission, to the telemetry unit. and will see patient in ED. 06/30 22:37 Order name: CBC with Diff; Complete Time: 23:40 kb 06/30 22:37 Order name: CMP; Complete Time: 00:22 kb 06/30 22:37 Order name: Lipase; Complete Time: 00:22 kb 06/30 22:55 Order name: Glucose, Ancillary Testing; Complete Time: 22:58 EDMS 06/30 22:58 Order name: PT-INR; Complete Time: 23:40 kb 06/30 22:58 Order name: Ptt, Activated; Complete Time: 23:40 kb 06/30 22:58 Order name: AMMONIA; Complete Time: 23:48 kb 06/30 23:01 Order name: Acetone, Serum; Complete Time: 23:40 kb 06/30 23:51 Order name: ABG; Complete Time: 00:22 kb 07/01 00:24 Order name: SARS RAPID; Complete Time: 01:19 kb 07/01 01:38 Order name: BMP; Complete Time: 02:34 la1 07/01 01:42 Order name: Glucose, Ancillary Testing; Complete Time: 02:14 EDMS 07/01 03:30 Order name: Glucose, Ancillary Testing; Complete Time: 05:23 EDMS 07/01 04:19 Order name: Glucose, Ancillary Testing; Complete Time: 05:23 EDMS 07/01 04:27 Order name: Urinalysis; Complete Time: 05:23 EDMS 07/01 05:19 Order name: Glucose, Ancillary Testing; Complete Time: 05:23 EDMS 07/01 06:03 Order name: Ammonia; Complete Time: 14:57 EDMS 07/01 06:03 Order name: Basic Metabolic Panel; Complete Time: 14:57 EDMS 07/01 06:03 Order name: Phosphorus; Complete Time: 14:57 EDMS 07/01 06:03 Order name: Lipid Profile; Complete Time: 14:57 EDMS 07/01 06:03 Order name: Magnesium; Complete Time: 14:57 EDMS 07/01 06:14 Order name: LDL, Direct; Complete Time: 14:57 EDMS 07/01 06:21 Order name: Hemoglobin A1c; Complete Time: 14:57 EDMS 07/01 06:21 Order name: Glucose, Ancillary Testing; Complete Time: 14:57 EDMS 07/01 07:41 Order name: Glucose, Ancillary Testing; Complete Time: 14:57 EDMS 07/01 09:06 Order name: Glucose, Ancillary Testing; Complete Time: 14:57 EDMS 07/01 10:41 Order name: Glucose, Ancillary Testing; Complete Time: 14:57 EDMS 07/01 12:08 Order name: Basic Metabolic Panel; Complete Time: 14:57 EDMS 07/01 12:10 Order name: Glucose, Ancillary Testing; Complete Time: 14:57 EDMS 07/01 13:40 Order name: Glucose, Ancillary Testing; Complete Time: 14:57 EDMS 06/30 22:37 Order name: IV Saline Lock; Complete Time: 23:17 kb 06/30 22:37 Order name: Labs collected and sent; Complete Time: 23:17 kb 07/01 01:26 Order name: Abdomen ; Complete Time: 14:57 EDMS 07/01 14:46 Order name: Glucose, Ancillary Testing; Complete Time: 14:57 EDMS 07/01 15:39 Order name: Glucose, Ancillary Testing; Complete Time: 17:27 EDMS 07/01 16:48 Order name: Basic Metabolic Panel; Complete Time: 17:27 EDMS 07/01 16:59 Order name: Glucose, Ancillary Testing; Complete Time: 17:27 EDMS Administered Medications: 06/30 23:23 Drug: NS 0.9% 1000 ml Route: IV; Rate: 1 bolus; Site: left antecubital; 07/01 03:35 Follow up: Response: No adverse reaction; IV Status: Infusion continued 06/30 23:23 Drug: Zofran (Ondansetron) 4 mg Route: IVP; Site: left antecubital; 07/01 03:35 Follow up: Response: No adverse reaction 06/30 23:23 Drug: morphine 4 mg Route: IVP; Infused Over: 4 mins; Site: left antecubital; 07/01 03:35 Follow up: Response: No adverse reaction; Pain is decreased 00:04 Drug: NS 0.9% 1000 ml Route: IV; Rate: 1000 ml; Site: left antecubital; 03:34 Follow up: Response: No adverse reaction; IV Status: Completed infusion as 00:46 Drug: Insulin Regular Human 10 units {Co-Signature: kimberly (Anil Teran RN).} Route: aa9 IVP; Site: left antecubital; 03:34 Follow up: Response: No adverse reaction as 00:47 Drug: Lactulose 10 grams Volume: 15 ml; Route: PO; aa9 03:34 Follow up: Response: No adverse reaction 03:19 Drug: Insulin Drip - (Insulin Regular Human 100 units, NS 0.9% 100 ml) {Co-Signature: ha1 as6 (Anil Teran RN).} Route: IV; Rate: calculated rate; Site: left upper arm; 03:34 Follow up: IV Status: Infusion continued as6 03:21 Drug: NS 0.9% 1000 ml Route: IV; Rate: 125 ml/hr; Site: left upper arm; ha1 03:33 Follow up: IV Status: Infusion continued as6 Disposition Summary: 07/01/22 00:42 Hospitalization Ordered Hospitalization Status: Inpatient Admission kb Provider: Jesus Bateman Condition: Stable kb Problem: new kb Symptoms: are unchanged kb Bed/Room Type: Standard kb Location: Intensive Care Unit(07/01/22 16:58) eb Room Assignment: 7-(07/01/22 16:58) eb Diagnosis - Diabetes mellitus due to underlying condition with ketoacidosis without coma kb - Abdominal pain, Generalized kb Forms: - Medication Reconciliation Form kb - SBAR form kb Addendum: 07/04/2022 06:59 Co-signature as Attending Physician, Cristian Bateman MD. r n Signatures: Dispatcher [employer] EDPR Adriana Rodgers, COSMETOLOGY EDUCATOR-C COSMETOLOGY EDUCATOR-Ckb Cristian Bateman MD MD rn Attema, Lee COSMETOLOGY EDUCATOR-C COSMETOLOGY EDUCATOR-ClaAmee Wells, RN Lexis Alvarado Ashby RN RN as6 Iram Mitchell RN RN aa9 Pamela Mackey RN RN ha1 Anil Teran RN as6 Corrections: (The following items were deleted from the chart) 07/01 01:26 00:23 Abdomen Pelvis W Con+CT.RAD.BRZ ordered. EDPR EDMS 03: 00:42 Telemetry/MedSurg (Inpatient) kb cg 03: 00:42 kb cg 16:58 03:19 [facility] ER HOLD cg eb 16:58 03:19 ERHOLD- cg eb
[2022-07-01] MEDS ORDERED: LACTULOSE 20 GM/30 ML UCUP ONE ×3 (00:49→15:27)
[2022-07-01] MEDS ORDERED: INSULIN -REGULAR HUMAN 50 UNIT/0.5 ML ML ONE ×3 (00:49→13:53)
[2022-07-01 01:06] LABS: SARS-CoV-2 Antigen Rapid Res Negative (Negative)
[2022-07-01 02:34] LABS: Potassium 4.6 mmol/L (3.5-5.1)
[2022-07-01] MEDS ORDERED: NA CHLORIDE 0.9% 100 ML ONE (03:00)
--- NOTE | 2022-07-01 03:30 | P.HP ---
Certification for Inpatient Patient admitted to: Inpatient With expected LOS: >2 Midnights Patient will require the following post-hospital care: None Practitioner: I am a practitioner with admitting privileges, knowledge of patient current condition, hospital course, and medical plan of care. Services: Services provided to patient in accordance with Admission requirements found in Title 42 Section 412.3 of the Code of Federal Regulations <Héctor Duong - Last Filed: 07/01/22 03:26> Patient History Date of Service: 07/01/22 Reason for admission: DKA History of Present Illness: 56-year-old male with history of alcoholic cirrhosis of the liver, suspected hepatocellular carcinoma, insulin-dependent diabetes, pancytopenia, portal vein thrombosis presents to the emergency department for abdominal pain and high blood sugar. He reports he has not been taking his insulin as prescribed and has been having pain in his upper abdomen. He was evaluated in the emergency department found to be in DKA, he had a CT scan without contrast performed of his abdomen which showed no evidence of acute intra-abdominal or intrapelvic pathology. Patient was started on insulin drip after receiving IV fluids in the emergency department ED provider wishes to admit for further evaluation and management of DKA. - Past Medical/Surgical History Diabetic: Yes -: Alcoholic liver cirrhosis -: Hypertension -: Diabetes mellitusinsulin-dependent -: Chronic tobacco use history -: Dementia as per records -: chronic pancreatitis -: sciatica -: bilateral rotator cuff tear (untreated) -: Eye surgery (lasix right eye) -: Previous paracentesis Psychosocial/ Personal History: Patient currently lives at home alone. - Family History Mother -: Heart disease, Hypertension - Social History Alcohol use: Yes CD- Drugs: No Caffeine use: No Place of Residence: Home <Héctor Duong - Last Filed: 07/01/22 03:26> Date of Service: 07/01/22 <Jesus Bateman - Last Filed: 07/01/22 22:52> Allergies prednisone Allergy (Verified 07/01/22 18:29) Rash Tetracyclines Allergy (Verified 07/01/22 18:29) Rash Home Medications: NK [No Home Meds] 07/01/22 Review of Systems 10-point ROS is otherwise unremarkable Gastrointestinal: Nausea, Abdominal Pain <Héctor Duong - Last Filed: 07/01/22 03:26> Physical Examination - Physical Exam General: Alert, In no apparent distress, Oriented x3 HEENT: Atraumatic, PERRLA, Mucous membr. moist/pink, EOMI, Sclerae nonicteric Neck: Supple, 2+ carotid pulse no bruit, No LAD, Without JVD or thyroid abnormality Respiratory: Clear to auscultation bilaterally, Normal air movement Cardiovascular: Regular rate/rhythm, Normal S1 S2 Capillary refill: <2 Seconds Gastrointestinal: Normal bowel sounds, No tenderness Musculoskeletal: No tenderness Integumentary: No rashes Neurological: Normal speech, Normal strength at 5/5 x4 extr, Normal tone, Normal affect - Studies Laboratory Data (last 24 hrs) 07/01/22 02:02: Sodium 137, Potassium 4.6, BUN 20 H, Creatinine 0.98, Glucose 439 H* 06/30/22 23:12: PT 13.5 H, INR 1.22, APTT 29.4 06/30/22 23:12: Sodium 138, Potassium 4.6, BUN 22 H, Creatinine 1.11, Glucose 537 H*, Total Bilirubin 1.0, AST 105 H, ALT 94 H, Alkaline Phosphatase 163 H, Lipase 192 06/30/22 23:12: WBC 3.80 L D, Hgb 13.0 L, Hct 35.1 L, Plt Count 99 L D <Héctor Duong - Last Filed: 07/01/22 03:26> - Studies Laboratory Data (last 24 hrs) 07/01/22 02:02: Sodium 137, Potassium 4.6, BUN 20 H, Creatinine 0.98, Glucose 439 H* 06/30/22 23:12: PT 13.5 H, INR 1.22, APTT 29.4 06/30/22 23:12: Sodium 138, Potassium 4.6, BUN 22 H, Creatinine 1.11, Glucose 537 H*, Total Bilirubin 1.0, AST 105 H, ALT 94 H, Alkaline Phosphatase 163 H, Lipase 192 06/30/22 23:12: WBC 3.80 L D, Hgb 13.0 L, Hct 35.1 L, Plt Count 99 L D <Jesus Bateman - Last Filed: 07/01/22 22:52> Assessment and Plan - Plan Assessment: Diabetes mellitus type 2insulin-dependent with DKA/noncompliance Alcoholic cirrhosis of the liver with suspected hepatocellular carcinoma and portal vein thrombosis Pancytopenia related to cirrhosis Plan: Diabetes mellitus type 2insulin-dependent with DKA/noncompliance: Every hour Accu-Chek, continue insulin drip with every 4 BMPs until anion gap less than 12 and sugar less than 200. N.p.o. will offer some ice chips for time being as patient is without vomiting. Obtain A1c in the morning, patient reports has been noncompliant with his insulin, has a history of noncompliance. Obtain A1c level. Alcoholic cirrhosis of the liver with suspected hepatocellular carcinoma and portal vein thrombosis: Madadmian's discriminant function score is 19.4 which is a good short-term prognosis given his alcoholic cirrhosis of the liver, meld score is 10. Patient not a good candidate for anticoagulation for the non-occulsive portal vein thrombosis noted on previous CT given his thrombocytopenia and risk for bleeding as well as his noncompliance. Continue lactulose. Counseled patient on importance of follow-up with GI/oncology/hepatology at discharge. Per chart review hospice was discussed with patient during previous visit but he elected to leave AMA. Pancytopenia related to cirrhosis: Continue as above. SCDs for DVT prophylaxis. DVT PPX: SCD Code status: Full Discharge Plan: Home Plan to discharge in: 48 Hours - Advance Directives Does patient have a Living Will: No Does patient have a Durable POA for Healthcare: No - Code Status/Comfort Care Code Status Assessed: Yes (Full code) Critical Care: No Time Spent Managing Pts Care (In Minutes): 70 <Héctor Duong - Last Filed: 07/01/22 03:26> - Plan Patient seen and examined on rounds this AM Agree with plan of care as noted above feeling better, hungry transition drip to subq once tolerating PO and glc improved. gap closed this AM <Jesus Bateman - Last Filed: 07/01/22 22:52>
[2022-07-01] MEDS ORDERED: ONDANSETRON 4 MG/2 ML VIAL IV PRN (03:47)
[2022-07-01] MEDS: NACHLORIDE 0.45% 1,000 ML IV SCH ×3 (03:47→19:47)
[2022-07-01] MEDS ORDERED: D5 0.45 NS 1,000 ML IV SCH (03:47)
[2022-07-01] MEDS: INSULIN -REGULAR HUMAN 100 UNIT in NA CHLORIDE 0.9% 100 ML IV SCH ×2 (04:00→15:33)
[2022-07-01 04:01] VITALS: BMI 22.6
[2022-07-01 04:26] LABS: Urine Bilirubin Negative (Negative); Urine Blood Negative (Negative); Urine Clarity Clear (Clear); Urine Color Yellow (Yellow); Urine Glucose 2+ (Negative); Urine Protein Negative (Negative); Urine Urobilinogen 0.2 mg/dL (0.2-1.0)
[2022-07-01] MEDS ORDERED: NACHLORIDE 0.45% 1,000 ML IV ONE ×2 (05:49→15:22)
[2022-07-01 06:02] LABS: HDL Cholesterol 25 mg/dL (40-60); Potassium 3.6 mmol/L (3.5-5.1)
[2022-07-01 06:03] LABS: Magnesium 2.1 mg/dL (1.8-2.4)
[2022-07-01 06:13] LABS: LDL, Direct 75 mg/dL (100-129)
[2022-07-01] MEDS ORDERED: D5 0.45 NS 1,000 ML IV ONE (08:26)
[2022-07-01] MEDS: LACTULOSE 20 GM/30 ML UCUP PO SCH ×3 (08:26→20:48)
[2022-07-01] MEDS: SPIRONOLACTONE 100 MG TAB PO SCH (08:37)
[2022-07-01] MEDS: INSULIN GLARGINE 100 UNIT/ML SQ SCH ×2 (08:59→21:11)
[2022-07-01] MEDS ORDERED: INSULIN GLARGINE 100 UNIT/ML SQ ONE (09:01)
--- NOTE | 2022-07-01 09:47 | RAD REPORT ---
EXAM DESCRIPTION: CT - Abdomen Pelvis Wo Contrast - 07/01/2022 6:01 am CLINICAL HISTORY: 56 years Male abd pain TECHNIQUE: Axial CT imaging of the abdomen and pelvis was performed without oral or intravenous cont rast. Sagittal and coronal reconstructed images were then performed. The CT study is performed acco rding to ALARA (as low as reasonably achievable) or ALARA/IMAGE GENTLY, with automatic adjustment of mA and/or kV according to patient size. Performed on: 07/01/2022 at 1:32 AM COMPARISON: CT abdomen and pelvis with IV contrast performed on June 20, 2022. FINDINGS: Lung bases: The lung bases are clear. Liver: The liver measures approximately 15 cm in craniocaudal dimension. The liver is nodular in cont our compatible with hepatic cirrhosis. The liver is heterogeneous in attenuation. Again demonstrated is a subcapsular mass along the lateral aspect of the right hepatic lobe (series 201, image 15 and 16 ) which is similar when compared to the prior study. Evaluation is limited without intravenous contra st. There are numerous varices in the posterior right upper quadrant. Spleen: Spleen measures approximately 13 cm in greatest sagittal dimension. No focal splenic abnormal ities are appreciated on this unenhanced scan. Gallbladder and bile duct: The gallbladder is well distended and unremarkable. There is no biliary ductal dilatation. Pancreas: The pancreas is grossly normal in size and configuration. Adrenal Glands: The adrenal glands are normal in size and configuration. Kidneys: The kidneys are normal in size and configuration. There is no evidence of hydronephrosis. Th ere is some increased density within the region of the renal medullary pyramids which could represent calcification or residual contrast. No focal renal abnormalities are identified. Stomach: The stomach is grossly normal. There is no definite hiatal hernia. Bowel: The bowel gas pattern is non specific and non obstructive. There is moderate fecal residue sca ttered throughout the colon. Appendix: The appendix is not well visualized on this examination. There is no CT evidence to suggest acute appendicitis. Free air: There is no evidence of free air. Free fluid: There is trace ascites. Vasculature: The aorta is normal in caliber and contour. The inferior vena cava is grossly unremarkab le. There are mild atherosclerotic calcifications along the abdominal aorta and iliac arteries. Lymphadenopathy: No pathologic lymphadenopathy is identified. Bladder: The bladder is well distended and smooth in contour. Reproductive: The prostate gland is grossly within normal limits. Bones: No acute osseous abnormalities are identified. Soft tissues: No acute soft tissue abnormalities are identified. There is a small stable cyst fat-con taining ventral umbilical hernia. IMPRESSION: 1. No evidence of acute intra-abdominal or intrapelvic pathology. 2. Findings compatible with hepatic cirrhosis and portal hypertension. There is trace ascites. 3. Grossly stable subcapsular mass along the lateral aspect of the right hepatic lobe. Evaluation i s limited without intravenous contrast. 4. Small stable fat-containing ventral umbilical hernia. 5. Moderate fecal residue scattered throughout the colon. 6. There is some increased density within the region of the renal medullary pyramids which could re present calcification or residual contrast. Electronically signed by: Yoli Crowley DO 07/01/2022 2:19 AM CDT Due to temporary technical issues with the PACS/Fluency reporting system, reports are being signed by the in house radiologists without review as a courtesy to insure prompt reporting. The interpreting radiologist is fully responsible for the content of the report.
[2022-07-01 12:07] LABS: Potassium 4.4 mmol/L (3.5-5.1)
[2022-07-01 16:48] LABS: Potassium 3.8 mmol/L (3.5-5.1)
[2022-07-01] MEDS ORDERED: GLUCAGON 1 MG/VIAL IM PRN (19:30)
[2022-07-01] MEDS ORDERED: D50W 25 GM/50 ML SYRINGE IV PRN (19:30)
[2022-07-01] MEDS: INSULIN -REGULAR HUMAN 50 UNIT/0.5 ML ML SQ SCH ×2 (19:40→21:11)
[2022-07-01 20:15] VITALS: O2SAT 100
[2022-07-02] MEDS: NACHLORIDE 0.45% 1,000 ML IV SCH (00:23)
[2022-07-02] MEDS ORDERED: MELATONIN 5 MG TABLET PO PRN (01:09)
[2022-07-02 05:17] LABS: Absolute Lymphocytes (CBC) 1.3 K/uL (0.7-4.9); Hematocrit 34.3 % (39.6-49.0); Lymphocytes % 28.8 % (15.3-44.8); MCV 101.4 fL (80-100); MPV 7.1 fL (7.6-11.3); RBC Red Blood Cell Count 3.39 M/uL (4.33-5.43)
[2022-07-02 05:37] LABS: Magnesium 1.7 mg/dL (1.8-2.4); Phosphorus 2.6 mg/dL (2.5-4.9)
--- NOTE | 2022-07-02 05:46 | P.PN ---
Date of Service: 07/02/22 Subjective: feeling better, no acute events overnight tolerating PO, requesting double plates ROS: 10 point ROS as noted above, otherwise negative Physical exam GEN: Alert, oriented, NAD HEENT: Normal conjunctiva, sclera anicteric CV: Regular rate and rhythm, no edema Pulm: Non-labored respirations on room air ABD: Soft, nontender, mild distention Neuro: Normal speech, normal affect Problem List Diabetes mellitus type 2insulin-dependent with DKA/noncompliance Alcoholic cirrhosis of the liver with suspected hepatocellular carcinoma and portal vein thrombosis Pancytopenia related to cirrhosis DKA off insulin drip, start home long acting insulin; aggressive sliding scale monitor closely dc IVF; eating well h/o noncompliance Alcoholic cirrhosis, suspected HCC and portal vein thrombosis continue lactulosespironolactone hold anticoagulation - not good candidate given thrombocytopenia, was dc'd last hospitalization continue SCDs f/u with GI/oncology/hepatology at discharge. Per chart review hospice was discussed with patient during previous visit but he elected to leave AMA. Dispo: home vs placement, ?hospice Time Spent Managing Pts Care (In Minutes): 35
[2022-07-02] MEDS ORDERED: MAGNESIUM SULFATE 1 gm IVPB 1 GM/100 ML BAG IV ONE (06:30)
[2022-07-02 07:26] LABS: Albumin 2.1 g/dL (3.4-5.0); Potassium 3.5 mmol/L (3.5-5.1); Protein, Total 5.1 g/dL (6.4-8.2)
[2022-07-02] MEDS: INSULIN -REGULAR HUMAN 50 UNIT/0.5 ML ML SQ SCH ×5 (08:02→20:58)
[2022-07-02] MEDS: INSULIN GLARGINE 100 UNIT/ML SQ SCH ×2 (08:02→20:58)
[2022-07-02] MEDS: LACTULOSE 20 GM/30 ML UCUP PO SCH ×3 (08:02→20:58)
[2022-07-02] MEDS: SPIRONOLACTONE 100 MG TAB PO SCH (09:14)
[2022-07-02] MEDS ORDERED: GLUCAGON 1 MG/VIAL IM PRN (12:33)
[2022-07-02] MEDS ORDERED: D50W 25 GM/50 ML SYRINGE IV PRN (12:33)
[2022-07-02] MEDS ORDERED: INSULIN -REGULAR HUMAN 50 UNIT/0.5 ML ML SQ ONE (12:34)
[2022-07-02 16:21] LABS: Potassium 3.8 mmol/L (3.5-5.1)
[2022-07-03 04:12] VITALS: TEMP 97
[2022-07-03 05:22] LABS: Magnesium 1.9 mg/dL (1.8-2.4); Potassium 3.6 mmol/L (3.5-5.1); Protein, Total 5.1 g/dL (6.4-8.2)
--- NOTE | 2022-07-03 05:48 | P.PN ---
Date of Service: 07/03/22 Subjective: Patient has been upset and berating the nursing staff for not giving him more food. Is on a diabetic diet and here for DKA, he continues to request for more food. He has been given multiple sugar-free/low sugar snacks His blood glucose levels continue to be high I discussed with the patient's that given his clinical situation, would be an appropriate to good double portions of food and adding more carbs to the current diet, especially since this is why the patient was admitted he responded he "doesn't care" about his sugars and that is not why he is here. He is here "to get set up with home hospice, so I can have someone come and take care of me". I asked the patient what his goals / idea of hospice was - stated someone who comes and helps him with things around the house, helps organize his medications, and takes care of him. I explained to the patient this is not what home hospice would provide. We were trying to get him to a facility with hospice if appropriate. I told patient it may be possible to get this set up by his PCP as an outpatient if he does not want to be in the hospital and restricted by a diabetic diet. Patient decided to leave against medical advice. Risks of leaving early / prior to further improvement, including , were explained to him. He expressed u nderstanding and left AMA, which he as done on multiple occasions ROS: 10 point ROS as noted above, otherwise negative Physical exam GEN: Alert, oriented, NAD HEENT: Normal conjunctiva, sclera anicteric CV: Regular rate and rhythm, no edema Pulm: Non-labored respirations on room air ABD: Soft, nontender, mild distention Neuro: upset, moves all extremities Problem List Diabetes mellitus type 2insulin-dependent with DKA/noncompliance Alcoholic cirrhosis of the liver with suspected hepatocellular carcinoma and po rtal vein thrombosis Pancytopenia related to cirrhosis DKA off insulin drip, start home long acting insulin; aggressive sliding scale patient constantly calling out to eat and does not want to be restricted on his diet h/o noncompliance glc again increased; and insulin was adjusted patient does not want to stay in the hospital if we are going to "starve him" Alcoholic cirrhosis, suspected HCC and portal vein thrombosis does not appear that patient had biopsy, suspect secondary to pancytopenia / risk continue lactulose, spironolactone hold anticoagulation - not good candidate given thrombocytopenia, was dc'd last hospitalization continue SCDs f/u with GI/oncology/hepatology at discharge. Per chart review hospice was discussed with patient during previous visit but he elected to leave AMA. Dispo: patient left AMA Time Spent Managing Pts Care (In Minutes): 35, 25 minutes discussed plan of care / AMA
[2022-07-03 06:14] VITALS: BP 110/92
[2022-07-03] MEDS: INSULIN -REGULAR HUMAN 50 UNIT/0.5 ML ML SQ SCH (07:37)
[2022-07-03] MEDS ORDERED: POTASSIUM CL SA 10 MEQ TAB PO ONE ×2 (07:40→09:00)
[2022-07-03] MEDS ORDERED: INSULIN -REGULAR HUMAN 50 UNIT/0.5 ML ML IV ONE (07:41)
[2022-07-03] MEDS ORDERED: GLUCAGON 1 MG/VIAL IM PRN (07:41)
[2022-07-03] MEDS ORDERED: D50W 25 GM/50 ML SYRINGE IV PRN (07:41)
[2022-07-03] MEDS: LACTULOSE 20 GM/30 ML UCUP PO SCH (08:26)
[2022-07-03] MEDS: SPIRONOLACTONE 100 MG TAB PO SCH (08:27)
[2022-07-03] MEDS ORDERED: INSULIN GLARGINE 100 UNIT/ML SQ SCH ×2 (09:00)
== END 2022-07-03 09:15 | disposition left against medical advice (07) | DRG 637 ==
LOC: ER 22:27 → ERHOLD 07-01 02:59 → 3RD-ICU 07-01 17:45
PROVIDERS: ADMIT Hospitalist; ATTEND Hospitalist
DX: E11.10 Type 2 diabetes mellitus with ketoacidosis without coma (principal); I81 Portal vein thrombosis; D61.818 Other pancytopenia; C22.0 Liver cell carcinoma; K70.30 Alcoholic cirrhosis of liver without ascites; I10 Essential (primary) hypertension; F17.210 Nicotine dependence, cigarettes, uncomplicated; Z88.8 Allergy status to other drugs, medicaments and biological substances; Z28.310 Unvaccinated for COVID-19; Z79.4 Long term (current) use of insulin; Z91.14 Patient's other noncompliance with medication regimen; Z60.2 Problems related to living alone; Z53.29 Procedure and treatment not carried out because of patient's decision for other reasons; Z20.822 Contact with and (suspected) exposure to COVID-19
CPT/HCPCS: 36415; 74176; 80048; 80053; 80061; 81003; 82010; 82140; 82805; 82947; 83036; 83690; 83735; 84100; 85025; 85610; 85730; 87811; 99285; J1815; J2405; J3475; J7030; J7799; Q9967

== ENCOUNTER 2022-07-03 14:39 | Emergency (ER) | payer OTHER ==
--- OUTSIDE RECORDS SUMMARY | 2022-07-03 14:42 | XMS REPORT | Continuity of Care Document ---
:1965 Author Organization [facility] t Address [address] [place] [address] Care Team Providers Name Role Phone MARICRUZ YUSUF Attending Clinician Unavailable CARLOS DONOVAN Attending Clinician Unavailable MARICRUZ YUSUF Admitting Clinician Unavailable Payers Payer Name Policy Type Policy Number Effective Date Expiration Date [employer] branch [facility] [id number] 2021 00:00:00 PLAN Problems This patient has [...] Clinicians Facility Department ID 2022-06-[address] [facility] Oncology [id number] [facility] 11:24:58 [facility] 2022-04-24 2022-04-24 Emergency ER [facility] Emergency [id number] [facility] 05:12:00 05:35:00 2022-04-22 2022-04-23 Inpatient ER PARAMJIT, [facility] Gastro [id number] [facility] 17:55:00 22:00:00 [place] Results Test Description Test Time Test Comments Results Result Comments Source ANTI-MITOCHONDRIAL AB, REFLEX TO TITER 2022-05-04 12:12:43 Test Item Value Reference Range Interpretation Comme nts SCAN RESULT (test code = 6597828) HEPATITIS C PCR, [id number] 15:18:06 Test Item Value Reference Range Interpretation Comments HCV RESULT COMPONENT HCV RNA not detected HCV RNA not detected ([employer]) (test code = 2699) This test uses a Real-Time Polymerase Chain Reaction (RT-PCR) methodology and was performed using EMILY Ampliprep/EMILY TaqMan HCV test kit version 2.0 ([employer]).Reportable range for this assay is 15 - 100,000,000 IU per mL (1.18 - 8.00 Log IU/mL).ANTI-NUCLEAR ANTIBODY (TRANG)2022-04-25 11:24:48 Test Item Value Reference Range Interpretation Comments ANTI-NUCLEAR ANTIBODY (TRANG) ([employer]) Negative Negative (test code = 418) Test performed by IFA method.Test performed by IFA method.HEMOGLOBIN A1C 2022-04-24 09:24:13 Test Item Value Reference Range Interpretation Comments HEMOGLOBIN A1C 12.2 % See_Comment H [Automated m essage] ELECTROPHORESIS ([employer]) The system which (test code = 3811) generated this result transmitted ref erence range: <=5.6%. The reference range was not used to int erpret this result as normal/abnormal . "The A1c is measured using a NGSP-certified method. HbA1c value equal to or greater than 6.5% as thediagnosis cutoff for diabetes. An HbA1c value of 5.7- 6.4% indicates increased risk for diabetes (prediabetes)."Airline Hostess ID - ADMOperator ID - ADMPOCT-GLUCOSE [id number] 19:03:02 Test Item Value Reference Range Interpretation Comments POC-GLUCOSE METER 205 mg/dL 70-110 H : TESTED A T [facility] 6720 (BEAKER) (test code [facility], = 1538) 85319: Airline Hostess/Techni rene ID = [id number] for Lisa maxwell (contract), Audrey smith POCT-GLUCOSE [id number] 19:02:00 Test Item Value Reference Range Interpretation Comments POC-GLUCOSE METER 239 mg/dL 70-110 H : TESTED A T [facility] 6720 (BEAKER) (test code [facility], = 1538) 11551: Airline Hostess/Techni rene ID = [id number] for Lisa maxwell (contract), Audrey smith BASIC METABOLIC [id number] 17:14:44 Test Item Value Reference Range Interpretation [...] S NOT APPLICABLE FOR DIALYSIS PATIEN TS. Airline Hostess ID - KIMMIE AUDREY, CHEST, 1 VIEW, NON [id number] 16:46:00Reason for exam:->currentShould this be performed at the bedside?->Yes [facility] : 1965 Sex: MFINAL REPORT [...] MDRort Verified Date/Time: 04/23/2022 16:46:33 Reading Location: [facility] [id number] Ortho Consult Reading Room POCT-GLUCOSE [id number] 16:17:08 Test Item Value Reference Range Interpretation Comments POC-GLUCOSE METER 229 mg/dL 70-110 H : TESTED A T [facility] 6720 (BEAKER) (test code [facility], = 1538) 54268: Airline Hostess/Techni rene ID = [id number] for Lisa maxwell (contract)Audrey SARS-COV2/RT-PCR ([facility])2022-04-23 16:03:49 Test Item Value Reference Range Interpretation Comments SARS-COV2/RT-PCR (test Negative Not Detected, Negative, code = 5403653) See external report for linked test SARS-COV-2 PERFORMING LAB [facility] LUANA (test code = 3103977) Negative result for this test determines that [...] of the Act.Fact Sheet for Healthcare Prov iders:https://www.[employer]/sites/default/files/product/documents/Fact_Sheet_HC _Gtdxjxozv_Hndu_KISZ-LuR-5.pdfFact Sheet for Healthcare Patients:https://www.[facility] [facility].[employer]scene/sites/default/files/product/docume nts/Mjhe_Tjavc_Nrecarfs_Mtpn_HMTE-CxT-9.pdfPerforming Laboratory:[facility], [place] [address]XFLE-KNEKRXN METER 2022-04-23 15:21:20 Test Item Value Reference Range Interpretation Comments POC-GLUCOSE METER 238 mg/dL 70-110 H : TESTED Rodríguez Licea [facility] 6720 (SHANTEL) (test code = VICTORINO Salas [facility], 1538) 13599: Airline Hostess/Techni rene ID = [id number] for Charly debbieRoma POCT-GLUCOSE [id number] 14:14:42 Test Item Value Reference Range Interpretation Comments POC-GLUCOSE METER 276 mg/dL 70-110 H : TESTED A T [facility] 6720 (BEAKER) (test code [facility], = 1538) 40802: Airline Hostess/Techni rnee ID = [id number] for Lisa maxwell (contract), Audrey ka POCT-GLUCOSE [id number] 14:13:31 Test Item Value Reference Range Interpretation Comments POC-GLUCOSE METER 319 mg/dL 70-110 H : TESTED A T [facility] 6720 (BEAKER) (test code [facility], = 1538) 74674: Airline Hostess/Techni rene ID = [id number] for Lisa maxwell (contract), Nne ka KETONE, [id number] 14:05:33 Test Item Value Reference Range Interpretation Comments KETONES, BLOOD (BEAKER) (test code 0.1 mmol/L <0.4 = 1103) BASIC METABOLIC [id number] 13:08:55 Test Item Value Reference Range Interpretation [...] S NOT APPLICABLE FOR DIALYSIS PATIEN TS. Airline Hostess ID - KIMMIE MBLOOD GAS, [id number] 12:52:05 Test Item Value Reference Range Interpretation [...] (BEAKER) (test code = 1819) 21.0 POCT-GLUCOSE [id number] 11:48:15 Test Item Value Reference Range Interpretation Comments POC-GLUCOSE METER 453 mg/dL 70-110 HH : TESTED A T [facility] 6720 (BEAKER) (test code [facility], = 1538) 44281: Airline Hostess/Techni rene ID = [id number] for Lisa maxwell (contract) Silveriodominik smith [id number] 11:45:13 Test Item Value Reference Range Interpretation Comments LIPASE (BEAKER) (test code = 749) 90 U/L 8-78 H Airline Hostess ID - KIMMIE MSpecimen slightly ictericPOCT-GLUCOSE [id number] 11:24:33 Test Item Value Reference Range Interpretation Comments POC-GLUCOSE METER > mg/dL 70-110 HH : TESTED A T [facility] 6720 (BEAKER) (test code = [facility], 1538) 70579: Airline Hostess/Techni rene ID = [id number] for SUGEY HAMILTON [id number] 10:10:35 Test Item Value Reference Range Interpretation Comments FERRITIN (BEAKER) (test code = 221.72 ng/mL 5.00-275.00 361) Airline Hostess ID - KIMMIE MHEPATITIS PANEL, [id number] 09:38:02 Test Item Value Reference Range Interpretation Comments HEPATITIS A IGM ANTIBODY (BEAKER) Nonreactive Nonreactive (test code = 498) HEPATITIS B CORE IGM ANTIBODY Nonreactive Nonreactive (BEAKER) (test code = 645) HEPATITIS C ANTIBODY (BEAKER) Reactive Nonreactive A (test code = 367) HEPATITIS B SURFACE ANTIGEN (2) Nonreactive Nonreactive (BEAKER) (test code = 2585) Airline Hostess ID - KIMMIE MCOMPREHENSIVE METABOLIC [id number] 09:30:16 Test Item Value Reference Range Interpretation [...] S NOT APPLICABLE FOR DIALYSIS PATIEN TS. Airline Hostess ID - KIMMIE MSpecimen slightly ictericSpecimen markedly lipemicALPHA FETOPROTEIN (AFP), TUMOR [id number] 09:24:32 Test Item Value Reference Range Interpretation Comments ALPHA-FETOPROTEIN (BEAKER) (test code < ng/mL <10.0 = 1094) Airline Hostess ID - KIMMIE MIMMUNOGLOBULIN G (IGG)2022-04-23 08:27:58 Test Item Value Reference Range Interpretation Comments IMMUNOGLOBULIN G (IGG) 1108 mg/dL See_Comment [Aut omated message] (BEAKER) (test code = The sy stem which 427) generated this result transmit solis reference range : 540-1,822. The reference range was not used to interpret this result as normal/abnormal . Airline Hostess ID - KIMMIE ARELY, TIBC, % SAT. (WITHOUT FERRITIN)2022-04-23 08:27:58 Test Item Value Reference Range Interpretation Comments IRON (BEAKER) (test code = 547) 91.0 ug/dL 40.0-160.0 TOTAL IRON BINDING CAPACITY 199 ug/dL 250-450 L (BEAKER) (test code = 769) IRON % SATURATION (2) (BEAKER) 46 % 20-55 (test code = 2590) Airline Hostess ID - KIMMIE [id number] 08:17:19 Test Item Value Reference Range Interpretation Comments PHOSPHORUS (BEAKER) 2.3 mg/dL 2.3-4.7 Specimen moderately (test code = 604) hemolyzed Airline Hostess ID - KIMMIE [id number] 08:17:18 Test Item Value Reference Range Interpretation Comments MAGNESIUM (BEAKER) 1.9 mg/dL 1.6-2.6 Specimen moderately (test code = 627) hemolyzed Airline Hostess ID - KIMMIE MPOCT-GLUCOSE [id number] 07:56:59 Test Item Value Reference Range Interpretation Comments POC-GLUCOSE METER > mg/dL 70-110 HH : Notified RN/MD: TESTED (BEAKER) (test code = AT [facility] [address] [facility] 0158) [facility], 770 30: Airline Hostess/Techni rene ID = [id number] for Guanaco Ingram [id number] 06:48:40 Test Item Value Reference Range Interpretation [...] mechanical heart valves.CBC W/PLT COUNT & AUTO [id number] 06:38:31 Test Item Value Reference Range Interpretation [...] PERCENT (BEAKER) (test code = 2801) POCT-GLUCOSE [id number] 02:35:08 Test Item Value Reference Range Interpretation Comments POC-GLUCOSE METER > mg/dL 70-110 HH : Notified RN/MD: TESTED (BEAKER) (test code = AT [facility] [address] 1538) [facility], [facility] 30: Airline Hostess/Techni rene ID = [id number] for Gisell Botello
[2022-07-03] MEDS ORDERED: NA CHLORIDE 0.9% 2,000 ML ONE (15:19)
[2022-07-03 15:31] LABS: Absolute Lymphocytes (CBC) 0.7 K/uL (0.7-4.9); Hematocrit 32.5 % (39.6-49.0); Lymphocytes % 15.2 % (15.3-44.8); MCV 102.5 fL (80-100); RBC Red Blood Cell Count 3.17 M/uL (4.33-5.43)
[2022-07-03 15:54] LABS: ALT/SGPT 187 U/L (12-78); AST/SGOT 298 U/L (15-37); Albumin 2.2 g/dL (3.4-5.0); Alkaline Phosphatase 141 U/L (45-117); BUN Blood Urea Nitrogen 12 mg/dL (7-18); Bicarbonate 18 mmol/L (21-32); Bilirubin Total 1.1 mg/dL (0.2-1.0); Glomerular Filtration Rate 67 ml/min (=/>90); Magnesium 1.9 mg/dL (1.8-2.4); Potassium 4.9 mmol/L (3.5-5.1); Protein, Total 5.4 g/dL (6.4-8.2); Sodium Level 136 mmol/L (136-145)
[2022-07-03 15:58] LABS: Glucose Level 605 mg/dL (74-106)
[2022-07-03 16:03] LABS: MPV 7.4 fL (7.6-11.3)
[2022-07-03 16:04] LABS: Urine Blood Negative (Negative); Urine Glucose 2+ (Negative); Urine Protein Negative (Negative); Urine pH 6.5 (5.0-7.0)
[2022-07-03 16:10] LABS: Arterial Blood Carboxyhemoglob 4.1 % (0-1.5)
[2022-07-03] MEDS ORDERED: INSULIN -REGULAR HUMAN 50 UNIT/0.5 ML ML ONE ×2 (16:28→18:30)
[2022-07-03 16:35] LABS: Urine Bacteria <20 /HPF (<20); Urine RBC <5 /HPF (None Seen)
--- NOTE | 2022-07-03 16:43 | ER ---
Nurse's Notes [facility] Name: Amador Cosme Age: 56 yrs Sex: Male : 1965 Arrival Date: 07/03/2022 Time: 14:40 Bed 16 Private MD: Diagnosis: Hyperglycemia, unspecified;Patient's other noncompliance with medication regimen Presentation: 07/03 14:41 Chief complaint: EMS states: The patient left the hospital this morning after being bm7 diagnosed with terminal pancreatic cancer. Per the patient he was supposed to be admitted to home hospice tomorrow. He was told he only has six months to live. He is homeless and has been sleeping in a friend's garage. He is here to have his pain treated. Coronavirus screen: At this time, the client does not indicate any symptoms associated with coronavirus-19. Ebola Screen: No symptoms or risks identified at this time. 14:41 Method Of Arrival: EMS: [facility] 14:43 Initial Sepsis Screen: Does the patient meet any 2 criteria? No. Patient's initial [facility] sepsis screen is negative. Does the patient have a suspected source of infection? No. Patient's initial sepsis screen is negative. Risk Assessment: Do you want to hurt yourself or someone else? Patient reports no desire to harm self or others. Onset of symptoms is unknown. 14:43 Acuity: DAO 3 [facility] 14:46 Care prior to arrival: Glucose check: 441. 7 Triage Assessment: 14:44 General: Appears in no apparent distress. uncomfortable, unkempt, Behavior is calm, bm7 cooperative, Smells of urine. Pain: Complains of pain in abdomen Pain does not radiate. Pain currently is 10 out of 10 on a pain scale. EENT: No deficits noted. No signs and/or symptoms were reported regarding the EENT system. Neuro: No deficits noted. [place] Agitation-Sedation Scale (RASS): Level of Consciousness is awake, alert, obeys commands, Oriented to person, place, time, situation, Business Applications Developer are equal bilaterally Speech is slurred. Cardiovascular: No deficits noted. Respiratory: No deficits noted. GI: Abdomen is round distended, Reports lower abdominal pain, upper abdominal pain, bloating, Patient currently denies nausea, vomiting. : No deficits noted. No signs and/or symptoms were reported regarding the genitourinary system. Derm: No deficits noted. No signs and/or symptoms reported regarding the dermatologic system. Musculoskeletal: No deficits noted. No signs and/or symptoms reported regarding the musculoskeletal system. Historical: - Allergies: 14:44 Prednisone; bm7 14:44 TETRACYCLINES; bm7 - PMHx: 14:44 Bipolar disorder; cirrhosis of liver; Dementia; HepB; Hypertensive disorder; NIDDM; bm7 Pancreatitis; - PSHx: 14:44 back; eye sx; bm7 - Immunization history:: Adult Immunizations unknown. - Social history:: Smoking status: Patient/guardian denies using alcohol, the patient reports quitting approximately 1 years ago, IV drugs, tobacco products. - Code Status:: unknown. Screenin:46 Abuse screen: Denies threats or abuse. Nutritional screening: No deficits noted. bm7 Tuberculosis screening: No symptoms or risk factors identified. Fall Risk None identified. Assessment: 14:46 Reassessment: No changes from previously documented assessment. bm7 15:56 Reassessment: No changes from previously documented assessment. Patient and/or family bm7 updated on plan of care and expected duration. Pain level reassessed. Patient is alert, oriented x 3, equal unlabored respirations, skin warm/dry/pink. 18:25 Reassessment: social services manager at bedside to discuss hospice options. bm7 19:22 Reassessment: Patient is alert, oriented x 3, equal unlabored respirations, skin ja4 warm/dry/pink. pt wants food and wants to leave afterwards. 19:39 Reassessment: pt given food and paper scrubs for discharge. will leave after eating. ja4 Vital Signs: 14:41 BP 121 / 70; Pulse 96; Resp 16; Temp 98.7(TE); Pulse Ox 98% on R/A; Weight 63.5 kg (R); bm7 Height 5 ft. 6 in. (167.64 cm); Pain 10/10; 16:16 BP 115 / 67; Pulse 82; Resp 16; Pulse Ox 100% on R/A; bm7 17:30 BP 108 / 63; Pulse 80; Resp 16; Pulse Ox 100% on R/A; bm7 18:16 BP 132 / 76; Pulse 80; Resp 16; Pulse Ox 98% on R/A; bm7 19:39 BP 133 / 94; ja4 14:41 Body Mass Index 22.60 (63.50 kg, 167.64 cm) bm7 [place] Coma Score: 19:31 Eye Response: spontaneous(4). Verbal Response: oriented(5). Motor Response: obeys gail commands(6). Total: 15. ED Course: 14:40 Patient arrived in ED. bm7 14:42 Desi Forde MD is Attending Physician. sd2 14:43 Amber Willard, CLARI is Primary Nurse. bm7 14:44 Triage completed. bm7 14:44 Arm band placed on right wrist. bm7 14:46 No apparent distress. Resting quietly. Awaiting ED provider evaluation. bm7 14:46 Patient has correct armband on for positive identification. Placed in gown. Bed in low bm7 position. Call light in reach. Side rails up X2. Adult w/ patient. Client placed on continuous cardiac and pulse oximetry monitoring. NIBP monitoring applied. Warm blanket given. 14:46 Patient maintains SpO2 saturation greater than 95% on room air. bm7 16:22 Inserted saline lock: 22 gauge in left hand, using aseptic technique. Blood collected. bm7 16:22 Initial lab(s) drawn, by tn, sent to lab. EKG done, by ED staff, reviewed by Desi Forde MD. 16:42 Desi Forde MD is Hospitalizing Provider. sd2 16:42 Daryl Glynn MD is Hospitalizing Provider. sd2 19:21 Attending Physician role handed off by Desi Forde MD gail 19:21 James Uriarte MD is Attending Physician. gail 19:39 No provider procedures requiring assistance completed. Patient did not have IV access ja4 during this emergency room visit. IV discontinued, intact, bleeding controlled, No redness/swelling at site. Pressure dressing applied. Administered Medications: 15:49 Drug: NS 0.9% 2000 ml Route: IV; Rate: 1000 ml; Site: right hand; bm7 17:12 Follow up: IV Status: Completed infusion; IV Intake: 2000ml bm7 16:27 Drug: Insulin Regular Human 10 units {Co-Signature: [email or web address] (Stevo Borges RN).} Route: IVP; bm7 Site: left hand; 17:12 Follow up: Response: Blood sugar is lowered bm7 18:24 Drug: Insulin Regular Human 5 units {Co-Signature: clarisse (Stevo Borges RN).} Route: IVP; 7 Site: left hand; Medication: 14:46 VIS not applicable for this client. bm7 Point of Care Testing: Blood Glucose: 16:52 Blood Glucose: 480 mg/dL; bm7 17:50 Blood Glucose: 400 mg/dL; bm7 Ranges: Intake: 17:12 IV: 2000ml; Total: 2000ml. bm7 Output: 18:16 Urine: 1000ml (Voided); Total: 1000ml. 7 Outcome: 16:43 Decision to Hospitalize by Provider. memo 19:29 Discharge ordered by . gail 19:39 Discharged to home ambulatory. davon 19:39 Condition: stable 19:39 Discharge instructions given to patient, Instructed on discharge instructions, follow up and referral plans. medication usage, Demonstrated understanding of instructions, Prescriptions given X 19:42 Patient left the ED. sony Signatures: James Uriarte MD MD cha McCarthy, Brittany, RN RN Desi Coello MD MD sd2 Allen, Jeremy, RN RN davon [email or web address]
--- NOTE | 2022-07-03 16:43 | EDPHYS ---
Physician Documentation [facility] Name: Amador Cosme Age: 56 yrs Sex: Male : 1965 Arrival Date: 07/03/2022 Time: 14:40 Bed 16 Private MD: ANABEL Physician James Uriarte HPI: 07/03 15:02 This 56 yrs old Male presents to ER via EMS with complaints of not feeling well. sd2 15:02 56-year-old male with a history of insulin-dependent diabetes presents with chief sd2 complaint of not feeling well. He left AMA from the hospital earlier today where he was admitted for DKA. He also reports a history of pancreatic cancer and liver cirrhosis and states that he was not aware they were working on getting him into hospice as he is homeless and has nowhere to go. He reports he would like to be readmitted so that he can be placed in a hospice facility. He reports he never made out of the parking lot today before checking himself back in after he spoke with the marriage and family social worker who informed him that this was a plan. He has not taken any of his medications since he left and reports feeling thirsty and hungry. He also endorses chronic back and abdominal pain due to his cancer that is currently unchanged from baseline.. Historical: - Allergies: 14:44 Prednisone; bm7 14:44 TETRACYCLINES; bm7 - PMHx: 14:44 Bipolar disorder; cirrhosis of liver; Dementia; HepB; Hypertensive disorder; NIDDM; bm7 Pancreatitis; - PSHx: 14:44 back; eye sx; bm7 - Immunization history:: Adult Immunizations unknown. - Social history:: Smoking status: Patient/guardian denies using alcohol, the patient reports quitting approximately 1 years ago, IV drugs, tobacco products. - Code Status:: unknown. ROS: 15:02 Constitutional: Negative for fever, chills, and weight loss, Eyes: Negative for injury, sd2 pain, redness, and discharge, Cardiovascular: Negative for chest pain, palpitations, and edema, Respiratory: Negative for shortness of breath, cough, wheezing. Abdomen/GI: Negative for acute abdominal pain, nausea, vomiting, diarrhea. Positive for chronic abdominal pain. Back: Negative for injury. Positive for chronic pain. MS/Extremity: Negative for injury and deformity, Skin: Negative for injury, rash, and discoloration, Neuro: Negative for headache, numbness and tingling. 15:02 Endocrine: Positive for polydipsia. sd2 Exam: 15:02 Constitutional: This is a well developed, well nourished patient who is awake, alert, sd2 and in no acute distress. Head/Face: Normocephalic, atraumatic. Eyes: EOMI, normal conjunctiva bilaterally Chest/axilla: Normal chest wall appearance and motion. Nontender with no deformity. Cardiovascular: Regular rate and rhythm with a normal S1 and S2. No gallops, murmurs, or rubs. 2+ distal pulses. Respiratory: Lungs have equal breath sounds bilaterally, clear to auscultation and percussion. No rales, rhonchi or wheezes noted. No increased work of breathing, no retractions or nasal flaring. Abdomen/GI: Soft, mild generalized TTP, with normal bowel sounds. No guarding or rebound. Skin: Warm, dry with normal turgor. Normal color with no rashes, no lesions, and no evidence of cellulitis. MS/ Extremity: Pulses equal, no cyanosis. Neurovascular intact. Full, normal range of motion. Ambulatory without difficulty. Psych: Awake, alert, with orientation to person, place and time. Behavior, mood, and affect are within normal limits. 16:40 ECG was reviewed by the Attending Physician. NSR, rate 89, no STEMI criteria, wandering sd2 baseline, prolonged QTc present Vital Signs: 14:41 BP 121 / 70; Pulse 96; Resp 16; Temp 98.7(TE); Pulse Ox 98% on R/A; Weight 63.5 kg (R); bm7 Height 5 ft. 6 in. (167.64 cm); Pain 10/10; 16:16 BP 115 / 67; Pulse 82; Resp 16; Pulse Ox 100% on R/A; bm7 17:30 BP 108 / 63; Pulse 80; Resp 16; Pulse Ox 100% on R/A; bm7 18:16 BP 132 / 76; Pulse 80; Resp 16; Pulse Ox 98% on R/A; bm7 19:39 BP 133 / 94; ja4 14:41 Body Mass Index 22.60 (63.50 kg, 167.64 cm) bm7 [place] Coma Score: 19:31 Eye Response: spontaneous(4). Verbal Response: oriented(5). Motor Response: obeys gail commands(6). Total: 15. MDM: 14:42 Patient medically screened. sd2 15:02 Differential Diagnosis Dehydration, electrolyte abnormality, UTI, PNA, DKA, medication sd2 non-compliance, anemia among others. 15:02 Data reviewed: vital signs, nurses notes, old medical records. sd2 16:40 Data reviewed: lab test result(s). Counseling: I had a detailed discussion with the sd2 patient and/or guardian regarding: the historical points, exam findings, and any diagnostic results supporting the discharge/admit diagnosis, lab results, the need for further work-up and treatment in the hospital. Physician consultation: Daryl Glynn MD was called at 16:41, was contacted at 16:41, regarding admission, and will see patient in ED, later today. ED course: Labs reviewed. No evidence of DKA at this time but severe hyperglycemia present and patient is symptomatic. 2L IVFs given and IV insulin and patient to be admitted for further management at this time.. 17:48 ED course: Case discussed again with hospitalist who spoke with Social Work. Social sd2 Worker at bedside to see if patient can be placed directly in Hospice. . 18:50 ED course: Spoke with patient with SW at bedside and patient would like to choose a sd2 hospice company. Also consideration for long-term care facility with his Medicaid. Pt is in agreement with this. He is not currently in DKA with improved blood sugars and does not require admission at this time with stable VS. Pt to be given food with recheck of sugar prior to discharge since his last insulin dose was received. Pt will return in the morning strictly to speak with Corporate Communications Associate who will assist him with setting up long-term care for his situation. Pt verbalizes understanding of discharge plan and strict return precautions. Care of patient and plan for disposition given to Dr. Uriarte at 1900. . 19:21 Patient medically screened. gail 19:37 ED course: pt will not stay, want to eat and go, accepts if it happens. will not gail stay. 07/03 15:01 Order name: CBC with Diff; Complete Time: 18:13 sd2 07/03 15:01 Order name: CMP; Complete Time: 16:11 sd2 07/03 15:01 Order name: Magnesium; Complete Time: 16:11 sd2 07/03 15:01 Order name: ABG: Venous; Complete Time: 16:23 sd2 07/03 15:01 Order name: Ketone, Serum; Complete Time: 16:11 sd2 07/03 15:07 Order name: Glucose, Ancillary Testing; Complete Time: 15:32 EDMS 07/03 15:39 Order name: Urine Microscopic Only; Complete Time: 16:40 sd2 07/03 16:04 Order name: Urine Dipstick-Ancillary; Complete Time: 16:11 EDMS 07/03 17:08 Order name: Glucose, Ancillary Testing; Complete Time: 17:13 EDMS 07/03 18:02 Order name: Glucose, Ancillary Testing; Complete Time: 18:13 EDMS 07/03 18:04 Order name: Glucose, Ancillary Testing EDMS 07/03 18:10 Order name: CBC Smear Scan; Complete Time: 18:13 EDMS 07/03 19:39 Order name: Glucose, Ancillary Testing EDMS 07/03 14:53 Order name: Glucose Level; Complete Time: 14:59 sd2 07/03 15:01 Order name: EKG - Nurse/Tech; Complete Time: 16:05 sd2 07/03 15:39 Order name: Urine Dipstick-Ancillary (obtain specimen); Complete Time: 16:05 sd2 Administered Medications: 15:49 Drug: NS 0.9% 2000 ml Route: IV; Rate: 1000 ml; Site: right hand; [facility] 17:12 Follow up: IV Status: Completed infusion; IV Intake: 2000ml [facility] 16:27 Drug: Insulin Regular Human 10 units {Co-Signature: clarisse (Stevo Borges RN).} Route: IVP; [facility] Site: left hand; 17:12 Follow up: Response: Blood sugar is lowered [facility] 18:24 Drug: Insulin Regular Human 5 units {Co-Signature: jlKalyan (Stevo Borges RN).} Route: IVP; [facility] Site: left hand; Point of Care Testing: Blood Glucose: 16:52 Blood Glucose: 480 mg/dL; bm7 17:50 Blood Glucose: 400 mg/dL; 7 Ranges: Critical Glucose Levels:Adult <50 mg/dl or >400 mg/dl <40 mg/dl or >180 mg/dl Disposition Summary: 07/03/22 19:29 Discharge Ordered Location: Home(07/03/22 19:29) gail Problem: an acute exacerbation(07/03/22 19:29) gail Symptoms: have improved(07/03/22 19:29) gail Condition: Stable(07/03/22 19:29) gail Diagnosis - Hyperglycemia, unspecified(07/03/22 19:29) gail - Patient's other noncompliance with medication regimen(07/03/22 19:29) gail Followup: sd2 - With: Private Physician - When: Tomorrow - Reason: Recheck today's complaints, Continuance of care, Re-evaluation by your physician Followup: sd2 - With: Emergency Department - When: As needed - Reason: Discharge Instructions: - Blood Glucose Monitoring, Adult gail - Discharge Summary Sheet sd2 - Hyperglycemia sd2 Forms: - Medication Reconciliation Form gail - Thank You Letter gail - Antibiotic Education gail - Prescription Opioid Use gail Signatures: Dispatcher [employer] EDJames Bates MD MD cha McCarthy, Brittany, RN RN bm7 Desi Forde MD MD sd2 Stevo Borges RN [email or web address] Corrections: (The following items were deleted from the chart) 16:45 16:43 Inpatient Admission sd2 sd2 16:45 16:43 Daryl Glynn sd2 sd2 16:45 16:43 Telemetry/MedSurg (Inpatient) sd2 sd2 16:45 16:43 Stable sd2 sd2 16:45 16:43 an acute exacerbation sd2 sd2 16:45 16:43 have worsened sd2 sd2 16:45 16:43 Standard sd2 sd2 16:45 16:43 sd2 sd2 16:45 16:43 Hyperglycemia, unspecified sd2 sd2 16:45 16:43 Patient's other noncompliance with medication regimen sd2 sd2
[2022-07-03 18:10] LABS: Blood Morphology Comment NOT SEEN (NOT SEEN); Platelet Estimate DECR; White Blood Cell Scan OK (OK)
[2022-07-03 21:30] VITALS: TEMP 98.7
[2022-07-03 21:50] VITALS: O2SAT 98
[2022-07-03 21:58] VITALS: BP 133/94
--- NOTE | 2022-07-04 08:08 | EKG ---
Test Date: 2022-07-03 Test Time: 16:12:45 [employer] Adf Developer: MYRIAM MEASUREMENT RESULTS: Intervals: Rate: 89 WA: 164 QRSD: 78 QT: 416 QTc: 506 [place]: P: 74 WA: 164 QRS: 79 T: 49 INTERPRETIVE STATEMENTS: Normal sinus rhythm Anteroseptal infarct, age undetermined Prolonged QT Abnormal ECG Compared to ECG 06/26/2022 14:30:57 Prolonged QT interval now present Myocardial infarct finding still present Electronically Signed On 07-04-22 08:06:22 CDT by Dixon Guy
== END 2022-07-03 19:42 | disposition home or self-care (01) ==
LOC: ER 14:39
DX: E11.65 Type 2 diabetes mellitus with hyperglycemia (principal); Z91.14 Patient's other noncompliance with medication regimen; F03.90 Unspecified dementia, unspecified severity, without behavioral disturbance, psychotic disturbance, mood disturbance, and anxiety; F31.9 Bipolar disorder, unspecified; K74.60 Unspecified cirrhosis of liver; I10 Essential (primary) hypertension; Z85.07 Personal history of malignant neoplasm of pancreas; Z88.1 Allergy status to other antibiotic agents; Z88.8 Allergy status to other drugs, medicaments and biological substances
CPT/HCPCS: 96361; 93005; 85025; 36415; 82010; 83735; 82947 ×4; 80053; 82805; 96374; 99284; J1815 ×2; J7030; 81003; 81015

== ENCOUNTER 2022-07-04 00:49 | Inpatient (IN) | payer OTHER ==
--- OUTSIDE RECORDS SUMMARY | 2022-07-04 00:54 | XMS REPORT | Continuity of Care Document ---
:1965 Author Organization [facility] t Address [address] [place] [address] Care Team Providers Name Role Phone MARICRUZ YUSUF Attending Clinician Unavailable CARLOS DONOVAN Attending Clinician Unavailable MARICRUZ YUSUF Admitting Clinician Unavailable Payers Payer Name Policy Type Policy Number Effective Date Expiration Date Josh branch [facility] COMM STAR [id number] 2021 00:00:00 PLAN Problems This patient has [...] Clinicians Facility Department ID 2022-06-27 Inpatient ER [facility] Oncology [id number] [facility] 11:24:58 [facility] 2022-04-24 2022-04-24 Emergency ER [facility] Emergency [id number] [facility] 05:12:00 05:35:00 2022-04-22 2022-04-23 Inpatient ER PARAMJIT, [facility] Gastro [id number] [facility] 17:55:00 22:00:00 [place] Results Test Description Test Time Test Comments Results Result Comments Source ANTI-MITOCHONDRIAL AB, REFLEX TO TITER 2022-05-04 12:12:43 Test Item Value Reference Range Interpretation Comme nts SCAN RESULT (test code = 8168822) HEPATITIS C PCR, [id number] 15:18:06 Test Item Value Reference Range Interpretation Comments HCV RESULT COMPONENT HCV RNA not detected HCV RNA not detected ([address]) (test code = 2699) This test uses a Real-Time Polymerase Chain Reaction (RT-PCR) methodology and was performed using EMILY Ampliprep/EMILY TaqMan HCV test kit version 2.0 ([employer]).Reportable range for this assay is 15 - 100,000,000 IU per mL (1.18 - 8.00 Log IU/mL).ANTI-NUCLEAR ANTIBODY (TRANG)2022-04-25 11:24:48 Test Item Value Reference Range Interpretation Comments ANTI-NUCLEAR ANTIBODY (TRANG) ([address]) Negative Negative (test code = 418) Test performed by IFA method.Test performed by IFA method.HEMOGLOBIN A1C 2022-04-24 09:24:13 Test Item Value Reference Range Interpretation Comments HEMOGLOBIN A1C 12.2 % See_Comment H [Automated m essage] ELECTROPHORESIS ([address]) The system which (test code = 3811) generated this result transmitted ref erence range: <=5.6%. The reference range was not used to int erpret this result as normal/abnormal . "The A1c is measured using a NGSP-certified method. HbA1c value equal to or greater than 6.5% as thediagnosis cutoff for diabetes. An HbA1c value of 5.7- 6.4% indicates increased risk for diabetes (prediabetes)."Wax Molder ID - ADMOperator ID - ADMPOCT-GLUCOSE [id number] 19:03:02 Test Item Value Reference Range Interpretation Comments POC-GLUCOSE METER 205 mg/dL 70-110 H : TESTED A T [facility] 67[address] (BEAKER) (test code [facility], = 1538) 15978: Wax Molder/Techni rene ID = [id number] for Lisa maxwell (contract), Audrey smith POCT-GLUCOSE [id number] 19:02:00 Test Item Value Reference Range Interpretation Comments POC-GLUCOSE METER 239 mg/dL 70-110 H : TESTED A T [facility] 6720 (BEAKER) (test code [facility], = 1538) 33390: Wax Molder/Techni rene ID = [id number] for Lisa maxwell (contract), Audrey smith BASIC METABOLIC [id number] 17:14:44 Test Item Value Reference Range Interpretation [...] S NOT APPLICABLE FOR DIALYSIS PATIEN TS. Wax Molder ID - KIMMIE AUDREY, CHEST, 1 VIEW, NON [id number] 16:46:00Reason for exam:->currentShould this be performed at the bedside?->Yes [facility] 1965 Sex: MFINAL [...] MDRort Verified Date/Time: 04/23/2022 16:46:33 Reading Location: [facility] [id number] Ortho Consult Reading Room POCT-GLUCOSE [id number] 16:17:08 Test Item Value Reference Range Interpretation Comments POC-GLUCOSE METER 229 mg/dL 70-110 H : TESTED A T [facility] [address] (BEAKER) (test code [facility], = 1538) 56110: Wax Molder/Techni rene ID = [id number] for Lisa maxwell (contract)Audrey SARS-COV2/RT-PCR ([facility])2022-04-23 16:03:49 Test Item Value Reference Range Interpretation Comments SARS-COV2/RT-PCR (test Negative Not Detected, Negative, code = 0890816) See external report for linked test SARS-COV-[address] [facility] LUANA (test code = 3759569) Negative result for this test determines that [...] of the Act.Fact Sheet for Healthcare Prov iders:https://www.[employer]/sites/default/files/product/documents/Fact_Sheet_HC _Lahindbhc_Tllf_BFGJ-CnB-2.pdfFact Sheet for Healthcare Patients:https://www.[facility].milog/sites/default/files/product/docume nts/Qirz_Yafsb_Bdzuvpkl_Sfvu_QODU-BwO-6.pdfPerforming Laboratory:[facility], [place] [address]JNVS-TSBNSFT METER 2022-04-23 15:21:20 Test Item Value Reference Range Interpretation Comments POC-GLUCOSE METER 238 mg/dL 70-110 H : TESTED Rodríguez Licea [facility] 67[address] (SHANTEL) (test code = VICTORINO Salas [facility], 1538) 94733: Wax Molder/Techni rene ID = [id number] for Charly debbieRoma POCT-GLUCOSE [id number] 14:14:42 Test Item Value Reference Range Interpretation Comments POC-GLUCOSE METER 276 mg/dL 70-110 H : TESTED A T [facility] 6720 (BEAKER) (test code [facility], = 1538) 64506: Wax Molder/Techni rene ID = [id number] for Lisa maxwell (contract), Audrey ka POCT-GLUCOSE [id number] 14:13:31 Test Item Value Reference Range Interpretation Comments POC-GLUCOSE METER 319 mg/dL 70-110 H : TESTED A T [facility] 6720 (BEAKER) (test code [facility], = 1538) 79055: Wax Molder/Techni rene ID = [id number] for Lisa maxwell (contract), Nne ka KETONE, [id number] 14:05:33 Test Item Value Reference Range Interpretation Comments KETONES, BLOOD (BEAKER) (test code 0.1 mmol/L <0.4 = 1103) BASIC METABOLIC [id number] 13:08:55 Test Item Value Reference Range Interpretation [...] S NOT APPLICABLE FOR DIALYSIS PATIEN TS. Wax Molder ID - KIMMIE MBLOOD GAS, [id number] 12:52:05 Test Item Value Reference Range Interpretation [...] (BEAKER) (test code = 1819) 21.0 POCT-GLUCOSE [id number] 11:48:15 Test Item Value Reference Range Interpretation Comments POC-GLUCOSE METER 453 mg/dL 70-110 HH : TESTED A T [facility] 6720 (BEAKER) (test code [facility], = 1538) 45813: Wax Molder/Techni rene ID = [id number] for Lisa maxwell (contract) Silveriodominik smith [id number] 11:45:13 Test Item Value Reference Range Interpretation Comments LIPASE (BEAKER) (test code = 749) 90 U/L 8-78 H Wax Molder ID - KIMMIE MSpecimen slightly ictericPOCT-GLUCOSE [id number] 11:24:33 Test Item Value Reference Range Interpretation Comments POC-GLUCOSE METER > mg/dL 70-110 HH : TESTED A T [facility] 6720 (BEAKER) (test code = [facility], 1538) 16422: Wax Molder/Techni rene ID = [id number] for SUGEY HAMILTON [id number] 10:10:35 Test Item Value Reference Range Interpretation Comments FERRITIN (BEAKER) (test code = 221.72 ng/mL 5.00-275.00 361) Wax Molder ID - KIMMIE MHEPATITIS PANEL, [id number] 09:38:02 Test Item Value Reference Range Interpretation Comments HEPATITIS A IGM ANTIBODY (BEAKER) Nonreactive Nonreactive (test code = 498) HEPATITIS B CORE IGM ANTIBODY Nonreactive Nonreactive (BEAKER) (test code = 645) HEPATITIS C ANTIBODY (BEAKER) Reactive Nonreactive A (test code = 367) HEPATITIS B SURFACE ANTIGEN (2) Nonreactive Nonreactive (BEAKER) (test code = 2585) Wax Molder ID - KIMMIE MCOMPREHENSIVE METABOLIC [id number] 09:30:16 Test Item Value Reference Range Interpretation [...] S NOT APPLICABLE FOR DIALYSIS PATIEN TS. Wax Molder ID - KIMMIE MSpecimen slightly ictericSpecimen markedly lipemicALPHA FETOPROTEIN (AFP), TUMOR [id number] 09:24:32 Test Item Value Reference Range Interpretation Comments ALPHA-FETOPROTEIN (BEAKER) (test code < ng/mL <10.0 = 1094) Wax Molder ID - KIMMIE MIMMUNOGLOBULIN G (IGG)2022-04-23 08:27:58 Test Item Value Reference Range Interpretation Comments IMMUNOGLOBULIN G (IGG) 1108 mg/dL See_Comment [Aut omated message] (BEAKER) (test code = The sy stem which 427) generated this result transmit solis reference range : 540-1,822. The reference range was not used to interpret this result as normal/abnormal . Wax Molder ID - KIMMIE ARELY, TIBC, % SAT. (WITHOUT FERRITIN)2022-04-23 08:27:58 Test Item Value Reference Range Interpretation Comments IRON (BEAKER) (test code = 547) 91.0 ug/dL 40.0-160.0 TOTAL IRON BINDING CAPACITY 199 ug/dL 250-450 L (BEAKER) (test code = 769) IRON % SATURATION (2) (BEAKER) 46 % 20-55 (test code = 2590) Wax Molder ID - KIMMIE [id number] 08:17:19 Test Item Value Reference Range Interpretation Comments PHOSPHORUS (BEAKER) 2.3 mg/dL 2.3-4.7 Specimen moderately (test code = 604) hemolyzed Wax Molder ID - KIMMIE [id number] 08:17:18 Test Item Value Reference Range Interpretation Comments MAGNESIUM (BEAKER) 1.9 mg/dL 1.6-2.6 Specimen moderately (test code = 627) hemolyzed Wax Molder ID - KIMMIE MPOCT-GLUCOSE [id number] 07:56:59 Test Item Value Reference Range Interpretation Comments POC-GLUCOSE METER > mg/dL 70-110 HH : Notified RN/MD: TESTED (BEAKER) (test code = AT [facility] [address] [facility] [place] [address]18) [facility], 770 30: Wax Molder/Techni rene ID = [id number] for Guanaco Ingram PT/[id number] 06:48:40 Test Item Value Reference Range Interpretation [...] mechanical heart valves.CBC W/PLT COUNT & AUTO [id number] 06:38:31 Test Item Value Reference Range Interpretation [...] PERCENT (BEAKER) (test code = 2801) POCT-GLUCOSE [id number] 02:35:08 Test Item Value Reference Range Interpretation Comments POC-GLUCOSE METER > mg/dL 70-110 HH : Notified RN/MD: TESTED (BEAKER) (test code = AT [facility] [address]38) [facility], [facility] 30: Wax Molder/Techni rene ID = [id number] for Gisell Botello
[2022-07-04] MEDS ORDERED: ONDANSETRON 4 MG/2 ML VIAL ONE ×2 (02:01→04:57)
[2022-07-04] MEDS ORDERED: MORPHINE 4 MG/ML SYR ONE ×2 (02:01→04:51)
[2022-07-04] MEDS ORDERED: NA CHLORIDE 0.9% 2,000 ML ONE (02:02)
[2022-07-04 02:10] LABS: Absolute Lymphocytes (CBC) 0.7 K/uL (0.7-4.9); Hematocrit 32.8 % (39.6-49.0); MPV 7.4 fL (7.6-11.3); RBC Red Blood Cell Count 3.19 M/uL (4.33-5.43)
[2022-07-04 02:11] LABS: Protime INR 1.34
[2022-07-04 02:18] LABS: SARS-CoV-2 Antigen Rapid Res Negative (Negative)
[2022-07-04 02:20] LABS: Arterial Blood Carboxyhemoglob 5.2 % (0-1.5); Blood Gas Oxyhemoglobin 90.8 % (94-97)
[2022-07-04 02:40] LABS: Albumin 2.5 g/dL (3.4-5.0); Bilirubin Direct 0.6 mg/dL (0-0.2); Bilirubin Total 1.1 mg/dL (0.2-1.0); Magnesium 2.1 mg/dL (1.8-2.4); Potassium 4.8 mmol/L (3.5-5.1); Troponin High Sensitivity 4.6 pg/mL (<58.9)
[2022-07-04 02:44] LABS: Blood Morphology Comment NOT SEEN (NOT SEEN); Platelet Estimate DECR; White Blood Cell Scan OK (OK)
--- NOTE | 2022-07-04 03:01 | ER ---
Nurse's Notes [facility] Name: Amador Cosme Age: 56 yrs Sex: Male : 1965 Arrival Date: 07/04/2022 Time: 01:07 Bed 23 Private MD: Diagnosis: Type 1 diabetes mellitus with hyperglycemia;Unspecified cirrhosis of liver;Nausea;Weakness Presentation: 07/04 01:31 Chief complaint: Patient states: "I was outside waiting on a ride when I started vc1 feeling weak and nauseous and I don't ever get nauseous.". Coronavirus screen: At this time, the client does not indicate any symptoms associated with coronavirus-19. Ebola Screen: No symptoms or risks identified at this time. Risk Assessment: Do you want to hurt yourself or someone else? Patient reports no desire to harm self or others. Onset of symptoms was July 04, 2022. 01:31 Method Of Arrival: Ambulatory vc1 01:31 Acuity: DAO 3 vc1 01:54 Initial Sepsis Screen: Does the patient meet any 2 criteria? No. Patient's initial vc1 sepsis screen is negative. Does the patient have a suspected source of infection? No. Patient's initial sepsis screen is negative. Triage Assessment: 01:35 General: Appears in no apparent distress. uncomfortable, Behavior is cooperative. Pain: vc1 Complains of pain in "All over". EENT: No deficits noted. Neuro: Level of Consciousness is obeys commands, lethargic, Oriented to person, place, time, situation, Appropriate for age. Cardiovascular: No deficits noted. Respiratory: Airway is patent Respiratory effort is even, unlabored, Respiratory pattern is regular, symmetrical. GI: Reports nausea. : No deficits noted. Derm: No deficits noted. Musculoskeletal: No deficits noted. Historical: - Allergies: 01:33 Prednisone; vc1 01:33 TETRACYCLINES; vc1 - PMHx: 01:33 Bipolar disorder; cirrhosis of liver; Dementia; HepB; Hypertensive disorder; NIDDM; vc1 Pancreatitis; - PSHx: 01:33 back; eye sx; vc1 - Immunization history:: Adult Immunizations up to date, Client reports having NOT received the Covid vaccine. Flu vaccine is not up to date. - Social history:: Smoking status: Patient reports the use of cigarette tobacco products, smokes one-half pack cigarettes per day. Screenin:36 Abuse screen: Denies threats or abuse. Nutritional screening: No deficits noted. vc1 Tuberculosis screening: No symptoms or risk factors identified. Fall Risk None identified. Assessment: 03:41 Reassessment: Patient appears in no apparent distress at this time. Patient states ke1 feeling better. Patient states symptoms have improved. 07:00 Reassessment: Patient appears in no apparent distress at this time. Patient and/or ph family updated on plan of care and expected duration. Pain level reassessed. Pt awake but drowsy, oriented to person and place. 08:00 Reassessment: Patient appears in no apparent distress at this time. No changes from ph previously documented assessment. Patient and/or family updated on plan of care and expected duration. Pain level reassessed. 09:00 Reassessment: Patient appears in no apparent distress at this time. No changes from ph previously documented assessment. Patient and/or family updated on plan of care and expected duration. Pain level reassessed. 10:00 Reassessment: Patient appears in no apparent distress at this time. No changes from ph previously documented assessment. Patient and/or family updated on plan of care and expected duration. Pain level reassessed. Pt resting quietly w/ eyes closed, respirations even and unlabored, awaiting admission orders. 12:00 Reassessment: Patient appears in no apparent distress at this time. No changes from ph previously documented assessment. key worker at bedside, attempting to have pt admitted to [facility] for hospice care. 13:28 Reassessment: Patient appears in no apparent distress at this time. Pt awake and alert, ph oriented to person and place, provided lunch, tolerating well, no admission orders at this time, VSS. 15:00 Reassessment: Patient appears in no apparent distress at this time. No changes from ph previously documented assessment. Pt standing at bedside, states that he needs to urinate, urinal provided, output of 950 mL of denise urine noted. 17:10 Reassessment: Patient appears in no apparent distress at this time. Patient and/or ph family updated on plan of care and expected duration. Pain level reassessed. Pt asleep w/ blanket pulled over head, awakens easily to verbal stimuli, [facility] to [facility] d/c to [facility] for [facility], awaiting [facility] and [facility] to coordinate care. Vital Signs: 01:37 Weight 63.5 kg; Height 5 ft. 6 in. (167.64 cm); vc1 01:53 BP 131 / 94; Pulse 93; Resp 17; Temp 98.3(O); Pulse Ox 99% ; vc1 07:48 BP 122 / 85; Pulse 85; Resp 16; Temp 98.0(O); Pulse Ox 100% on R/A; dh3 09:00 BP 118 / 78; Pulse 86; Resp 18; Pulse Ox 98% on R/A; ph 11:00 BP 112 / 78; Pulse 84; Resp 18; Pulse Ox 98% on R/A; ph 13:30 BP 123 / 76; Pulse 87; Resp 18; Pulse Ox 100% on R/A; ph 01:37 Body Mass Index 22.60 (63.50 kg, 167.64 cm) vc1 ED Course: 01:07 Patient arrived in ED. bp1 01:07 James Uriarte MD is Attending Physician. gail 01:27 Da Mccartney, CLARI is Primary Nurse. ke1 01:30 XRAY Chest (1 view) In Process Unspecified. EDMS 01:33 Triage completed. vc1 01:36 Arm band placed on right wrist. vc1 01:36 No provider procedures requiring assistance completed. vc1 01:54 Patient has correct armband on for positive identification. Bed in low position. Call vc1 light in reach. Pulse ox on. NIBP on. 02:10 Inserted saline lock: 20 gauge in right forearm, using aseptic technique. ke1 02:59 Jesus Bateman MD is Hospitalizing Provider. gail 02:59 Hospitalizing Provider role handed off by Jesus Bateman MD gail 02:59 Jesus Becerra MD is Hospitalizing Provider. gail 12:37 Patient admitted, IV remains in place. ph 23:24 Jesus Bateman MD is Hospitalizing Provider. sb3 Administered Medications: 02:10 Drug: morphine 4 mg Route: IVP; Infused Over: 4 mins; Site: right forearm; ke1 02:11 Drug: NS 0.9% 1000 ml Route: IV; Rate: 1 bolus; Site: right forearm; ke1 02:11 Drug: NS 0.9% 1000 ml Route: IV; Rate: 1 bolus; Site: right forearm; ke1 02:11 Drug: Zofran (Ondansetron) 4 mg Route: IVP; Site: right forearm; ke1 03:08 Drug: Insulin Regular Human 10 units {Co-Signature: vc1 (Felicita Henriquez RN).} Route: ke1 IVP; Site: right forearm; 03:08 Drug: Insulin Regular Human 10 units {Co-Signature: vc1 (Felicita Henriquez RN).} Route: ke1 Sub-Q; Site: right upper arm; 04:41 CANCELLED (Duplicate Order): Insulin Regular Human 10 units IVP once gail 04:44 Drug: Insulin Regular Human 10 units {Co-Signature: tw5 (Leticia Little).} Route: IVP; vc1 Site: right antecubital; 04:51 Drug: morphine 4 mg Route: IVP; Infused Over: 4 mins; Site: right antecubital; vc1 04:51 Drug: Zofran (Ondansetron) 4 mg Route: IVP; Site: right antecubital; vc1 Medication: 01:37 VIS not applicable for this client. vc1 Outcome: 03:00 Decision to Hospitalize by Provider. [facility] 07/05 02:10 Patient left the ED. lp1 Signatures: Dispatcher [employer] EDMS James Uriarte MD MD cha Pena, Laura, RN RN lp1 Amy Villareal RN RN ph Herrera, Deanna 3 Amber Foote Vanessa, RN RN vc1 Da Mccartney RN RN ke1 Rosa Daniel PA PA 3 Felicita Henriquez RN, vc1 Leticia Little tw5 Corrections: (The following items were deleted from the chart) 07/04 13:29 12:00 Reassessment: Patient appears in no apparent distress at this time. No changes ph from previously documented assessment. ph
--- NOTE | 2022-07-04 03:01 | EDPHYS ---
Physician Documentation [facility] Name: Amador Cosme Age: 56 yrs Sex: Male : 1965 Arrival Date: 07/04/2022 Time: 01:07 Bed 23 Private MD: ANABEL Physician James Uriarte HPI: 07/04 02:55 This 56 yrs old Male presents to ER via Ambulatory with complaints of Nausea. gail 02:55 The patient presents to the emergency department with nausea, that is mild. Onset: The gail symptoms/episode began/occurred 3 day(s) ago. Possible causes: diabetic. The symptoms are aggravated by nothing. The symptoms are alleviated by nothing. Associated signs and symptoms: The patient has no apparent associated signs or symptoms. Severity of symptoms: At their worst the symptoms were mild in the emergency department the symptoms are unchanged. The patient has experienced similar episodes in the past. Historical: - Allergies: 01:33 Prednisone; vc1 01:33 TETRACYCLINES; vc1 - PMHx: 01:33 Bipolar disorder; cirrhosis of liver; Dementia; HepB; Hypertensive disorder; NIDDM; vc1 Pancreatitis; - PSHx: 01:33 back; eye sx; vc1 - Immunization history:: Adult Immunizations up to date, Client reports having NOT received the Covid vaccine. Flu vaccine is not up to date. - Social history:: Smoking status: Patient reports the use of cigarette tobacco products, smokes one-half pack cigarettes per day. ROS: 02:56 Constitutional: Negative for fever, chills, and weight loss, Eyes: Negative for injury, gail pain, redness, and discharge, ENT: Negative for injury, pain, and discharge, Neck: Negative for injury, pain, and swelling, Cardiovascular: Negative for chest pain, palpitations, and edema, Respiratory: Negative for shortness of breath, cough, wheezing, and pleuritic chest pain, Back: Negative for injury and pain, : Negative for injury, bleeding, discharge, and swelling, MS/Extremity: Negative for injury and deformity, Skin: Negative for injury, rash, and discoloration, Neuro: Negative for headache, weakness, numbness, tingling, and seizure. 02:56 Abdomen/GI: Positive for abdominal pain, nausea. Exam: 02:56 Constitutional: This is a well developed, well nourished patient who is awake, alert, gail and in no acute distress. Head/Face: Normocephalic, atraumatic. Eyes: Pupils equal round and reactive to light, extra-ocular motions intact. Lids and lashes normal. Conjunctiva and sclera are non-icteric and not injected. Cornea within normal limits. Periorbital areas with no swelling, redness, or edema. ENT: Nares patent. No nasal discharge, no septal abnormalities noted. Tympanic membranes are normal and external auditory canals are clear. Oropharynx with no redness, swelling, or masses, exudates, or evidence of obstruction, uvula midline. Mucous membranes moist. Neck: Trachea midline, no thyromegaly or masses palpated, and no cervical lymphadenopathy. Supple, full range of motion without nuchal rigidity, or vertebral point tenderness. No Meningismus. Chest/axilla: Normal chest wall appearance and motion. Nontender with no deformity. No lesions are appreciated. Cardiovascular: Regular rate and rhythm with a normal S1 and S2. No gallops, murmurs, or rubs. Normal PMI, no JVD. No pulse deficits. Respiratory: Lungs have equal breath sounds bilaterally, clear to auscultation and percussion. No rales, rhonchi or wheezes noted. No increased work of breathing, no retractions or nasal flaring. Abdomen/GI: Soft, non-tender, with normal bowel sounds. No distension or tympany. No guarding or rebound. No evidence of tenderness throughout. Back: No spinal tenderness. No costovertebral tenderness. Full range of motion. Male : Normal genitalia with no discharge or lesions. Skin: Warm, dry with normal turgor. Normal color with no rashes, no lesions, and no evidence of cellulitis. MS/ Extremity: Pulses equal, no cyanosis. Neurovascular intact. Full, normal range of motion. Neuro: Awake and alert, GCS 15, oriented to person, place, time, and situation. Cranial nerves II-XII grossly intact. Motor strength 5/5 in all extremities. Sensory grossly intact. Cerebellar exam normal. Normal gait. Psych: Awake, alert, with orientation to person, place and time. Behavior, mood, and affect are within normal limits. 04:37 ECG was reviewed by the Attending Physician. [facility] Vital Signs: 01:37 Weight 63.5 kg; Height 5 ft. 6 in. (167.64 cm); vc1 01:53 BP 131 / 94; Pulse 93; Resp 17; Temp 98.3(O); Pulse Ox 99% ; vc1 07:48 BP 122 / 85; Pulse 85; Resp 16; Temp 98.0(O); Pulse Ox 100% on R/A; dh3 09:00 BP 118 / 78; Pulse 86; Resp 18; Pulse Ox 98% on R/A; ph 11:00 BP 112 / 78; Pulse 84; Resp 18; Pulse Ox 98% on R/A; ph 13:30 BP 123 / 76; Pulse 87; Resp 18; Pulse Ox 100% on R/A; ph 01:37 Body Mass Index 22.60 (63.50 kg, 167.64 cm) vc1 MDM: 01:24 Patient medically screened. gail 02:57 Differential diagnosis: Nonspecific abd pain, gastritis, pancreatitis, appendicitis, gail viral gastroenteritis, gastroenteritis. Data reviewed: vital signs, nurses notes, lab test result(s), EKG, radiologic studies, plain films. Data interpreted: telemetry monitor: rate is 93 beats/min, rhythm is regular, Pulse oximetry: on room air is 99 %. Test interpretation: by ED physician or midlevel provider: ECG. Counseling: I had a detailed discussion with the patient and/or guardian regarding: the historical points, exam findings, and any diagnostic results supporting the discharge/admit diagnosis, lab results, radiology results, the need for further work-up and treatment in the hospital. 07/04 01:09 Order name: Basic Metabolic Panel; Complete Time: 02:49 [facility] 07/04 01:09 Order name: CBC with Diff; Complete Time: 02:49 [facility] 07/04 01:09 Order name: LFT's; Complete Time: 02:49 [facility] 07/04 01:09 Order name: Magnesium; Complete Time: 02:49 [facility] 07/04 01:09 Order name: NT PRO-BNP; Complete Time: 02:49 [facility] 07/04 01:09 Order name: PT-INR; Complete Time: 02:49 [facility] 07/04 01:09 Order name: Troponin HS; Complete Time: 02:49 [facility] 07/04 01:09 Order name: SARS RAPID; Complete Time: 02:49 [facility] 07/04 01:09 Order name: ABG; Complete Time: 02:49 [facility] 07/04 02:13 Order name: Glucose, Ancillary Testing; Complete Time: 02:49 EDMS 07/04 02:16 Order name: CBC Smear Scan; Complete Time: 02:49 EDMS 07/04 03:17 Order name: Urine Dipstick-Ancillary; Complete Time: 03:27 EDMS 07/04 04:17 Order name: Glucose, Ancillary Testing; Complete Time: 04:43 EDMS 07/04 05:47 Order name: Glucose, Ancillary Testing; Complete Time: 06:39 EDMS 07/04 01:09 Order name: XRAY Chest (1 view) [facility] 07/04 06:44 Order name: Glucose, Ancillary Testing; Complete Time: 23:23 EDMS 07/04 07:26 Order name: Glucose, Ancillary Testing; Complete Time: 23:23 EDMS 07/04 13:19 Order name: Glucose, Ancillary Testing; Complete Time: 23:23 EDMS 07/04 17:35 Order name: CBC with Automated Diff EDMS 07/04 17:35 Order name: CBC with Automated Diff EDMS 07/04 17:35 Order name: Comprehensive Metabolic Panel EDMS 07/04 17:35 Order name: Comprehensive Metabolic Panel EDMS 07/04 17:35 Order name: Magnesium EDMS 07/04 17:35 Order name: Magnesium EDMS 07/04 18:29 Order name: Glucose, Ancillary Testing; Complete Time: 23:23 EDMS 07/04 20:29 Order name: Glucose, Ancillary Testing; Complete Time: 23:23 EDMS 07/04 01:09 Order name: EKG; Complete Time: 01:09 [facility] 07/04 01:09 Order name: Cardiac monitoring; Complete Time: 02:11 [facility] 07/04 01:09 Order name: EKG - Nurse/Tech; Complete Time: 03:41 [facility] 07/04 01:09 Order name: IV Saline Lock; Complete Time: 02:11 [facility] 07/04 01:09 Order name: Labs collected and sent; Complete Time: 02:11 [facility] 07/04 01:09 Order name: O2 Per Protocol; Complete Time: 02:11 [facility] 07/04 01:09 Order name: O2 Sat Monitoring; Complete Time: 02:11 [facility] 07/04 01:09 Order name: Urine Dipstick-Ancillary (obtain specimen); Complete Time: 03:41 [facility] 07/04 08:02 Order name: Social Service Consult EDMS 07/04 14:34 Order name: 60g Consistent Carbohydrate (ADA ) EDMS EC:37 Rate is 93 beats/min. Rhythm is regular. QRS [place] is Normal. UT interval is normal. QRS gail interval is normal. QT interval is normal. No Q waves. T waves are Normal. No ST changes noted. Clinical impression: NSR w/ Non-specific ST/T Changes and No evidence of ischemia. Interpreted by me. Reviewed by me. Administered Medications: 02:10 Drug: morphine 4 mg Route: IVP; Infused Over: 4 mins; Site: right forearm; ke1 02:11 Drug: NS 0.9% 1000 ml Route: IV; Rate: 1 bolus; Site: right forearm; ke1 02:11 Drug: NS 0.9% 1000 ml Route: IV; Rate: 1 bolus; Site: right forearm; ke1 02:11 Drug: Zofran (Ondansetron) 4 mg Route: IVP; Site: right forearm; ke1 03:08 Drug: Insulin Regular Human 10 units {Co-Signature: vc1 (Felicita Henriquez RN).} Route: ke1 IVP; Site: right forearm; 03:08 Drug: Insulin Regular Human 10 units {Co-Signature: vc1 (Felicita Henriquez RN).} Route: ke1 Sub-Q; Site: right upper arm; 04:41 CANCELLED (Duplicate Order): Insulin Regular Human 10 units IVP once gail 04:44 Drug: Insulin Regular Human 10 units {Co-Signature: tw5 (Leticia Little).} Route: IVP; vc1 Site: right antecubital; 04:51 Drug: morphine 4 mg Route: IVP; Infused Over: 4 mins; Site: right antecubital; vc1 04:51 Drug: Zofran (Ondansetron) 4 mg Route: IVP; Site: right antecubital; vc1 Disposition Summary: 07/04/22 03:00 Hospitalization Ordered Hospitalization Status: Observation gail Condition: Fair gail Problem: new gail Symptoms: have improved gail Bed/Room Type: Standard gail Location: [facility] ER HOLD(07/04/22 18:44) Room Assignment: ERHOLD-(07/04/22 18:44) Provider: Jesus Bateman(07/04/22 23:24) sb3 Diagnosis - Type 1 diabetes mellitus with hyperglycemia gail - Unspecified cirrhosis of liver gail - Nausea gail - Weakness gail Forms: - Medication Reconciliation Form gail - SBAR form gail Signatures: Dispatcher [employer] EDJames Bates MD MD cha Waters, Shelly, LEAD DEVELOPER-C LEAD DEVELOPER-Donavanw Angela Brown RN RN ss Felicita Henriquez RN RN vc1 Da Mccartney RN RN ke1 Rosa Daniel PA PA sb3 Felicita Henriquez RN vc1 Leticia Little tw5 Corrections: (The following items were deleted from the chart) 04:41 04:40 Insulin Regular Human 10 units IVP once ordered. gail [facility] 18:44 03:00 Telemetry/MedSurg (observation) gail 18:44 03:00 gail 23:24 03:00 Jesus Becerra cha sb3
[2022-07-04] MEDS ORDERED: INSULIN -REGULAR HUMAN 50 UNIT/0.5 ML ML ONE ×4 (03:12→20:32)
[2022-07-04 03:17] LABS: Urine Blood Negative (Negative); Urine Glucose 2+ (Negative); Urine Protein Negative (Negative)
--- NOTE | 2022-07-04 08:06 | EKG ---
Test Date: 2022-07-04 Test Time: 03:36:22 C D Stripper: HECTOR MEASUREMENT RESULTS: Intervals: Rate: 93 [place]: 162 QRSD: 74 QT: 374 QTc: 465 [place]: P: 65 AZ: 162 QRS: 49 T: 74 INTERPRETIVE STATEMENTS: Normal sinus rhythm Anteroseptal infarct, age undetermined Abnormal ECG Compared to ECG 06/26/2022 14:30:57 No significant changes Electronically Signed On 07-04-22 08:06:06 CDT by Dixon Guy
[2022-07-04] MEDS ORDERED: ONDANSETRON 4 MG/2 ML VIAL IV PRN (14:31)
[2022-07-04 15:12] VITALS: O2SAT 100
[2022-07-04] MEDS: INSULIN -REGULAR HUMAN 50 UNIT/0.5 ML ML SQ SCH ×2 (16:30→20:28)
[2022-07-04] MEDS ORDERED: LACTULOSE 20 GM/30 ML UCUP PO PRN (17:36)
--- NOTE | 2022-07-04 17:43 | P.HP ---
Certification for Inpatient Patient admitted to: Inpatient With expected LOS: >2 Midnights Patient will require the following post-hospital care: Hospice Practitioner: I am a practitioner with admitting privileges, knowledge of patient current condition, hospital course, and medical plan of care. Services: Services provided to patient in accordance with Admission requirements found in Title 42 Section 412.3 of the Code of Federal Regulations Patient History Date of Service: 07/04/22 Reason for admission: hyperglycemia, nausea, epigastric pain History of Present Illness: 56yo M, PMH: IDDM2, alcoholic cirrhosis of liver with suspected HCC and portal vein thrombosis, Presents to ED due to nausea, epigastric pain, and overall not feeling well. Janiya romero left AMA from hospitalization for DKA yesterday. He was unhappy with having to stick with a diabetic diet and felt like he was being starved. He has been in and out of the hospital multiple times this year for similar presentations of DKA and hepatic encephalopathy. He lives in a trailer and has not been taking good care of himself. He has had difficulty appropriately managing his diet and medications on his own. During his multiple previous hospitalizations he has brought up hospice, and in the most recent hospitalization he was wanting to be discharged to a facility with hospice. In the ER, he was noted to have severe hyperglycemia with elevated LFTs. he was given insulin with some improvement of his blood glucose levels. emergency services dispatcher was contacted to assist with disposition to a facility with hospice while patient was in the ER. Unfortunately this process will take some time, and patient is currently unsafe for discharge home. Allergies prednisone Allergy (Verified 07/01/22 18:29) Rash Tetracyclines Allergy (Verified 07/01/22 18:29) Rash Home Medications: NK [No Home Meds] 07/01/22 - Past Medical/Surgical History Diabetic: Yes -: Alcoholic liver cirrhosis -: Hypertension -: Diabetes mellitusinsulin-dependent -: Chronic tobacco use history -: Dementia as per records -: chronic pancreatitis -: sciatica -: bilateral rotator cuff tear (untreated) -: Eye surgery (lasix right eye) -: Previous paracentesis Psychosocial/ Personal History: Patient currently lives at home alone. - Family History Mother -: Heart disease, Hypertension - Social History Smoking Status: Former smoker Alcohol use: Yes CD- Drugs: No Caffeine use: No Place of Residence: Home Review of Systems 10-point ROS is otherwise unremarkable Physical Examination - Physical Exam General: Alert, Oriented x2, Confused HEENT: EOMI, Sclerae nonicteric Neck: Supple, No LAD Respiratory: Clear to auscultation bilaterally, Normal air movement Cardiovascular: No edema, Regular rate/rhythm Gastrointestinal: Soft and benign, Non-distended Musculoskeletal: No contractures, No tenderness Integumentary: No breakdown, No significant lesion Neurological: Normal speech, Normal strength at 5/5 x4 extr - Studies Laboratory Data (last 24 hrs) 07/04/22 01:47: PT 14.8 H, INR 1.34 07/04/22 01:47: WBC 3.50 L D, Hgb 11.2 L, Hct 32.8 L, Plt Count 70 L 07/04/22 01:47: Sodium 138, Potassium 4.8, BUN 15, Creatinine 1.15, Glucose 652 H*, Magnesium 2.1, Total Bilirubin 1.1 H, AST 740 H* D, ALT 403 H* D, Alkaline Phosphatase 170 H Assessment and Plan - Advance Directives Does patient have a Living Will: No Does patient have a Durable POA for Healthcare: No Physician Review Additional Text: Problem List IDDM2 with hyperglycemia Alcoholic cirrhosis of the liver with suspected hepatocellular carcinoma and portal vein thrombosis Pancytopenia related to cirrhosis Bipolar Dementia continue insulin long acting; added sliding scale, accucheks ACHS restart prior anti-hypertensive medication restrict diet, only one nighttime snack home health care social worker consulted for hospice placement LFTs increased, pt has cirrhosis and noncompliant continue lactulose, spironolactone process undergoing for placement adjust meds as needed hold anticoagulation - not good candidate given thrombocytopenia, was dc'd last hospitalization f/u with GI/oncology/hepatology at discharge. Per chart review hospice was discussed with patient during previous visit but he elected to leave AMA. Dispo: [facility] with hospice 1-2 days Time Spent Managing Pts Care (In Minutes): 70
[2022-07-04 18:56] VITALS: BMI 22.6
--- NOTE | 2022-07-04 20:08 | RAD REPORT ---
EXAM DESCRIPTION: RAD - Chest Single View - 07/04/2022 1:29 am CLINICAL HISTORY: 56 years Male, COUGH COMPARISON: 03/12/2022 TECHNIQUE: Single portable x-ray view of the chest performed on 07/04/2022 at 1:24 AM FINDINGS: The lungs are well expanded. Radiograph is lordotic in position. There may be mild volume loss in the left lung base which could be due to atelectasis, pleural fluid or inflammatory changes. There is no evidence of a pneumothorax. The cardiac silhouette is normal in size and configuration. The mediastinal contours are normal. No acute osseous abnormality is identified. No acute soft tissue abnormalities are seen. Lines and tubes: None. Free air: None IMPRESSION: 1. Mild volume loss in the left lung base which could be due to atelectasis, pleural f luid or inflammatory changes. 2. The lungs are otherwise grossly clear. 3. Lordotic positioning of the patient. Electronically signed by: Yoli Crowley DO 07/04/2022 2:07 AM CDT Due to temporary technical issues with the PACS/Fluency reporting system, reports are being signed by the in house radiologists without review as a courtesy to insure prompt reporting. The interpreting radiologist is fully responsible for the content of the report
[2022-07-04] MEDS ORDERED: INSULIN GLARGINE 100 UNIT/ML SQ ONE (20:31)
[2022-07-04] MEDS ORDERED: INSULIN GLARGINE 100 UNIT/ML SQ SCH (21:00)
[2022-07-04] MEDS ORDERED: NICOTINE 21 MG/PAT TD SCH (23:15)
[2022-07-05] MEDS ORDERED: NICOTINE 21 MG/PAT TD ONE (00:24)
--- NOTE | 2022-07-05 02:04 | P.DS ---
Admission Date: 07/04/22 Discharge Date: 07/05/22 Disposition: AMA-LEFT AGAINST MEDICAL ADVIC Discharge Condition: FAIR Reason for Admission: hyperglycemia, nausea, epigastric pain - Problems (1) Alcoholic cirrhosis of liver with ascites Current Visit: Yes Status: Chronic (2) Hepatic encephalopathy Current Visit: Yes Status: Chronic (3) Anemia Current Visit: Yes Status: Chronic Qualifiers: Anemia type: unspecified type Qualified Code(s): D64.9 - Anemia, unspecified (4) T2DM (type 2 diabetes mellitus) Current Visit: Yes Status: Chronic Qualifiers: Diabetes mellitus forest officer insulin use: with retirement use Diabetes mellitus complication status: with hyperglycemia Qualified Code(s): E11.65 - Type 2 diabetes mellitus with hyperglycemia; Z79.4 - senior care (current) use of insulin (5) Thrombocytopenia Current Visit: Yes Status: Chronic Brief History of Present Illness: 56yo M, PMH: IDDM2, alcoholic cirrhosis of liver with suspected HCC and portal vein thrombosis, Presents to ED due to nausea, epigastric pain, and overall not feeling well. Patient left AMA from hospitalization for DKA yesterday. He was unhappy with having to stick with a diabetic diet and felt like he was being starved. He has been in and out of the hospital multiple times this year for similar presentations of DKA and hepatic encephalopathy. He lives in a trailer and has not been taking good care of himself. He has had difficulty appropriately managing his diet and medications on his own. During his multiple previous hospitalizations he has brought up hospice, and in the most recent hospitalization he was wanting to be discharged to a facility with hospice. In the ER, he was noted to have severe hyperglycemia with elevated LFTs. he was given insulin with some improvement of his blood glucose levels. business services sales representative was contacted to assist with disposition to a facility with hospice while patient was in the ER. Unfortunately this process will take some time, and patient is currently unsafe for discharge home. Hospital Course: continue insulin long acting; added sliding scale, accucheks ACHS restart prior anti-hypertensive medication restrict diet, only one nighttime snack director of social media marketing consulted for hospice placement LFTs increased, pt has cirrhosis and noncompliant continue lactulose, spironolactone hold anticoagulation - not good candidate given thrombocytopenia, was dc'd last hospitalization Patient was found to be smoking cigarettes in his hospital room. He was continually requesting more food. He decided that he wanted to leave AMA so he could smoke cigarettes and go to [employer]. he states that he would come back at 8AM for his placement. I instructed him that it would not be guaranteed if he left. He signed out AMA. General: Alert, In no apparent distress HEENT: Atraumatic, PERRLA, EOMI Neck: Supple, JVD not distended Respiratory: Clear to auscultation bilaterally, Normal air movement Cardiovascular: Regular rate/rhythm, Normal S1 S2 Gastrointestinal: Normal bowel sounds, No tenderness Musculoskeletal: No tenderness Integumentary: No rashes Neurological: Normal speech, Normal tone, Normal affect Laboratory Data at Discharge: WBC 3.50 K/uL (4.3-10.9) L D 07/04/22 01:47 Hgb 11.2 g/dL (13.6-17.9) L 07/04/22 01:47 Hct 32.8 % (39.6-49.0) L 07/04/22 01:47 Plt Count 70 K/uL (152-406) L 07/04/22 01:47 PT 14.8 SECONDS (9.5-12.5) H 07/04/22 01:47 INR 1.34 07/04/22 01:47 Sodium 138 mmol/L (136-145) 07/04/22 01:47 Potassium 4.8 mmol/L (3.5-5.1) 07/04/22 01:47 BUN 15 mg/dL (7-18) 07/04/22 01:47 Creatinine 1.15 mg/dL (0.55-1.3) 07/04/22 01:47 Glucose 652 mg/dL (74-106) H* 07/04/22 01:47 Magnesium 2.1 mg/dL (1.8-2.4) 07/04/22 01:47 Total Bilirubin 1.1 mg/dL (0.2-1.0) H 07/04/22 01:47 AST 740 U/L (15-37) H* D 07/04/22 01:47 ALT 403 U/L (12-78) H* D 07/04/22 01:47 Alkaline Phosphatase 170 U/L (45-117) H 07/04/22 01:47 Home Medications: NK [No Home Meds] 07/01/22 Diet: ADA Activity: Ad ty Followup: NONE,NONE [Primary Care Provider] - Time spent managing pt's care (in minutes): 30
[2022-07-05] MEDS ORDERED: INSULIN GLARGINE 100 UNIT/ML SQ ONE (07:47)
[2022-07-05] MEDS ORDERED: INSULIN -REGULAR HUMAN 50 UNIT/0.5 ML ML ONE (07:49)
[2022-07-05] MEDS ORDERED: SPIRONOLACTONE 100 MG TAB PO SCH (09:00)
== END 2022-07-05 01:45 | disposition left against medical advice (07) | DRG 639 ==
LOC: ER 00:49 → ERHOLD 17:32
PROVIDERS: ADMIT Hospitalist; ATTEND Hospitalist
DX: E11.65 Type 2 diabetes mellitus with hyperglycemia (principal); K70.31 Alcoholic cirrhosis of liver with ascites; K72.10 Chronic hepatic failure without coma; D64.9 Anemia, unspecified; D69.6 Thrombocytopenia, unspecified; I10 Essential (primary) hypertension; F17.210 Nicotine dependence, cigarettes, uncomplicated; Z53.29 Procedure and treatment not carried out because of patient's decision for other reasons; Z79.4 Long term (current) use of insulin; Z20.822 Contact with and (suspected) exposure to COVID-19
CPT/HCPCS: 36415; 71045; 80048; 80053; 80076; 81003; 81015; 82010; 82805; 82947; 83735; 83880; 84484; 85025; 85610; 87811; 93005; 94760; 96361; 96372; 96374; 99284; J1815; J2405; J7030

== ENCOUNTER 2022-07-05 06:14 | Inpatient (IN) | payer OTHER ==
--- OUTSIDE RECORDS SUMMARY | 2022-07-05 06:17 | XMS REPORT | Continuity of Care Document ---
:1965 Author Organization [facility] t Address [address] [place] [address] Care Team Providers Name Role Phone MARICRUZ YUSUF Attending Clinician Unavailable CARLOS DONOVAN Attending Clinician Unavailable MARICRUZ YUSUF Admitting Clinician Unavailable Payers Payer Name Policy Type Policy Number Effective Date Expiration Date Josh branch [facility] COMM STAR [id number] 2021 00:00:00 PLAN Problems This patient has [...] Department ID 2022-06-[address] [facility] Oncology [id number] [facility] 11:24:58 [facility] 2022-04-24 2022-04-24 Emergency ER [facility] Emergency [id number] [facility] 05:12:00 05:35:00 2022-04-22 2022-04-23 Inpatient ER PARAMJIT, [facility] Gastro [id number] [facility] 17:55:00 22:00:00 [place] Results Test Description Test Time Test Comments Results Result Comments Source ANTI-MITOCHONDRIAL AB, REFLEX TO TITER 2022-05-04 12:12:43 Test Item Value Reference Range Interpretation Comme nts SCAN RESULT (test code = 1121986) HEPATITIS C PCR, [id number] 15:18:06 Test Item Value Reference Range Interpretation Comments HCV RESULT COMPONENT HCV RNA not detected HCV RNA not detected ([employer]) (test code = 2699) This test uses a Real-Time Polymerase Chain Reaction (RT-PCR) methodology and was performed using EMILY Ampliprep/EMILY TaqMan HCV test kit version 2.0 ([employer]).Reportable range for this assay is 15 - 100,000,000 IU per mL (1.18 - 8.00 Log IU/mL).ANTI-NUCLEAR ANTIBODY (TRANG)2022-04-25 11:24:48 Test Item Value Reference Range Interpretation Comments ANTI-NUCLEAR ANTIBODY (TRANG) ([employer]) Negative Negative (test code = 418) Test performed by IFA method.Test performed by IFA method.HEMOGLOBIN A1C 2022-04-24 09:24:13 Test Item Value Reference Range Interpretation Comments HEMOGLOBIN A1C 12.2 % See_Comment H [Automated m essage] ELECTROPHORESIS ([employer]) The system which (test code = 3811) generated this result transmitted ref erence range: <=5.6%. The reference range was not used to int erpret this result as normal/abnormal . "The A1c is measured using a NGSP-certified method. HbA1c value equal to or greater than 6.5% as thediagnosis cutoff for diabetes. An HbA1c value of 5.7- 6.4% indicates increased risk for diabetes (prediabetes)."Phlebotomy Support Tech ID - ADMOperator ID - ADMPOCT-GLUCOSE [id number] 19:03:02 Test Item Value Reference Range Interpretation Comments POC-GLUCOSE METER 205 mg/dL 70-110 H : TESTED A T [facility] 67[address] (BEAKER) (test code [facility], = 1538) 59955: Phlebotomy Support Tech/Techni rene ID = [id number] for Lisa maxwell (contract), Audrey smith POCT-GLUCOSE [id number] 19:02:00 Test Item Value Reference Range Interpretation Comments POC-GLUCOSE METER 239 mg/dL 70-110 H : TESTED A T [facility] 6720 (BEAKER) (test code [facility], = 1538) 13686: Phlebotomy Support Tech/Techni rene ID = [id number] for Lisa maxwell (contract), Audrey smith BASIC METABOLIC [id number] 17:14:44 Test Item Value Reference Range Interpretation [...] S NOT APPLICABLE FOR DIALYSIS PATIEN TS. Phlebotomy Support Tech ID - KIMMIE AUDREY, CHEST, 1 VIEW, NON [id number] 16:46:00Reason for exam:->currentShould this be performed at the bedside?->Yes [facility] : 1965 Sex: [...] MDRort Verified Date/Time: 04/23/2022 16:46:33 Reading Location: [facility] [id number] Ortho Consult Reading Room POCT-GLUCOSE [id number] 16:17:08 Test Item Value Reference Range Interpretation Comments POC-GLUCOSE METER 229 mg/dL 70-110 H : TESTED A T [facility] 67[address] (BEAKER) (test code [facility], = 1538) 54624: Phlebotomy Support Tech/Techni rene ID = [id number] for Lisa maxwell (contract)Audrey SARS-COV2/RT-PCR ([facility])2022-04-23 16:03:49 Test Item Value Reference Range Interpretation Comments SARS-COV2/RT-PCR (test Negative Not Detected, Negative, code = 8367906) See external report for linked test SARS-COV-[address] [facility] L[facility]NA (test code = 3859319) Negative result for this test determines that [...] of the Act.Fact Sheet for Healthcare Prov iders:https://www.[employer]/sites/default/files/product/documents/Fact_Sheet_HC _Cabxlsmxc_Anov_BTSZ-TuX-1.pdfFact Sheet for Healthcare Patients:https://www.[employer]/sites/default/files/product/docume nts/Myhc_Sjqkb_Jmeaheuw_Wjkg_ZIFX-YaW-4.pdfPerforming Laboratory:[facility], [place] [address]OFAF-XDRENCN METER 2022-04-23 15:21:20 Test Item Value Reference Range Interpretation Comments POC-GLUCOSE METER 238 mg/dL 70-110 H : TESTED Rodríguez Licea [facility] 67[address] (SHANTEL) (test code = VICTORINO Salas [facility], 1538) 55983: Phlebotomy Support Tech/Techni rene ID = [id number] for Charly debbieRoma POCT-GLUCOSE [id number] 14:14:42 Test Item Value Reference Range Interpretation Comments POC-GLUCOSE METER 276 mg/dL 70-110 H : TESTED A T [facility] 6720 (BEAKER) (test code [facility], = 1538) 54782: Phlebotomy Support Tech/Techni rene ID = [id number] for Lisa maxwell (contract), Audrey ka POCT-GLUCOSE [id number] 14:13:31 Test Item Value Reference Range Interpretation Comments POC-GLUCOSE METER 319 mg/dL 70-110 H : TESTED A T [facility] 6720 (BEAKER) (test code [facility], = 1538) 76280: Phlebotomy Support Tech/Techni rene ID = [id number] for Lisa maxwell (contract), Nne ka KETONE, [id number] 14:05:33 Test Item Value Reference Range Interpretation Comments KETONES, BLOOD (BEAKER) (test code 0.1 mmol/L <0.4 = 1103) BASIC METABOLIC [id number] 13:08:55 Test Item Value Reference Range Interpretation [...] S NOT APPLICABLE FOR DIALYSIS PATIEN TS. Phlebotomy Support Tech ID - KIMMIE MBLOOD GAS, [id number] 12:52:05 Test Item Value Reference Range Interpretation [...] (BEAKER) (test code = 1819) 21.0 POCT-GLUCOSE [id number] 11:48:15 Test Item Value Reference Range Interpretation Comments POC-GLUCOSE METER 453 mg/dL 70-110 HH : TESTED A T [facility] 6720 (BEAKER) (test code [facility], = 1538) 47369: Phlebotomy Support Tech/Techni rene ID = [id number] for Lisa maxwell (contract) Silveriodominik smith [id number] 11:45:13 Test Item Value Reference Range Interpretation Comments LIPASE (BEAKER) (test code = 749) 90 U/L 8-78 H Phlebotomy Support Tech ID - KIMMIE MSpecimen slightly ictericPOCT-GLUCOSE [id number] 11:24:33 Test Item Value Reference Range Interpretation Comments POC-GLUCOSE METER > mg/dL 70-110 HH : TESTED A T [facility] 6720 (BEAKER) (test code = [facility], 1538) 69419: Phlebotomy Support Tech/Techni rene ID = [id number] for SUGEY HAMILTON [id number] 10:10:35 Test Item Value Reference Range Interpretation Comments FERRITIN (BEAKER) (test code = 221.72 ng/mL 5.00-275.00 361) Phlebotomy Support Tech ID - KIMMIE MHEPATITIS PANEL, [id number] 09:38:02 Test Item Value Reference Range Interpretation Comments HEPATITIS A IGM ANTIBODY (BEAKER) Nonreactive Nonreactive (test code = 498) HEPATITIS B CORE IGM ANTIBODY Nonreactive Nonreactive (BEAKER) (test code = 645) HEPATITIS C ANTIBODY (BEAKER) Reactive Nonreactive A (test code = 367) HEPATITIS B SURFACE ANTIGEN (2) Nonreactive Nonreactive (BEAKER) (test code = 2585) Phlebotomy Support Tech ID - KIMMIE MCOMPREHENSIVE METABOLIC [id number] 09:30:16 Test Item Value Reference Range Interpretation [...] S NOT APPLICABLE FOR DIALYSIS PATIEN TS. Phlebotomy Support Tech ID - KIMMIE MSpecimen slightly ictericSpecimen markedly lipemicALPHA FETOPROTEIN (AFP), TUMOR [id number] 09:24:32 Test Item Value Reference Range Interpretation Comments ALPHA-FETOPROTEIN (BEAKER) (test code < ng/mL <10.0 = 1094) Phlebotomy Support Tech ID - KIMMIE MIMMUNOGLOBULIN G (IGG)2022-04-23 08:27:58 Test Item Value Reference Range Interpretation Comments IMMUNOGLOBULIN G (IGG) 1108 mg/dL See_Comment [Aut omated message] (BEAKER) (test code = The sy stem which 427) generated this result transmit solis reference range : 540-1,822. The reference range was not used to interpret this result as normal/abnormal . Phlebotomy Support Tech ID - KIMMIE ARELY, TIBC, % SAT. (WITHOUT FERRITIN)2022-04-23 08:27:58 Test Item Value Reference Range Interpretation Comments IRON (BEAKER) (test code = 547) 91.0 ug/dL 40.0-160.0 TOTAL IRON BINDING CAPACITY 199 ug/dL 250-450 L (BEAKER) (test code = 769) IRON % SATURATION (2) (BEAKER) 46 % 20-55 (test code = 2590) Phlebotomy Support Tech ID - KIMMIE [id number] 08:17:19 Test Item Value Reference Range Interpretation Comments PHOSPHORUS (BEAKER) 2.3 mg/dL 2.3-4.7 Specimen moderately (test code = 604) hemolyzed Phlebotomy Support Tech ID - KIMMIE [id number] 08:17:18 Test Item Value Reference Range Interpretation Comments MAGNESIUM (BEAKER) 1.9 mg/dL 1.6-2.6 Specimen moderately (test code = 627) hemolyzed Phlebotomy Support Tech ID - KIMMIE MPOCT-GLUCOSE [id number] 07:56:59 Test Item Value Reference Range Interpretation Comments POC-GLUCOSE METER > mg/dL 70-110 HH : Notified RN/MD: TESTED (BEAKER) (test code = AT [facility] [address] [facility] 3258) [facility], 770 30: Phlebotomy Support Tech/Techni rene ID = [id number] for Guanaco Ingram [id number] 06:48:40 Test Item Value Reference Range Interpretation [...] mechanical heart valves.CBC W/PLT COUNT & AUTO [id number] 06:38:31 Test Item Value Reference Range Interpretation [...] PERCENT (BEAKER) (test code = 2801) POCT-GLUCOSE [id number] 02:35:08 Test Item Value Reference Range Interpretation Comments POC-GLUCOSE METER > mg/dL 70-110 HH : Notified RN/MD: TESTED (BEAKER) (test code = AT [facility] [address] 1538) [facility], [facility] 30: Phlebotomy Support Tech/Techni rene ID = [id number] for Gisell Botello
[2022-07-05] MEDS ORDERED: NA CHLORIDE 0.9% 1,000 ML ONE (06:43)
[2022-07-05 08:05] LABS: Absolute Lymphocytes (CBC) 0.8 K/uL (0.7-4.9); Hematocrit 30.9 % (39.6-49.0); Lymphocytes % 16.6 % (15.3-44.8); MCV 103.1 fL (80-100); MPV 7.7 fL (7.6-11.3); RBC Red Blood Cell Count 2.99 M/uL (4.33-5.43)
[2022-07-05 08:20] LABS: Albumin 2.5 g/dL (3.4-5.0); Bilirubin Total 1.2 mg/dL (0.2-1.0); Potassium 4.8 mmol/L (3.5-5.1); Protein, Total 5.9 g/dL (6.4-8.2)
[2022-07-05 09:22] LABS: Blood Morphology Comment NOT SEEN (NOT SEEN); Platelet Estimate DECR; White Blood Cell Scan OK (OK)
[2022-07-05] MEDS ORDERED: LACTULOSE 20 GM/30 ML UCUP ONE ×2 (12:09→13:08)
--- NOTE | 2022-07-05 15:29 | EDPHYS ---
Physician Documentation [facility] Name: Amador Cosme Age: 56 yrs Sex: Male : 1965 Arrival Date: 07/05/2022 Time: 06:15 Bed 20 Private MD: ED Physician Esteban Arauz HPI: 07/05 08:05 This 56 yrs old Male presents to ER via Ambulatory with complaints of gail [facility]EMENT [facility] HOSPICE CARE. 08:05 The patient or guardian reports hyperglycemia. Onset: The symptoms/episode gail began/occurred 3 day(s) ago. Associated signs and symptoms: Pertinent positives: polydipsia. HOMELESS. Current symptoms: In the emergency department the patient's symptoms are unchanged from the initial presentation. Severity of symptoms: At their worst the symptoms were moderate in the emergency department the symptoms are unchanged. The patient has experienced similar episodes in the past, multiple times. Historical: - Allergies: 06:58 Prednisone; ll3 06:58 TETRACYCLINES; ll3 - PMHx: 06:58 Bipolar disorder; cirrhosis of liver; Dementia; HepB; Hypertensive disorder; NIDDM; ll3 Pancreatitis; - PSHx: 06:58 back; eye sx; ll3 - Immunization history:: Client reports having NOT received the Covid vaccine. - Social history:: Smoking status: Patient reports the use of cigarette tobacco products, denies chronic smoking, but will smoke occasionally. - Family history:: not pertinent. ROS: 08:05 Constitutional: Negative for fever, chills, and weight loss, Eyes: Negative for injury, gail pain, redness, and discharge, ENT: Negative for injury, pain, and discharge, Neck: Negative for injury, pain, and swelling, Cardiovascular: Negative for chest pain, palpitations, and edema, Respiratory: Negative for shortness of breath, cough, wheezing, and pleuritic chest pain, Abdomen/GI: Negative for abdominal pain, nausea, vomiting, diarrhea, and constipation, Back: Negative for injury and pain, : Negative for injury, bleeding, discharge, and swelling, MS/Extremity: Negative for injury and deformity, Skin: Negative for injury, rash, and discoloration, Neuro: Negative for headache, weakness, numbness, tingling, and seizure, Psych: Negative for depression, anxiety, suicide ideation, homicidal ideation, and hallucinations, Allergy/Immunology: Negative for hives, rash, and allergies, Hematologic/Lymphatic: Negative for swollen nodes, abnormal bleeding, and unusual bruising. 08:05 Endocrine: Positive for weight loss. Exam: 08:05 Constitutional: This is a well developed, well nourished patient who is awake, alert, gail and in no acute distress. Head/Face: Normocephalic, atraumatic. Eyes: Pupils equal round and reactive to light, extra-ocular motions intact. Lids and lashes normal. Conjunctiva and sclera are non-icteric and not injected. Cornea within normal limits. Periorbital areas with no swelling, redness, or edema. ENT: Nares patent. No nasal discharge, no septal abnormalities noted. Tympanic membranes are normal and external auditory canals are clear. Oropharynx with no redness, swelling, or masses, exudates, or evidence of obstruction, uvula midline. Mucous membranes moist. Neck: Trachea midline, no thyromegaly or masses palpated, and no cervical lymphadenopathy. Supple, full range of motion without nuchal rigidity, or vertebral point tenderness. No Meningismus. Chest/axilla: Normal chest wall appearance and motion. Nontender with no deformity. No lesions are appreciated. Cardiovascular: Regular rate and rhythm with a normal S1 and S2. No gallops, murmurs, or rubs. Normal PMI, no JVD. No pulse deficits. Respiratory: Lungs have equal breath sounds bilaterally, clear to auscultation and percussion. No rales, rhonchi or wheezes noted. No increased work of breathing, no retractions or nasal flaring. Abdomen/GI: Soft, non-tender, with normal bowel sounds. No distension or tympany. No guarding or rebound. No evidence of tenderness throughout. Back: No spinal tenderness. No costovertebral tenderness. Full range of motion. Male : Normal genitalia with no discharge or lesions. Skin: Warm, dry with normal turgor. Normal color with no rashes, no lesions, and no evidence of cellulitis. MS/ Extremity: Pulses equal, no cyanosis. Neurovascular intact. Full, normal range of motion. Neuro: Awake and alert, GCS 15, oriented to person, place, time, and situation. Cranial nerves II-XII grossly intact. Motor strength 5/5 in all extremities. Sensory grossly intact. Cerebellar exam normal. Normal gait. Psych: Awake, alert, with orientation to person, place and time. Behavior, mood, and affect are within normal limits. Vital Signs: 06:57 BP 133 / 86; Pulse 102; Resp 18; Temp 98.7(O); Pulse Ox 98% on R/A; Weight 63.5 kg (R); ll3 Height 5 ft. 6 in. (167.64 cm) (R); 07:50 BP 125 / 86; Pulse 102; Resp 18; Pulse Ox 99% on R/A; jd3 09:00 BP 137 / 88; Pulse 89; Resp 18; Pulse Ox 100% ; em6 10:16 BP 151 / 106; Pulse 92; Resp 16; Pulse Ox 100% on R/A; em6 12:30 BP 157 / 95; Pulse 89; Resp 16; Pulse Ox 100% on R/A; jd3 14:11 BP 168 / 98; Pulse 93; Resp 20; Pulse Ox 99% on R/A; jd3 15:22 BP 140 / 90; Pulse 92; Resp 20; Pulse Ox 99% on R/A; jd3 16:03 BP 139 / 92; Pulse 98; Resp 19; Pulse Ox 99% on R/A; jd3 06:57 Body Mass Index 22.60 (63.50 kg, 167.64 cm) ll3 MDM: 06:26 Patient medically screened. gail 08:10 Differential diagnosis: DKA, hyperglycemia. Data reviewed: vital signs, nurses notes, gail lab test result(s), CBC, electrolytes, hepatic panel. Data interpreted: cosmetic account coordinator: rate is 102 beats/min, rhythm is regular, Pulse oximetry: on room air is 99 %. Counseling: I had a detailed discussion with the patient and/or guardian regarding: the historical points, exam findings, and any diagnostic results supporting the discharge/admit diagnosis, lab results, the need for outpatient follow up, for definitive care, a family practitioner. 15:44 ED course: Patient over the course of about an hour became more altered. He was giving kdr lactulose both p.o. and GA. A repeat ammonia level was about 300. Given the patient's history, and the understanding that he was to be placed on hospice at this time, and that the patient wished for this outcome (hospice), we were not able to get the patient placed with either IPH or a med. Patient will need to be admitted while child protective services social worker makes arrangements for the patient to be placed at the appropriate facility on hospice care. Patient otherwise remained stable there was no vomiting his airway was intact saturations remained 100%. 07/05 06:29 Order name: CBC with Diff; Complete Time: 14:05 gail 07/05 06:29 Order name: Comprehensive Metabolic Panel; Complete Time: 14:05 gail 07/05 07:12 Order name: Glucose, Ancillary Testing; Complete Time: 07:25 EDMS 07/05 09:23 Order name: CBC Smear Scan; Complete Time: 14:05 EDMS 07/05 11:36 Order name: Glucose, Ancillary Testing; Complete Time: 14:05 EDMS 07/05 12:40 Order name: AMMONIA; Complete Time: 14:05 jd3 07/05 17:24 Order name: Glucose, Ancillary Testing; Complete Time: 18:26 EDMS 07/05 18:16 Order name: T4 Free; Complete Time: 18:26 EDMS 07/05 18:16 Order name: Thyroid Stimulating Hormone; Complete Time: 18:26 EDMS 07/05 08:08 Order name: Diet Ada 1800 Luis; Complete Time: 08:09 bd 07/05 13:02 Order name: Labs - recollect needed: recollect ammonia; Complete Time: 14:08 bd Administered Medications: 07:47 Drug: NS 0.9% 1000 ml Route: IV; Rate: 1 bolus; Site: right forearm; jd3 09:10 Follow up: Response: No adverse reaction; IV Status: Completed infusion; IV Intake: em6 1000ml 07:47 Drug: Semaglutide Pen Injector 40 mg Route: Sub-Q; Site: abdomen; jd3 08:20 Follow up: Response: No adverse reaction em6 07:47 Drug: Insulin Regular Human 8 units {Co-Signature: jh6 (Skylar Farias RN).} Route: jd3 IVP; Site: right forearm; 08:20 Follow up: Response: No adverse reaction em6 12:10 Drug: Lactulose 20 grams Volume: 30 ml; Route: PO; em6 12:41 Follow up: Response: No adverse reaction jd3 14:00 Drug: Lactulose 200 grams Route: GA; jd3 15:00 Follow up: Response: No adverse reaction jd3 Point of Care Testing: Blood Glucose: 07:00 Blood Glucose: 390 mg/dL; ll3 Ranges: Critical Glucose Levels:Adult <50 mg/dl or >400 mg/dl <40 mg/dl or >180 mg/dl Disposition Summary: 07/05/22 15:28 Hospitalization Ordered Hospitalization Status: Inpatient Admission kdr Provider: Jamshid Wagner Location: Telemetry/MedSurg (Inpatient) kdr Condition: Serious kdr Problem: an acute exacerbation kdr Symptoms: have worsened kdr Bed/Room Type: Standard kdr Room Assignment: kdr Diagnosis - Encephalopathy, unspecified - Hepatic kdr - Metabolic encephalopathy kdr Discharge Instructions: - Discharge Summary Sheet gail - Cirrhosis gail - Type 1 Diabetes Mellitus, Diagnosis, Adult gail - Hyperglycemia gail - Hyperglycemia, [id number] gail - Type 1 Diabetes Mellitus, Self Care, Adult gail - Mixed Bipolar Disorder gail - Supporting Someone With Bipolar Disorder gail Forms: - Medication Reconciliation Form kdr - SBAR form kdr Signatures: Dispatcher [employer] EDMS Senia Helm Corey, MD MD cha Rittger, Kevin, MD MD kdr Mickail, Joel, PA PA Angela Grimm, RN RN ss Jon Reyes RN RN jd3 Trevon Easley RN RN ll3 Rosa Daniel PA PA sb3 Zulma Bundy RN RN em6 Skylar Farias RN jh6
--- NOTE | 2022-07-05 15:29 | ER ---
Nurse's Notes [facility] Name: Amador Cosme Age: 56 yrs Sex: Male : 1965 Arrival Date: 07/05/2022 Time: 06:15 Bed 20 Private MD: Diagnosis: Encephalopathy, unspecified-Hepatic;Metabolic encephalopathy Presentation: 07/05 06:18 Chief complaint: Patient states: "I didn't have anywhere to go"; Patient reports lp1 leaving AMA from hospital tonight but would like his blood sugar rechecked, "I have blood sugar problems"; States he has appt at 0800 to arrange Hospice care. 06:18 Method Of Arrival: Ambulatory lp1 06:18 Acuity: DAO 3 lp1 06:57 Coronavirus screen: Vaccine status: Patient reports being unvaccinated. At this time, ll3 the client does not indicate any symptoms associated with coronavirus-19. Ebola Screen: No symptoms or risks identified at this time. Initial Sepsis Screen: Does the patient meet any 2 criteria? HR > 90 bpm. No. Patient's initial sepsis screen is negative. Does the patient have a suspected source of infection? No. Patient's initial sepsis screen is negative. Risk Assessment: Do you want to hurt yourself or someone else? Patient reports no desire to harm self or others. Onset of symptoms was July 05, 2022. Triage Assessment: 06:58 General: Appears comfortable, Behavior is calm, cooperative. Pain: Complains of pain in ll3 left lower quadrant. Neuro: Level of Consciousness is awake, alert, obeys commands, Oriented to person, place, time, situation, Reports Feeling "wobbly". Respiratory: Respiratory effort is even, unlabored, Respiratory pattern is regular, symmetrical. Derm: Skin is pink, warm \\T\\ dry. Musculoskeletal: Circulation, motion, and sensation intact. Historical: - Allergies: 06:58 Prednisone; ll3 06:58 TETRACYCLINES; ll3 - PMHx: 06:58 Bipolar disorder; cirrhosis of liver; Dementia; HepB; Hypertensive disorder; NIDDM; ll3 Pancreatitis; - PSHx: 06:58 back; eye sx; ll3 - Immunization history:: Client reports having NOT received the Covid vaccine. - Social history:: Smoking status: Patient reports the use of cigarette tobacco products, denies chronic smoking, but will smoke occasionally. - Family history:: not pertinent. Screenin:50 Abuse screen: Denies threats or abuse. Nutritional screening: No deficits noted. jd3 Tuberculosis screening: No symptoms or risk factors identified. Fall Risk Ambulatory Aid- None/Bed Rest/Nurse Assist (0 pts). Gait- Normal/Bed Rest/Wheelchair (0 pts) Mental Status- Oriented to own ability (0 pts). Total Segura Fall Scale indicates No Risk (0-24 pts). Assessment: 07:49 General: Appears in no apparent distress. comfortable, Behavior is calm, cooperative, jd3 appropriate for age. Pain: Complains of pain in abdomen Quality of pain is described as aching. Neuro: [place] Agitation-Sedation Scale (RASS): 0 - Alert and Calm Level of Consciousness is awake, alert, obeys commands, Oriented to person, place, time, situation. Cardiovascular: Capillary refill < 3 seconds Patient's skin is warm and dry. Respiratory: Airway is patent Respiratory effort is even, unlabored, Respiratory pattern is regular, symmetrical, Denies cough, shortness of breath. GI: Abdomen is round Abd is soft and non tender X 4 quads. Reports upper abdominal pain. : No signs and/or symptoms were reported regarding the genitourinary system. EENT: No signs and/or symptoms were reported regarding the EENT system. Derm: Skin is intact, Skin is dry, Skin is normal, Skin temperature is warm. Musculoskeletal: Circulation, motion, and sensation intact. Range of motion: intact in all extremities. 08:29 Reassessment: Spoke with Viky Mejía, Treatment Counselor who states she is still ss attempting to find patient placement with [facility] and [facility] group home and will be down to speak with patient in 15-20 minutes. 09:30 Reassessment: No changes from previously documented assessment. Patient and/or family em6 updated on plan of care and expected duration. Pain level reassessed. 10:34 Reassessment: social welfare research worker at bedside. jd3 11:30 Reassessment: Patient and/or family updated on plan of care and expected duration. Pain jd3 level reassessed. pt becoming drowsy. 12:10 Reassessment: Patient and/or family updated on plan of care and expected duration. Pain jd3 level reassessed. pt appearing more drowsy and harder to wake up. provider notified, PO lactulose given. 12:57 Reassessment: Patient and/or family updated on plan of care and expected duration. Pain jd3 level reassessed. pt drowsy and now altered in mental status. provider notified and Ammonia level drawn per provider's orders. 13:08 Reassessment: awaiting lactulose to arrive from pharmacy. jd3 14:00 General: Behavior is drowsy. Neuro: Level of Consciousness is confused, lethargic, jd3 Oriented to none. Cardiovascular: Capillary refill < 3 seconds Patient's skin is warm and dry. Respiratory: Airway is patent Respiratory effort is even, unlabored, Respiratory pattern is regular, symmetrical, Denies cough, shortness of breath. GI: No signs and/or symptoms were reported involving the gastrointestinal system. : No signs and/or symptoms were reported regarding the genitourinary system. EENT: No signs and/or symptoms were reported regarding the EENT system. Derm: Skin is intact, Skin is dry, Skin is normal, Skin temperature is warm. Musculoskeletal: Circulation, motion, and sensation intact. Range of motion: intact in all extremities. 14:26 Reassessment: spoke with Dish CarrierViky who states that [facility] declined patient for inpatient hospice, but has made a phone call to [facility] hospice. Awaiting to hear back with an update. Dr. Arauz aware. 15:20 Reassessment: No changes from previously documented assessment. Patient and/or family jd3 updated on plan of care and expected duration. Pain level reassessed. pt remains lethargic. remains A\\T\\O X 0. 16:03 Reassessment: No changes from previously documented assessment. Patient and/or family jd3 updated on plan of care and expected duration. Pain level reassessed. Vital Signs: 06:57 BP 133 / 86; Pulse 102; Resp 18; Temp 98.7(O); Pulse Ox 98% on R/A; Weight 63.5 kg (R); ll3 Height 5 ft. 6 in. (167.64 cm) (R); 07:50 BP 125 / 86; Pulse 102; Resp 18; Pulse Ox 99% on R/A; jd3 09:00 BP 137 / 88; Pulse 89; Resp 18; Pulse Ox 100% ; em6 10:16 BP 151 / 106; Pulse 92; Resp 16; Pulse Ox 100% on R/A; em6 12:30 BP 157 / 95; Pulse 89; Resp 16; Pulse Ox 100% on R/A; jd3 14:11 BP 168 / 98; Pulse 93; Resp 20; Pulse Ox 99% on R/A; jd3 15:22 BP 140 / 90; Pulse 92; Resp 20; Pulse Ox 99% on R/A; jd3 16:03 BP 139 / 92; Pulse 98; Resp 19; Pulse Ox 99% on R/A; jd3 06:57 Body Mass Index 22.60 (63.50 kg, 167.64 cm) ll3 ED Course: 06:15 Patient arrived in ED. ja2 06:19 Triage completed. lp1 06:26 James Uriarte MD is Attending Physician. gail 06:58 Arm band placed on Patient placed in an exam room, on a stretcher, on pulse oximetry. ll3 07:21 Jon Reyes RN is Primary Nurse. jd3 07:47 Inserted saline lock: 22 gauge in right forearm, using aseptic technique. Blood jd3 collected. 07:50 Patient has correct armband on for positive identification. Placed in gown. Bed in low jd3 position. Call light in reach. Side rails up X 1. Pulse ox on. NIBP on. 13:03 Attending Physician role handed off by James Uriarte MD kdr 13:03 Esteban Arauz MD is Attending Physician. kdr 14:00 rectal tube inserted for AK lactulose. jd3 15:26 Jesus Becerra MD is Hospitalizing Provider. kdr 15:26 Hospitalizing Provider role handed off by Jesus Becerra MD kdr 15:26 Jamshid Wagner is Hospitalizing Provider. kdr 17:01 No provider procedures requiring assistance completed. Patient admitted, IV remains in jd3 place. Administered Medications: 07:47 Drug: NS 0.9% 1000 ml Route: IV; Rate: 1 bolus; Site: right forearm; jd3 09:10 Follow up: Response: No adverse reaction; IV Status: Completed infusion; IV Intake: em6 1000ml 07:47 Drug: Semaglutide Pen Injector 40 mg Route: Sub-Q; Site: abdomen; jd3 08:20 Follow up: Response: No adverse reaction em6 07:47 Drug: Insulin Regular Human 8 units {Co-Signature: jh6 (Skylar Farias RN).} Route: jd3 IVP; Site: right forearm; 08:20 Follow up: Response: No adverse reaction em6 12:10 Drug: Lactulose 20 grams Volume: 30 ml; Route: PO; em6 12:41 Follow up: Response: No adverse reaction jd3 14:00 Drug: Lactulose 200 grams Route: AK; jd3 15:00 Follow up: Response: No adverse reaction jd3 Medication: 07:50 VIS not applicable for this client. jd3 Point of Care Testing: Blood Glucose: 07:00 Blood Glucose: 390 mg/dL; ll3 Ranges: Intake: 09:10 IV: 1000ml; Total: 1000ml. em6 Outcome: 15:28 Decision to Hospitalize by Provider. kdr 17:01 Admitted to ER Hold. Please see [facility] for further documentation. jd3 17:01 Condition: stable 17:01 Instructed on the need for admit. 18:54 Patient left the ED. ss Signatures: James Uriarte MD MD cha Rittger, Kevin, MD MD kdr Smirch, Shelby RN RN ss Raven Orlando RN RN lp1 Jon Reyes RN RN jd3 Bhavana Austin Lynsea RN RN ll3 Zulma Mejía RN RN em6 Skylar Farias RN jh6 Corrections: (The following items were deleted from the chart) 12:52 07:00 General: ll3 jd3 12:57 12:25 Reassessment: Patient and/or family updated on plan of care and expected jd3 duration. Pain level reassessed. pt appearing more drowsy and harder to wake up. provider notified, PO lactulose given jd3
[2022-07-05] MEDS ORDERED: ACETAMINOPHEN 500 MG TAB PO PRN (16:23)
[2022-07-05] MEDS ORDERED: ONDANSETRON 4 MG/2 ML VIAL IV PRN (16:23)
[2022-07-05] MEDS ORDERED: D50W 25 GM/50 ML SYRINGE IV PRN (16:27)
[2022-07-05] MEDS ORDERED: GLUCAGON 1 MG/VIAL IM PRN (16:27)
[2022-07-05] MEDS ORDERED: HYDROCODONE/APAP 5/325 MG TAB PO PRN (16:29)
[2022-07-05] MEDS ORDERED: INSULIN -REGULAR HUMAN 50 UNIT/0.5 ML ML SQ SCH (16:30)
--- NOTE | 2022-07-05 16:31 | P.HP ---
Certification for Inpatient Patient admitted to: Inpatient With expected LOS: >2 Midnights Patient will require the following post-hospital care: None Practitioner: I am a practitioner with admitting privileges, knowledge of patient current condition, hospital course, and medical plan of care. Services: Services provided to patient in accordance with Admission requirements found in Title 42 Section 412.3 of the Code of Federal Regulations Patient History Date of Service: 07/05/22 Reason for admission: Encephalopathy Allergies prednisone Allergy (Verified 07/01/22 18:29) Rash Tetracyclines Allergy (Verified 07/01/22 18:29) Rash Home Medications: NK [No Home Meds] 07/01/22 - Past Medical/Surgical History Diabetic: Yes -: Alcoholic liver cirrhosis -: Hypertension -: Diabetes mellitusinsulin-dependent -: Chronic tobacco use history -: Dementia as per records -: chronic pancreatitis -: sciatica -: bilateral rotator cuff tear (untreated) -: Eye surgery (lasix right eye) -: Previous paracentesis Psychosocial/ Personal History: Patient currently lives at home alone. - Family History Mother -: Heart disease, Hypertension - Social History Alcohol use: No CD- Drugs: No Caffeine use: No Review of Systems is unable to be obtained (Pt confused and not responding commands) Physical Examination - Physical Exam General: Confused HEENT: Normocephalic, PERRLA Neck: 2+ carotid pulse no bruit, JVD not distended Respiratory: Clear to auscultation bilaterally, Normal air movement Cardiovascular: No edema, Regular rate/rhythm Capillary refill: <2 Seconds Gastrointestinal: Normal bowel sounds Musculoskeletal: No clubbing, No swelling, No contractures Integumentary: No rashes, No breakdown, No significant lesion Neurological: Normal tone, Sensation intact Lymphatics: No axilla or inguinal lymphadenopathy - Studies Laboratory Data (last 24 hrs) 07/05/22 07:43: Sodium 141, Potassium 4.8, BUN 22 H, Creatinine 0.96, Glucose 441 H*, Total Bilirubin 1.2 H, AST 165 H D, ALT 251 H D, Alkaline Phosphatase 178 H 07/05/22 07:43: WBC 4.60 D, Hgb 10.7 L, Hct 30.9 L, Plt Count 75 L Assessment and Plan - Plan --Acute encephalopathy. Secondary to hyperammonemia.. Patient given lactulose in the ER. Continue lactulose enema. Will reassess ammonia level in a.m. --Decompensated liver cirrhosis. Continue lactulose. --DM2 with hyperglycemia. BS monitoring with sliding scale insulin. --Dementia. Baseline mental status is unknown. Continue supportive care.. --BPH. Continue home medication when appropriate.. --Elevated LFTs. Secondary to liver cirrhosis. Will reassess levels in a.m. --Anemia of chronic disease. H&H stable. We will continue to monitor hemoglobin. --Hypertension. Poorly controlled. We will manage BP with labetalol as needed. --DVT prophylaxis with SCDs. Discharge Plan: Home Plan to discharge in: Greater than 2 days - Advance Directives Does patient have a Living Will: No Does patient have a Durable POA for Healthcare: No Physician Review: Patient Assessed, Agree with Above Assessment and Plan Critical Care: No
[2022-07-05] MEDS ORDERED: LABETALOL 20 MG/4ML SYRINGE IV PRN (16:32)
[2022-07-05] MEDS ORDERED: D10W 250 ML BAG IV PRN (17:01)
[2022-07-05] MEDS ORDERED: INSULIN -REGULAR HUMAN 50 UNIT/0.5 ML ML ONE (17:28)
[2022-07-05 18:10] VITALS: BMI 22.6
[2022-07-05 18:16] LABS: Thyroid Stimulating Hormone 2.54 uIU/mL (0.360-3.740)
[2022-07-05 21:18] VITALS: TEMP 98.7
[2022-07-05 21:35] VITALS: O2SAT 99
[2022-07-05 21:40] VITALS: BP 139/92
== END 2022-07-05 18:58 | disposition hospice, inpatient (51) | DRG 441 ==
LOC: ER 06:14 → ERHOLD 16:17
PROVIDERS: ADMIT Internal Medicine; ATTEND Internal Medicine
DX: K72.00 Acute and subacute hepatic failure without coma (principal); G93.41 Metabolic encephalopathy; E72.20 Disorder of urea cycle metabolism, unspecified; K72.10 Chronic hepatic failure without coma; K74.60 Unspecified cirrhosis of liver; E11.65 Type 2 diabetes mellitus with hyperglycemia; F03.90 Unspecified dementia, unspecified severity, without behavioral disturbance, psychotic disturbance, mood disturbance, and anxiety; N40.0 Benign prostatic hyperplasia without lower urinary tract symptoms; D64.9 Anemia, unspecified; I10 Essential (primary) hypertension
CPT/HCPCS: 36415; 80053; 82140; 82947; 84439; 84443; 85025; 96361; 96372; 96374; 99285; J1815; J7030

== ENCOUNTER 2022-07-05 19:05 | Inpatient (IN) | payer OTHER ==
--- OUTSIDE RECORDS SUMMARY | 2022-07-05 19:12 | XMS REPORT | Continuity of Care Document ---
:1965 Author Organization [facility] t Address [address] [place] [address] Care Team Providers Name Role Phone MARICRUZ YUSUF Attending Clinician Unavailable CARLOS DONOVAN Attending Clinician Unavailable MARICRUZ YUSUF Admitting Clinician Unavailable Payers Payer Name Policy Type Policy Number Effective Date Expiration Date [employer] branch [facility] COMM STAR [id number] 2021 00:00:00 PLAN Problems This patient has [...] Clinicians Facility Department ID 2022-06-27 Inpatient ER [facility] Oncology [id number] [facility] 11:24:58 [facility] 2022-04-24 2022-04-24 Emergency ER [facility] Emergency [id number] [facility] 05:12:00 05:35:00 2022-04-22 2022-04-23 Inpatient ER PARAMJIT, [facility] Gastro [id number] [facility] 17:55:00 22:00:00 [facility] Results Test Description Test Time Test Comments Results Result Comments Source ANTI-MITOCHONDRIAL AB, REFLEX TO TITER 2022-05-04 12:12:43 Test Item Value Reference Range Interpretation Comme nts SCAN RESULT (test code = 1996718) HEPATITIS C PCR, [id number] 15:18:06 Test Item Value Reference Range Interpretation Comments HCV RESULT COMPONENT HCV RNA not detected HCV RNA not detected ([employer] (test code = 2699) This test uses a Real-Time Polymerase Chain Reaction (RT-PCR) methodology and was performed using EMILY Ampliprep/EMILY TaqMan HCV test kit version 2.0 ([employer]).Reportable range for this assay is 15 - 100,000,000 IU per mL (1.18 - 8.00 Log IU/mL).ANTI-NUCLEAR ANTIBODY (TRANG)2022-04-25 11:24:48 Test Item Value Reference Range Interpretation Comments ANTI-NUCLEAR ANTIBODY (TRANG) ([employer] Negative Negative (test code = 418) Test performed by IFA method.Test performed by IFA method.HEMOGLOBIN A1C 2022-04-24 09:24:13 Test Item Value Reference Range Interpretation Comments HEMOGLOBIN A1C 12.2 % See_Comment H [Automated m essage] ELECTROPHORESIS ([employer] The system which (test code = 3811) generated this result transmitted ref erence range: <=5.6%. The reference range was not used to int erpret this result as normal/abnormal . "The A1c is measured using a NGSP-certified method. HbA1c value equal to or greater than 6.5% as thediagnosis cutoff for diabetes. An HbA1c value of 5.7- 6.4% indicates increased risk for diabetes (prediabetes)."School Occupational Therapist ID - ADMOperator ID - ADMPOCT-GLUCOSE [id number] 19:03:02 Test Item Value Reference Range Interpretation Comments POC-GLUCOSE METER 205 mg/dL 70-110 H : TESTED A T [facility] 6720 (BEAKER) (test code [facility], = 1538) 73408: School Occupational Therapist/Techni rene ID = [id number] for Lisa maxwell (contract), Audrey smith POCT-GLUCOSE [id number] 19:02:00 Test Item Value Reference Range Interpretation Comments POC-GLUCOSE METER 239 mg/dL 70-110 H : TESTED A T [facility] 6720 (BEAKER) (test code [facility], = 1538) 21016: School Occupational Therapist/Techni rene ID = [id number] for Lisa maxwell (contract), Audrey smith BASIC METABOLIC [id number] 17:14:44 Test Item Value Reference Range Interpretation [...] S NOT APPLICABLE FOR DIALYSIS PATIEN TS. School Occupational Therapist ID - KIMMIE AUDREY, CHEST, 1 VIEW, NON [id number] 16:46:00Reason for exam:->currentShould this be performed at the bedside?->Yes [facility] 1965 Sex: MFINAL [...] MDRort Verified Date/Time: 04/23/2022 16:46:33 Reading Location: [facility] C013X Ortho Consult Reading Room POCT-GLUCOSE [id number] 16:17:08 Test Item Value Reference Range Interpretation Comments POC-GLUCOSE METER 229 mg/dL 70-110 H : TESTED A T [facility] 67[address] (BEAKER) (test code [facility], = 1538) 32113: School Occupational Therapist/Techni rene ID = [id number] for Lisa maxwell (contract)Audrey SARS-COV2/RT-PCR ([facility])2022-04-23 16:03:49 Test Item Value Reference Range Interpretation Comments SARS-COV2/RT-PCR (test Negative Not Detected, Negative, code = 2843214) See external report for linked test SARS-COV-2 PERFORMING LAB [facility] L[facility]NA (test code = 1218751) Negative result for this test determines that [...] of the Act.Fact Sheet for Healthcare Prov iders:https://www.[employer]/sites/default/files/product/documents/Fact_Sheet_HC _Resjnrsej_Kkcy_HRKA-QpE-8.pdfFact Sheet for Healthcare Patients:https://www.[employer]/sites/default/files/product/docume nts/Emor_Sgrxj_Ubohifva_Myrz_ECTA-UxY-2.pdfPerforming Laboratory:[facility], [place] [address]ZDEI-DRIUAVF METER 2022-04-23 15:21:20 Test Item Value Reference Range Interpretation Comments POC-GLUCOSE METER 238 mg/dL 70-110 H : TESTED Rodríguez Licea [facility] [address] (SHANTEL) (test code = VICTORINO Salas [facility], 1538) 38859: School Occupational Therapist/Techni rene ID = [id number] for Charly debbieRoma POCT-GLUCOSE [id number] 14:14:42 Test Item Value Reference Range Interpretation Comments POC-GLUCOSE METER 276 mg/dL 70-110 H : TESTED A T [facility] 6720 (BEAKER) (test code [facility], = 1538) 48323: School Occupational Therapist/Techni rene ID = [id number] for Lisa maxwell (contract), Audrey ka POCT-GLUCOSE [id number] 14:13:31 Test Item Value Reference Range Interpretation Comments POC-GLUCOSE METER 319 mg/dL 70-110 H : TESTED A T [facility] 6720 (BEAKER) (test code [facility], = 1538) 88391: School Occupational Therapist/Techni rene ID = [id number] for Lisa maxwell (contract), Nne ka KETONE, [id number] 14:05:33 Test Item Value Reference Range Interpretation Comments KETONES, BLOOD (BEAKER) (test code 0.1 mmol/L <0.4 = 1103) BASIC METABOLIC [id number] 13:08:55 Test Item Value Reference Range Interpretation [...] S NOT APPLICABLE FOR DIALYSIS PATIEN TS. School Occupational Therapist ID - KIMMIE MBLOOD GAS, [id number] 12:52:05 Test Item Value Reference Range Interpretation [...] (BEAKER) (test code = 1819) 21.0 POCT-GLUCOSE [id number] 11:48:15 Test Item Value Reference Range Interpretation Comments POC-GLUCOSE METER 453 mg/dL 70-110 HH : TESTED A T [facility] 6720 (BEAKER) (test code [facility], = 1538) 76518: School Occupational Therapist/Techni rene ID = [id number] for Lisa maxwell (contract) Silveriodominik smith [id number] 11:45:13 Test Item Value Reference Range Interpretation Comments LIPASE (BEAKER) (test code = 749) 90 U/L 8-78 H School Occupational Therapist ID - KIMMIE MSpecimen slightly ictericPOCT-GLUCOSE [id number] 11:24:33 Test Item Value Reference Range Interpretation Comments POC-GLUCOSE METER > mg/dL 70-110 HH : TESTED A T [facility] 6720 (BEAKER) (test code = [facility], 1538) 05720: School Occupational Therapist/Techni rene ID = [id number] for SUGEY HAMILTON [id number] 10:10:35 Test Item Value Reference Range Interpretation Comments FERRITIN (BEAKER) (test code = 221.72 ng/mL 5.00-275.00 361) School Occupational Therapist ID - KIMMIE MHEPATITIS PANEL, [id number] 09:38:02 Test Item Value Reference Range Interpretation Comments HEPATITIS A IGM ANTIBODY (BEAKER) Nonreactive Nonreactive (test code = 498) HEPATITIS B CORE IGM ANTIBODY Nonreactive Nonreactive (BEAKER) (test code = 645) HEPATITIS C ANTIBODY (BEAKER) Reactive Nonreactive A (test code = 367) HEPATITIS B SURFACE ANTIGEN (2) Nonreactive Nonreactive (BEAKER) (test code = 2585) School Occupational Therapist ID - KIMMIE MCOMPREHENSIVE METABOLIC [id number] 09:30:16 Test Item Value Reference Range Interpretation [...] S NOT APPLICABLE FOR DIALYSIS PATIEN TS. School Occupational Therapist ID - KIMMIE MSpecimen slightly ictericSpecimen markedly lipemicALPHA FETOPROTEIN (AFP), TUMOR [id number] 09:24:32 Test Item Value Reference Range Interpretation Comments ALPHA-FETOPROTEIN (BEAKER) (test code < ng/mL <10.0 = 1094) School Occupational Therapist ID - KIMMIE MIMMUNOGLOBULIN G (IGG)2022-04-23 08:27:58 Test Item Value Reference Range Interpretation Comments IMMUNOGLOBULIN G (IGG) 1108 mg/dL See_Comment [Aut omated message] (BEAKER) (test code = The sy stem which 427) generated this result transmit solis reference range : 540-1,822. The reference range was not used to interpret this result as normal/abnormal . School Occupational Therapist ID - KIMMIE ARELY, TIBC, % SAT. (WITHOUT FERRITIN)2022-04-23 08:27:58 Test Item Value Reference Range Interpretation Comments IRON (BEAKER) (test code = 547) 91.0 ug/dL 40.0-160.0 TOTAL IRON BINDING CAPACITY 199 ug/dL 250-450 L (BEAKER) (test code = 769) IRON % SATURATION (2) (BEAKER) 46 % 20-55 (test code = 2590) School Occupational Therapist ID - KIMMIE [id number] 08:17:19 Test Item Value Reference Range Interpretation Comments PHOSPHORUS (BEAKER) 2.3 mg/dL 2.3-4.7 Specimen moderately (test code = 604) hemolyzed School Occupational Therapist ID - KIMMIE [id number] 08:17:18 Test Item Value Reference Range Interpretation Comments MAGNESIUM (BEAKER) 1.9 mg/dL 1.6-2.6 Specimen moderately (test code = 627) hemolyzed School Occupational Therapist ID - KIMMIE MPOCT-GLUCOSE [id number] 07:56:59 Test Item Value Reference Range Interpretation Comments POC-GLUCOSE METER > mg/dL 70-110 HH : Notified RN/MD: TESTED (BEAKER) (test code = AT [facility] [address] [facility] 6638) [facility], 770 30: School Occupational Therapist/Techni rene ID = [id number] for Guanaco Ingram PT/[id number] 06:48:40 Test Item Value Reference Range Interpretation [...] mechanical heart valves.CBC W/PLT COUNT & AUTO [id number] 06:38:31 Test Item Value Reference Range Interpretation [...] PERCENT (BEAKER) (test code = 2801) POCT-GLUCOSE [id number] 02:35:08 Test Item Value Reference Range Interpretation Comments POC-GLUCOSE METER > mg/dL 70-110 HH : Notified RN/MD: TESTED (BEAKER) (test code = AT [facility] [address] 1538) [facility], [facility] 30: School Occupational Therapist/Techni rene ID = [id number] for Gisell Botello
[2022-07-06] MEDS ORDERED: ONDANSETRON 4 MG/2 ML VIAL IV PRN (03:47)
[2022-07-06] MEDS ORDERED: SCOPOLAMINE HYDROBROMIDE PATCH TD PRN (04:00)
[2022-07-06] MEDS: MORPHINE 2 MG/ML SYR IV PRN (16:24)
[2022-07-07] MEDS: MORPHINE 2 MG/ML SYR IV PRN ×3 (00:39→15:37)
[2022-07-07] MEDS: LORazepam 2 MG/ML VIAL IV PRN ×4 (01:57→22:55)
[2022-07-07 17:48] VITALS: BMI 20.2
[2022-07-08] MEDS: MORPHINE 2 MG/ML SYR IV PRN ×4 (01:55→15:04)
[2022-07-08] MEDS: LORazepam 2 MG/ML VIAL IV PRN ×3 (07:16→22:11)
[2022-07-09] MEDS: MORPHINE 2 MG/ML SYR IV PRN ×6 (00:31→22:03)
[2022-07-09] MEDS: LORazepam 2 MG/ML VIAL IV PRN ×6 (00:32→22:03)
[2022-07-10] MEDS: LORazepam 2 MG/ML VIAL IV PRN ×5 (01:41→15:47)
[2022-07-10] MEDS: MORPHINE 2 MG/ML SYR IV PRN ×7 (01:41→21:59)
[2022-07-10] MEDS: MIDAZOLAM HCL 2 MG/2 ML INJ IV PRN ×2 (18:05→21:59)
[2022-07-11] MEDS: MORPHINE 2 MG/ML SYR IV PRN ×7 (00:51→22:36)
[2022-07-11] MEDS: MIDAZOLAM HCL 2 MG/2 ML INJ IV PRN ×7 (00:51→22:36)
[2022-07-12] MEDS: MORPHINE 2 MG/ML SYR IV PRN ×2 (00:37→02:24)
[2022-07-12] MEDS: MIDAZOLAM HCL 2 MG/2 ML INJ IV PRN ×5 (00:37→09:42)
[2022-07-12] MEDS ORDERED: MORPHINE 2 MG/ML SYR IV PRN (09:09)
[2022-07-12] MEDS ORDERED: MIDAZOLAM HCL 2 MG/2 ML INJ IV PRN (10:34)
[2022-07-12] MEDS: HALOPERIDOL LACT 5 MG/ML INJ IV PRN ×2 (12:00→18:50)
[2022-07-12] MEDS: MIDAZOLAM HCL 2 MG/2 ML INJ IV SCH ×3 (13:00→22:02)
[2022-07-12] MEDS: MORPHINE 4 MG/ML SYR IV SCH ×3 (13:00→22:01)
[2022-07-13] MEDS: MIDAZOLAM HCL 2 MG/2 ML INJ IV SCH ×6 (01:02→21:08)
[2022-07-13] MEDS: MORPHINE 4 MG/ML SYR IV SCH ×6 (01:02→21:08)
[2022-07-13] MEDS: NICOTINE 7 MG/PAT TD SCH (09:45)
[2022-07-13] MEDS: HALOPERIDOL LACT 5 MG/ML INJ IV PRN (11:39)
[2022-07-13] MEDS: MORPHINE 4 MG/ML SYR IV PRN (17:59)
[2022-07-14] MEDS: MORPHINE 4 MG/ML SYR IV SCH ×6 (00:55→20:24)
[2022-07-14] MEDS: MIDAZOLAM HCL 2 MG/2 ML INJ IV SCH ×6 (00:55→20:24)
[2022-07-14] MEDS: NICOTINE 7 MG/PAT TD SCH (09:08)
[2022-07-14] MEDS: MORPHINE 4 MG/ML SYR IV PRN (23:23)
[2022-07-14] MEDS: HALOPERIDOL LACT 5 MG/ML INJ IV PRN (23:23)
[2022-07-15] MEDS: MIDAZOLAM HCL 2 MG/2 ML INJ IV SCH ×4 (01:15→13:00)
[2022-07-15] MEDS: MORPHINE 4 MG/ML SYR IV SCH ×4 (01:15→12:52)
[2022-07-15] MEDS: HALOPERIDOL LACT 5 MG/ML INJ IV PRN (07:28)
[2022-07-15 08:31] VITALS: BP 149/79; TEMP 97
[2022-07-15] MEDS: NICOTINE 7 MG/PAT TD SCH (09:29)
[2022-07-15 13:28] VITALS: O2SAT 97
== END 2022-07-15 14:37 | disposition home or self-care (01) | DRG 951 ==
LOC: ERHOLD 19:05 → 3RD-ICU 07-06 04:25 → 4TH 07-08 20:35
PROVIDERS: ADMIT Internal Medicine Geriatric Medicine; ATTEND Internal Medicine Geriatric Medicine
DX: Z51.5 Encounter for palliative care (principal)
CPT/HCPCS: 82947; J1630; J2250; J2270

== ENCOUNTER 2022-07-15 14:33 | Inpatient (IN) | payer OTHER ==
--- OUTSIDE RECORDS SUMMARY | 2022-07-15 14:52 | XMS REPORT | Continuity of Care Document ---
:1965 Author Organization [facility] t Address [address] [place] [address] Care Team Providers Name Role Phone Awa MONTAGUE, Desi Salas Attending Clinician Unavailable AXEL CORREIA Attending Clinician Unavailable CARLOS HYMAN Attending Clinician Unavailable Boogie RESENDIZ, Carlos Attending Clinician Vishal Nassar MD Attending Clinician [phone] Axel Correia MD Attending Clinician Kiley Yee MD Attending Clinician AXEL CORREIA Admitting Clinician Unavailable Payers Payer Name Policy Type Policy Number Effective Date Expiration Date Josh branch [facility] STAR [id number] 2021 00:00:00 PLAN Problems Condition Condition Condition Status Onset Resolution Last Treating Co mments Source Name Details Category Date Date Treatment Clinician Date 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 00 Cent er Type 2 Type [address] [facility] diabetes diabetes 04-23 [facility] mellitus mellitus 00:00: Medica l with with 00 Center hyperglyce hyperglyce joanie, with joanie, with long-term long-term current current use of use of insulin insulin Liver Liver Disease Active [facility] mass, mass, 04-23 [facility] right lobe right lobe 00:00: Me dical 00 Center Primary Primary Disease Active [facility] hypertensi hypertensi 04-23 Shruthi kes on on 00:00: Medical 00 Center 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 00:00: Me dical 00 Center Allergies, Adverse Reactions, Alerts Allergy Allergy Status Severity Reaction(s) Onset Inactive Treating Comm ents Source Name Type Date Date Clinician PREDNISO Allergy Active Low Nausea [facility] NE 6-11 [facility] 00:00: Medical 00 Center Predniso Propensi Active Nausea Only [place] [facility] ne ty to 6-11 nauseous [facility] adverse 00:00: after Medical reaction 00 getting Center s prednison e once TETRACYC Allergy Active High Swelling [facility]10 [facility] 00:[facility]: Medical 00 Center HYDROCOR Allergy Active High Swelling [facility] TISONE 6-10 00:00: 00 Tetracyc Drug Active Swelling [facility] line Allergy 6-10 [facility] 00:00: Medical 00 Center Social History Social Habit Start Date Stop Date Quantity Comments Source History SDOH [facility] Alcohol Std Drinks Medica l Center History SDOH [facility] Alcohol Binge Medical Celio ter History SDWI [facility] Alcohol Comment Medical C enter History SDOH [facility] Transport Non-Med Medical Center Alcohol intake 2022-04-24 2022-04-[address] [facility] 00:00:00 00:00:00 non-drinker Medical Willie salas (finding) Tobacco use and 2022-04-22 2022-04-[address] Shruthi kes exposure 00:00:00 00:00:00 Medical Center History [facility] 2022-04-22 2022-04-[address] [facility] Alcohol Frequency 00:00:00 00:00:00 Medical Center History [facility] 2022-04-22 2022-04-[address] [facility] Transport Med 00:00:00 00:00:[address] History [facility] 2022-04-22 2022-04-[address] [facility] Housing Unable to 00:00:00 00:00:00 Medical Center Pay History [facility] 2022-04-22 2022-04-[address] [facility] Housing Places 00:00:00 00:00:00 Medical Ce nter Lived History [facility] 2022-04-22 2022-04-[address] [facility] Housing Homeless 00:00:00 00:00:00 Medical Center Last Year Sex Assigned At [birth year] M [facility] kes 00:00:00 00:00:00 Medical Center Smoking Status Start Date Stop Date Source Light tobacco smoker 2022-04-22 00:00:00 [facility] Medications Ordered Filled Start Stop Current Ordering Indication Dosage Frequency Signature Comments Components Source Medication Medication Date Date Medication? Clinician (SIG) Name Name eduar Yes 1{appli Q.5D Apply [address] [facility] ne 6-12 cation} [facility] 00:29: n Medical 0.1 % 35 topically Center topical 2 (two) cream times daily. albuterol Yes 1{puff} Q.5D Inhale [address] HFA 6-12 puff by Ismael (VENTOLIN 00:29: mouth via Med ical HFA) 90 35 inhaler 2 Center mcg/actuati (two) on inhaler times daily. amoxicillin Yes 1{capsu Q12H Take [address] (AMOXIL) 6-12 le} capsule by Ludanita 500 MG 00:29: mouth Medical capsule 35 every 12 Center (twelve) hours. insulin Yes 30U QD Inject 30 [facility] glargine 6-12 Units [facility] (Basaglar 00:29: subcutaneo Me dical KwikPen 35 usly Center U-100 nightly . Insulin) 100 unit/mL (3 mL) InPn lactulose Yes 15mL Q.5D Take 15 [facility] (CHRONULAC) 6-12 mLs by [facility] 10 gram/15 00:29: mouth 2 Medi cecil mL solution 35 (two) Center times daily. insulin Yes 30U Inject 30 [facility] lispro 6-12 Units [facility] (HumaLOG 00:29: subcutaneo Med ical KwikPen 35 usly 3 Center Insulin) (three) 100 unit/mL times InPn daily with meals. lisinopriL Yes 5mg QD Take [address] (PRINIVIL,Z 6-12 by mouth Luke s ESTRIL) 5 00:29: daily. Medica l MG tablet 35 Center carvediloL Yes 3.125mg QD Take 3.[address] (COREG) 6-12 mg by [facility] 3.125 MG 00:29: mouth Medical tablet 35 daily. Center Vital Signs Vital Name Observation Time Observation Value Comments Source HEIGHT 2022-04-24 05:08:00 167.6 cm WEIGHT 2022-04-24 05:08:00 65.318 kg HEIGHT 2022-04-24 05:08:00 167.6 cm WEIGHT 2022-04-24 05:08:00 65.318 kg WEIGHT 2022-04-23 11:21:00 68.4 kg HEIGHT 2022-04-22 18:52:00 162.6 cm WEIGHT 2022-04-23 11:21:00 68.4 kg HEIGHT 2022-04-22 18:52:00 162.6 cm WEIGHT 2022-04-23 11:21:00 68.4 kg HEIGHT 2022-04-22 18:52:00 162.6 cm Diastolic blood 2022-04-24 05:08:00 78 mm[Hg] [facility] Heart rate 2022-04-24 05:08:00 108 /min [facility] Body temperature 2022-04-24 05:08:00 36.67 Carolann [facility] Respiratory rate 2022-04-24 05:08:00 18 /min [facility] Body height 2022-04-24 05:08:00 167.6 cm [facility] Body weight 2022-04-24 05:08:00 65.318 kg [facility] BMI 2022-04-24 05:08:00 23.24 kg/m2 [facility] Oxygen saturation in 2022-04-24 05:08:00 96 /min [facility] Arterial blood by Medical Ce nter Pulse oximetry Systolic blood 2022-04-24 05:08:00 134 mm[Hg] [facility] Procedures Procedure Date / Time Performing Clinician Source Performed POCT-GLUCOSE METER 2022-04-23 18:52:00 Axel Correia [facility] POCT-GLUCOSE METER 2022-04-23 17:46:00 Kiley Yee [facility] HEMOGLOBIN A1C 2022-04-23 16:45:00 Axel Correia [facility] HEPATITIS C PCR, 2022-04-23 16:45:00 Ld Ashley [facility] BASIC METABOLIC PANEL (7) 2022-04-23 16:45:00 Ld Ashley [facility] XR CHEST 1 VIEW PORTABLE / 2022-04-23 16:20:[address] [facility] POCT-GLUCOSE METER 2022-04-23 16:05:00 [facility] POCT-GLUCOSE METER 2022-04-23 15:10:00 [facility] POCT-GLUCOSE METER 2022-04-23 14:03:00 [facility] KETONE, BLOOD 2022-04-23 13:58:00 [facility] SARS-[facility]OV2/RT-PCR ([facility] & 2022-04-23 13:04:00 Neptali Ashleyegan [facility] REF LABS) [facility] POCT-GLUCOSE METER 2022-04-23 13:00:00 [facility] BLOOD GAS, VENOUS 2022-04-23 12:34:00 Ld Ashley [facility] BASIC METABOLIC PANEL (7) 2022-04-23 12:34:00 Ld Ashley [facility] POCT-GLUCOSE METER 2022-04-23 11:14:00 Axel Correia [facility] POCT-GLUCOSE METER 2022-04-23 10:06:[address] [facility] Cristo [facility] POCT-GLUCOSE METER 2022-04-23 07:45:00 Masood [facility] ACTIN (SMOOTH MUSCLE) 2022-04-23 06:20:00 Cesario [facility] ANTIBODY, IGG [facility] ANTI-NUCLEAR ANTIBODY 2022-04-23 06:20:[address] [facility] (TRANG) [facility] CERULOPLASMIN 2022-04-23 06:20:[address] [facility] COMPREHENSIVE METABOLIC 2022-04-23 06:20:00 Cesario [facility] PANEL [facility] PT/APTT 2022-04-23 06:20:[address] [facility] IMMUNOGLOBULIN G (IGG) 2022-04-23 06:20:00 Cesario [facility] HEPATITIS PANEL, ACUTE 2022-04-23 06:20:00 [facility] IRON, TIBC, % SAT. 2022-04-23 06:20:00 Cesario [facility] (WITHOUT FERRITIN) [facility] 2022-04-23 06:20:[address] [facility] MAGNESIUM 2022-04-23 06:20:[address] [facility] PHOSPHORUS 2022-04-23 06:20:[address] [facility] ANTI-MITOCHONDRIAL AB, 2022-04-23 06:20:00 PARKER Nassar REFLEX TO TITER [facility] CBC W/PLT COUNT & AUTO 2022-04-23 06:20:00 PARKER Nassar [facility] DIFFERENTIAL [facility] ALPHA FETOPROTEIN (AFP), 2022-04-23 06:20:00 Cesario [facility] TUMOR MARKER [facility] LIPASE 2022-04-23 06:20:00 Ld Ashley [facility] MITOCHONDRIAL AB SCREEN 2022-04-23 06:20:[address] [facility] MITOCHONDRIAL AB TITER 2022-04-23 06:20:00 Cesario [facility] CBC W/PLT COUNT & AUTO 2022-04-23 06:20:00 PARKER Nassar DIFFERENTIAL [facility] POCT-GLUCOSE METER 2022-04-23 02:23:[address] [facility] EKG-SCANNED 2022-04-22 00:00:00 Provider, Default [facility] Scanning [facility] Plan of Care Planned Activity Planned Date Details Comments Source Future Scheduled [address] [facility] Test 00:00:00 0-64 YRS (3 - PPSV23 or [facility] PCV20) [code = PNEUMOCOCCAL VACCINE 0-64 YRS (3 - PPSV23 or PCV20)] Future Scheduled 2028-04-23 DTAP/TDAP/TD VACCINES [facility] Test 00:00:00 (2 - Td or Tdap) [code Medic al Center = DTAP/TDAP/TD VACCINES (2 - Td or Tdap)] Future Scheduled 2022-07-14 INFLUENZA VACCINE (#1) [facility] Test 00:00:00 [code = INFLUENZA Medical Ce nter VACCINE (#1)] Future Scheduled 2022-04-[address] [facility]i kes Test 00:00:00 measurement (procedure) [facility] [code = 28142350] Future Scheduled 2021-11-[address] [facility] Test 00:00:00 (12+) [code = [facility] DEPRESSION SCREENING (12+)] Future Scheduled 2015 SHINGLES VACCINES ([address] [facility] Test 00:00:00 2) [code = SHINGLES [facility] VACCINES (1 of 2)] Future Scheduled 2000 Lipid panel (procedure) [facility] Test 00:00:00 [code = 77818886] Medical Ce nter Future Scheduled 1975 DIABETIC EYE EXAM [code [facility] Test 00:00:00 = DIABETIC EYE EXAM] Medical Center Future Scheduled [address] Test 00:00:00 examination Medical Center (regime/therapy) [code = 090592789] Future Scheduled 1975 Urine screening for [facility] Test 00:00:00 protein (procedure) [facility] [code = 341722378] Future Scheduled 1966-05[birth year]11 COVID-19 VACCINE (#1) [facility] Test 00:00:00 [code = COVID-[address] VACCINE (#1)] Future Scheduled 1965 CT Colonography (combo) [facility] Test 00:00:00 [code = CT Colonography [facility] (combo)] Future Scheduled 1965 Screening for malignant [facility] Test 00:00:00 neoplasm of colon Medical Ce nter (procedure) [code = 276398980] Future Scheduled 1965 Screening for malignant [facility] Test 00:00:00 neoplasm of colon Medical Ce nter (procedure) [code = 735079746] Future Scheduled 1965 Screening for malignant [facility] Test 00:00:00 neoplasm of colon Medical Ce nter (procedure) [code = 709322634] Future Scheduled 1965 Screening for malignant [facility] Test 00:00:00 neoplasm of colon Medical Ce nter (procedure) [code = 864083872] Future Scheduled 1965 Sigmoidoscopy [code = [facility] Test 00:00:00 Sigmoidoscopy] Medical Cente r Encounters Start End Encounter Admission Attending Care Care Encounter Source Date/Time Date/Time Type Type Clinicians Facility Department ID 2022-06-27 Inpatient ER [facility] Oncology [id number] [facility] 11:24:58 [facility] 2022-05-05 2022-05-05 Telephone Awa [facility] [id number] 00:00:00 00:00:00 Desi [facility] 2022-04-24 2022-04-24 Emergency ER [facility] Emergency [id number] SLE 05:12:00 05:35:00 2022-04-24 2022-04-24 Emergency [facility] [id number] 05:12:00 05:35:00 [facility] 2022-04-24 2022-04-24 Travel [facility] [id number] [facility] 00:[facility]:00 00:00:00 [facility] 2022-04-22 2022-04-23 Inpatient ER ADIO, [facility] Gastro [id number] SLE 17:55:00 22:00:00 AXEL 2022-04-22 2022-04-23 [facility] Carlos Hyman [facility] [id number] 17:55:00 22:00:00 Encounter Vishal Nassar [facility] Axel Correia [facility] JulyKiley crespo [facility] 2022-04-22 2022-04-22 Samiaat Boogie [facility] [id number] 00:00:00 00:00:00 ion [facility] Results Test Description Test Time Test Comments Results Result Comments Source ANTI-MITOCHONDRIAL AB, REFLEX TO TITER 2022-05-04 12:12:43 Test Item Value Reference Range Interpretation Comme nts SCAN RESULT (test code = 8324764) HEPATITIS C PCR, [id number] 15:18:06 Test Item Value Reference Range Interpretation Comments HCV RESULT COMPONENT HCV RNA not detected HCV RNA not detected (SHANTEL) (test code = 2699) This test uses a Real-Time Polymerase Chain Reaction (RT-PCR) methodology and was performed using EMILY Ampliprep/EMILY TaqMan HCV test kit version 2.0 ([employer]).Reportable range for this assay is 15 - 100,000,000 IU per mL (1.18 - 8.00 Log IU/mL).ANTI-NUCLEAR ANTIBODY (TRANG)2022-04-25 11:24:48 Test Item Value Reference Range Interpretation Comments ANTI-NUCLEAR ANTIBODY (TRANG) ([facility]) Negative Negative (test code = 418) Test performed by IFA method.Test performed by IFA method.HEMOGLOBIN A1C 2022-04-24 09:24:13 Test Item Value Reference Range Interpretation Comments HEMOGLOBIN A1C 12.2 % See_Comment H [Automated m essage] ELECTROPHORESIS ([facility]) The system which (test code = 3811) generated this result transmitted ref erence range: <=5.6%. The reference range was not used to int erpret this result as normal/abnormal . "The A1c is measured using a NGSP-certified method. HbA1c value equal to or greater than 6.5% as thediagnosis cutoff for diabetes. An HbA1c value of 5.7- 6.4% indicates increased risk for diabetes (prediabetes)."Warehouse Receiver ID - ADMOperator ID - ADMPOC-Glucose [id number] 19:03:02 Test Item Value Reference Range Interpretation Comments POC-Glucose Meter (test 205 mg/dL 70-110 H : TE STED AT [facility] code = 1538) [address] [facility], 770 30: Warehouse Receiver/Techni rene ID = [id number] for Lorie (contract), Audrey smith Lab Interpretation (test Abnormal code = 41592-7) [facility] [id number] 19:03:02 Test Item Value Reference Range Interpretation Comments POC-GLUCOSE METER 205 mg/dL 70-110 H : TESTED A T [facility] 6720 (BEAKER) (test code [facility], = 1538) [address]889: Warehouse Receiver/Techni rene ID = [id number] for Lisa maxwell (contract), Audrey smith POCT-GLUCOSE [id number] 19:02:00 Test Item Value Reference Range Interpretation Comments POC-GLUCOSE METER 239 mg/dL 70-110 H [facility] (test code [facility], = 1538) [address]2011: Warehouse Receiver/Techni rene ID = [id number] for Lisa maxwell (contract), Audrey smith BASIC METABOLIC [id number] 17:14:44 Test Item Value Reference Range Interpretation [...] S NOT APPLICABLE FOR DIALYSIS PATIEN TS. Warehouse Receiver ID - KIMMIE MRAD, CHEST, 1 VIEW, NON [id number] 16:46:00Reason for exam:->currentShould this be performed at the bedside?->Yes [facility] : 1965 Sex: [...] to exclude a pulmonary nodule. Signed: Mayela Donald MDReport Verified Date/Time: 04/23/2022 16:46:33 Reading Location: [address] Ortho Consult Reading Room POCT-GLUCOSE [id number] 16:17:08 Test Item Value Reference Range Interpretation Comments POC-GLUCOSE METER 229 mg/dL 70-110 H : TESTED A T [facility] 6720 (BEAKER) (test code [facility], = 1538) [address]00: Warehouse Receiver/Techni rene ID = [id number] for Lisa maxwell (contract), Audrey smith SARS-CoV2/RT-PCR (Asymptomatic ONLY)2022-04-23 16:03:49 Test Item Value Reference Range Interpretation Comments SARS-COV2/RT-PCR Negative Not Detected, (test code = Negative, See 27357-5) external report for linked test SARS-COV-2 [facility] LUANA PERFORMING LAB (test code = 89914-5) MOUNA (test code = Negative result for this MOUNA) test determines that SARS-CoV-2 RNA was not [...] be considered in cases of suspected false negatives. The limit of detection for this assay is 800 copies/mL. This SARS CoV-2 test is a real-time RT-PCR test intended for the qualitative detection of nucleic acid from SARS-CoV-2 in a nasopharyngeal swab specimen collected from individuals suspected of COVID-19 by their healthcare provider. This test has not been Food and Drug Administration (FDA) cleared or approved. This is a modified version of an approved Emergency Use Authorization (EUA) and is in the process of review by the FDA. Once authorized by the FDA, the issued EUA will be effective until the declaration that circumstances exist justifying the authorization of the emergency use of in vitro diagnostic tests for detection and/or diagnosis of COVID-19 is terminated under Section 564(b)(2) of the Act or the EUA is revoked under Section 564(g) of the Act. Fact Sheet for Healthcare Providers:https://www.Gamer[employer] idel.Etalia/sites/default/f allyson/product/documents/F act_Sheet_HC_Providers_L jzw_DXAN-FgK-4.pdf Fact Sheet for Healthcare Patients:https://www.[employer].Etalia/sites/default/fi les/product/documents/Fa ct_Sheet_Patients_Lyra_S ARS-CoV-2.pdf Performing Laboratory:[place] [address] [place] [address] [facility])2022-04-23 16:03:49 Test Item Value Reference Range Interpretation Comments SARS-COV2/RT-PCR (test Negative Not Detected, Negative, code = 8824411) See external report for linked test SARS-COV-2 PERFORMING LAB [facility] LUANA (test code = 9262914) Negative result for this test determines that [...] of the Act.Fact Sheet for Healthcare Prov iders:https://www.DoApp/sites/default/files/product/documents/Fact_Sheet_HC _Sshpocbry_Dvwz_EDCC-CtL-2.pdfFact Sheet for Healthcare Patients:https://www.[employer]/sites/default/files/product/docume nts/Muze_Vlyds_Ifjhbmfs_Tese_KIYX-SfW-4.pdfPerforming Laboratory:[facility], [place] [id number] METER 2022-04-23 15:21:20 Test Item Value Reference Range Interpretation Comments POC-GLUCOSE METER 238 mg/dL 70-110 H : TESTED A T [facility] 6720 (BEAKER) (test code = VICTORINO Salas [facility], 1538) [address]: Warehouse Receiver/Techni rene ID = [id number] for Da vis, Roma POCT-GLUCOSE [id number] 14:14:42 Test Item Value Reference Range Interpretation Comments POC-GLUCOSE METER 276 mg/dL 70-110 H : TESTED A T [facility] 6720 (BEAKER) (test code [facility], = 1538) 615[address]: Warehouse Receiver/Techni rene ID = [id number] for Awur uomje (contract), Nne ka POCT-GLUCOSE [id number] 14:13:31 Test Item Value Reference Range Interpretation Comments POC-GLUCOSE METER 319 mg/dL 70-110 H : TESTED A T [facility] 6720 (BEAKER) (test code [facility], = 1538) 66502: Warehouse Receiver/Techni rene ID = [id number] for Awur uomje (contract), Nne ka KETONE, [id number] 14:05:33 Test Item Value Reference Range Interpretation Comments KETONES, BLOOD (BEAKER) (test code 0.1 mmol/L <0.4 = 1103) BASIC METABOLIC [id number] 13:08:55 Test Item Value Reference Range Interpretation [...] S NOT APPLICABLE FOR DIALYSIS PATIEN TS. Warehouse Receiver ID - KIMMIE MBLOOD GAS, [id number] 12:52:05 Test Item Value Reference Range Interpretation [...] (BEAKER) (test code = 1819) 21.0 POCT-GLUCOSE [id number] 11:48:15 Test Item Value Reference Range Interpretation Comments POC-GLUCOSE METER 453 mg/dL 70-110 HH : TESTED A T [facility] 6720 (BEAKER) (test code [facility], = 1538) 43752: Warehouse Receiver/Techni rene ID = [id number] for Lisa maxwell (contract), Nne ka [id number] 11:45:13 Test Item Value Reference Range Interpretation Comments LIPASE (BEAKER) (test code = 749) 90 U/L 8-78 H Warehouse Receiver ID - KIMMIE MSpecimen slightly ictericPOCT-GLUCOSE [id number] 11:24:33 Test Item Value Reference Range Interpretation Comments POC-GLUCOSE METER > mg/dL 70-110 HH : TESTED A T [facility] 6720 (BEAKER) (test code = VICTORINO Salas [facility], 1538) 6[address]: Warehouse Receiver/Techni rene ID = [id number] for SUGEY HAMILTON [id number] 10:10:35 Test Item Value Reference Range Interpretation Comments FERRITIN (BEAKER) (test code = 221.72 ng/mL 5.00-275.00 361) Warehouse Receiver ID - KIMMIE MHEPATITIS PANEL, [id number] 09:38:02 Test Item Value Reference Range Interpretation Comments HEPATITIS A IGM ANTIBODY (BEAKER) Nonreactive Nonreactive (test code = 498) HEPATITIS B CORE IGM ANTIBODY Nonreactive Nonreactive (BEAKER) (test code = 645) HEPATITIS C ANTIBODY (BEAKER) Reactive Nonreactive A (test code = 367) HEPATITIS B SURFACE ANTIGEN (2) Nonreactive Nonreactive (BEAKER) (test code = 2585) Warehouse Receiver ID - KIMMIE MCOMPREHENSIVE METABOLIC [id number] 09:30:16 Test Item Value Reference Range Interpretation [...] S NOT APPLICABLE FOR DIALYSIS PATIEN TS. Warehouse Receiver ID - KIMMIE MSpecimen slightly ictericSpecimen markedly lipemicALPHA FETOPROTEIN (AFP), TUMOR [id number] 09:24:32 Test Item Value Reference Range Interpretation Comments ALPHA-FETOPROTEIN (BEAKER) (test code < ng/mL <10.0 = 1094) Warehouse Receiver ID - KIMMIE MIMMUNOGLOBULIN G (IGG)2022-04-23 08:27:58 Test Item Value Reference Range Interpretation Comments IMMUNOGLOBULIN G (IGG) 1108 mg/dL See_Comment [Aut omated message] (BEAKER) (test code = The sy stem which 427) generated this result transmit solis reference range : 540-1,822. The reference range was not used to interpret this result as normal/abnormal . Warehouse Receiver ID - KIMMIE ARELY, TIBC, % SAT. (WITHOUT FERRITIN)2022-04-23 08:27:58 Test Item Value Reference Range Interpretation Comments IRON (BEAKER) (test code = 547) 91.0 ug/dL 40.0-160.0 TOTAL IRON BINDING CAPACITY 199 ug/dL 250-450 L (BEAKER) (test code = 769) IRON % SATURATION (2) (BEAKER) 46 % 20-55 (test code = 2590) Warehouse Receiver ID - KIMMIE [id number] 08:17:19 Test Item Value Reference Range Interpretation Comments PHOSPHORUS (BEAKER) 2.3 mg/dL 2.3-4.7 Specimen moderately (test code = 604) hemolyzed Warehouse Receiver ID - KIMMIE [id number] 08:17:18 Test Item Value Reference Range Interpretation Comments MAGNESIUM (BEAKER) 1.9 mg/dL 1.6-2.6 Specimen moderately (test code = 627) hemolyzed Warehouse Receiver ID - KIMMIE MPOCT-GLUCOSE [id number] 07:56:59 Test Item Value Reference Range Interpretation Comments POC-GLUCOSE METER > mg/dL 70-110 HH : Notified RN/MD: TESTED (BEAKER) (test code = AT [facility] [address] [facility] 5139) [facility], [address] [address]: Warehouse Receiver/Techni rene ID = [id number] for Guanaco Ingram PT/[id number] 06:48:40 Test Item Value Reference Range Interpretation [...] mechanical heart valves.CBC W/PLT COUNT & AUTO [id number] 06:38:31 Test Item Value Reference Range Interpretation [...] PERCENT (BEAKER) (test code = 2801) POCT-GLUCOSE [id number] 02:35:08 Test Item Value Reference Range Interpretation Comments POC-GLUCOSE METER > mg/dL 70-110 HH : Notified RN/MD: TESTED (BEAKER) (test code = AT [facility] [address] [facility] 1538) [facility], [facility] 30: Warehouse Receiver/Techni rene ID = [id number] for Math ew, Gisell
[2022-07-15 15:21] VITALS: BMI 20.1
[2022-07-15] MEDS ORDERED: LORAZEPAM 1 MG TABLET PO PRN (17:40)
[2022-07-15] MEDS ORDERED: ONDANSETRON 4 MG/2 ML VIAL IV PRN (17:40)
[2022-07-15] MEDS ORDERED: MORPHINE 2 MG/ML SYR IV PRN (17:40)
--- NOTE | 2022-07-15 20:54 | P.HP ---
Certification for Inpatient Patient admitted to: Inpatient With expected LOS: >2 Midnights Practitioner: I am a practitioner with admitting privileges, knowledge of patient current condition, hospital course, and medical plan of care. Services: Services provided to patient in accordance with Admission requirements found in Title 42 Section 412.3 of the Code of Federal Regulations Patient History Date of Service: 07/15/22 Reason for admission: cirrhosis, HCC History of Present Illness: 56yo M, PMH: IDDM2, alcoholic cirrhosis of liver with suspected HCC and portal vein thrombosis, bipolar, dementia Admitted for ongoing management of his alcoholic cirrhosis and diabetes. Patient has presented to the ED multiple times over the last several months. Most recently he has been more confused and has worsening of his chronic conditions. He has had difficulty appropriately managing his diet and medications on his own. During his multiple previous hospitalizations he has brought up the idea of hospice, and in the most recent hospitalizations he was wanting to be discharged to a facility with hospice. He has also left AMA a few times prior to this being completed. Most recently he became unresponsive shortly after admission and patient was placed on inpatient hospice service. He remained unresponsive for ~4 days, then woke up. He has been confused and agitated. Today, 10 days after admission to inpatient hospice, he has been discharged by hospice. On my discussions with him today, he is AOx3, but confused, does not seem to answer appropriately at all times. States he would like to go to a facility with hospice, and states he would like to be treated medically at this time. Patient has no contacts to call. Allergies prednisone Allergy (Verified 07/01/22 18:29) Rash Tetracyclines Allergy (Verified 07/01/22 18:29) Rash Home Medications: NK [No Home Meds] 07/01/22 - Past Medical/Surgical History Diabetic: Yes -: Alcoholic liver cirrhosis -: Hypertension -: Diabetes mellitusinsulin-dependent -: Chronic tobacco use history -: Dementia as per records -: chronic pancreatitis -: sciatica -: bilateral rotator cuff tear (untreated) -: Eye surgery (lasix right eye) -: Previous paracentesis Psychosocial/ Personal History: Patient currently lives at home alone. - Family History Mother -: Heart disease, Hypertension - Social History Smoking Status: Current every day smoker Alcohol use: No CD- Drugs: No Caffeine use: No Review of Systems 10-point ROS is otherwise unremarkable Physical Examination - Physical Exam General: Alert, In no apparent distress, Confused HEENT: Other (temporal wasting), EOMI Respiratory: Clear to auscultation bilaterally, Normal air movement Cardiovascular: Regular rate/rhythm, Edema (trace bilateral pedal) Gastrointestinal: Soft and benign, No tenderness Musculoskeletal: No contractures, No tenderness Integumentary: No rashes, No erythema Neurological: Other (slight slurred speech, follows commands. moves all extrem ities) Assessment and Plan - Advance Directives Does patient have a Living Will: Yes Does patient have a Durable POA for Healthcare: No Physician Review Additional Text: Problem List IDDM2 with hyperglycemia Alcoholic cirrhosis of the liver with suspected hepatocellular carcinoma and portal vein thrombosis Pancytopenia related to cirrhosis Bipolar Dementia obtain labs start insulin sliding scale, accucheks ACHS continue lactulose if patient is willing pain medication and anxiety medication as needed social media marketing analyst consulted prior documentation suggests patient would want to pursue hospice. He states hospice, but confused at this time. Will evaluate labs, correct abnormalities to get him more stable and clear of mind to express his wants and understand the situation hold anticoagulation consider diuretics tomorrow Code: DNR Dispo: hospice at facility likely Time Spent Managing Pts Care (In Minutes): 70
[2022-07-15] MEDS ORDERED: INSULIN -REGULAR HUMAN 50 UNIT/0.5 ML ML SQ SCH (21:00)
[2022-07-15] MEDS ORDERED: INSULIN GLARGINE 100 UNIT/ML SQ ONE (22:40)
[2022-07-16] MEDS ORDERED: NA CHLORIDE 0.9% 1,000 ML IV ONE (00:25)
[2022-07-16 05:58] LABS: Absolute Lymphocytes (CBC) 0.9 K/uL (0.7-4.9); Hematocrit 31.5 % (39.6-49.0); Lymphocytes % 20.5 % (15.3-44.8); MCV 97.3 fL (80-100); MPV 7.1 fL (7.6-11.3); RBC Red Blood Cell Count 3.24 M/uL (4.33-5.43)
[2022-07-16 06:03] LABS: Albumin 2.6 g/dL (3.4-5.0); Bilirubin Total 1.4 mg/dL (0.2-1.0); Magnesium 1.9 mg/dL (1.8-2.4); Phosphorus 1.9 mg/dL (2.5-4.9); Potassium 3.6 mmol/L (3.5-5.1)
--- NOTE | 2022-07-16 06:25 | P.PN ---
Date of Service: 07/16/22 Subjective: glc last night >900, much better this morning more somnolent today asking for food denies pain ROS: 10 point ROS as noted above, otherwise negative Physical exam GEN: Alert, orientedx2, somnolent, easily arousable HEENT: Normal conjunctiva, sclera anicteric CV: Regular rate and rhythm, no edema Pulm: Nonlabored respirations on room air ABD: Soft, nontender, nondistended Problem List IDDM2 with hyperglycemia Alcoholic cirrhosis of the liver with suspected hepatocellular carcinoma and portal vein thrombosis Pancytopenia related to cirrhosis Bipolar Dementia patient more somnolent today, received benzo this morning monitor glc - ensure does not get too low, may sleep through meal continue sliding scale, decrease lantus restart lactulose dc benzos / opioids for now social media executive consulted prior documentation suggests patient would want to pursue hospice. He states hospice, but confused at this time. states he wants to "live as long as he can", can't give a more clear response when asked more specific questions mumbles, not making complete sense with responses correct factors contributing to encephalopathy Code; DNR Dispo: hospice at facility likely Time Spent Managing Pts Care (In Minutes): 35
[2022-07-16] MEDS: POTASS/SODIUM PHOSPHATE 1 PKT POWD.PACK PO SCH ×3 (08:29→12:51)
[2022-07-16] MEDS: INSULIN -REGULAR HUMAN 50 UNIT/0.5 ML ML SQ SCH ×4 (08:30→21:10)
[2022-07-16] MEDS ORDERED: INSULIN GLARGINE 100 UNIT/ML SQ SCH ×3 (09:00→21:00)
[2022-07-16] MEDS ORDERED: POTASSIUM CL SA 10 MEQ TAB PO ONE (09:00)
[2022-07-16] MEDS: LACTULOSE 20 GM/30 ML UCUP PO SCH (18:03)
[2022-07-16] MEDS: INSULIN GLARGINE 100 UNIT/ML SQ SCH (21:10)
[2022-07-17 05:55] LABS: Magnesium 1.7 mg/dL (1.8-2.4); Phosphorus 3.6 mg/dL (2.5-4.9); Potassium 3.3 mmol/L (3.5-5.1)
--- NOTE | 2022-07-17 06:11 | P.PN ---
Date of Service: 07/17/22 Subjective: no acute events patient states he wants to leave AMA says he has a friend, she will take care of him at home, confirms DNR confused, unable to give me a name or number ROS: 10 point ROS as noted above, otherwise negative Physical exam GEN: Alert, orientedx3, NAD HEENT: Normal conjunctiva, sclera anicteric CV: Regular rate and rhythm, no edema Pulm: Nonlabored respirations on room air ABD: Soft, nontender, nondistended Neuro: confused, moves all extremities Problem List IDDM2 with hyperglycemia hepatic encephalopathy Alcoholic cirrhosis of the liver with suspected hepatocellular carcinoma and portal vein thrombosis Pancytopenia related to cirrhosis Bipolar Dementia continue sliding scale, titrate lantus as needed continue lactulose ativan PRN oncology social worker consulted prior documentation suggests patient would want to pursue hospice. He states hospice, but confused at this time. states he wants to "live as long as he can", can't give a more clear response when asked more specific questions mumbles, not making complete sense with responses correct factors contributing to encephalopathy - mainly hepatic encephalopathy Code: DNR Dispo: hospice at facility likely Time Spent Managing Pts Care (In Minutes): 35
[2022-07-17] MEDS ORDERED: MAGNESIUM SULFATE 1 gm IVPB 1 GM/100 ML BAG IV ONE (09:00)
[2022-07-17] MEDS ORDERED: POTASSIUM CL SA 10 MEQ TAB PO ONE (09:00)
[2022-07-17] MEDS: LACTULOSE 20 GM/30 ML UCUP PO SCH ×2 (09:42→16:22)
[2022-07-17] MEDS: INSULIN GLARGINE 100 UNIT/ML SQ SCH ×2 (09:43→20:26)
[2022-07-17] MEDS: INSULIN -REGULAR HUMAN 50 UNIT/0.5 ML ML SQ SCH ×4 (09:43→20:26)
[2022-07-17] MEDS ORDERED: ACETAMINOPHEN 325 MG TABLET PO PRN (10:16)
[2022-07-17] MEDS ORDERED: POTASSIUM 25 MEQ EFFERV TAB PO ONE (11:00)
[2022-07-17] MEDS ORDERED: LORAZEPAM 0.5 MG TABLET PO PRN (17:28)
[2022-07-18 06:11] LABS: Hematocrit 32.7 % (39.6-49.0); MCV 97.9 fL (80-100); MPV 7.5 fL (7.6-11.3); RBC Red Blood Cell Count 3.34 M/uL (4.33-5.43)
[2022-07-18 06:32] LABS: Magnesium 1.9 mg/dL (1.8-2.4); Potassium 3.7 mmol/L (3.5-5.1)
--- NOTE | 2022-07-18 06:51 | P.PN ---
Date of Service: 07/18/22 Subjective: awake/alert, without complaints hungry, wants double portions wants glucose to be somewhat controlled ok with placement/hospice ROS: 10 point ROS as noted above, otherwise negative Physical exam GEN: Alert, orientedx3, NAD CV: Regular rate and rhythm, no edema Pulm: Nonlabored respirations on room air ABD: Soft, nontender, nondistended Neuro: confused, moves all extremities Problem List IDDM2 with hyperglycemia hepatic encephalopathy Alcoholic cirrhosis of the liver with suspected hepatocellular carcinoma and portal vein thrombosis Pancytopenia related to cirrhosis Bipolar Dementia continue sliding scale, titrate lantus as needed continue lactulose ativan PRN social work job titles consulted prior documentation suggests patient would want to pursue hospice. He states hospice, but confused at time of this admission states he wants to "live as long as he can", can't give a more clear response when asked more specific questions asked patient again on 07/18, confirmed: DNR, ok with placement and hospice; seems to understand goals of hospice. correct factors contributing to encephalopathy - mainly hepatic encephalopathy Code: DNR Dispo: hospice at facility likely in next 24-48hrs ok for patient to get double portion of food this evening with dinner Time Spent Managing Pts Care (In Minutes): 25
[2022-07-18] MEDS: LACTULOSE 20 GM/30 ML UCUP PO SCH ×2 (08:10→16:36)
[2022-07-18] MEDS: INSULIN -REGULAR HUMAN 50 UNIT/0.5 ML ML SQ SCH ×4 (08:11→21:25)
[2022-07-18] MEDS: INSULIN GLARGINE 100 UNIT/ML SQ SCH ×2 (08:12→21:25)
[2022-07-18] MEDS ORDERED: POTASSIUM CL SA 10 MEQ TAB PO ONE (09:00)
[2022-07-19] MEDS: INSULIN -REGULAR HUMAN 50 UNIT/0.5 ML ML SQ SCH ×2 (08:47→12:13)
[2022-07-19] MEDS: LACTULOSE 20 GM/30 ML UCUP PO SCH (08:47)
[2022-07-19] MEDS: INSULIN GLARGINE 100 UNIT/ML SQ SCH (08:47)
[2022-07-19 09:08] VITALS: O2SAT 98
--- NOTE | 2022-07-19 09:16 | P.DS ---
Admission Date: 07/15/22 Discharge Date: 07/19/22 Disposition: TRANSFER TO PENITENTIARY Reason for Admission: cirrhosis, HCC Brief History of Present Illness: 56yo M, PMH: IDDM2, alcoholic cirrhosis of liver with suspected HCC and portal vein thrombosis, bipolar, dementia, admitted for ongoing management of his alcoholic cirrhosis and diabetes. Patient presented to the ED multiple times over the last several months. Most recently he has been more confused and has worsening of his chronic conditions. He has had difficulty appropriately managing his diet and medications on his own. During his most recent hospitalizations he was wanting to be discharged to a facility with hospice. He has also left AMA a few times prior to this being completed. Most recently he became unresponsive shortly after admission and patient was placed on inpatient hospice service. He remained unresponsive for ~4 days, then woke up. He was on inpatient hospice for 10 days and later discharged from hospice. Patient was therefore admitted to the hospitalist service to continue medical management. Hospital Course: Diagnosis IDDM2 with hyperglycemia hepatic encephalopathy Alcoholic cirrhosis of the liver with suspected hepatocellular carcinoma and portal vein thrombosis Pancytopenia related to cirrhosis Bipolar Dementia Patient admitted to the medical floor and started on lactulose for hepatic encephalopathy, insulin therapy for hyperglycemia. He was also on Ativan as needed ativan PRN Patient decided to pursue hospice again which is appropriate given his multiple hospitalizations and advanced liver failure with hepatic mass. Patient has been accepted to hospice at [facility]. He is transferred to [facility] to begin hospice. Vital Signs/Physical Exam: Temp Pulse Resp BP Pulse Ox 96.2 F L 82 18 132/85 100 07/19/22 08:00 07/19/22 08:00 07/19/22 08:00 07/19/22 08:00 07/19/22 08:00 General: Alert, In no apparent distress HEENT: Mucous membr. moist/pink Neck: JVD not distended Respiratory: Clear to auscultation bilaterally, Normal air movement Cardiovascular: No edema, Regular rate/rhythm, Normal S1 S2 Gastrointestinal: Soft and benign, Non-distended Musculoskeletal: No swelling Integumentary: No cyanosis Neurological: Normal strength at 5/5 x4 extr Laboratory Data at Discharge: WBC 5.10 K/uL (4.3-10.9) 07/18/22 05:54 Hgb 11.3 g/dL (13.6-17.9) L 07/18/22 05:54 Hct 32.7 % (39.6-49.0) L 07/18/22 05:54 Plt Count 83 K/uL (152-406) L 07/18/22 05:54 Sodium Cancelled 07/19/22 05:00 Potassium Cancelled 07/19/22 05:00 BUN Cancelled 07/19/22 05:00 Creatinine Cancelled 07/19/22 05:00 Glucose Cancelled 07/19/22 05:00 Phosphorus 2.3 mg/dL (2.5-4.9) L 07/18/22 05:54 Magnesium 1.9 mg/dL (1.8-2.4) 07/18/22 05:54 Total Bilirubin 1.4 mg/dL (0.2-1.0) H 07/16/22 05:02 AST 59 U/L (15-37) H D 07/16/22 05:02 ALT 81 U/L (12-78) H D 07/16/22 05:02 Alkaline Phosphatase 153 U/L (45-117) H 07/16/22 05:02 Home Medications: Insulin -Regular Human [Novolin -R*] See Protocol SQ ACHS ml 07/19/22 Insulin Glargine,Hum.rec.anlog [Semglee] 15 unit SQ BID ml 07/19/22 Lactulose [Cephulac*] 15 ml PO BIDL 07/19/22 Diet: ADA Time spent managing pt's care (in minutes): 38
[2022-07-19 12:46] VITALS: BP 126/81; TEMP 97.9
== END 2022-07-19 13:40 | disposition hospice, inpatient (51) | DRG 441 ==
LOC: 4TH 14:33
PROVIDERS: ADMIT Hospitalist; ATTEND Hospitalist
DX: K72.90 Hepatic failure, unspecified without coma (principal); I81 Portal vein thrombosis; C22.0 Liver cell carcinoma; D61.818 Other pancytopenia; K70.30 Alcoholic cirrhosis of liver without ascites; E11.65 Type 2 diabetes mellitus with hyperglycemia; F31.9 Bipolar disorder, unspecified; F03.90 Unspecified dementia, unspecified severity, without behavioral disturbance, psychotic disturbance, mood disturbance, and anxiety; I10 Essential (primary) hypertension; Z66 Do not resuscitate
CPT/HCPCS: 36415; 80048; 80053; 82140; 82947; 83735; 84100; 84132; 85025; 85027; 94760; J1815; J2270; J3475; J7030

== ENCOUNTER 2022-07-24 12:46 | Observation (INO) | payer OTHER ==
--- OUTSIDE RECORDS SUMMARY | 2022-07-24 12:50 | XMS REPORT | Continuity of Care Document ---
:1965 Author Organization [facility] t Address [address] [place] [address] Care Team Providers Name Role Phone Awa MONTAGUE, Desi Salas Attending Clinician Unavailable Boogie RESENDIZ, Loren Attending Clinician Cesario RESENDIZ, Vishal Attending Clinician [phone] Axel Correia MD Attending Clinician Joselito RESENDIZ, Kiley Licea Attending Clinician AXEL CORREIA Attending Clinician Unavailable AXEL CORREIA Admitting Clinician Unavailable Payers Payer Name Policy Type Policy Number Effective Date Expiration Date Josh branch [facility] [id number] 2021 00:00:00 PLAN Problems Condition Condition Condition [...] ents Source Name Type Date Date Clinician Predniso Propensi Active Nausea Only [place] [facility] ty to 611 nauseous [facility] adverse 00:00: after Medical reaction 00 getting Center s prednison e once PREDNISO Allergy Active Low Nausea [facility] Medical 00 Center Tetracyc Drug Active Swelling [facility] Allergy 6-10 [facility] Medical 00 Center TETRACYC Allergy Active High Swelling [facility]10 [facility] 00:[facility] Medical 00 Center HYDROCOR Allergy Active High Swelling [facility] TISONE 04-22 00:00: 00 Social History Social Habit Start Date Stop Date Quantity Comments Source History SDOH [facility] Alcohol Std Drinks Medica l Center History SDOH [facility] Alcohol Binge Medical Celio ter History SDOH [facility] Alcohol Comment Medical C enter History SDOH [facility] Transport Non-Med Medical Center Alcohol intake 2022-04-24 2022-04-[address] [facility] 00:00:00 00:00:00 non-drinker Medical Willie salas (finding) Tobacco use and 2022-04-22 2022-04-[address] [facility] kes exposure 00:00:00 00:00:00 Medical Center History SDOH 2022-04-22 2022-04-[address] [facility] Alcohol Frequency 00:00:00 00:00:00 Medical Center History SDOH 2022-04-22 2022-04-[address] [facility] Transport Med 00:00:00 00:00:[address] History SDOH 2022-04-22 2022-04-[address] [facility] Housing Unable to 00:00:00 00:00:00 Medical Center Pay History SDOH 2022-04-22 2022-04-[address] [facility] Housing Places 00:00:00 00:00:00 Medical Ce nter Lived History [facility] 2022-04-22 2022-04-[address] [facility] Housing Homeless 00:00:00 00:00:00 Medical Center Last Year Sex Assigned At [birth year] M [facility] kes 00:00:00 00:00:00 Medical Center Smoking Status Start Date Stop Date Source Light tobacco smoker 2022-04-22 00:00:00 [facility] Medications Ordered Filled Start Stop Current Ordering Indication Dosage Frequency Signature Comments Components Source Medication Medication Date Date Medication? Clinician (SIG) Name Name eduar Yes 1{appli Q.5D Apply [address] ne 6-12 cation} applicatio [facility] (KENALOG) 00:29: n Medical 0.1 % 35 topically Center topical 2 (two) cream times daily. albuterol Yes 1{puff} Q.5D Inhale [address] HFA 6-12 puff by Ismael (VENTOLIN 00:29: mouth via Med ical HFA) 90 35 inhaler 2 Center mcg/actuati (two) on inhaler times daily. amoxicillin Yes 1{capsu Q12H Take [address] (AMOXIL) 6-12 le} capsule by [facility] 500 MG 00:29: mouth Medical capsule 35 [...] 00:29: mouth Medical tablet 35 daily. Center triamcinolo Yes 1{appli Q.5D Apply [address] [facility] [facility] ne 6-12 cation} applicatio [facility] (KENALOG) 00:29: n Medical 0.1 % 35 topically Center topical 2 (two) cream times daily. albuterol Yes 1{puff} Q.5D Inhale [address] HFA 6-12 puff by [facility] (VENTOLIN 00:29: mouth via Med ical HFA) 90 35 inhaler 2 Center mcg/actuati (two) on inhaler times daily. amoxicillin Yes 1{capsu Q12H Take [address] (AMOXIL) 6-12 le} capsule by [facility] 500 MG 00:29: mouth Medical capsule 35 every 12 Center (twelve) hours. insulin Yes 30U QD Inject 30 [facility] glargine 6-12 Units [facility] (Basaglar 00:29: subcutaneo Me dical KwikPen 35 us Center U-100 nightly . Insulin) 100 unit/mL (3 mL) InPn lactulose Yes 15mL Q.5D Take 15 [facility] (CHRONULAC) 6-12 mLs by [facility] 10 gram/15 00:29: mouth 2 Medi cecil mL solution 35 (two) Center times daily. insulin Yes 30U Inject 30 [facility] lispro 6-12 Units [facility] (HumaLOG 00:29: subcutaneo Med ical KwikPen 35 us 3 Center Insulin) (three) 100 unit/mL times [...] 68.4 kg HEIGHT 2022-04-22 18:52:00 162.6 cm Systolic blood 2022-04-24 05:08:00 134 mm[Hg] [facility] Diastolic blood 2022-04-24 05:08:00 78 mm[Hg] [facility] Heart rate 2022-04-24 05:08:00 108 /min [facility] Body temperature 2022-04-24 05:08:00 36.67 Carolann [facility] Respiratory rate 2022-04-24 05:08:00 18 /min [facility] Body height 2022-04-24 05:08:00 167.6 cm [facility] Body weight 2022-04-24 05:08:00 65.318 kg [facility] BMI 2022-04-24 05:08:00 23.24 kg/m2 [facility] Oxygen saturation in 2022-04-24 05:08:00 96 /min [facility] Arterial blood by Medical Ce nter Pulse oximetry Procedures Procedure Date / Time Performing Clinician Source Performed POCT-GLUCOSE METER 2022-04-23 18:52:00 Axel Correia [facility] POCT-GLUCOSE METER 2022-04-23 17:46:00 Kiley Yee [facility] HEMOGLOBIN A1C 2022-04-23 16:45:00 Axel Correia [facility] HEPATITIS C PCR, 2022-04-23 16:45:[address] [facility] BASIC METABOLIC PANEL (7) 2022-04-23 16:45:00 Ld Ashley [facility] XR CHEST 1 VIEW PORTABLE / 2022-04-23 16:20:00 Ld Ashley [facility] BEDSIDE [facility] POCT-GLUCOSE METER 2022-04-23 16:05:00 Joselito Kiley [facility] POCT-GLUCOSE METER 2022-04-23 15:10:00 [facility] POCT-GLUCOSE METER 2022-04-23 14:03:00 [facility] KETONE, BLOOD 2022-04-23 13:58:00 [facility] ([facility] & 2022-04-23 13:04:00 Ld Ashley [facility] REF LABS) [facility] POCT-GLUCOSE METER 2022-04-23 13:00:00 Axel Correia [facility] BLOOD GAS, VENOUS 2022-04-23 12:34:00 Neptali Ashleyegan [facility] BASIC METABOLIC PANEL (7) 2022-04-23 12:34:00 Ld Ashley [facility] POCT-GLUCOSE METER 2022-04-23 11:14:00 Axel Correia [facility] POCT-GLUCOSE METER 2022-04-23 10:06:00 AdAxel palma [facility] POCT-GLUCOSE METER 2022-04-23 07:45:00 Axel Correia [facility] ALPHA FETOPROTEIN (AFP), 2022-04-23 06:20:00 Cesario [facility] TUMOR MARKER [facility] LIPASE 2022-04-23 06:20:00 Ld Ashley [facility] MITOCHONDRIAL AB SCREEN 2022-04-23 06:20:00 Murrey-Ittmann, [facility] MITOCHONDRIAL AB TITER 2022-04-23 06:20:00 Cesario [facility] CBC W/PLT COUNT & AUTO 2022-04-23 06:20:00 Cesario [facility] DIFFERENTIAL [facility] ACTIN (SMOOTH MUSCLE) 2022-04-23 06:20:00 [facility] ANTIBODY, IGG [facility] ANTI-NUCLEAR ANTIBODY 2022-04-23 06:20:00 [facility] (TRANG) [facility] CERULOPLASMIN 2022-04-23 06:20:00 EllenIleana [facility] COMPREHENSIVE METABOLIC 2022-04-23 06:20:00 Cesario [facility] PANEL [facility] PT/APTT 2022-04-23 06:20:00 EllenJefferson [facility] IMMUNOGLOBULIN G (IGG) 2022-04-23 06:20:00 [facility] HEPATITIS PANEL, ACUTE 2022-04-23 06:20:00 [facility] IRON, TIBC, % SAT. 2022-04-23 06:20:[address] [facility] (WITHOUT FERRITIN) [facility] 2022-04-23 06:20:00 EllenIleana [facility] MAGNESIUM 2022-04-23 06:20:00 Cesario [facility] PHOSPHORUS 2022-04-23 06:20[facility]00 [facility] ANTI-MITOCHONDRIAL AB, 2022-04-23 06:20:00 Cesario [facility] REFLEX TO TITER [facility] CBC W/PLT COUNT & AUTO 2022-04-23 06:20:00 Cesario [facility] DIFFERENTIAL [facility] POCT-GLUCOSE METER 2022-04-23 02:23:00 [facility]Formerly [facility] EKG-SCANNED 2022-04-22 00:00:00 Provider, Default [facility] Plan of Care Planned Activity Planned Date Details Comments Source Future Scheduled [address] [facility] Test 00:00:00 0-64 YRS (3 - PPSV23 or [facility]i [facility] Center PCV20) [code = PNEUMOCOCCAL VACCINE 0-64 YRS (3 - PPSV23 or PCV20)] Future Scheduled [address] [facility] Test 00:00:00 0-64 YRS (3 - PPSV23 or Medi [facility] Center PCV20) [code = PNEUMOCOCCAL VACCINE 0-64 YRS (3 - PPSV23 or PCV20)] Future Scheduled 2028-04-23 DTAP/TDAP/TD VACCINES [facility] 00:00:00 (2 - Td or Tdap) [code Medic al Center = DTAP/TDAP/TD VACCINES (2 - Td or Tdap)] Future Scheduled 2028-04-23 DTAP/TDAP/TD VACCINES [facility] 00:00:00 (2 - Td or Tdap) [code Medic al Center = DTAP/TDAP/TD VACCINES (2 - Td or Tdap)] Future Scheduled 2022-07-14 INFLUENZA VACCINE (#1) [facility] 00:00:00 [code = INFLUENZA Medical Ce nter VACCINE (#1)] Future Scheduled 2022-07-14 INFLUENZA VACCINE (#1) [facility] Test 00:00:00 [code = INFLUENZA Medical Ce nter VACCINE (#1)] Future Scheduled 2022-04-[address] [facility] Test 00:00:00 measurement (procedure) [facility] [code = 15748530] Future Scheduled 2022-04-[address] [facility] Test 00:00:00 measurement (procedure) [facility] [code = 88072404] Future Scheduled 2021-11-[address] [facility] Test 00:00:00 (12+) [code = Medical Center DEPRESSION SCREENING (12+)] Future Scheduled 2021-11-[address] [facility] Test 00:00:00 (12+) [code = Medical Center DEPRESSION SCREENING (12+)] Future Scheduled 2015 SHINGLES VACCINES ([address] [facility] Test 00:00:00 2) [code = SHINGLES Medical Center VACCINES (1 of 2)] Future Scheduled 2015 SHINGLES VACCINES ([address] [facility] Test 00:00:00 2) [code = [facility] VACCINES (1 of 2)] Future Scheduled 2000 Lipid panel (procedure) [facility] Test 00:00:00 [code = 15713471] Medical Ce nter Future Scheduled 2000 Lipid panel (procedure) [facility] Test 00:00:00 [code = 89413109] Medical Ce nter Future Scheduled 1975 DIABETIC EYE EXAM [code [facility] Test 00:00:00 = DIABETIC EYE EXAM] Medical Center Future Scheduled [address] [facility] Test 00:00:00 examination Medical Center (regime/therapy) [code = 357334937] Future Scheduled 1975 Urine screening for [facility] Test 00:00:00 protein (procedure) Medical Center [code = 986968268] Future Scheduled 1975 DIABETIC EYE EXAM [code [facility] Test 00:00:00 = DIABETIC EYE EXAM] Medical Center Future Scheduled [address] [facility] Test 00:00:00 examination Medical Center (regime/therapy) [code = 800363197] Future Scheduled 1975 Urine screening for [facility] Test 00:00:00 protein (procedure) Medical Center [code = 902836317] Future Scheduled 1966-05[birth year]11 COVID-19 VACCINE (#1) [facility] 00:00:00 [code = COVID-[address] VACCINE (#1)] Future Scheduled 1966-05[birth year]11 COVID-19 VACCINE (#1) [facility] 00:00:00 [code = COVID-[address] VACCINE (#1)] Future Scheduled 1965 CT Colonography (combo) [facility] Test 00:00:00 [code = CT Colonography [facility] (combo)] Future Scheduled 1965 Screening for malignant [facility] Test 00:00:00 neoplasm of colon Medical Ce nter (procedure) [code = 054901545] Future Scheduled 1965 Screening for malignant [facility] Test 00:00:00 neoplasm of colon Medical Ce nter (procedure) [code = 828127796] Future Scheduled 1965 Screening for malignant [facility] Test 00:00:00 neoplasm of colon Medical Ce nter (procedure) [code = 087547694] Future Scheduled 1965 Screening for malignant [facility] Test 00:00:00 neoplasm of colon Medical Ce nter (procedure) [code = 743167221] Future Scheduled 1965 Sigmoidoscopy [code = [facility] 00:00:00 Sigmoidoscopy] Medical Cente r Future Scheduled 1965 CT Colonography (combo) [facility] Test 00:00:00 [code = CT Colonography [facility] (combo)] Future Scheduled 1965 Screening for malignant [facility] Test 00:00:00 neoplasm of colon Medical Ce nter (procedure) [code = 638096146] Future Scheduled 1965 Screening for malignant [facility] Test 00:00:00 neoplasm of colon Medical Ce nter (procedure) [code = 660907788] Future Scheduled 1965 Screening for malignant [facility] Test 00:00:00 neoplasm of colon Medical Ce nter (procedure) [code = 676802009] Future Scheduled 1965 Screening for malignant [facility] Test 00:00:00 neoplasm of colon Medical Ce nter (procedure) [code = 257296839] Future Scheduled 1965 Sigmoidoscopy [code = [facility] 00:00:00 Sigmoidoscopy] Medical Cente r Encounters Start End Encounter Admission Attending Care Care Encounter Source Date/Time Date/Time Type Type Clinicians Facility Department ID 2022-06-27 Inpatient ER [facility] Oncology [id number] [facility] 11[facility]24:58 [facility] 2022-05-05 2022-05-05 Telephone Awa [facility] [id number] 00:00:00 00:00:00 Desi [facility] 2022-05-05 2022-05-05 Telephone Awa [facility] [id number] 00:00:00 00:00:00 Desi [facility] 2022-04-24 2022-04-24 Emergency [facility] [id number] 05:12:00 05:35:00 [facility] 2022-04-24 2022-04-24 Emergency ER [facility] Emergency [id number] SLE 05:12:00 05:35:00 2022-04-24 2022-04-24 Emergency [facility] [id number] 05:12:00 05:35:00 [facility] 2022-04-24 2022-04-24 Travel [facility] [id number] [facility] 00:[facility]00 00:00:00 [facility] 2022-04-24 2022-04-24 Travel [facility] [id number] [facility] 00:[facility]00 00:00:00 [facility] 2022-04-22 2022-04-23 [facility] [id number] 17:55:00 22:00:00 Encounter Vishal Nassar [facility], [facility] 2022-04-22 2022-04-23 Inpatient ER AD, [facility] Gastro [id number] SLE 17:55:00 22:00:00 [facility] 2022-04-22 2022-04-23 [facility] [id number] [facility] St 17:55:00 22:00:00 Encounter Vishal [facility]22-04-22 2022-04-22 [facility] [id number] 00:[facility] 00:00:[address] [facility] 2022-04-22 2022-04-22 Documentat Boogie [facility] [id number] 00:[facility] 00:00:[address] [facility] Results Test Description Test Time Test Comments Results Result Comments Source ANTI-MITOCHONDRIAL AB, REFLEX TO TITER 2022-05-04 12:12:43 Test Item Value Reference Range Interpretation Comme nts SCAN RESULT (test code = 8540319) HEPATITIS C PCR, [id number] 15:18:06 Test Item Value Reference Range Interpretation Comments HCV RESULT COMPONENT HCV RNA not detected HCV RNA not detected (SHANTEL) (test code = 2699) This test uses a Real-Time Polymerase Chain Reaction (RT-PCR) methodology and was performed using EMILY Ampliprep/EMILY TaqMan HCV test kit version 2.0 ([employer]).Reportable range for this assay is 15 - 100,000,000 IU per mL (1.18 - 8.00 Log IU/mL).ANTI-NUCLEAR ANTIBODY (TRANG)2022-04-25 11:24:48 Test Item Value Reference Range Interpretation Comments ANTI-NUCLEAR ANTIBODY (TRANG) (SHANTEL) Negative Negative (test code = 418) Test performed by IFA method.Test performed by IFA method.HEMOGLOBIN A1C 2022-04-24 09:24:13 Test Item Value Reference Range Interpretation Comments HEMOGLOBIN A1C 12.2 % See_Comment H [Automated m essage] ELECTROPHORESIS (SHANTEL) The system which (test code = 3811) generated this result transmitted ref erence range: <=5.6%. The reference range was not used to int erpret this result as normal/abnormal . "The A1c is measured using a NGSP-certified method. HbA1c value equal to or greater than 6.5% as thediagnosis cutoff for diabetes. An HbA1c value of 5.7- 6.4% indicates increased risk for diabetes (prediabetes)."Environmental Professional ID - ADMOperator ID - ADMPOC-Glucose [id number] 19:03:02 Test Item Value Reference Range Interpretation Comments POC-Glucose Meter (test 205 mg/dL 70-110 H : TE STED AT [facility] code = 1538) [address] [place] [address], [facility] 30: Environmental Professional/Techni rene ID = [id number] for Lorie (contract)Audrey Lab Interpretation (test Abnormal code = 86598-4) [facility] [id number] 19:03:02 Test Item Value Reference Range Interpretation Comments POC-Glucose Meter (test 205 mg/dL 70-110 H : TE STED AT [facility] code = 1538) [address] [place] [address], 770 30: Environmental Professional/Techni rene ID = [id number] for Lorie (contract), Nne ka Lab Interpretation (test Abnormal code = 94186-4) [facility]SE [id number] 19:03:02 Test Item Value Reference Range Interpretation Comments POC-GLUCOSE METER 205 mg/dL 70-110 H : TESTED A T [facility] 6720 (BEAKER) (test code [facility], = 1538) [address]: Environmental Professional/Techni rene ID = [id number] for Lisa maxwell (contract), Nne ka POCT-GLUCOSE [id number] 19:02:00 Test Item Value Reference Range Interpretation Comments POC-GLUCOSE METER 239 mg/dL 70-110 H : TESTED A T [facility] 6720 (BEAKER) (test code [facility], = 1538) 91481: Environmental Professional/Techni rene ID = [id number] for Lisa maxwell (contract), Nne ka BASIC METABOLIC [id number] 17:14:44 Test Item Value Reference Range Interpretation [...] S NOT APPLICABLE FOR DIALYSIS PATIEN TS. Environmental Professional ID - KIMMIE MRAD, CHEST, 1 VIEW, NON [id number] 16:46:00Reason for exam:->currentShould this be performed at the bedside?->Yes [facility] : 1965 [...] MDReport Verified Date/Time: 04/23/2022 16:46:33 Reading Location: [address] Consult Reading Room POCT-GLUCOSE [id number] 16:17:08 Test Item Value Reference Range Interpretation Comments POC-GLUCOSE METER 229 mg/dL 70-110 H : TESTED A T [facility] 6720 (BEAKER) (test code [facility], = 1538) [address]: Environmental Professional/Techni rene ID = [id number] for Lisa maxwell (contract), Silverioe sarah SARS-CoV2/RT-PCR (Asymptomatic ONLY)2022-04-23 16:03:49 Test Item Value Reference Range Interpretation Comments SARS-COV2/RT-PCR Negative Not Detected, (test code = Negative, See 98237-1) external report for linked test SARS-COV-2 [facility] LUA[facility] PERFORMING LAB (test code = 14186-6) MOUNA (test code = Negative result for [...] of the Act. Fact Sheet for Healthcare Providers:https://www.Indotrading idel.com/sites/default/f allyson/product/documents/F act_Sheet_HC_Providers_L htg_BKND-GzQ-2.pdf Fact Sheet for Healthcare Patients:https://www.brunilda del.com/sites/default/fi les/product/documents/Fa ct_Sheet_Patients_Lyra_S ARS-CoV-2.pdf Performing Laboratory:[facility], [place] [address] [place], [place] [address]ARS-CoV2/RT-PCR (Asymptomatic ONLY)2022-04-23 16:03:49 Test Item Value Reference Range Interpretation Comments SARS-COV2/RT-PCR Negative Not Detected, (test code = Negative, See 69873-1) external report for linked test SARS-COV-2 [facility] PERFORMING [facility] (test code = 26582-5) MOUNA (test code = Negative result for [...] of the Act. Fact Sheet for Healthcare Providers:https://www.Indotrading ideJibJab.eGym/sites/default/f allyson/product/documents/F act_Sheet_HC_Providers_L vsn_BMOK-IdL-5.pdf Fact Sheet for Healthcare Patients:https://www.Xray Imatek del.com/sites/default/fi les/product/documents/Fa ct_Sheet_Patients_Lyra_S ARS-CoV-2.pdf Performing Laboratory:[facility] [place] [address] [facility] ([facility])2022-04-23 16:03:49 Test Item Value Reference Range Interpretation Comments SARS-COV2/RT-PCR (test Negative Not Detected, Negative, code = 5026062) See external report for linked test SARS-COV-2 PERFORMING LAB [facility] LUANA (test code = 4310708) Negative result for this test determines that [...] of the Act.Fact Sheet for Healthcare Prov iders:https://www.Covertix.eGym/sites/default/files/product/documents/Fact_Sheet_HC _Qcdrvfzzb_Hang_JJGI-GhW-5.pdfFact Sheet for Healthcare Patients:https://www.Covertix.eGym/sites/default/files/product/docume nts/Kkfd_Dhvag_Ditimfjz_Tcmd_JUTD-PgU-0.pdfPerforming Laboratory:[facility], [place] [address]LOSN-FDIACIG METER 2022-04-23 15:21:20 Test Item Value Reference Range Interpretation Comments POC-GLUCOSE METER 238 mg/dL 70-110 H : TESTED A T [facility] 6720 (BEAKER) (test code = VICTORINO Salas [facility], 1538) 8[address]: Environmental Professional/Techni rene ID = [id number] for Da vis, Roma POCT-GLUCOSE [id number] 14:14:42 Test Item Value Reference Range Interpretation Comments POC-GLUCOSE METER 276 mg/dL 70-110 H : TESTED A T [facility] 6720 (BEAKER) (test code [facility], = 1538) 08382: Environmental Professional/Techni rene ID = [id number] for Awur uomje (contract), Nne ka POCT-GLUCOSE [id number] 14:13:31 Test Item Value Reference Range Interpretation Comments POC-GLUCOSE METER 319 mg/dL 70-110 H : TESTED A T [facility] 6720 (BEAKER) (test code [facility], = 1538) 99195: Environmental Professional/Techni rene ID = [id number] for Awur uomje (contract), Nne ka KETONE, [id number] 14:05:33 Test Item Value Reference Range Interpretation Comments KETONES, BLOOD (BEAKER) (test code 0.1 mmol/L <0.4 = 1103) BASIC METABOLIC [id number] 13:08:55 Test Item Value Reference Range Interpretation [...] S NOT APPLICABLE FOR DIALYSIS PATIEN TS. Environmental Professional ID - KIMMIE MBLOOD GAS, [id number] 12:52:05 Test Item Value Reference Range Interpretation [...] (BEAKER) (test code = 1819) 21.0 POCT-GLUCOSE [id number] 11:48:15 Test Item Value Reference Range Interpretation Comments POC-GLUCOSE METER 453 mg/dL 70-110 HH : TESTED A T [facility] 6720 (BEAKER) (test code [facility], = 1538) 40340: Environmental Professional/Techni rene ID = [id number] for Lisa maxwell (contract), Audrey smith [id number] 11:45:13 Test Item Value Reference Range Interpretation Comments LIPASE (BEAKER) (test code = 749) 90 U/L 8-78 H Environmental Professional ID - KIMMIE MSpecimen slightly ictericPOCT-GLUCOSE [id number] 11:24:33 Test Item Value Reference Range Interpretation Comments POC-GLUCOSE METER > mg/dL 70-110 HH : TESTED A T [facility] 6720 (BEAKER) (test code = VICTORINO [place], 1538) [address]: Environmental Professional/Techni rene ID = [id number] for SUGEY HAMILTON [id number] 10:10:35 Test Item Value Reference Range Interpretation Comments FERRITIN (BEAKER) (test code = 221.72 ng/mL 5.00-275.00 361) Environmental Professional ID - KIMMIE MHEPATITIS PANEL, [id number] 09:38:02 Test Item Value Reference Range Interpretation Comments HEPATITIS A IGM ANTIBODY (BEAKER) Nonreactive Nonreactive (test code = 498) HEPATITIS B CORE IGM ANTIBODY Nonreactive Nonreactive (BEAKER) (test code = 645) HEPATITIS C ANTIBODY (BEAKER) Reactive Nonreactive A (test code = 367) HEPATITIS B SURFACE ANTIGEN (2) Nonreactive Nonreactive (BEAKER) (test code = 2585) Environmental Professional ID - KIMMIE MCOMPREHENSIVE METABOLIC [id number] 09:30:16 Test Item Value Reference Range Interpretation [...] S NOT APPLICABLE FOR DIALYSIS PATIEN TS. Environmental Professional ID - KIMMIE MSpecimen slightly ictericSpecimen markedly lipemicALPHA FETOPROTEIN (AFP), TUMOR [id number] 09:24:32 Test Item Value Reference Range Interpretation Comments ALPHA-FETOPROTEIN (BEAKER) (test code < ng/mL <10.0 = 1094) Environmental Professional ID - KIMMIE MIMMUNOGLOBULIN G (IGG)2022-04-23 08:27:58 Test Item Value Reference Range Interpretation Comments IMMUNOGLOBULIN G (IGG) 1108 mg/dL See_Comment [Aut omated message] (BEAKER) (test code = The sy stem which 427) generated this result transmit solis reference range : 540-1,822. The reference range was not used to interpret this result as normal/abnormal . Environmental Professional ID - KIMMIE ARELY, TIBC, % SAT. (WITHOUT FERRITIN)2022-04-23 08:27:58 Test Item Value Reference Range Interpretation Comments IRON (BEAKER) (test code = 547) 91.0 ug/dL 40.0-160.0 TOTAL IRON BINDING CAPACITY 199 ug/dL 250-450 L (BEAKER) (test code = 769) IRON % SATURATION (2) (BEAKER) 46 % 20-55 (test code = 2590) Environmental Professional ID - KIMMIE [id number] 08:17:19 Test Item Value Reference Range Interpretation Comments PHOSPHORUS (BEAKER) 2.3 mg/dL 2.3-4.7 Specimen moderately (test code = 604) hemolyzed Environmental Professional ID - KIMMIE [id number] 08:17:18 Test Item Value Reference Range Interpretation Comments MAGNESIUM (BEAKER) 1.9 mg/dL 1.6-2.6 Specimen moderately (test code = 627) hemolyzed Environmental Professional ID - KIMMIE MPOCT-GLUCOSE [id number] 07:56:59 Test Item Value Reference Range Interpretation Comments POC-GLUCOSE METER > mg/dL 70-110 HH : Notified RN/MD: TESTED (BEAKER) (test code = AT [facility] [address]) [facility], [address]: Environmental Professional/Techni rene ID = [id number] for Guanaco Ingram [id number] 06:48:40 Test Item Value Reference Range Interpretation Comments PROTIME (BEAKER) (test 16.1 seconds 11.9-14.2 H code = 759) INR (BEAKER) (test 1.31 See_Comment [Automat ed code = 370) message] The Conferensum stem which generated this result transmitted reference [...] mechanical heart valves.CBC W/PLT COUNT & AUTO [id number] 06:38:31 Test Item Value Reference Range Interpretation [...] PERCENT (BEAKER) (test code = 2801) POCT-GLUCOSE [id number] 02:35:08 Test Item Value Reference Range Interpretation Comments POC-GLUCOSE METER > mg/dL 70-110 HH : Notified RN/MD: TESTED (BEAKER) (test code = AT [facility] [address] [facility] [address]) [place], [address]: Environmental Professional/Techni rene ID = [id number] for Gisell Botello
[2022-07-24] MEDS ORDERED: NA CHLORIDE 0.9% 1,000 ML ONE (14:44)
--- NOTE | 2022-07-24 14:56 | RAD REPORT ---
EXAM DESCRIPTION: RAD - Chest Single View - 07/24/2022 2:45 pm CLINICAL HISTORY: COUGH Chest pain. COMPARISON: Chest Single View dated 07/04/2022; Chest Single View dated 06/26/2022; Chest Single View dated 04/22/2022; Chest Single View dated 03/12/2022 FINDINGS: Portable technique limits examination quality. The lungs are grossly clear. The heart is normal in size. No displaced fractures. IMPRESSION: No acute intrathoracic process suspected.
[2022-07-24 15:09] LABS: SARS-CoV-2 Antigen Rapid Res Negative (Negative)
[2022-07-24 15:23] LABS: Absolute Lymphocytes (CBC) 0.7 K/uL (0.7-4.9); Hematocrit 30.2 % (39.6-49.0); Lymphocytes % 22.6 % (15.3-44.8); MCV 98.5 fL (80-100); MPV 7.4 fL (7.6-11.3); RBC Red Blood Cell Count 3.07 M/uL (4.33-5.43)
[2022-07-24 15:36] LABS: Protime INR 1.36
--- NOTE | 2022-07-24 15:42 | EDPHYS ---
Physician Documentation [facility] Name: Amador Cosme Age: 56 yrs Sex: Male : 1965 Arrival Date: 07/24/2022 Time: 12:47 Bed 13 Private MD: ED Physician James Uriarte HPI: 07/24 15:25 This 56 yrs old Male presents to ER via Ambulatory with complaints of gali Abdominal Pain. 15:25 The patient presents with abdominal pain in the epigastric area, in the upper abdomen. gail Onset: The symptoms/episode began/occurred 3 day(s) ago. cirrhosis, hepatocellular tumor, off hospice. Onset: The symptoms/episode began/occurred 2 day(s) ago. The symptoms do not radiate. Associated signs and symptoms: Pertinent positives: nausea. The symptoms are described as crampy. Modifying factors: The symptoms are alleviated by nothing. Severity of symptoms: At their worst the symptoms were moderate in the emergency department the symptoms are unchanged. Historical: - Allergies: 13:40 Prednisone; ss 13:40 TETRACYCLINES; ss - PMHx: 13:40 Bipolar disorder; cirrhosis of liver; Dementia; HepB; Hypertensive disorder; NIDDM; ss Pancreatitis; - PSHx: 13:40 back; eye sx; ss - Immunization history:: Adult Immunizations unknown. - Social history:: Smoking status: Patient reports the use of cigarette tobacco products, smokes one-half pack cigarettes per day. - Family history:: not pertinent. ROS: 15:25 Constitutional: Negative for fever, chills, and weight loss, Eyes: Negative for injury, gail pain, redness, and discharge, ENT: Negative for injury, pain, and discharge, Neck: Negative for injury, pain, and swelling, Cardiovascular: Negative for chest pain, palpitations, and edema, Respiratory: Negative for shortness of breath, cough, wheezing, and pleuritic chest pain, Back: Negative for injury and pain, : Negative for injury, bleeding, discharge, and swelling, MS/Extremity: Negative for injury and deformity, Skin: Negative for injury, rash, and discoloration, Neuro: Negative for headache, weakness, numbness, tingling, and seizure, Psych: Negative for depression, anxiety, suicide ideation, homicidal ideation, and hallucinations, Allergy/Immunology: Negative for hives, rash, and allergies, Endocrine: Negative for neck swelling, polydipsia, polyuria, polyphagia, and marked weight changes, Hematologic/Lymphatic: Negative for swollen nodes, abnormal bleeding, and unusual bruising. 15:25 Abdomen/GI: Positive for abdominal pain, abdominal cramps. Exam: 15:25 Constitutional: This is a well developed, well nourished patient who is awake, alert, gail and in no acute distress. Head/Face: Normocephalic, atraumatic. Eyes: Pupils equal round and reactive to light, extra-ocular motions intact. Lids and lashes normal. Conjunctiva and sclera are non-icteric and not injected. Cornea within normal limits. Periorbital areas with no swelling, redness, or edema. ENT: Nares patent. No nasal discharge, no septal abnormalities noted. Tympanic membranes are normal and external auditory canals are clear. Oropharynx with no redness, swelling, or masses, exudates, or evidence of obstruction, uvula midline. Mucous membranes moist. Neck: Trachea midline, no thyromegaly or masses palpated, and no cervical lymphadenopathy. Supple, full range of motion without nuchal rigidity, or vertebral point tenderness. No Meningismus. Chest/axilla: Normal chest wall appearance and motion. Nontender with no deformity. No lesions are appreciated. Cardiovascular: Regular rate and rhythm with a normal S1 and S2. No gallops, murmurs, or rubs. Normal PMI, no JVD. No pulse deficits. Respiratory: Lungs have equal breath sounds bilaterally, clear to auscultation and percussion. No rales, rhonchi or wheezes noted. No increased work of breathing, no retractions or nasal flaring. Back: No spinal tenderness. No costovertebral tenderness. Full range of motion. Male : Normal genitalia with no discharge or lesions. Skin: Warm, dry with normal turgor. Normal color with no rashes, no lesions, and no evidence of cellulitis. MS/ Extremity: Pulses equal, no cyanosis. Neurovascular intact. Full, normal range of motion. Neuro: Awake and alert, GCS 15, oriented to person, place, time, and situation. Cranial nerves II-XII grossly intact. Motor strength 5/5 in all extremities. Sensory grossly intact. Cerebellar exam normal. Normal gait. Psych: Awake, alert, with orientation to person, place and time. Behavior, mood, and affect are within normal limits. 15:25 Respiratory: the patient does not display signs of respiratory distress, Respirations: normal, Breath sounds: are clear throughout. 15:44 ECG was reviewed by the Attending Physician. [facility] Vital Signs: 13:41 BP 129 / 74; Pulse 84; Resp 17; Temp 98.9; Pulse Ox 100% on R/A; jl7 15:00 BP 165 / 84; Pulse 84; Pulse Ox 99% on R/A; kr3 16:00 BP 168 / 81; Pulse 82; Pulse Ox 99% on R/A; kr3 17:00 BP 168 / 88; Pulse 88; Resp 16; Pulse Ox 100% on R/A; kr3 18:53 BP 170 / 87; Pulse 82; Resp 16; Pulse Ox 99% on R/A; kr3 21:30 BP 129 / 92; Pulse 79; Resp 16; Temp 98.6(O); Pulse Ox 99% on R/A; ke1 Procedures: 16:20 Joint Treatment: Aspiration of left shoulder using 18 gauge needle, Removed 60 ml's of gail cloudy fluid, Specimen sent to lab. Dressed with band aid, Patient tolerated well. MDM: 14:20 Patient medically screened. gail 15:39 Differential Diagnosis altered mental status. Differential diagnosis: gastritis, gail non-specific abd pain, Peptic Ulcer Disease, cirrhosis , ascites, low volume. Data reviewed: vital signs, nurses notes, lab test result(s), EKG. 07/24 14:14 Order name: Basic Metabolic Panel [facility] 07/24 14:14 Order name: CBC with Diff; Complete Time: 15:55 [facility] 07/24 14:14 Order name: LFT's [facility] 07/24 14:14 Order name: Magnesium [facility] 07/24 14:14 Order name: NT PRO-BNP [facility] 07/24 14:14 Order name: PT-INR; Complete Time: 15:55 [facility] 07/24 14:14 Order name: Troponin HS [facility] 07/24 14:14 Order name: Lipase [facility] 07/24 14:14 Order name: AMMONIA; Complete Time: 15:56 [facility] 07/24 14:14 Order name: SARS RAPID; Complete Time: 15:25 [facility] 07/24 14:20 Order name: ETOH Level; Complete Time: 15:56 [facility] 07/24 14:20 Order name: Salicylate; Complete Time: 15:56 [facility] 07/24 14:14 Order name: XRAY Chest (1 view); Complete Time: 15:25 [facility] 07/24 14:14 Order name: EKG; Complete Time: 14:15 [facility] 07/24 14:20 Order name: Urine Drug Screen [facility] 07/24 15:17 Order name: Acetaminophen Level [facility] 07/24 15:17 Order name: PTT, Activated Partial Thromb; Complete Time: 15:55 [facility] 07/24 17:44 Order name: Glucose, Ancillary Testing; Complete Time: 21:58 [facility] 07/24 19:24 Order name: Heart Healthy [facility] 07/24 19:24 Order name: CBC with Automated Diff [facility] 07/24 19:24 Order name: CBC with Automated Diff [facility] 07/24 19:24 Order name: Comprehensive Metabolic Panel [facility] 07/24 19:24 Order name: Comprehensive Metabolic Panel [facility] 07/25 04:10 Order name: Glucose, Ancillary Testing [facility] 07/24 14:14 Order name: Cardiac monitoring; Complete Time: 14:24 [facility] 07/24 14:14 Order name: EKG - Nurse/Tech; Complete Time: 14:24 [facility] 07/24 14:14 Order name: IV Saline Lock; Complete Time: 18:27 [facility] 07/24 14:14 Order name: Labs collected and sent; Complete Time: 18:27 [facility] 07/24 14:14 Order name: O2 Per Protocol; Complete Time: 14:39 [facility] 07/24 14:14 Order name: O2 Sat Monitoring; Complete Time: 14:39 [facility] 07/24 14:20 Order name: Suicide Screening ([place]); Complete Time: 14:39 [facility] EC:44 Rate is 72 beats/min. Rhythm is regular. QRS [place] is Normal. OR interval is normal. QRS gail interval is normal. QT interval is prolonged at 540 msec. No Q waves. T waves are Normal. No ST changes noted. Clinical impression: NSR w/ Non-specific ST/T Changes and No evidence of ischemia. Interpreted by me. Reviewed by me. Administered Medications: 15:01 Drug: NS 0.9% 1000 ml Route: IV; Rate: 125 ml/hr; Site: right forearm; kr3 18:57 Follow up: Response: No adverse reaction; IV Status: Completed infusion; IV Intake: kr3 1000ml 16:28 Drug: Semglee 100 unit/mL 30 units Route: Sub-Q; Site: left upper arm; kr3 18:26 Follow up: Response: No adverse reaction kr3 16:40 Drug: Insulin Regular Human 8 units {Co-Signature: ll1 (Mejia Ca RN).} Route: IVP; kr3 Site: right antecubital; 18:27 Follow up: Response: No adverse reaction kr3 17:00 Drug: Lactulose 60 grams Volume: 45 ml; Route: PO; kr3 18:26 Follow up: Response: No adverse reaction kr3 Disposition Summary: 07/24/22 15:41 Hospitalization Ordered Provider: Jesus Becerra cha Condition: Stable gail Problem: new gail Symptoms: have improved gail Bed/Room Type: Standard gail Hospitalization Status: Inpatient Admission(07/24/22 15:55) gail Location: Telemetry/MedSurg (Inpatient)(07/25/22 03:40) bb Room Assignment: 412(07/25/22 03:40) bb Diagnosis - Unspecified cirrhosis of liver gail - Abdominal pain, Generalized gail - Weakness gail - Homelessness gail - Type 1 diabetes mellitus with hyperglycemia gail - Encephalopathy, unspecified - hepatic gail Forms: - Medication Reconciliation Form gail - SBAR form gail Critical care time excluding procedures: 16:21 Critical care time: Bedside Care: 30 minutes, Consultation: 20 minutes, Family gail Intervention: 10 minutes. Total time: 60 minutes Signatures: Dispatcher [employer] EDMS Thelma Salamanca RN RN mw Anderson, Corey, MD MD cha Ballard, Brenda RN Angela Plaza RN RN ss Leal, Jahala, RN RN Rosa Curry PA PA sb3 Rose Mcintyre RN RN kr3 Mejia Ca RN ll1 Corrections: (The following items were deleted from the chart) 15:16 14:21 ACETAMINOPHEN+C.LAB.BRZ ordered. EDMS EDMS 15:17 14:21 PTT, ACTIVATED+COAG.LAB.BRZ ordered. EDMS EDMS 15:55 15:41 Observation gail gail 15:55 15:41 Telemetry/MedSurg (observation) gail [facility] 15:55 15:41 gail [facility] 22:52 15:55 Telemetry/MedSurg (Inpatient) gail mw 22:52 15:55 [facility] mw 07/25 03:40 07/24 22:[address] [facility] 07/25 03:40 07/24 22:[address] [facility]
--- NOTE | 2022-07-24 15:42 | ER ---
Nurse's Notes [facility] Name: Amador Cosme Age: 56 yrs Sex: Male : 1965 Arrival Date: 07/24/2022 Time: 12:47 Bed 13 Private MD: Diagnosis: Unspecified cirrhosis of liver;Abdominal pain, Generalized;Weakness;Homelessness;Type 1 diabetes mellitus with hyperglycemia;Encephalopathy, unspecified-hepatic Presentation: 07/24 13:41 Chief complaint: Patient states: abdominal pain x 3-4 years and "I can't take care of jl7 myself." I want to go back to the custodial. Coronavirus screen: At this time, the client does not indicate any symptoms associated with coronavirus-19. Ebola Screen: No symptoms or risks identified at this time. Initial Sepsis Screen: Does the patient meet any 2 criteria? No. Patient's initial sepsis screen is negative. Does the patient have a suspected source of infection? No. Patient's initial sepsis screen is negative. Risk Assessment: Do you want to hurt yourself or someone else? Patient reports no desire to harm self or others. Onset of symptoms is unknown. 13:41 Method Of Arrival: Ambulatory jl7 13:41 Acuity: DAO 3 jl7 Triage Assessment: 13:41 General: Appears in no apparent distress. uncomfortable, Behavior is calm, cooperative. jl7 Pain: Complains of pain in abdomen. GI: Reports lower abdominal pain, upper abdominal pain. Historical: - Allergies: 13:40 Prednisone; ss 13:40 TETRACYCLINES; ss - PMHx: 13:40 Bipolar disorder; cirrhosis of liver; Dementia; HepB; Hypertensive disorder; NIDDM; ss Pancreatitis; - PSHx: 13:40 back; eye sx; ss - Immunization history:: Adult Immunizations unknown. - Social history:: Smoking status: Patient reports the use of cigarette tobacco products, smokes one-half pack cigarettes per day. - Family history:: not pertinent. Screenin:49 Abuse screen: Denies threats or abuse. Nutritional screening: Has had N/V for 3 or more kr3 days. Tuberculosis screening: No symptoms or risk factors identified. Fall Risk IV access (20 points). Gait- Weak (10 pts.). Total Segura Fall Scale indicates Low Risk Score (25-44 pts). Fall prevention measures have been instituted. Side Rails Up X 2 Placed close to Nursing Station Frequent Obs/Assesments occuring As available Patient and Family Educated on Fall Prevention Program and strategies. Assessment: 14:40 Reassessment: No changes from previously documented assessment. Patient and/or family kr3 updated on plan of care and expected duration. Pain level reassessed. pt denies SI or HI at this time. 15:45 Reassessment: No changes from previously documented assessment. Patient and/or family kr3 updated on plan of care and expected duration. Pain level reassessed. 16:45 Reassessment: No changes from previously documented assessment. Patient and/or family kr3 updated on plan of care and expected duration. Pain level reassessed. 17:45 Reassessment: No changes from previously documented assessment. Patient and/or family kr3 updated on plan of care and expected duration. Pain level reassessed. 18:56 Reassessment: No changes from previously documented assessment. Patient and/or family kr3 updated on plan of care and expected duration. Pain level reassessed. Vital Signs: 13:41 BP 129 / 74; Pulse 84; Resp 17; Temp 98.9; Pulse Ox 100% on R/A; jl7 15:00 BP 165 / 84; Pulse 84; Pulse Ox 99% on R/A; kr3 16:00 BP 168 / 81; Pulse 82; Pulse Ox 99% on R/A; kr3 17:00 BP 168 / 88; Pulse 88; Resp 16; Pulse Ox 100% on R/A; kr3 18:53 BP 170 / 87; Pulse 82; Resp 16; Pulse Ox 99% on R/A; kr3 21:30 BP 129 / 92; Pulse 79; Resp 16; Temp 98.6(O); Pulse Ox 99% on R/A; ke1 ED Course: 12:47 Patient arrived in ED. mr 13:14 Libby Ruiz FNP-C is PHCP. snw 13:14 James Uriarte MD is Attending Physician. snw 13:41 Arm band placed on right wrist. jl7 13:45 Triage completed. jl7 13:46 Patient placed in an exam room, on a stretcher. ll1 14:11 James Uriarte MD is Attending Physician. gail 14:30 Rose Mcintyre, RN is Primary Nurse. kr3 14:32 SARS RAPID Sent. ll1 14:47 XRAY Chest (1 view) In Process Unspecified. EDMS 14:50 Patient has correct armband on for positive identification. Bed in low position. Call kr3 light in reach. Side rails up X 1. 15:01 Inserted saline lock: 20 gauge in right antecubital area, using aseptic technique. kr3 15:40 Jesus Becerra MD is Hospitalizing Provider. [facility] 07/25 03:54 No provider procedures requiring assistance completed. IV discontinued. ke1 Administered Medications: 07/24 15:01 Drug: NS 0.9% 1000 ml Route: IV; Rate: 125 ml/hr; Site: right forearm; kr3 18:57 Follow up: Response: No adverse reaction; IV Status: Completed infusion; IV Intake: kr3 1000ml 16:28 Drug: Semglee 100 unit/mL 30 units Route: Sub-Q; Site: left upper arm; kr3 18:26 Follow up: Response: No adverse reaction kr3 16:40 Drug: Insulin Regular Human 8 units {Co-Signature: ll1 (Mejia Ca RN).} Route: IVP; kr3 Site: right antecubital; 18:27 Follow up: Response: No adverse reaction kr3 17:00 Drug: Lactulose 60 grams Volume: 45 ml; Route: PO; kr3 18:26 Follow up: Response: No adverse reaction kr3 Medication: 14:50 VIS not applicable for this client. kr3 Intake: 18:57 IV: 1000ml; Total: 1000ml. kr3 Outcome: 15:41 Decision to Hospitalize by Provider. [facility] 07/25 03:54 Discharged to home ambulatory. ke1 Condition: good Condition: good Discharge instructions given to patient. 04:28 Patient left the ED. ke1 Signatures: Dispatcher [employer] ANABELMS James Uriarte MD MD cha Waters, Shelly, DISABILITY EXAMINER-C DISABILITY EXAMINER-Karina Marietta Hines Angela Brown, Stevo Bell RN, RN RN jl7 Lewis, Lynsay, RN RN ll1 Da Mccartney RN RN ke1 Rose Mcintyre RN RN kr3 Mejia Ca RN ll1 Corrections: (The following items were deleted from the chart) 07/24 18:29 14:40 Reassessment: No changes from previously documented assessment. Patient and/or kr3 family updated on plan of care and expected duration. Pain level reassessed. kr3
[2022-07-24 15:53] LABS: ALT/SGPT 68 U/L (12-78); AST/SGOT 31 U/L (15-37); Albumin 2.9 g/dL (3.4-5.0); Alkaline Phosphatase 134 U/L (45-117); BUN Blood Urea Nitrogen 14 mg/dL (7-18); Bicarbonate 23 mmol/L (21-32); Bilirubin Direct 0.7 mg/dL (0-0.2); Bilirubin Total 2.1 mg/dL (0.2-1.0); Glomerular Filtration Rate 87 ml/min (=/>90); Lipase 160 U/L (73-393); Magnesium 2.1 mg/dL (1.8-2.4); Potassium 3.9 mmol/L (3.5-5.1); Protein, Total 6.4 g/dL (6.4-8.2); Sodium Level 139 mmol/L (136-145); Troponin High Sensitivity 5.9 pg/mL (<58.9)
[2022-07-24 15:55] LABS: Glucose Level 444 mg/dL (74-106)
[2022-07-24] MEDS ORDERED: LACTULOSE 20 GM/30 ML UCUP ONE (16:32)
[2022-07-24] MEDS ORDERED: INSULIN GLARGINE 100 UNIT/ML SQ ONE (16:35)
[2022-07-24] MEDS ORDERED: INSULIN -REGULAR HUMAN 50 UNIT/0.5 ML ML ONE (16:43)
[2022-07-24] MEDS ORDERED: ACETAMINOPHEN 500 MG TAB PO PRN (19:19)
[2022-07-24] MEDS ORDERED: ONDANSETRON 4 MG/2 ML VIAL IV PRN (19:19)
[2022-07-24] MEDS ORDERED: HYDROCODONE/APAP 10/325 TAB PO PRN (19:22)
[2022-07-25 02:21] VITALS: BMI 22.7
[2022-07-25] MEDS ORDERED: GLUCAGON 1 MG/VIAL IM PRN (03:49)
[2022-07-25] MEDS ORDERED: D50W 25 GM/50 ML SYRINGE IV PRN (03:49)
[2022-07-25] MEDS: MORPHINE 2 MG/ML SYR IV PRN ×5 (05:17→22:18)
--- NOTE | 2022-07-25 05:38 | EKG ---
Test Date: 2022-07-24 Test Time: 14:25:40 Acute Dialysis Registered Nurse: CHARMAINE MEASUREMENT RESULTS: Intervals: Rate: 72 ND: 168 QRSD: 82 QT: 494 QTc: 540 [place]: P: 54 ND: 168 QRS: 75 T: 22 INTERPRETIVE STATEMENTS: Normal sinus rhythm Prolonged QT Abnormal ECG Compared to ECG 07/04/2022 03:36:22 Prolonged QT interval now present Myocardial infarct finding no longer present Electronically Signed On 07-25-22 05:37:47 CDT by Dixon Guy
[2022-07-25 07:17] LABS: NT PRO-BNP 29
[2022-07-25] MEDS: INSULIN -REGULAR HUMAN 50 UNIT/0.5 ML ML SQ SCH ×4 (07:55→21:08)
--- NOTE | 2022-07-25 10:06 | P.HP ---
Certification for Inpatient Patient admitted to: Observation With expected LOS: <2 Midnights Patient will require the following post-hospital care: Hospice Practitioner: I am a practitioner with admitting privileges, knowledge of patient current condition, hospital course, and medical plan of care. Services: Services provided to patient in accordance with Admission requirements found in Title 42 Section 412.3 of the Code of Federal Regulations Patient History Date of Service: 07/24/22 Reason for admission: patient is requesting hospice placement at nursing facility History of Present Illness: patient is a 56-year-old gentleman with liver mass which has been suspected to be hepatocellular carcinoma because of portal vein thrombosis. Patient is a chronic alcohol abuser. He has been arranged for hospice placement on few occasions. He is homeless so he does not really have anywhere to go. He does not want to be resuscitated. He comes to the ER because he is weak and he has been losing weight. He is requesting assistance with hospice placement. I had a long talk with patient and he states that if he goes to a nursing facility he will go and to the nursing facility under hospice care. He states he will not leave any longer. He understands that if he does that there is no need for him to return to the hospital if he is not willing to accept the help we are giving. At this time will admit him for observation and hopefully we can get him placed into inpatient hospice. Allergies prednisone Allergy (Verified 07/01/22 18:29) Rash Tetracyclines Allergy (Verified 07/01/22 18:29) Rash Home Medications: Insulin -Regular Human [Novolin -R*] See Protocol SQ ACHS ml 07/19/22 Insulin Glargine,Hum.rec.anlog [Semglee] 15 unit SQ BID ml 07/19/22 Lactulose [Cephulac*] 15 ml PO BIDL 07/19/22 - Past Medical/Surgical History Has patient received pneumonia vaccine in the past: No Diabetic: Yes -: Alcoholic liver cirrhosis -: Hypertension -: Diabetes mellitusinsulin-dependent -: Chronic tobacco use history -: Dementia as per records -: chronic pancreatitis -: sciatica -: bilateral rotator cuff tear (untreated) -: Eye surgery (lasix right eye) -: Previous paracentesis Psychosocial/ Personal History: Patient currently lives at home alone. - Family History Mother Medical History: Heart disease, Hypertension - Social History Smoking Status: Current some day smoker Alcohol use: No CD- Drugs: No Caffeine use: No Place of Residence: Home Review of Systems 10-point ROS is otherwise unremarkable Physical Examination - Vital Signs Temperature: 97.7 F Blood Pressure: 123/76 Pulse: 71 Respirations: 14 Pulse Ox (%): 100 - Physical Exam General: Alert, In no apparent distress, Oriented x3, Cachectic, Disheveled HEENT: Atraumatic, PERRLA, Mucous membr. moist/pink, EOMI, Sclerae nonicteric Neck: Supple, 2+ carotid pulse no bruit, No LAD, Without JVD or thyroid abnormality Respiratory: Clear to auscultation bilaterally, Normal air movement Cardiovascular: Regular rate/rhythm, Normal S1 S2, No murmurs Gastrointestinal: Normal bowel sounds, Soft and benign, Non-distended, No rebound, No guarding, Tenderness Musculoskeletal: No tenderness Integumentary: No rashes Neurological: Normal gait, Normal speech, Normal tone, Normal affect, Abnormal strength Lymphatics: No axilla or inguinal lymphadenopathy - Studies Laboratory Data (last 24 hrs) 07/24/22 14:57: PT 15.1 H, INR 1.36, APTT 30.9 07/24/22 14:57: WBC 3.20 L D, Hgb 10.6 L, Hct 30.2 L, Plt Count 97 L 07/24/22 14:57: Sodium 139, Potassium 3.9, BUN 14, Creatinine 1.01, Glucose 444 H*, Magnesium 2.1, Total Bilirubin 2.1 H, AST 31, ALT 68, Alkaline Phosphatase 134 H, Lipase 160 07/24/22 14:20: APTT Cancelled Assessment & Plan - Problems (Diagnosis) (1) Portal vein thrombosis Current Visit: No Status: Acute (2) Alcoholic cirrhosis of liver with ascites Current Visit: No Status: Chronic (3) Hepatic encephalopathy Current Visit: No Status: Chronic (4) T2DM (type 2 diabetes mellitus) Current Visit: No Status: Chronic Qualifiers: (5) Liver cancer Current Visit: Yes Status: Acute - Plan Plan: 1. Patient requesting hospice care 2. Patient is a do not attempt resuscitation 3. patient hoping to get inpatient hospice; once this is placed patient is stable for discharge 4. supportive care with pain medication and nutrition Discharge Plan: Other Plan to discharge in: 48 Hours - Advance Directives Does patient have a Living Will: No Does patient have a Durable POA for Healthcare: No - Code Status/Comfort Care Code Status Assessed: Yes Code Status: Do Not Attempt Resuscitat Critical Care: No Time Spent Managing PTS Care (In Minutes): 45
--- NOTE | 2022-07-25 16:39 | P.PN ---
Subjective Date of Service: 07/25/22 Chief Complaint: patient is requesting hospice placement at nursing facility Subjective: No new changes No acute events overnight. He denies any pain or discomfort with his current pain regimen. He is awaiting placement into hospice. Review of Systems 10-point ROS is otherwise unremarkable Physical Examination - Vital Signs Temperature: 97.9 F Blood Pressure: 144/81 Pulse: 67 Respirations: 14 Pulse Ox (%): 100 - Physical Exam General: Alert, In no apparent distress, Oriented x3 HEENT: Atraumatic, PERRLA, Mucous membr. moist/pink, EOMI, Sclerae nonicteric Neck: Supple, JVD not distended Respiratory: Clear to auscultation bilaterally, Normal air movement Cardiovascular: No edema, Regular rate/rhythm Gastrointestinal: Normal bowel sounds, Soft and benign, Non-distended, No tenderness, No rebound, No guarding Musculoskeletal: No clubbing Integumentary: No rashes Neurological: Normal speech, Cranial nerves 3-12 intact, Normal affect Assessment And Plan - Plan # Liver Mass - Presumed Hepatocellular Carcinoma # Alcoholic Cirrhosis complicated by Portal Vein Thrombosis and Recurrent Episodes of Hepatic Encephalopathy # Type II Diabetes Mellitus # Chronic Pancreatitis # Hypertension # Tobacco Use Disorder - He is interested in pursuing hospice service - Case management consulted and spoke with Viky - She is working on hospice acceptance - Comfort care measures - Plan for possible discharge tomorrow if accepted into hospice Daryl Glynn M.D. Discharge Plan: Home Plan to discharge in: 24 Hours - Code Status/Comfort Care Comfort Measures: Hospice Care
[2022-07-26] MEDS: MORPHINE 2 MG/ML SYR IV PRN ×6 (02:38→23:57)
[2022-07-26] MEDS: INSULIN -REGULAR HUMAN 50 UNIT/0.5 ML ML SQ SCH ×4 (08:25→21:00)
[2022-07-26] MEDS: LACTULOSE 20 GM/30 ML UCUP PO PRN (15:34)
--- NOTE | 2022-07-26 22:57 | P.PN ---
Subjective Date of Service: 07/26/22 Chief Complaint: patient is requesting hospice placement at nursing facility No acute events overnight. He states that he is doing well at this time. He is awaiting placement into hospice. Review of Systems 10-point ROS is otherwise unremarkable Physical Examination - Vital Signs Temperature: 97.2 F Blood Pressure: 141/85 Pulse: 73 Respirations: 16 Pulse Ox (%): 100 Assessment And Plan - Plan - Physical Exam General: Alert, In no apparent distress, Oriented x3 HEENT: Atraumatic, PERRLA, Mucous membr. 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 Awaiting acceptance into [facility]. Daryl Glynn M.D. - Code Status/Comfort Care Comfort Measures: Hospice Care
[2022-07-27 03:09] VITALS: O2SAT 100
[2022-07-27] MEDS: LACTULOSE 20 GM/30 ML UCUP PO PRN ×2 (03:48→15:40)
[2022-07-27] MEDS: MORPHINE 2 MG/ML SYR IV PRN ×3 (03:57→15:36)
[2022-07-27] MEDS: INSULIN -REGULAR HUMAN 50 UNIT/0.5 ML ML SQ SCH ×3 (08:11→16:30)
[2022-07-27 12:43] VITALS: TEMP 97.6
[2022-07-27 16:35] VITALS: BP 153/92
--- NOTE | 2022-07-27 16:49 | P.DS ---
Admission Date: 07/24/22 Discharge Date: 07/27/22 Disposition: HOSPICE-HOME Discharge Condition: FAIR Reason for Admission: patient is requesting hospice placement at nursing facility Consultations: 1. 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 Thaddeus Cosme is a 56 year old male with a past medical history significant for alcoholic cirrhosis complicated by portal vein thrombosis and recurrent episodes of hepatic encephalopathy, presumed hepatocellular carcinoma, chronic pancreatitis, type 2 diabetes mellitus, hypertension, and tobacco use disorder who was admitted to the [facility] on 07/24/2022 for assistance with hospice placement. He was admitted to the Medicine service. He has been admitted several times in the past and given his poor prognosis has elected to enroll in hospice services. With the assistance of case management, hospice was arranged with [facility]. On 07/27/2022, he was seen on morning rounds and deemed medically stable for discharge. He was given the opportunity to ask questions and reported no further questions. Furthermore, all questions were answered to the best of my ability. Today, I personally spent 20 minutes on his case, of which greater than 50% of the time was spent in patient education, counseling, and coordination of care as described above. Physical Exam General: Alert, In no apparent distress, Oriented x3 HEENT: Atraumatic, PERRLA, Mucous membr. moist/pink, EOMI, Sclerae nonicteric Neck: Supple, JVD not distended Respiratory: Clear to auscultation bilaterally, Normal air movement Cardiovascular: No edema, Regular rate/rhythm Gastrointestinal: Normal bowel sounds, Soft and benign, Non-distended, No tenderness, No rebound, No guarding Musculoskeletal: No clubbing Integumentary: No rashes Neurological: Normal speech, Cranial nerves 3-12 intact, Normal affect Vital Signs/Physical Exam: Temp Pulse Resp BP Pulse Ox 97.6 F 79 18 153/92 H 100 07/27/22 16:00 07/27/22 16:00 07/27/22 16:06 07/27/22 16:00 07/27/22 16:06 Laboratory Data at Discharge: WBC 3.20 K/uL (4.3-10.9) L D 07/24/22 14:57 Hgb 10.6 g/dL (13.6-17.9) L 07/24/22 14:57 Hct 30.2 % (39.6-49.0) L 07/24/22 14:57 Plt Count 97 K/uL (152-406) L 07/24/22 14:57 PT 15.1 SECONDS (9.5-12.5) H 07/24/22 14:57 INR 1.36 07/24/22 14:57 APTT 30.9 SECONDS (24.3-36.9) 07/24/22 14:57 Sodium 139 mmol/L (136-145) 07/24/22 14:57 Potassium 3.9 mmol/L (3.5-5.1) 07/24/22 14:57 BUN 14 mg/dL (7-18) 07/24/22 14:57 Creatinine 1.01 mg/dL (0.55-1.3) 07/24/22 14:57 Glucose 444 mg/dL (74-106) H* 07/24/22 14:57 Magnesium 2.1 mg/dL (1.8-2.4) 07/24/22 14:57 Total Bilirubin 2.1 mg/dL (0.2-1.0) H 07/24/22 14:57 AST 31 U/L (15-37) 07/24/22 14:57 ALT 68 U/L (12-78) 07/24/22 14:57 Alkaline Phosphatase 134 U/L (45-117) H 07/24/22 14:57 Lipase 160 U/L (73-393) 07/24/22 14:57 Home Medications: RX: Insulin -Regular Human [Novolin -R*] See Protocol SQ ACHS ml 07/19/22 RX: Insulin Glargine,Hum.rec.anlog [Semglee] 15 unit SQ BID ml 07/19/22 RX: Lactulose [Cephulac*] 15 ml PO BIDL 07/19/22 Physician Discharge Instructions: 1. Please follow-up with Hospice as needed Diet: Regular Activity: Ad ty Followup: NONE,NONE [Primary Care Provider] -
== END 2022-07-27 17:07 | disposition hospice, home (50) ==
LOC: ER 12:46 → ERHOLD 19:19 → 4TH 07-25 04:09
PROVIDERS: ADMIT Hospitalist; ATTEND Internal Medicine
DX: K72.10 Chronic hepatic failure without coma (principal); I81 Portal vein thrombosis; R16.0 Hepatomegaly, not elsewhere classified; K70.30 Alcoholic cirrhosis of liver without ascites; E11.65 Type 2 diabetes mellitus with hyperglycemia; F10.10 Alcohol abuse, uncomplicated; I10 Essential (primary) hypertension; K86.1 Other chronic pancreatitis; F17.210 Nicotine dependence, cigarettes, uncomplicated; Z88.8 Allergy status to other drugs, medicaments and biological substances; Z79.4 Long term (current) use of insulin; Z59.00 Homelessness unspecified; Z51.5 Encounter for palliative care; Z20.822 Contact with and (suspected) exposure to COVID-19; Z88.3 Allergy status to other anti-infective agents
CPT/HCPCS: 96361; 93005; 85025; 80048; 36415; 80320; 82140; 83735; 80329 ×2; 85610; 82947 ×14; 80076; 85730; 84484; 83690; 83880; 71045; 96372; 96374; 99284; 87811; J1815 ×12; J2270 ×13; G0378 ×6; J7030